=== PATIENT | female | born 1940 | race Caucasian/White ===

== ENCOUNTER 2017-01-27 18:38 | Inpatient (IN) | payer MEDICARE, OTHER ==
[2017-01-27] MEDS ORDERED: ACETAMINOPHEN TAB 500 MG TAB PO STA (18:43)
[2017-01-27] MEDS ORDERED: IBUPROFEN 600 MG TAB PO STA (18:43)
--- NOTE | 2017-01-27 18:52 | ED ---
General Adult HPI - General Stated complaint: UTI Time Seen by Provider: 01/27/17 18:41 Source: patient, RN notes reviewed Mode of arrival: EMS Limitations: no limitations - History of Present Illness Initial comments: 76-year-old female presents to the emergency department with a chief complaint of fever and weakness concern for UTI. Patient states that her illness started last night around 6:00. Patient states that she feels as if she is progressively getting worse. Patient does admit to a history of UTIs due to her spina bifida. Patient denies any nausea vomiting with this. Patient denies any abdominal pain. Patient denies any cough cold like symptoms. Patient states she just feels increased weakness. Patient states he took aspirin at home for her fever reoccurred. Patient states she was concerned due to the continued fever and increasing weakness so she thought that she should be evaluated. Patient denies any recent shortness of breath, chest pain, back pain, abdominal pain, nausea vomiting, numbness or tingling, dysuria or hematuria, constipation or diarrhea, headaches or visual changes, or any other current symptoms. - Related Data Home Medications Medication Instructions Recorded Confirmed Calcium Carbonate [Calcium] 600 mg PO DAILY 01/27/17 01/27/17 Glimepiride [Amaryl] 2 mg PO BID 01/27/17 01/27/17 Levothyroxine Sodium [Synthroid] 75 mcg PO DAILY 01/27/17 01/27/17 Losartan Potassium 100 mg PO DAILY 01/27/17 01/27/17 Vit C/E/Zn/Coppr/Lutein/Zeaxan 1 cap PO DAILY 01/27/17 01/27/17 [Preservision Areds 2 Softgel] amLODIPine [Norvasc] 5 mg PO DAILY 01/27/17 01/27/17 Allergies Allergy/AdvReac Type Severity Reaction Status Date / Time No Known Allergies Allergy Verified 01/27/17 18:40 Review of Systems ROS Statement: Those systems with pertinent positive or pertinent negative responses have been documented in the HPI. ROS Other: All systems not noted in ROS Statement are negative. 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 Past Psychological History: No Psychological Hx Reported Smoking Status: Never smoker Past Alcohol Use History: None Reported Past Drug Use History: None Reported General Exam - General Exam Comments Initial Comments: General: The patient is awake and alert, in no distress, and does appear ill. Eye: Pupils are equal, round and reactive to light. Ears, nose, mouth and throat: There are moist mucous membranes. Neck: The neck is supple, there is no tenderness. Cardiovascular: There is a regular rate and rhythm. No murmur, rub or gallop is appreciated. Respiratory: Lungs are clear to auscultation, respirations are non-labored, breath sounds are equal. No wheezes, stridor, rales, or rhonchi. Gastrointestinal: Soft, non-distended, non-tender abdomen without masses or organomegaly noted. There is no rebound or guarding present. No CVA tenderness. Bowel sounds are unremarkable. Skin: Skin is warm and dry and no rashes or lesions are noted. Psychiatric: Cooperative, appropriate mood & affect, normal judgment. Limitations: no limitations Course Vital Signs 01/27/17 18:42 Temperature 101.0 F H Pulse Rate 122 H Respiratory 18 Rate Blood Pressure 159/83 O2 Sat by Pulse 95 Oximetry - Reevaluation(s) Reevaluation #1: 01/27/17 19:33 At this time patient meets septic criteria. We are still pending a lactic acid to see if she requires in the appropriate fluid bolus. Medical Decision Making - Medical Decision Making 76 yo female Presents emergency Department chief complaint of fever and weakness. At this time patient does appear to be septic. Rocephin was started for the patient's UTI. This time we will admit the patient. This is discussed with patient as well as on-call provider Dr. Rivera who does agree with the plan. - Lab Data Result diagrams: 01/27/17 19:20 Lab Results 01/27/17 01/27/17 Range/Units 18:58 19:20 WBC 14.2 H (3.8-10.6) k/uL RBC 4.94 (3.80-5.40) m/uL Hgb 14.3 (11.4-16.0) gm/dL Hct 42.4 (34.0-46.0) % MCV 85.9 (80.0-100.0) fL MCH 28.9 (25.0-35.0) pg MCHC 33.7 (31.0-37.0) g/dL RDW 12.7 (11.5-15.5) % Plt Count 227 (150-450) k/uL Neutrophils % 85 % Lymphocytes % 5 % Monocytes % 8 % Eosinophils % 1 % Basophils % 0 % Neutrophils # 12.1 H (1.3-7.7) k/uL Lymphocytes # 0.7 L (1.0-4.8) k/uL Monocytes # 1.1 H (0-1.0) k/uL Eosinophils # 0.1 (0-0.7) k/uL Basophils # 0.1 (0-0.2) k/uL Urine Color Yellow Urine Appearance Turbid H (Clear) Urine pH 6.0 (5.0-8.0) Ur Specific [place] 1.013 (1.001-1.035) Urine Protein 2+ H (Negative) Urine Glucose (UA) Negative (Negative) Urine Ketones 1+ H (Negative) Urine Blood Moderate H (Negative) Urine Nitrite Negative (Negative) Urine Bilirubin Negative (Negative) Urine Urobilinogen <2.0 (<2.0) mg/dL Ur Leukocyte Esterase Large H (Negative) Urine RBC 47 H (0-5) /hpf Urine WBC >182 H (0-5) /hpf Urine WBC Clumps Many H (None) /hpf Urine Bacteria Rare H (None) /hpf - EKG Data -: EKG Interpreted by Me 01/27/17 19:14 Sinus tachycardia 113 bpm, normal axis, no atopy, no S-T depressions or elevations, - Radiology Data Radiology results: image reviewed Interpreted by me: Chest x-ray: 2 view: Poor imaging however there is little suspicion for an acute infiltrate. Pending radiology interpretation. Disposition Clinical Impression: Sepsis, UTI (urinary tract infection) Disposition: ADMITTED IP TO THIS [facility] Condition: Stable Referrals: Dennis Dawson MD [Primary Care Provider] - 1-2 days Time of Disposition: 19:42 Decision Date: 01/27/17 Decision Time: 19:42
[2017-01-27 19:30] LABS: Appearance,Urine Turbid (Clear); Bacteria,Urine Rare /hpf; Bilirubin,Urine Negative (Negative); Glucose,Urine (UA) Negative (Negative); Ketones,Urine 1+ (Negative); Leukocyte Esterase,Urine Large (Negative); Nitrite,Urine Negative (Negative); Particle Count 30089; Protein,Urine 2+ (Negative); RBC,Urine 47 /hpf (0-5); Specific Gravity,Urine 1.013 (1.001-1.035); UA Billing (MACRO vs. MICRO) MICRO; Urobilinogen,Urine <2.0 mg/dL (<2.0); WBC,Urine >182 /hpf (0-5)
[2017-01-27 19:36] LABS: Basophils # (A) 0.1 k/uL (0-0.2); Basophils % (A) 0 %; CH 29.2; CHCM 34.1; Eosinophils # (A) 0.1 k/uL (0-0.7); Eosinophils % (A) 1 %; HCT 42.4 % (34.0-46.0); HDW 2.52; HGB 14.3 gm/dL (11.4-16.0); Luc # (Auto) 0.18; Luc % (Auto) 1; Lymphocytes # (A) 0.7 k/uL (1.0-4.8); Lymphocytes % (A) 5 %; MCH 28.9 pg (25.0-35.0); MCHC 33.7 g/dL (31.0-37.0); MCV 85.9 fL (80.0-100.0); Mean Platelet Volume 6.8; Monocytes # (A) 1.1 k/uL (0-1.0); Monocytes % (A) 8 %; Neutrophils # (A) 12.1 k/uL (1.3-7.7); Neutrophils % (A) 85 %; RBC 4.94 m/uL (3.80-5.40); RDW 12.7 % (11.5-15.5); WBC 14.2 k/uL (3.8-10.6); WBC (Perox) 13.91
[2017-01-27] MEDS: SODIUM CHLORIDE 0.9% 500 ML IV SCH ×4 (19:39→22:55)
[2017-01-27 19:43] LABS: ALT 30 U/L (9-52); AST 19 U/L (14-36); Alkaline Phosphatase 109 U/L (38-126); Anion Gap 11 mmol/L; Blood Urea Nitrogen 25 mg/dL (7-17); Calcium 8.9 mg/dL (8.4-10.2); Carbon Dioxide 25 mmol/L (22-30); Chloride 97 mmol/L (98-107); Glucose 285 mg/dL (74-99); Non-African American GFR(MDRD) >60 (>60 ml/min/1.73 sqM); Potassium 4.2 mmol/L (3.5-5.1); Sodium 133 mmol/L (137-145)
--- NOTE | 2017-01-27 19:56 | XR ---
EXAMINATION TYPE: XR chest 2V DATE OF EXAM: 01/27/2017 7:39 PM COMPARISON: 06/17/2010 HISTORY: Fever and weakness TECHNIQUE: Frontal and lateral views of the chest are obtained. FINDINGS: There is no heart failure nor confluent pneumonic infiltrate. Exam is limited by the patie nt's size. I see no pleural effusion. IMPRESSION: No active cardiopulmonary disease. No change.
[2017-01-27 20:09] LABS: INR 1.1 (<1.1); Partial Thromboplastin Time 23.9 sec (22.0-30.0); Prothrombin Time 11.4 sec (9.0-12.0)
[2017-01-27 22:21] VITALS: BMI 45.8
[2017-01-27] MEDS: GLIMEPIRIDE 2 MG TAB PO SCH (22:51)
[2017-01-27] MEDS: SODIUM CHLORIDE 0.45% 1,000 ML IV SCH (22:52)
[2017-01-28 03:34] LABS: Glucose,Whole Blood 245 mg/dL (75-99)
[2017-01-28 04:00] LABS: Basophils % (A) 0 %; CH 28.9; Eosinophils # (A) 0.1 k/uL (0-0.7); Eosinophils % (A) 1 %; HCT 46.6 % (34.0-46.0); HDW 2.58; HGB 15.3 gm/dL (11.4-16.0); Luc # (Auto) 0.08; Luc % (Auto) 1; Lymphocytes # (A) 0.9 k/uL (1.0-4.8); Lymphocytes % (A) 9 %; MCHC 32.9 g/dL (31.0-37.0); MCV 88.1 fL (80.0-100.0); Mean Platelet Volume 6.8; Monocytes # (A) 0.3 k/uL (0-1.0); Monocytes % (A) 3 %; Neutrophils # (A) 8.3 k/uL (1.3-7.7); Neutrophils % (A) 86 %; RBC 5.28 m/uL (3.80-5.40); RDW 12.6 % (11.5-15.5); WBC 9.7 k/uL (3.8-10.6); WBC (Perox) 9.83
[2017-01-28] MEDS ORDERED: amLODIPine 5 MG TAB PO ONE (04:04)
[2017-01-28] MEDS ORDERED: LOSARTAN 50 MG TAB PO STA (04:06)
[2017-01-28] MEDS ORDERED: ONDANSETRON 4 MG/2 ML VIAL IVP PRN (04:07)
[2017-01-28] MEDS ORDERED: HYDROcodone/APAP 10-325MG 1 EACH TAB PO PRN (04:07)
[2017-01-28 04:09] LABS: ALT 32 U/L (9-52); AST 30 U/L (14-36); Alkaline Phosphatase 124 U/L (38-126); Anion Gap 13 mmol/L; Blood Urea Nitrogen 21 mg/dL (7-17); Calcium 8.5 mg/dL (8.4-10.2); Carbon Dioxide 24 mmol/L (22-30); Chloride 103 mmol/L (98-107); Glucose 266 mg/dL (74-99); Non-African American GFR(MDRD) >60 (>60 ml/min/1.73 sqM); Potassium 3.8 mmol/L (3.5-5.1); Sodium 140 mmol/L (137-145); Total Bilirubin 0.7 mg/dL (0.2-1.3); Total Protein 7.4 g/dL (6.3-8.2)
[2017-01-28] MEDS ORDERED: SODIUM CHLORIDE 0.9% 500 ML IV ONE (04:16)
[2017-01-28] MEDS: SODIUM CHLORIDE 0.45% 1,000 ML IV SCH ×2 (06:46→11:06)
[2017-01-28] MEDS: GLIMEPIRIDE 2 MG TAB PO SCH ×2 (08:26→20:41)
[2017-01-28] MEDS: CALCIUM CARBONATE 500 MG CHEWABLE PO SCH (08:26)
[2017-01-28] MEDS: LEVOTHYROXINE 75 MCG TAB PO SCH (08:26)
[2017-01-28] MEDS: VIT A,C & E-LUTEIN-MINERALS 1 EACH TAB PO SCH (08:27)
[2017-01-28] MEDS ORDERED: amLODIPine 5 MG TAB PO SCH (09:00)
[2017-01-28] MEDS ORDERED: cefTRIAXone 1,000 MG VIAL (IM USE) IM SCH (09:00)
[2017-01-28] MEDS ORDERED: LOSARTAN 50 MG TAB PO SCH (09:00)
[2017-01-28] MEDS: IBUPROFEN 600 MG TAB PO PRN ×2 (11:31→20:07)
[2017-01-28] MEDS: SODIUM CHLORIDE 0.9% 1,000 ML IV SCH ×2 (11:58→20:45)
--- NOTE | 2017-01-28 14:32 | HP ---
DATE OF ADMISSION: Patient is a 76-year-old female who came in with complaints of fever and generalized weakness and found to have a high-grade fevers and patient has history of spina bifida because of which patient has a urinary retention leading to multiple UTIs in the past, although previous urine cultures are unavailable. Patient was also having nausea, vomiting and patient denied any dysuria. Patient had a high-grade fever starting day before and weakness started day before. Patient denied any lightheadedness. Patient denied any diarrhea at this point of time. Patient was evaluated by Urology in the past for urinary retention and incomplete emptying of the bladder which is making her to have at these multiple UTIs and patient is admitted for sepsis with highly elevated lactic acid and leukocytosis. Lactic acid which improved with IV fluid resuscitation. Patient is on Rocephin with significantly improved symptoms. Patient is feeling much better today. REVIEW OF SYSTEMS: GENERAL: As describe in HPI. HEENT: No recent visual problems or hearing problems. Denied any sore throat. CARDIOVASCULAR: No chest pain, orthopnea, PND, no palpitations, no syncope. PULMONARY: No shortness of breath, no cough, no hemoptysis. GASTROINTESTINAL: No diarrhea, no nausea, no vomiting, no abdominal pain. Normoactive bowel sounds. NEUROLOGICAL: No headaches, no weakness, no numbness. HEMATOLOGICAL: Denies any bleeding or petechiae. GENITOURINARY: Denies any burning micturition, frequency, or urgency. MUSCULOSKELETAL/RHEUMATOLOGICAL: Denies any joint pain, swelling, or any muscle pain. ENDOCRINE: Denies any polyuria or polydipsia. The rest of the 14 point review of systems is negative. Home medications include: 1. Calcium carbonate. 2. Glimepiride. 3. Levothyroxine. 4. Losartan. 5. Multivitamin. 6. Amlodipine. ALLERGIES: No known drug allergies. PAST MEDICAL HISTORY: Hypertension, spina bifida, hysterectomy, orthopedic surgery in the past and incomplete bladder emptying or urinary retention, hyperlipidemia. SOCIAL HISTORY: Denied any smoking, alcohol abuse or any drug abuse. FAMILY HISTORY: Significant for diabetes mellitus in multiple family members. PHYSICAL EXAMINATION: Temperature 98.6, pulse of 101 and respiratory rate of 16, blood pressure is 112/59, saturating at 94% on room air. GENERAL: The patient is alert and oriented x3, not in any acute distress. Well developed, well nourished. HEENT: Pupils are round and equally reacting to light. EOMI. No scleral icterus. No conjunctival pallor. Normocephalic, atraumatic. No pharyngeal erythema. No thyromegaly. CARDIOVASCULAR: S1 and S2 present. No murmurs, rubs, or gallops. PULMONARY: Chest is clear to auscultation, no wheezing or crackles. ABDOMEN: Soft, nontender, nondistended, normoactive bowel sounds. No palpable organomegaly. EXTREMITIES: No cyanosis, clubbing, or pedal edema. NEUROLOGICAL: Gross neurological examination did not reveal any focal deficits. SKIN: No rashes. MUSCULOSKELETAL: Patient does have deformities in the back consistent with spina bifida and may be kyphosis as well. LABORATORY DATA: CBC, CMP abnormal for elevated WBC count, which improved at this point of time, elevated lactic acid which also improved. Urine is positive turbid appearance, 2+ protein, 1+ ketone, moderate blood, large leukocyte esterase and 47 RBC, 182 WBC with WBC clumps and bacteria rare. Urinary nitrate is negative. ASSESSMENT AND PLAN: 1. Severe sepsis secondary to urinary tract infection. Urine cultures and blood cultures were obtained and patient will be continued on antibiotics in the form of Rocephin, IV fluids will be changed to normal saline. Patient was hyponatremic yesterday, possibly hypovolemic, hyponatremia. 2. 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 3. Hypertension. 4. Hyperlipidemia. 5. Hypothyroidism. For above-mentioned chronic medical problems, I will go ahead and continue her home medications except for cutting down on losartan because of sepsis and low-normal blood pressures. Patient is on Norvasc, which will be held as well because of her low blood pressures and sepsis.
[2017-01-28 19:56] LABS: Hemoglobin A1C 8.6 % (4.2-6.1)
[2017-01-28 20:09] LABS: Glucose,Whole Blood 221 mg/dL (75-99)
[2017-01-28] MEDS: INSULIN LISPRO (humaLOG) 300 UNIT/3 ML VIAL SQ SCH (20:41)
[2017-01-28 22:46] VITALS: RESP 18
[2017-01-29] MEDS: IBUPROFEN 600 MG TAB PO PRN ×2 (03:01→12:34)
[2017-01-29 07:28] LABS: CH 28.8; CHCM 33.2; HDW 2.73; HGB 12.6 gm/dL (11.4-16.0); MCH 28.9 pg (25.0-35.0); MCHC 33.1 g/dL (31.0-37.0); MCV 87.2 fL (80.0-100.0); Mean Platelet Volume 6.8; RBC 4.36 m/uL (3.80-5.40); RDW 12.8 % (11.5-15.5)
[2017-01-29] MEDS: INSULIN LISPRO (humaLOG) 300 UNIT/3 ML VIAL SQ SCH ×2 (07:29→12:20)
[2017-01-29 07:33] LABS: Glucose,Whole Blood 93 mg/dL (75-99)
[2017-01-29 07:49] LABS: Anion Gap 10 mmol/L; Blood Urea Nitrogen 13 mg/dL (7-17); Carbon Dioxide 23 mmol/L (22-30); Chloride 109 mmol/L (98-107); Glucose 91 mg/dL (74-99); Non-African American GFR(MDRD) >60 (>60 ml/min/1.73 sqM); Potassium 3.5 mmol/L (3.5-5.1); Sodium 142 mmol/L (137-145)
[2017-01-29] MEDS: SODIUM CHLORIDE 0.9% 1,000 ML IV SCH (07:55)
[2017-01-29] MEDS: CALCIUM CARBONATE 500 MG CHEWABLE PO SCH (07:58)
[2017-01-29] MEDS: GLIMEPIRIDE 2 MG TAB PO SCH (07:59)
[2017-01-29] MEDS: LEVOTHYROXINE 75 MCG TAB PO SCH (07:59)
[2017-01-29] MEDS: VIT A,C & E-LUTEIN-MINERALS 1 EACH TAB PO SCH (07:59)
[2017-01-29] MEDS ORDERED: LOSARTAN 50 MG TAB PO SCH (09:00)
[2017-01-29 12:23] LABS: Glucose,Whole Blood 227 mg/dL (75-99)
[2017-01-29] MEDS ORDERED: NYSTATIN 100,000 UNIT/ML SUSP 500,000 UNIT/5 ML CUP PO SCH (13:00)
--- NOTE | 2017-01-29 14:10 | PN ---
Patient is admitted secondary to severe sepsis secondary to UTI. Patient has significant clinical improvement. Her urine cultures are positive for gram-negative bacilli, finalization of the cultures are pending. Patient probably will be discharged tomorrow depending on the urine cultures and studies and oral antibiotics. Patient is still feeling weak she says. REVIEW OF SYSTEMS: GENERAL: As described in HPI. CARDIOVASCULAR: No chest pain, no orthopnea, no PND, no palpitations. PULMONARY: Denied any shortness of breath. No cough or hemoptysis. GASTROINTESTINAL: No diarrhea, nausea or vomiting. No abdominal pain. Normoactive bowel sounds. NEUROLOGIC: No headaches, no weakness, no numbness. Medications are reviewed. PHYSICAL EXAMINATION: VITAL SIGNS: Temperature 97.2, pulse of 82, respiratory rate of 18, blood pressure 129/68, saturating at 97% on room air. GENERAL: The patient is alert and oriented x3, not in any acute distress. Well developed, well nourished. HEENT: Pupils are round and equally reacting to light. EOMI. No scleral icterus. No conjunctival pallor. Normocephalic, atraumatic. No pharyngeal erythema. No thyromegaly. CARDIOVASCULAR: S1 and S2 present. No murmurs, rubs, or gallops. PULMONARY: Chest is clear to auscultation, no wheezing or crackles. ABDOMEN: Soft, nontender, nondistended, normoactive bowel sounds. No palpable organomegaly. EXTREMITIES: No cyanosis, clubbing, or pedal edema. NEUROLOGICAL: Gross neurological examination did not reveal any focal deficits. SKIN: No rashes. MUSCULOSKELETAL: No change compared to yesterday. LABORATORY DATA: CBC, CMP: No significant abnormality was appreciated. ASSESSMENT AND PLAN: 1. Severe sepsis secondary to urinary tract infection, pending cultures. 2. 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 3. Hypertension. 4. Hyperlipidemia. 5. Hypothyroidism. Plan as mentioned above. Patient most probably will be discharged tomorrow.
[2017-01-29 15:34] VITALS: BP 121/56; PULSE 94; TEMP 98.3
--- NOTE | 2017-01-29 22:59 | DS ---
DATE OF ADMISSION: 01/27/2017 DATE OF DISCHARGE: 01/29/2017 The patient is admitted secondary to sepsis from urinary tract infection. Patient is feeling much better today. Patient was on Rocephin. Patient wanted to be discharged. I do not have the finalization of the cultures. I will follow the cultures tomorrow. Patient will be discharged today as per her request and patient's blood pressure remained on the low-normal side in spite of completely discontinuing amlodipine and cutting down losartan. So amlodipine will be discontinued, we will cut down dose of losartan. Patient will be discharged on 7 days of Ceftin. Follow the urine cultures tomorrow. If patient gram negative bacilli is not sensitive to Ceftin, I will call the patient tomorrow and we will change her medication accordingly. Patient will follow with Dr. Dawson in 3 to 7 days. Activity as tolerated. DISCHARGE DIET: Cardiac and ADA 1800 calorie diet. Spent greater than 35 minutes in total discharge process. For further details of hospitalization course, please refer to my dictation of progress note from today.
[2017-01-30] MEDS ORDERED: LEVOTHYROXINE 75 MCG TAB PO SCH (09:00)
== END 2017-01-29 17:10 | disposition home or self-care (01) | DRG 872 ==
LOC: EC 18:38 → 5MS5E 19:45
PROVIDERS: ADMIT Internal Medicine; ATTEND Internal Medicine
DX: A41.9 Sepsis, unspecified organism (principal); N39.0 Urinary tract infection, site not specified; E87.1 Hypo-osmolality and hyponatremia; Q05.9 Spina bifida, unspecified; I10 Essential (primary) hypertension; E78.5 Hyperlipidemia, unspecified; E03.9 Hypothyroidism, unspecified; R65.20 Severe sepsis without septic shock; R33.8 Other retention of urine; Z90.710 Acquired absence of both cervix and uterus; Z87.440 Personal history of urinary (tract) infections; Z79.84 Long term (current) use of oral hypoglycemic drugs; Z79.899 Other long term (current) drug therapy
CPT/HCPCS: 36415; 71020; 80048; 80053; 81001; 83036; 83605; 85025; 85027; 85610; 85730; 87040; 87077; 87086; 87186; 93005; 96360; 99285

== ENCOUNTER → 2017-02-02 | Outpatient (CLI) | payer MEDICARE, OTHER ==
--- NOTE | 2017-02-02 14:34 | BD ---
EXAMINATION TYPE: MG DEXA axial skeleton. DATE OF EXAM: 02/02/2017 CLINICAL HISTORY: Height: 52 inches Weight: 169 pounds FRAX RISK QUESTIONS: Alcohol (3 or more units per day): no Family History (Parent hip fracture): no Glucocorticoids (More than 3mos): inhaler very rarely, nasal spray for allergies-Flonase more freque ntly (Ex: prednisone, prednisolone, methylprednisolone, dexamethasone, and hydrocortisone). History of Fracture in Adulthood: yes, fingers Secondary Osteoporosis: 1. Type 1 Diabetic-no 2. Hyperthyroidism: no 3. Menopause before 45: hysterectomy age 30, menopause age 55 4. Malnutrition: no 5. Chronic liver disease: no Rheumatoid Arthritis: no Current Tobacco Use: no RISK FACTORS HISTORY OF: Family History of Osteoporosis: no Drink Alcohol: no Active: not very,uses "Amigo" Diet low in dairy products/other sources of calcium: no Postmenopausal woman: yes Take estrogen and/or progesterone medications: not now How long: about 12 years Lost more than 2 inches in height since high school: yes Frequent falls: no Poor Health: somewhat Hyperparathyroidism: no Adrenal Insufficiency: no MEDICATIONS: Prednisone or other steroids: inhaler How Long: on & off for several years...rarely uses inhaler; however does use Flonase with more regula rity Thyroid Medications: yes Which medication: Synthroid How Long: at least since 2013 Osteoporosis Medications: no Additional Medications: calcium, diabetes meds (Amaryl) Additional History: spina bifada as child EXAM MEASUREMENTS: Bone mineral densitometry was performed using the [employer] System. Bone mineral density NOT measured about the Lumbar spine because of history of Spina Bifada Bone mineral density about the R hip (g/cm2): 1.122 Bone mineral density about the L hip (g/cm2): 0.814 T Score values are as follows: -----R Neck: 0.6 -----L Neck: -1.6 -----R Total: -1.9 -----L Total: -1.5 Bone mineral density has: Decreased -5.6% since study of: 09/03/2014 Impressions: Osteopenia (T Score between -2.5 and -1 as noted by T score values There is slightly increased risk of fracture and the patient may be considered for treatment. Re-Screen 2-5 years NOTE: T-SCORE=SD OF THE YOUNG ADULT MEAN.
--- NOTE | 2017-02-03 10:53 | MM ---
Reason for exam: screening (asymptomatic). Last mammogram was performed 2 years and 5 months ago. History: Patient is postmenopausal and is nulliparous. Family history of breast cancer in aunt. Benign stereotactic core biopsy of the left breast, 1999. Took estrogen for 12 years. Took progesterone for 12 years. Physical Findings: A clinical breast exam by your physician is recommended on an annual basis and results should be correlated with mammographic findings. MG 3D Screening Mammo W/Cad Bilateral CC and MLO view(s) were taken. Prior study comparison: September 03, 2014, bilateral MG screening mammo w CAD. December 15, 2011, bilateral digital screening mammo w/CAD. There are scattered fibroglandular densities. Finding: There are typically benign round, diffused and grouped calcifications in both breasts. There are excisional clips in the lower inner anterior position of the left breast. There is a chronic nodularity in the left breast. There is no discrete abnormality. ASSESSMENT: Benign, BI-RAD 2 RECOMMENDATION: Routine screening mammogram of both breasts in 1 year.
== END | disposition home or self-care (01) ==
LOC: RADMAMWWP 11:42
PROVIDERS: ATTEND Family Medicine
DX: Z12.31 Encounter for screening mammogram for malignant neoplasm of breast (principal); M85.80 Other specified disorders of bone density and structure, unspecified site; Z78.0 Asymptomatic menopausal state
CPT/HCPCS: 77080; 77063; G0202

== ENCOUNTER → 2019-03-06 | Outpatient (CLI) | payer MEDICARE, OTHER ==
--- NOTE | 2019-03-07 09:15 | MM ---
Reason for exam: screening (asymptomatic). Last mammogram was performed 2 years and 1 month ago. History: Patient is postmenopausal and is nulliparous. Family history of breast cancer in aunt. Benign stereotactic core biopsy of the left breast, 1999. Benign excisional biopsy, 1979. Took estrogen for 12 years. Took progesterone for 12 years. Physical Findings: A clinical breast exam by your physician is recommended on an annual basis and results should be correlated with mammographic findings. MG 3D Screening Mammo W/Cad Bilateral CC and MLO view(s) were taken. Prior study comparison: February 02, 2017, bilateral MG 3d screening mammo w/cad. September 03, 2014, bilateral MG screening mammo w CAD. There are scattered fibroglandular densities. Benign appearing bilateral calcifications. Post surgical change left breast. ASSESSMENT: Benign, BI-RAD 2 RECOMMENDATION: Routine screening mammogram of both breasts in 1 year.
== END | disposition home or self-care (01) ==
LOC: RADMAMWWP 10:53
PROVIDERS: ATTEND Family Medicine
DX: Z12.31 Encounter for screening mammogram for malignant neoplasm of breast (principal)
CPT/HCPCS: 77063; 77067

== ENCOUNTER → 2019-08-21 | Outpatient (CLI) | payer MEDICARE ==
--- NOTE | 2019-08-21 11:59 | XR ---
EXAMINATION TYPE: XR shoulder complete BILAT DATE OF EXAM: 08/21/2019 CLINICAL HISTORY: Bilateral shoulder pain with known osteoarthritis. TECHNIQUE: Three views of the bilateral shoulders were obtained. COMPARISON: None. FINDINGS: There is no acute fracture/dislocation evident either shoulder. There is severe joint spac e narrowing of the left glenohumeral joint with protuberant osteophytes. There is opposing surface sc lerosis of the glenohumeral joint and subchondral cystic change. Mild acromioclavicular arthropathy i s seen with small marginal osteophytes. There is diffuse osseous demineralization. On the right there is mild joint space narrowing of the acromioclavicular and glenohumeral joints with small marginal o steophytes. No suspicious osseous lesion of either shoulder. IMPRESSION: 1. Advanced arthropathy of the left shoulder with [id number] articulation of the glenohumeral joint . 2. Mild right glenohumeral arthropathy. 3. Mild bilateral acromioclavicular arthropathy.
== END | disposition home or self-care (01) ==
LOC: RADXRMAIN 11:26
PROVIDERS: ATTEND Family Medicine
DX: M12.812 Other specific arthropathies, not elsewhere classified, left shoulder (principal); M12.811 Other specific arthropathies, not elsewhere classified, right shoulder

== ENCOUNTER 2022-08-29 16:11 | Inpatient (IN) | payer MEDICARE ==
--- NOTE | 2022-08-29 16:23 | ED ---
General Adult HPI - General Stated complaint: Weakness Time Seen by Provider: 08/29/22 16:18 - History of Present Illness Initial comments: This is an 82-year-old female with a past medical history including hypertension, hypothyroidism and diabetes presents emergency department via EMS for feeling weak. The patient stated that she thinks that she has been feeling weak over the last 3 days and stated that she felt that it was worse today. The patient reportedly had a an elevated blood sugar but she thought the blood sugar was actually low so she continued to eat more sugar at home. The blood glucose was reportedly 414 per EMS. The patient stated that she was planning to be moved to an assisted living facility on Wednesday but stated that her weakness she wanted to be evaluated today to make sure breathing WAS okay. The patient denied any trauma denied any falls. The patient denied any acute pain on my evaluation was resting in bed comfortably. The patient denied any fevers, chills, nausea and vomiting. - Related Data Home Medications Medication Instructions Recorded Confirmed Calcium Carbonate [Calcium] 600 mg PO DAILY 01/27/17 01/27/17 Glimepiride [Amaryl] 2 mg PO BID 01/27/17 01/27/17 Levothyroxine Sodium [Synthroid] 75 mcg PO DAILY 01/27/17 01/27/17 Vit C/E/Zn/Coppr/Lutein/Zeaxan 1 cap PO DAILY 01/27/17 01/27/17 [Preservision Areds 2 Softgel] Previous Rx's Medication Instructions Recorded Losartan Potassium 50 mg PO DAILY #0 01/29/17 Nystatin 100,000 Unit/ml Susp 500,000 unit PO QID #30 dose 01/29/17 [Mycostatin Oral Susp] cefUROXime axetiL [Ceftin] 500 mg PO BID #14 tab 01/29/17 Allergies Allergy/AdvReac Type Severity Reaction Status Date / Time erythromycin base AdvReac Intermediate Vomiting Verified 01/27/17 19:46 Review of Systems ROS Statement: Those systems with pertinent positive or pertinent negative responses have been documented in the HPI. ROS Other: All systems not noted in ROS Statement are negative. 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 Past Anesthesia/Blood Transfusion Reactions: No Reported Reaction Past Psychological History: No Psychological Hx Reported Past Alcohol Use History: None Reported Past Drug Use History: None Reported - Past Family History Father Family Medical History: Diabetes Mellitus General Exam Limitations: no limitations General appearance: alert, in no apparent distress, obese Head exam: Present: atraumatic, normocephalic Eye exam: Present: normal appearance, PERRL Pupils: Present: normal accommodation ENT exam: Present: normal exam, normal oropharynx, mucous membranes moist Neck exam: Present: normal inspection, full ROM Respiratory exam: Present: normal lung sounds bilaterally Cardiovascular Exam: Present: regular rate, normal rhythm, normal heart sounds GI/Abdominal exam: Present: soft, normal bowel sounds Extremities exam: Present: normal inspection, full ROM, normal capillary refill Back exam: Present: normal inspection, full ROM Neurological exam: Present: alert, oriented X3, CN II-XII intact Psychiatric exam: Present: normal affect, normal mood Skin exam: Present: warm, dry Course Vital Signs 08/29/22 08/29/22 08/29/22 16:12 16:39 19:45 Temperature 98.2 F 98.2 F Pulse Rate 89 88 Pulse Rate [ 76 Medical Assistant Ob Gyn ] Respiratory 18 15 Rate Blood Pressure 121/67 101/62 O2 Sat by Pulse 99 100 Oximetry 08/29/22 20:00 Temperature Pulse Rate 90 Pulse Rate [ Medical Assistant Ob Gyn ] Respiratory 15 Rate Blood Pressure 94/49 O2 Sat by Pulse 100 Oximetry EKG Findings - EKG Comments: EKG Findings:: In EKG was obtained and was interpreted by myself. EKG showed a rate of 100, CA interval 174, QRS duration of 88 and QTC of 4:15. This EKG showed a sinus tachycardia with PVCs. There was no ST segment elevation or depression noted. Medical Decision Making - Medical Decision Making Was pt. sent in by a medical professional or institution? @ -No Did you speak to anyone other than the patient for history? @ -EMS Did you review nursing and triage notes? @ -Nursing and triage notes were obtained and reviewed Were old charts reviewed? @ -No Differential Diagnosis? @ -Altered mental status, UTI, anemia, diabetic ketoacidosis, HHS EKG interpreted by me (3pts min.)? @ -As above X-rays interpreted by me (1pt min.)? @ -Chest x-ray was obtained and was interpreted by myself. X-ray showed mild atelectasis or scarring at the right middle lobe similar to the old exam. CT interpreted by me (1pt min.)? @ -[none] U/S interpreted by me (1pt. min.)? @ -[none] What testing was considered but not performed? (CT, X-rays, U/S, labs)? Why? @Computed tomography scan was considered however the patient denied of any acute abdominal pain and chest x-ray was negative. What meds were considered but not given? Why? @ -[none] Did you discuss the management of the patient with other professionals? @ -Yes, admitting physician, Dr. Garcia Did you reconcile home meds? @ -[none] Was smoking cessation discussed for >3mins.? @ -[none] Was critical care preformed (if so, how long)? @ -[none] Were there social determinants of health that impacted care today? How? (Homelessness, low income, unemployed, alcoholism, drug addiction, transportation, low edu. Level, literacy, decrease access to med. care, custodial, rehab)? @ -None Was there de-escalation of care discussed even if they declined? (Discuss DNR or withdrawal of care, Hospice)? @ -No What co-morbidities impacted this encounter? (DM, HTN, Smoking, COPD, CAD, Cancer, CVA, Hep., AIDS, mental health diagnosis, sleep apnea, morbid obesity)? @ -Hypertension, diabetes Was patient admitted / discharged? @ -The patient was seen and evaluated in the emergency department. Physical exam, the patient was resting in bed without any acute distress. Vital signs admission were stable and within normal limits. Due to the nature the patient's complaints, laboratory workup was obtained. Hemoglobin was 6.5 and the patient did receive 2 units of packed red blood cells. Due to the patient's continued weakness at home the patient was likely having symptoms of any anemia and when I went to reevaluate the patient, the patient did state that she felt unsafe to go home with as she was living by herself. Due to the patient symptomatically anemia however the patient will be admitted and the patient's primary care physician was being covered by Dr. Garcia. He did accept the patient for admission at [facility]. The patient was told of this plan and was agreeable. The patient was admitted in stable condition. Undiagnosed new problem with uncertain prognosis? @ -[none] Drug Therapy requiring intensive monitoring for toxicity (Heparin, Nitro, Insulin, Cardizem)? @ -[none] Were any procedures done? @ -[none] Diagnosis/symptom? @ -Symptomatic anemia with hemoglobin of 6.5 Acute, or Chronic, or Acute on Chronic? @ -Acute Uncomplicated (without systemic symptoms) or Complicated (systemic symptoms)? @ -Uncomplicated Side effects of treatment? @ -[none] Exacerbation, Progression, or Severe Exacerbation] @ -[no] Poses a threat to life or bodily function? @ -[no] - Lab Data Result diagrams: 08/29/22 16:39 08/29/22 16:39 Lab Results 08/29/22 08/29/22 08/29/22 Range/Units 16:39 16:39 16:39 WBC 7.0 (3.8-10.6) k/uL RBC 2.58 L (3.80-5.40) m/uL Hgb 6.5 L* (11.4-16.0) gm/dL Hct 21.0 L (34.0-46.0) % MCV 81.5 (80.0-100.0) fL MCH 25.1 (25.0-35.0) pg MCHC 30.8 L (31.0-37.0) g/dL RDW 15.8 H (11.5-15.5) % Plt Count 287 (150-450) k/uL MPV 7.7 Neutrophils % 68 % Lymphocytes % 22 % Monocytes % 6 % Eosinophils % 1 % Basophils % 1 % Neutrophils # 4.8 (1.3-7.7) k/uL Lymphocytes # 1.6 (1.0-4.8) k/uL Monocytes # 0.4 (0-1.0) k/uL Eosinophils # 0.1 (0-0.7) k/uL Basophils # 0.0 (0-0.2) k/uL Hypochromasia Marked VBG pH (7.31-7.41) VBG pCO2 (37-51) mmHg VBG HCO3 (24-28) mmol/L Sodium 135 L (137-145) mmol/L Potassium 3.6 (3.5-5.1) mmol/L Chloride 106 (98-107) mmol/L Carbon Dioxide 22 (22-30) mmol/L Anion Gap 7 mmol/L BUN 40 H (7-17) mg/dL Creatinine 0.77 (0.52-1.04) mg/dL Est GFR (CKD-EPI)AfAm 83 (>60 ml/min/1.73 sqM) Est GFR (CKD-EPI)NonAf 72 (>60 ml/min/1.73 sqM) Glucose 255 H (74-99) mg/dL Calcium 8.1 L (8.4-10.2) mg/dL Magnesium 2.2 (1.6-2.3) mg/dL Total Bilirubin <0.1 L (0.2-1.3) mg/dL AST 19 (14-36) U/L ALT 19 (4-34) U/L Alkaline Phosphatase 77 (38-126) U/L Troponin I <0.012 (0.000-0.034) ng/mL NT-Pro-B Natriuret Pep pg/mL Total Protein 5.6 L (6.3-8.2) g/dL Albumin 3.3 L (3.5-5.0) g/dL Lipase 285 (23-300) U/L Urine Color Urine Appearance (Clear) Urine pH (5.0-8.0) Ur Specific [place] (1.001-1.035) Urine Protein (Negative) Urine Glucose (UA) (Negative) Urine Ketones (Negative) Urine Blood (Negative) Urine Nitrite (Negative) Urine Bilirubin (Negative) Urine Urobilinogen (<2.0) mg/dL Ur Leukocyte Esterase (Negative) Blood Type Blood Type Confirm Blood Type Recheck Bld Type Recheck Status Antibody Screen Crossmatch Spec Expiration Date 08/29/22 08/29/22 08/29/22 Range/Units 16:39 16:39 17:30 WBC (3.8-10.6) k/uL RBC (3.80-5.40) m/uL Hgb (11.4-16.0) gm/dL Hct (34.0-46.0) % MCV (80.0-100.0) fL MCH (25.0-35.0) pg MCHC (31.0-37.0) g/dL RDW (11.5-15.5) % Plt Count (150-450) k/uL MPV Neutrophils % % Lymphocytes % % Monocytes % % Eosinophils % % Basophils % % Neutrophils # (1.3-7.7) k/uL Lymphocytes # (1.0-4.8) k/uL Monocytes # (0-1.0) k/uL Eosinophils # (0-0.7) k/uL Basophils # (0-0.2) k/uL Hypochromasia VBG pH 7.36 (7.31-7.41) VBG pCO2 37 (37-51) mmHg VBG HCO3 20 L (24-28) mmol/L Sodium (137-145) mmol/L Potassium (3.5-5.1) mmol/L Chloride (98-107) mmol/L Carbon Dioxide (22-30) mmol/L Anion Gap mmol/L BUN (7-17) mg/dL Creatinine (0.52-1.04) mg/dL Est GFR (CKD-EPI)AfAm (>60 ml/min/1.73 sqM) Est GFR (CKD-EPI)NonAf (>60 ml/min/1.73 sqM) Glucose (74-99) mg/dL Calcium (8.4-10.2) mg/dL Magnesium (1.6-2.3) mg/dL Total Bilirubin (0.2-1.3) mg/dL AST (14-36) U/L ALT (4-34) U/L Alkaline Phosphatase (38-126) U/L Troponin I (0.000-0.034) ng/mL NT-Pro-B Natriuret Pep 175 pg/mL Total Protein (6.3-8.2) g/dL Albumin (3.5-5.0) g/dL Lipase (23-300) U/L Urine Color Urine Appearance (Clear) Urine pH (5.0-8.0) Ur Specific [place] (1.001-1.035) Urine Protein (Negative) Urine Glucose (UA) (Negative) Urine Ketones (Negative) Urine Blood (Negative) Urine Nitrite (Negative) Urine Bilirubin (Negative) Urine Urobilinogen (<2.0) mg/dL Ur Leukocyte Esterase (Negative) Blood Type O Positive Blood Type Confirm Blood Type Recheck No Previous Record Bld Type Recheck Status CABO Indicated Antibody Screen NEGATIVE Crossmatch See Detail Spec Expiration Date 09/01/2022 - 232908/29/22 08/29/22 Range/Units 17:35 19:04 WBC (3.8-10.6) k/uL RBC (3.80-5.40) m/uL Hgb (11.4-16.0) gm/dL Hct (34.0-46.0) % MCV (80.0-100.0) fL MCH (25.0-35.0) pg MCHC (31.0-37.0) g/dL RDW (11.5-15.5) % Plt Count (150-450) k/uL MPV Neutrophils % % Lymphocytes % % Monocytes % % Eosinophils % % Basophils % % Neutrophils # (1.3-7.7) k/uL Lymphocytes # (1.0-4.8) k/uL Monocytes # (0-1.0) k/uL Eosinophils # (0-0.7) k/uL Basophils # (0-0.2) k/uL Hypochromasia VBG pH (7.31-7.41) VBG pCO2 (37-51) mmHg VBG HCO3 (24-28) mmol/L Sodium (137-145) mmol/L Potassium (3.5-5.1) mmol/L Chloride (98-107) mmol/L Carbon Dioxide (22-30) mmol/L Anion Gap mmol/L BUN (7-17) mg/dL Creatinine (0.52-1.04) mg/dL Est GFR (CKD-EPI)AfAm (>60 ml/min/1.73 sqM) Est GFR (CKD-EPI)NonAf (>60 ml/min/1.73 sqM) Glucose (74-99) mg/dL Calcium (8.4-10.2) mg/dL Magnesium (1.6-2.3) mg/dL Total Bilirubin (0.2-1.3) mg/dL AST (14-36) U/L ALT (4-34) U/L Alkaline Phosphatase (38-126) U/L Troponin I (0.000-0.034) ng/mL NT-Pro-B Natriuret Pep pg/mL Total Protein (6.3-8.2) g/dL Albumin (3.5-5.0) g/dL Lipase (23-300) U/L Urine Color Light Yellow Urine Appearance Clear (Clear) Urine pH 5.0 (5.0-8.0) Ur Specific [place] 1.009 (1.001-1.035) Urine Protein Negative (Negative) Urine Glucose (UA) Negative (Negative) Urine Ketones Negative (Negative) Urine Blood Negative (Negative) Urine Nitrite Negative (Negative) Urine Bilirubin Negative (Negative) Urine Urobilinogen <2.0 (<2.0) mg/dL Ur Leukocyte Esterase Negative (Negative) Blood Type Blood Type Confirm O Positive Blood Type Recheck Bld Type Recheck Status Antibody Screen Crossmatch Spec Expiration Date Disposition Clinical Impression: Symptomatic anemia Disposition: ADMITTED IP TO THIS [facility] Condition: Stable Is patient prescribed a controlled substance at d/c from ED?: No Time of Disposition: 19:50 Decision to Admit Reason: Admit from EC Decision Date: 08/29/22 Decision Time: 19:50
[2022-08-29 16:49] LABS: Basophils % (A) 1 %; Eosinophils # (A) 0.1 k/uL (0-0.7); Eosinophils % (A) 1 %; Hypochromasia Marked; Lymphocytes # (A) 1.6 k/uL (1.0-4.8); Lymphocytes % (A) 22 %; MCH 25.1 pg (25.0-35.0); MCHC 30.8 g/dL (31.0-37.0); MCV 81.5 fL (80.0-100.0); Mean Platelet Volume 7.7; Monocytes # (A) 0.4 k/uL (0-1.0); Monocytes % (A) 6 %; Neutrophils # (A) 4.8 k/uL (1.3-7.7); Neutrophils % (A) 68 %; Platelet Count 287 k/uL (150-450); RBC 2.58 m/uL (3.80-5.40); RDW 15.8 % (11.5-15.5)
[2022-08-29 17:06] LABS: ALT 19 U/L (4-34); AST 19 U/L (14-36); African American GFR (CKD) 83 (>60 ml/min/1.73 sqM); Albumin 3.3 g/dL (3.5-5.0); Alkaline Phosphatase 77 U/L (38-126); Anion Gap 7 mmol/L; Blood Urea Nitrogen 40 mg/dL (7-17); Calcium 8.1 mg/dL (8.4-10.2); Carbon Dioxide 22 mmol/L (22-30); Chloride 106 mmol/L (98-107); Glucose 255 mg/dL (74-99); Lipase 285 U/L (23-300); Magnesium 2.2 mg/dL (1.6-2.3); Non-African American GFR(CKD) 72 (>60 ml/min/1.73 sqM); Potassium 3.6 mmol/L (3.5-5.1); Sodium 135 mmol/L (137-145); Total Bilirubin <0.1 mg/dL (0.2-1.3); Total Protein 5.6 g/dL (6.3-8.2)
--- NOTE | 2022-08-29 17:09 | XR ---
EXAMINATION TYPE: XR chest 2V DATE OF EXAM: 08/29/2022 COMPARISON: 01/27/2017 HISTORY: Weakness TECHNIQUE: 2 views FINDINGS: There is some linear density over the heart on the lateral view consistent with some atelec tasis in the right middle lobe. There is poor inspiration. There are chest leads. No heart failure. N o pleural effusion. Bony thorax is intact there is a thoracic dextroscoliosis. There is moderate oste oarthritis left shoulder joint. IMPRESSION: There is some mild atelectasis or scarring right middle lobe similar to old exam. No hear t failure seen.
[2022-08-29 17:16] LABS: VBG PH 7.36 (7.31-7.41)
[2022-08-29 17:19] LABS: HGB 6.5 gm/dL (11.4-16.0)
[2022-08-29 19:14] LABS: Appearance,Urine Clear (Clear); Bilirubin,Urine Negative (Negative); Blood,Urine Negative (Negative); Color,Urine Light Yellow; Glucose,Urine (UA) Negative (Negative); Ketones,Urine Negative (Negative); Leukocyte Esterase,Urine Negative (Negative); Nitrite,Urine Negative (Negative); Protein,Urine Negative (Negative); Specific Gravity,Urine 1.009 (1.001-1.035); Urobilinogen,Urine <2.0 mg/dL (<2.0)
[2022-08-29] MEDS ORDERED: NALOXONE 0.4 MG/ML 1 ML VIAL IV PRN (19:56)
[2022-08-29] MEDS: SODIUM CHLORIDE 0.9% 1,000 ML IV SCH (21:02)
[2022-08-30 10:53] LABS: HCT 23.9 % (34.0-46.0); HGB 7.7 gm/dL (11.4-16.0); Hypochromasia Marked; MCH 27.3 pg (25.0-35.0); MCHC 32.2 g/dL (31.0-37.0); MCV 84.7 fL (80.0-100.0); Mean Platelet Volume 8.5; Platelet Count 238 k/uL (150-450); Poikilocytosis Slight; RBC 2.82 m/uL (3.80-5.40); RDW 15.7 % (11.5-15.5)
[2022-08-30] MEDS ORDERED: DEXTROSE 50% SYRINGE 50 ML IVP PRN ×2 (10:55)
[2022-08-30 11:06] LABS: African American GFR (CKD) 86 (>60 ml/min/1.73 sqM); Anion Gap 6 mmol/L; Blood Urea Nitrogen 25 mg/dL (7-17); Carbon Dioxide 25 mmol/L (22-30); Chloride 106 mmol/L (98-107); Glucose 311 mg/dL (74-99); Non-African American GFR(CKD) 75 (>60 ml/min/1.73 sqM); Potassium 3.8 mmol/L (3.5-5.1); Sodium 137 mmol/L (137-145)
[2022-08-30] MEDS: LEVOTHYROXINE 75 MCG TAB PO SCH (11:39)
[2022-08-30] MEDS: PANTOPRAZOLE 40 MG TABLET PO SCH ×2 (11:39→18:34)
[2022-08-30] MEDS: INSULIN ASPART (NovoLOG) 100 UNIT/ML VIAL SQ SCH ×3 (11:40→21:10)
[2022-08-30] MEDS: SODIUM CHLORIDE 0.9% 1,000 ML IV SCH (11:40)
[2022-08-30 18:03] LABS: Glucose,Whole Blood 262 mg/dL (70-110)
--- NOTE | 2022-08-30 20:02 | P.HPIM ---
History of Present Illness H&P Date: 08/30/22 Chief Complaint: Generalized weakness Ms. Syed is an 82-year-old female with a past medical history of hypertension, hypothyroidism, spina bifid coming in with a chief complaint of generalized weakness. Patient states that she has been feeling weak for the past 2 to 3 weeks. She mentions that she was seen by her primary care physician couple of weeks back wh ere they did blood work. She mentions that she was called on Wednesday and told that her blood count was low and advised her to go to the emergency. Patient started to feel more weakness that is generalized in nature she discussed this with her niece who is a nurse. Her niece advised her to go to the emergency and so she came in for further evaluation. Patient denied bleeding per rectum or dark-colored stool. She denies having any abdominal pain nausea vomiting or diarrhea. As the patient has history of spina bifid, she did not get a colonoscopy as the procedure would be difficult so she had a Cologuard done. She is not sure when she had her last Cologuard. Patient denied having any chest pain or palpitations. No cough or difficulty breathing. No fever chills or rigors. She denied having any problems with peeing or pooping. Patient has history of spina bifida, so she uses a Rollator walker. Patient denies using any NSAIDs but she states that she takes aspirin 325 mg on a regular basis for her pain. She mentions about taking aspirin for more than 10 years for her pain. She mentions about taking 3 to 4 pills a day on few occasions. Her last aspirin intake was yesterday morning. At the time of admission in the ER patient's hemoglobin was 6.5. She was given a unit of b lood. On reviewing the other labs white count of 7, platelets 287. Sodium 135 potassium 3.6 chloride 106 bicarb 22 BUN 40 creatinine 0.77. Urine analysis was negative. Albumin of 3.3 blood sugar ranging from 200-300. Review of Systems REVIEW OF SYSTEMS: PSYCH: No anxiety or depression NEURO:No c/o weakness of the extremities or speech abnormalities. HEMATOLOGIC: No history of easy bleeding and bruising . No recent infections . RESPIRATORY: No cough, No SOB, No chest discomfort. INTEGUMENT: no rashes OPHTHALMOLOGIC: No blurry vision and no eye discharge : No dysuria or hematuria TERMINAL WORKER: No bleeding PV CARDIAC: No chest pain , shortness of breath , paroxysmal nocturnal dyspnea MUSCULOSKELETAL : No Aches or pains in the joints or muscles. GI: No abdominal pain, Nausea or vomiting. No constipation or diarrhea. 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 Past Anesthesia/Blood Transfusion Reactions: No Reported Reaction Past Psychological History: No Psychological Hx Reported Past Alcohol Use History: None Reported Past Drug Use History: None Reported - Past Family History Father Family Medical History: Diabetes Mellitus Medications and Allergies Home Medications Medication Instructions Recorded Confirmed Type Calcium Carbonate [Calcium] 600 mg PO DAILY 01/27/17 08/29/22 History Glimepiride [Amaryl] 2 mg PO DAILY 01/27/17 08/29/22 History Levothyroxine Sodium [Synthroid] 75 mcg PO DAILY 01/27/17 08/29/22 History Vit C/E/Zn/Coppr/Lutein/Zeaxan 1 cap PO BID 01/27/17 08/29/22 History [Preservision Areds 2 Softgel] Dorzolamide-Timol 2.23%/0.68% 1 drop BOTH EYES BID 08/29/22 08/29/22 History [Cosopt] Dulaglutide [Trulicity] 1.5 mg SQ TU 08/29/22 08/29/22 History Latanoprost [Latanoprost 0.005%] 1 drop BOTH EYES HS 08/29/22 08/29/22 History Losartan Potassium 100 mg PO DAILY 08/29/22 08/29/22 History Montelukast [Singulair] 10 mg PO HS PRN 08/29/22 08/29/22 History Nystatin [Nystop] 1 applic TOPICAL DAILY PRN 08/29/22 08/29/22 History Triamterene-Hctz 37.5-25Mg 1 tab PO DAILY PRN 08/29/22 08/29/22 History [Maxzide 37.5-25] Vitamin B Complex 1 cap PO DAILY 08/29/22 08/29/22 History amLODIPine [Norvasc] 2.5 mg PO DAILY 08/29/22 08/29/22 History Allergies Allergy/AdvReac Type Severity Reaction Status Date / Time erythromycin base AdvReac Intermediate Vomiting Verified 01/27/17 19:46 Physical Exam Vitals: Vital Signs Temp Pulse Pulse Pulse Resp BP BP 08/30/22 08:40 98.6 F 88 17 119/71 08/30/22 06:52 80 12 134/71 08/30/22 03:41 80 14 99/52 08/29/22 23:22 93 15 86/62 08/29/22 21:45 90 15 102/67 08/29/22 20:30 84 15 102/64 08/29/22 20:15 84 15 109/56 08/29/22 20:00 90 15 94/49 08/29/22 19:45 98.2 F 88 15 101/62 08/29/22 16:39 76 08/29/22 16:12 98.2 F 89 18 121/67 Pulse Ox 08/30/22 08:40 97 08/30/22 06:52 97 08/30/22 03:41 98 08/29/22 23:22 100 08/29/22 21:45 100 08/29/22 20:30 100 08/29/22 20:15 100 08/29/22 20:00 100 08/29/22 19:45 100 08/29/22 16:39 08/29/22 16:12 99 Intake and Output 08/29/22 08/30/22 08/30/22 22:59 06:59 14:59 Other: # Voids 1 Weight 83.915 kg PHYSICAL EXAM GEN. APPEARANCE: alert, in no apparent distress HEAD EXAM: atraumatic, normocephalic, normal inspection EYE EXAM: normal appearance, PERRL, EOMI. Mild pallor ENT EXAM: normal exam, mucous membranes moist RESPIRATORY EXAM: normal lung sounds bilaterally. No wheezing or crackles CARDIOVASCULAR EXAM: regular rate, normal rhythm, normal heart sounds. GI/ABDOMINAL EXAM: soft, normal bowel sounds. Non distended, No tenderness, guarding or rigidity EXTREMITIES EXAM: mild LE edema NEUROLOGICAL EXAM: alert, oriented X3 PSYCHIATRIC EXAM: normal affect, normal mood Results CBC & Chem 7: 08/30/22 10:33 08/30/22 10:33 Labs: Abnormal Lab Results - Last 24 Hours (Table) 08/29/22 08/29/2208/29/22 Range/Units 16:39 16:39 16:39 RBC 2.58 L (3.80-5.40) m/uL Hgb 6.5 L* (11.4-16.0) gm/dL Hct 21.0 L (34.0-46.0) % MCHC 30.8 L (31.0-37.0) g/dL RDW 15.8 H (11.5-15.5) % VBG HCO3 20 L (24-28) mmol/L Sodium 135 L (137-145) mmol/L BUN 40 H (7-17) mg/dL Glucose 255 H (74-99) mg/dL Calcium 8.1 L (8.4-10.2) mg/dL Total Bilirubin <0.1 L (0.2-1.3) mg/dL Total Protein 5.6 L (6.3-8.2) g/dL Albumin 3.3 L (3.5-5.0) g/dL Crossmatch 08/29/22 08/30/22 08/30/22 Range/Units 17:30 10:33 10:33 RBC 2.82 L (3.80-5.40) m/uL Hgb 7.7 L (11.4-16.0) gm/dL Hct 23.9 L (34.0-46.0) % MCHC (31.0-37.0) g/dL RDW 15.7 H (11.5-15.5) % VBG HCO3 (24-28) mmol/L Sodium (137-145) mmol/L BUN 25 H (7-17) mg/dL Glucose 311 H (74-99) mg/dL Calcium 8.0 L (8.4-10.2) mg/dL Total Bilirubin (0.2-1.3) mg/dL Total Protein (6.3-8.2) g/dL Albumin (3.5-5.0) g/dL Crossmatch See Detail Assessment and Plan Assessment: ASSESSMENT Generalized weakness secondary to anemia Anemia -unclear if acute or chronic Hyperglycemia Hyponatremia could be pseudohyponatremia secondary to hyperglycemia Hypertension Mild protein calorie malnutrition Plan: Patient anemia with a hemoglobin of 6.5 at the time of admission. Unclear if it is acute or chronic in nature as her previous hemoglobin from 2017 has been normal. Patient denied having any symptoms of acute bleeding. Will check FOBT for occult bleeding. She has been transfused with 1 unit of PRBCs and repeat hemoglobin is 7.7. Patient has been started on insulin for hyperglycemia. HbA1c came back at 6.9. Protonix has been started. We will repeat electrolytes and CBC for tomorrow morning. SCDs for DVT prophylaxis. Patient has been educated extensively not to take aspirin for pain anymore. Further recommendations to follow depending on the progress of the patient.
[2022-08-30 21:04] LABS: Glucose,Whole Blood 222 mg/dL (70-110)
[2022-08-30] MEDS: LATANOPROST 0.005% OPHTH DROPS 2.5 ML BTL BOTH EYES SCH (21:10)
[2022-08-30] MEDS: INSULIN DETEMIR (LEVEMIR) 100 UNIT/ML SYR SQ SCH (21:10)
[2022-08-30] MEDS: DORZOLAMIDE-TIMOLOL 2.23%/0.68 10ML BTL BOTH EYES SCH (21:10)
[2022-08-31] MEDS: SODIUM CHLORIDE 0.9% 1,000 ML IV SCH ×2 (00:35→12:14)
[2022-08-31] MEDS: LEVOTHYROXINE 75 MCG TAB PO SCH (05:43)
[2022-08-31 07:37] LABS: Glucose,Whole Blood 154 mg/dL (70-110)
[2022-08-31] MEDS: DORZOLAMIDE-TIMOLOL 2.23%/0.68 10ML BTL BOTH EYES SCH ×2 (08:46→21:02)
[2022-08-31] MEDS: INSULIN ASPART (NovoLOG) 100 UNIT/ML VIAL SQ SCH ×4 (08:47→21:01)
[2022-08-31] MEDS: PANTOPRAZOLE 40 MG TABLET PO SCH ×2 (08:47→17:32)
[2022-08-31 09:26] LABS: African American GFR (CKD) 98.4 (60.0-200.0); Anion Gap 8.1 mmol/L (10.00-18.00); BUN/Creat Ratio 32.83 Ratio (12.00-20.00); Blood Urea Nitrogen 19.7 mg/dL (9.0-27.0); Calcium 8.5 mg/dL (8.7-10.3); Carbon Dioxide 26.9 mmol/L (20.0-27.5); Non-African American GFR(CKD) 84.9 (60.0-200.0); Potassium 3.9 mmol/L (3.5-5.5)
[2022-08-31 10:31] LABS: Basophils # (A) 0.05 X 10*3/uL (0.00-0.10); Basophils % (A) 0.6 %; Eosinophils # (A) 0.23 X 10*3/uL (0.04-0.35); Eosinophils % (A) 2.9 %; HCT 23.2 % (37.2-46.3); Immature Grans, Automated 0.4 %; Lymphocytes # (A) 2.31 X 10*3/uL (0.90-5.00); Lymphocytes % (A) 28.9 %; MCH 25.2 pg (27.0-32.0); MCHC 29.3 g/dL (32.0-37.0); MCV 85.9 fL (80.0-97.0); Mean Platelet Volume 9.8 fL (9.5-12.2); Monocytes % (A) 11.3 %; NRBC Per 100 WBC 0 /100 WBCS (0.0-0.0); Neutrophils # (A) 4.47 X 10*3/uL (1.80-7.70); Neutrophils % (A) 55.9 %; Platelet Count 260 X 10*3/uL (140-440); RDW 16.1 % (11.5-14.5); WBC 7.99 X 10*3/uL (4.50-10.00)
[2022-08-31 11:20] LABS: Glucose,Whole Blood 266 mg/dL (70-110)
[2022-08-31 11:56] LABS: HGB 6.8 g/dL (12.0-15.0)
[2022-08-31] MEDS: LIDOCAINE 5% PATCH TOPICAL SCH (12:12)
--- NOTE | 2022-08-31 12:42 | P.GSCN ---
History of Present Illness Consult date: 08/31/22 Reason for Consult: Anemia History of present illness: Is a 82-year-old female with multiple medical problems. Patient was admitted hospital with complaints of anemia. Her hemoglobin of 6.5. Patient denies any evidence of GI bleed. 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 Past Anesthesia/Blood Transfusion Reactions: No Reported Reaction Past Psychological History: No Psychological Hx Reported Past Alcohol Use History: None Reported Past Drug Use History: None Reported - Past Family History Father Family Medical History: Diabetes Mellitus Medications and Allergies Home Medications Medication Instructions Recorded Confirmed Type Calcium Carbonate [Calcium] 600 mg PO DAILY 01/27/17 08/29/22 History Glimepiride [Amaryl] 2 mg PO DAILY 01/27/17 08/29/22 History Levothyroxine Sodium [Synthroid] 75 mcg PO DAILY 01/27/17 08/29/22 History Vit C/E/Zn/Coppr/Lutein/Zeaxan 1 cap PO BID 01/27/17 08/29/22 History [Preservision Areds 2 Softgel] Dorzolamide-Timol 2.23%/0.68% 1 drop BOTH EYES BID 08/29/22 08/29/22 History [Cosopt] Dulaglutide [Trulicity] 1.5 mg SQ TU 08/29/22 08/29/22 History Latanoprost [Latanoprost 0.005%] 1 drop BOTH EYES HS 08/29/22 08/29/22 History Losartan Potassium 100 mg PO DAILY 08/29/22 08/29/22 History Montelukast [Singulair] 10 mg PO HS PRN 08/29/22 08/29/22 History Nystatin [Nystop] 1 applic TOPICAL DAILY PRN 08/29/22 08/29/22 History Triamterene-Hctz 37.5-25Mg 1 tab PO DAILY PRN 08/29/22 08/29/22 History [Maxzide 37.5-25] Vitamin B Complex 1 cap PO DAILY 08/29/22 08/29/22 History amLODIPine [Norvasc] 2.5 mg PO DAILY 08/29/22 08/29/22 History Allergies Allergy/AdvReac Type Severity Reaction Status Date / Time erythromycin base AdvReac Intermediate Vomiting Verified 01/27/17 19:46 Surgical - Exam Vital Signs Temp Pulse Resp BP Pulse Ox 98.2 F 89 18 121/67 99 08/29/22 16:12 08/29/22 16:12 08/29/22 16:12 08/29/22 16:12 08/29/22 16:12 - General well developed, well nourished, no distress - Eyes PERRL - ENT normal pinna - Neck no masses - Respiratory normal expansion - Cardiovascular Rhythm: regular - Abdomen Abdomen: soft, non tender Results - Labs 08/31/22 05:34 08/31/22 05:34 Abnormal Lab Results - Last 24 Hours (Table) 08/29/22 08/30/22 08/30/22 Range/Units 17:30 10:33 17:57 RBC (4.10-5.20) X 10*6/uL Hgb (12.0-15.0) g/dL Hct (37.2-46.3) % MCH (27.0-32.0) pg MCHC (32.0-37.0) g/dL RDW (11.5-14.5) % Anion Gap (10.00-18.00) mmol/L BUN/Creatinine Ratio (12.00-20.00) Ratio Glucose (70-110) mg/dL POC Glucose (mg/dL) 262 H (70-110) mg/dL Hemoglobin A1c 6.9 H (0.0-6.0) % Calcium (8.7-10.3) mg/dL Crossmatch See Detail 08/30/22 08/31/22 08/31/22 Range/Units 21:04 05:34 05:34 RBC 2.70 L (4.10-5.20) X 10*6/uL Hgb 6.8 L* (12.0-15.0) g/dL Hct 23.2 L (37.2-46.3) % MCH 25.2 L (27.0-32.0) pg MCHC 29.3 L (32.0-37.0) g/dL RDW 16.1 H (11.5-14.5) % Anion Gap 8.10 L (10.00-18.00) mmol/L BUN/Creatinine Ratio 32.83 H (12.00-20.00) Ratio Glucose 128 H (70-110) mg/dL POC Glucose (mg/dL) 222 H (70-110) mg/dL Hemoglobin A1c (0.0-6.0) % Calcium 8.5 L (8.7-10.3) mg/dL Crossmatch 08/31/22 08/31/22 Range/Units 07:35 11:19 RBC (4.10-5.20) X 10*6/uL Hgb (12.0-15.0) g/dL Hct (37.2-46.3) % MCH (27.0-32.0) pg MCHC (32.0-37.0) g/dL RDW (11.5-14.5) % Anion Gap (10.00-18.00) mmol/L BUN/Creatinine Ratio (12.00-20.00) Ratio Glucose (70-110) mg/dL POC Glucose (mg/dL) 154 H 266 H (70-110) mg/dL Hemoglobin A1c (0.0-6.0) % Calcium (8.7-10.3) mg/dL Crossmatch Diabetes panel 08/30/22 08/31/22 Range/Units 10:33 05:34 Sodium 142 (135-145) mmol/L Potassium 3.9 (3.5-5.5) mmol/L Chloride 107 (96-109) mmol/L Carbon Dioxide 26.9 (20.0-27.5) mmol/L BUN 19.7 (9.0-27.0) mg/dL Creatinine 0.6 (0.6-1.5) mg/dL Glucose 128 H (70-110) mg/dL Hemoglobin A1c 6.9 H (0.0-6.0) % Calcium 8.5 L (8.7-10.3) mg/dL Calcium panel 08/31/22 Range/Units 05:34 Calcium 8.5 L (8.7-10.3) mg/dL Pituitary panel 08/31/22 Range/Units 05:34 Sodium 142 (135-145) mmol/L Potassium 3.9 (3.5-5.5) mmol/L Chloride 107 (96-109) mmol/L Carbon Dioxide 26.9 (20.0-27.5) mmol/L BUN 19.7 (9.0-27.0) mg/dL Creatinine 0.6 (0.6-1.5) mg/dL Glucose 128 H (70-110) mg/dL Calcium 8.5 L (8.7-10.3) mg/dL Adrenal panel 08/31/22 Range/Units 05:34 Sodium 142 (135-145) mmol/L Potassium 3.9 (3.5-5.5) mmol/L Chloride 107 (96-109) mmol/L Carbon Dioxide 26.9 (20.0-27.5) mmol/L BUN 19.7 (9.0-27.0) mg/dL Creatinine 0.6 (0.6-1.5) mg/dL Glucose 128 H (70-110) mg/dL Calcium 8.5 L (8.7-10.3) mg/dL Assessment and Plan Assessment: Anemia. [facility]
[2022-08-31 17:08] LABS: Glucose,Whole Blood 285 mg/dL (70-110)
[2022-08-31 20:53] LABS: Glucose,Whole Blood 294 mg/dL (70-110)
[2022-08-31] MEDS: LATANOPROST 0.005% OPHTH DROPS 2.5 ML BTL BOTH EYES SCH (21:02)
[2022-08-31] MEDS: INSULIN DETEMIR (LEVEMIR) 100 UNIT/ML SYR SQ SCH (21:02)
[2022-08-31] MEDS: MONTELUKAST 10 MG TAB PO PRN (21:28)
--- NOTE | 2022-09-01 00:28 | P.PN ---
Subjective Progress Note Date: 08/31/22 Principal diagnosis: Anemia Ms. Syed is an 82-year-old female with a past medical history of hypertension, hypothyroidism, spina bifid coming in with a chief complaint of generalized weakness. She was found to have significant anemia with hemoglobin of 6.5 at the time of admission. Today the patient is comfortably lying in bed appears to be no acute distress. She states that her generalized weakness improved to some extent. Patient denies having any chest pain or palpitations. She denies having any abdominal pain nausea vomiting or diarrhea. She did not have a bowel movement since admission. So FOBT could not be done. Patient denies having any burning sensation or pain. She denies having any fevers chills or rigors. On reviewing the patient's vitals temperature of 98.1 heart rate 92 respiratory rate 20 blood pressure 133/78 saturating 98% on room air. Patient's labs from this morning showed hemoglobin of 6.8. Blood sugars running between 200-300. Objective - Vital Signs Vital signs: Vital Signs Temp 98.3 F 08/31/22 20:00 Pulse 101 H 08/31/22 20:00 Resp 16 08/31/22 20:00 BP 150/67 08/31/22 20:00 Pulse Ox 97 08/31/22 20:00 FiO2 Intake & Output 08/31/22 08/31/22 09/01/22 06:59 18:59 06:59 Intake Total 590 280 Output Total 1000 1700 Balance -410 -1420 Intake: Oral 590 Blood Product 280 Rc Pheresis 2 As3 Unit 280 [id number] Output: Urine 1000 1700 Other: Voiding Method External Catheter External Catheter - Exam PHYSICAL EXAM GEN. APPEARANCE: alert, in no apparent distress EYE EXAM: normal appearance, PERRL, EOMI. Mild pallor RESPIRATORY EXAM: normal lung sounds bilaterally. No wheezing or crackles CARDIOVASCULAR EXAM: regular rate, normal rhythm, normal heart sounds. GI/ABDOMINAL EXAM: soft, normal bowel sounds. Non distended, No tenderness, guarding or rigidity EXTREMITIES EXAM: mild LE edema NEUROLOGICAL EXAM: alert, oriented X3 PSYCHIATRIC EXAM: normal affect, normal mood - Labs CBC & Chem 7: 08/31/22 05:34 08/31/22 05:34 Labs: Abnormal Lab Results - Last 24 Hours (Table) 08/29/22 08/31/22 08/31/22 Range/Units 17:30 05:34 05:34 RBC 2.70 L (4.10-5.20) X 10*6/uL Hgb 6.8 L* (12.0-15.0) g/dL Hct 23.2 L (37.2-46.3) % MCH 25.2 L (27.0-32.0) pg MCHC 29.3 L (32.0-37.0) g/dL RDW 16.1 H (11.5-14.5) % Anion Gap 8.10 L (10.00-18.00) mmol/L BUN/Creatinine Ratio 32.83 H (12.00-20.00) Ratio Glucose 128 H (70-110) mg/dL POC Glucose (mg/dL) (70-110) mg/dL Calcium 8.5 L (8.7-10.3) mg/dL Crossmatch See Detail 08/31/22 08/31/22 08/31/22 Range/Units 07:35 11:19 17:06 RBC (4.10-5.20) X 10*6/uL Hgb (12.0-15.0) g/dL Hct (37.2-46.3) % MCH (27.0-32.0) pg MCHC (32.0-37.0) g/dL RDW (11.5-14.5) % Anion Gap (10.00-18.00) mmol/L BUN/Creatinine Ratio (12.00-20.00) Ratio Glucose (70-110) mg/dL POC Glucose (mg/dL) 154 H 266 H 285 H (70-110) mg/dL Calcium (8.7-10.3) mg/dL Crossmatch 08/31/22 Range/Units 20:52 RBC (4.10-5.20) X 10*6/uL Hgb (12.0-15.0) g/dL Hct (37.2-46.3) % MCH (27.0-32.0) pg MCHC (32.0-37.0) g/dL RDW (11.5-14.5) % Anion Gap (10.00-18.00) mmol/L BUN/Creatinine Ratio (12.00-20.00) Ratio Glucose (70-110) mg/dL POC Glucose (mg/dL) 294 H (70-110) mg/dL Calcium (8.7-10.3) mg/dL Crossmatch Assessment and Plan Assessment: ASSESSMENT Generalized weakness secondary to anemia Anemia -unclear if acute or chronic Hyperglycemia Hyponatremia could be pseudohyponatremia secondary to hyperglycemia Hypertension Mild protein calorie malnutrition Plan: Patient was transfused with 1 unit of PRBC so yesterday, repeat hemoglobin for this morning is at 6.8 -we will transfuse her with 1 unit of PRBC and consult surgery for endoscopy FOBT still pending as the patient did not have a bowel movement since admission Will adjust the dose of insulin for hyperglycemia Continue with Protonix We will repeat CBC for tomorrow morning and transfuse if hemoglobin less than 7 SCDs for DVT prophylaxis Further recommendations depending on the progress of the patient
[2022-09-01] MEDS: SODIUM CHLORIDE 0.9% 1,000 ML IV SCH ×2 (04:18→18:01)
[2022-09-01] MEDS: LEVOTHYROXINE 75 MCG TAB PO SCH (05:31)
[2022-09-01 07:20] LABS: Glucose,Whole Blood 200 mg/dL (70-110)
[2022-09-01] MEDS: INSULIN ASPART (NovoLOG) 100 UNIT/ML VIAL SQ SCH ×4 (08:23→21:10)
[2022-09-01] MEDS: PANTOPRAZOLE 40 MG TABLET PO SCH ×2 (08:24→17:57)
[2022-09-01] MEDS: LIDOCAINE 5% PATCH TOPICAL SCH (08:27)
[2022-09-01] MEDS: DORZOLAMIDE-TIMOLOL 2.23%/0.68 10ML BTL BOTH EYES SCH ×2 (08:28→21:11)
[2022-09-01 08:52] LABS: Basophils # (A) 0.06 X 10*3/uL (0.00-0.10); Basophils % (A) 0.6 %; Eosinophils # (A) 0.25 X 10*3/uL (0.04-0.35); Eosinophils % (A) 2.6 %; HCT 26.2 % (37.2-46.3); Lymphocytes # (A) 1.79 X 10*3/uL (0.90-5.00); Lymphocytes % (A) 18.4 %; MCH 26.1 pg (27.0-32.0); MCHC 30.5 g/dL (32.0-37.0); MCV 85.6 fL (80.0-97.0); Mean Platelet Volume 9.6 fL (9.5-12.2); Monocytes # (A) 1.18 X 10*3/uL (0.20-1.00); Monocytes % (A) 12.1 %; NRBC Per 100 WBC 0 /100 WBCS (0.0-0.0); Neutrophils # (A) 6.36 X 10*3/uL (1.80-7.70); Neutrophils % (A) 65.3 %; Platelet Count 258 X 10*3/uL (140-440); RBC 3.06 X 10*6/uL (4.10-5.20); RDW 15.9 % (11.5-14.5); WBC 9.74 X 10*3/uL (4.50-10.00)
[2022-09-01 11:29] LABS: Glucose,Whole Blood 198 mg/dL (70-110)
[2022-09-01] MEDS ORDERED: LIDOCAINE 2% INJ 20 MG/ML (2 ML VIAL) ONE (14:08)
[2022-09-01] MEDS ORDERED: PROPOFOL 10 MG/ML 20 ML VIAL IV ONE (14:08)
[2022-09-01] MEDS ORDERED: IV FLUID CONTINUATION 100 ML IV ONE (14:10)
[2022-09-01] MEDS ORDERED: LACTATED RINGERS 1,000 ML IV ONE (14:16)
--- NOTE | 2022-09-01 14:23 | P.OP ---
Date of Procedure: 09/01/22 Preoperative Diagnosis: Anemia Postoperative Diagnosis: Mild antral gastritis Procedure(s) Performed: EGD Anesthesia: MAC Surgeon: Albin Ziegler Pathology: other (Antrum) Condition: stable Disposition: PACU Description of Procedure: The patient's placed on the endoscopy table in the lateral position. She received IV sedation. The gastroscope placed oropharynx passed in the esophagus into the stomach. Scope was then placed through the pylorus. The first and second portion of the duodenum appeared normal. Scope was then brought back the antrum this appeared mildly inflamed. A biopsies performed. Scope was then retroflexed and the remainder the stomach appeared normal. The GE junction was at 40 cm. The distal esophagus appeared normal the proximal esophagus normal. Scope withdrawn for patient. There was no evidence of any upper GI bleed. The patient should have a colonoscopy performed.
[2022-09-01 17:08] LABS: Glucose,Whole Blood 233 mg/dL (70-110)
[2022-09-01 20:55] LABS: Glucose,Whole Blood 144 mg/dL (70-110)
[2022-09-01] MEDS: INSULIN DETEMIR (LEVEMIR) 100 UNIT/ML SYR SQ SCH (21:10)
[2022-09-01] MEDS: LATANOPROST 0.005% OPHTH DROPS 2.5 ML BTL BOTH EYES SCH (21:11)
[2022-09-01] MEDS: MONTELUKAST 10 MG TAB PO PRN (21:14)
--- NOTE | 2022-09-02 03:14 | P.PN ---
Subjective Progress Note Date: 09/01/22 Anemia Ms. Syed is an 82-year-old female with a past medical history of hypertension, hypothyroidism, spina bifid coming in with a chief complaint of generalized weakness. She was found to have significant anemia with hemoglobin of 6.5 at the time of admission. Today the patient is comfortably lying in bed appears to be no acute distress. She states that her generalized weakness improved to some extent. Patient denies having any chest pain or palpitations. She denies having any abdominal pain nausea vomiting or diarrhea. She did not have a bowel movement since admission. So FOBT could not be done. Patient denies having any burning sensation or pain. She denies having any fevers chills or rigors. On reviewing the patient's vitals temperature of 98.1 heart rate 92 respiratory rate 20 blood pressure 133/78 saturating 98% on room air. Patient's labs from this morning showed hemoglobin of 6.8. Blood sugars running between 200-300. 09/01/2022 Patient is seen and evaluated follow-up this morning with general surgery service is following and plans for upper endoscopy today. Patient is currently nothing by mouth and extremely anxious about her overall procedure and treatment plan moving forward. Patient's hemoglobin is stable with no active bleeding noted. Patient reports patient was having bowel movements and told there was blood noted in the stool. Patient denies any nausea or vomiting and reports to feeling mouth dryness and hunger. Patient is currently afebrile and hemoglobin is stable at 0 today. Patient denies excessive NSAID use although reports she takes 325 aspirin as needed and has been taking it multiple times daily. Review of systems: Constitutional: No reports of fatigue, fever, or chills Cardiovascular: No reports of chest pain or palpitations Respiratory: No reports of shortness of breath or cough GI: No reports of nausea, vomiting, or diarrhea : No reports of dysuria or retention Neurovascular: No reports of weakness or numbness All medications have been reviewed Physical exam: GEN. APPEARANCE: alert, in no apparent distress , pale EYE EXAM: normal appearance, PERRL, EOMI. Mild pallor RESPIRATORY EXAM: normal lung sounds bilaterally. No wheezing or crackles CARDIOVASCULAR EXAM: regular rate, normal rhythm, normal heart sounds. GI/ABDOMINAL EXAM: soft, normal bowel sounds. Non distended, No tenderness, guarding or rigidity EXTREMITIES EXAM: mild LE edema NEUROLOGICAL EXAM: alert, oriented X3 PSYCHIATRIC EXAM: normal affect, normal mood Assessment: Generalized weakness secondary to anemia Anemia -unclear if acute or chronic Diabetes mellitus, uncontrolled with Hyperglycemia Hyponatremia could be pseudohyponatremia secondary to hyperglycemia Hypertension Mild protein calorie malnutrition Morbid obesity with a BMI of 46.3 GI prophylaxis DVT prophylaxis, SCDs No code Plan: Recommend to monitor hemoglobin closely and currently stable at 8.0 today. Patient is status post 1 unit of PRBC General surgery following with plans for endoscopy today, EGD Patient is nothing by mouth and will resume diet once cleared by surgery Recommend continue Protonix Recommend follow-up labs in the a.m. and transfuse if less than 7 Patient reports her family is currently moving all of her belongings to [facility] as she will be going there to live once stabilized and discharged To discuss with surgery about possible colonoscopy Further recommendations to follow based on the clinical course the patient Due to multiple complex medical issues, prognosis is guarded The impression and plan of care has been dictated by Zenobia Rush, Nurse Practitioner as directed. MD Maryana I have performed a history and examination and MDM of this patient, discussed the same with the dictator, and agree with the dictator's assessment and plan as written ,documented as a scribe. Based on total visit time, I have performed more than 50% of the visit. Objective - Vital Signs Vital signs: Vital Signs Temp 98.2 F 09/01/22 14:35 Pulse 95 09/01/22 14:35 Resp 18 09/01/22 14:35 BP 123/69 09/01/22 14:35 Pulse Ox 96 09/01/22 14:35 FiO2 Intake & Output 08/31/22 09/01/22 09/01/22 18:59 06:59 18:59 Intake Total 280 900 100 Output Total 9168 850 5177 Balance -1420 0 -900 Intake: IV 100 Intake, IV Titration 900 Amount Sodium Chloride 0.9% 1, 900 000 ml @ 75 mls/hr IV . [id number] [facility] Rx#:[id number] Blood Product 280 Rc Pheresis 2 As3 Unit 280 [id number] Output: Urine 1513 041 2805 Other: Voiding Method External Catheter External Catheter External Catheter # Voids 1 - Labs CBC & Chem 7: 09/01/22 06:11 08/31/22 05:34 Labs: Abnormal Lab Results - Last 24 Hours (Table) 08/29/22 08/29/22 08/31/22 Range/Units 00:50 17:30 17:06 RBC (4.10-5.20) X 10*6/uL Hgb (12.0-15.0) g/dL Hct (37.2-46.3) % MCH (27.0-32.0) pg MCHC (32.0-37.0) g/dL RDW (11.5-14.5) % Immature Gran # (0.00-0.04) X 10*3/uL Monocytes # (0.20-1.00) X 10*3/uL POC Glucose (mg/dL) 285 H (70-110) mg/dL Stool Occult Blood Positive H (Negative) Crossmatch See Detail 08/31/22 09/01/22 09/01/22 Range/Units 20:52 06:11 07:19 RBC 3.06 L (4.10-5.20) X 10*6/uL Hgb 8.0 L (12.0-15.0) g/dL Hct 26.2 L (37.2-46.3) % MCH 26.1 L (27.0-32.0) pg MCHC 30.5 L (32.0-37.0) g/dL RDW 15.9 H (11.5-14.5) % Immature Gran # 0.10 H (0.00-0.04) X 10*3/uL Monocytes # 1.18 H (0.20-1.00) X 10*3/uL POC Glucose (mg/dL) 294 H 200 H (70-110) mg/dL Stool Occult Blood (Negative) Crossmatch 09/01/22 Range/Units 11:28 RBC (4.10-5.20) X 10*6/uL Hgb (12.0-15.0) g/dL Hct (37.2-46.3) % MCH (27.0-32.0) pg MCHC (32.0-37.0) g/dL RDW (11.5-14.5) % Immature Gran # (0.00-0.04) X 10*3/uL Monocytes # (0.20-1.00) X 10*3/uL POC Glucose (mg/dL) 198 H (70-110) mg/dL Stool Occult Blood (Negative) Crossmatch
[2022-09-02] MEDS: LEVOTHYROXINE 75 MCG TAB PO SCH (05:50)
[2022-09-02 07:12] LABS: Glucose,Whole Blood 106 mg/dL (70-110)
[2022-09-02] MEDS: INSULIN ASPART (NovoLOG) 100 UNIT/ML VIAL SQ SCH ×4 (07:21→20:44)
[2022-09-02] MEDS: DORZOLAMIDE-TIMOLOL 2.23%/0.68 10ML BTL BOTH EYES SCH ×2 (08:00→20:24)
[2022-09-02] MEDS: PANTOPRAZOLE 40 MG TABLET PO SCH ×2 (08:00→17:38)
[2022-09-02] MEDS: LIDOCAINE 5% PATCH TOPICAL SCH (08:00)
[2022-09-02 10:16] LABS: Basophils # (A) 0.08 X 10*3/uL (0.00-0.10); Basophils % (A) 0.9 %; Eosinophils # (A) 0.29 X 10*3/uL (0.04-0.35); Eosinophils % (A) 3.1 %; HCT 27.5 % (37.2-46.3); HGB 8.3 g/dL (12.0-15.0); Immature Grans, Automated 0.2 %; Lymphocytes # (A) 1.51 X 10*3/uL (0.90-5.00); Lymphocytes % (A) 16.1 %; MCH 25.8 pg (27.0-32.0); MCHC 30.2 g/dL (32.0-37.0); MCV 85.4 fL (80.0-97.0); Mean Platelet Volume 9.6 fL (9.5-12.2); Monocytes # (A) 1.04 X 10*3/uL (0.20-1.00); Monocytes % (A) 11.1 %; NRBC Per 100 WBC 0 /100 WBCS (0.0-0.0); Neutrophils # (A) 6.41 X 10*3/uL (1.80-7.70); Neutrophils % (A) 68.6 %; Platelet Count 271 X 10*3/uL (140-440); RBC 3.22 X 10*6/uL (4.10-5.20); RDW 16.5 % (11.5-14.5); WBC 9.35 X 10*3/uL (4.50-10.00)
[2022-09-02 10:23] LABS: African American GFR (CKD) 104.5 (60.0-200.0); Anion Gap 9.9 mmol/L (10.00-18.00); BUN/Creat Ratio 15.8 Ratio (12.00-20.00); Blood Urea Nitrogen 7.9 mg/dL (9.0-27.0); Calcium 8.4 mg/dL (8.7-10.3); Carbon Dioxide 25.1 mmol/L (20.0-27.5); Non-African American GFR(CKD) 90.1 (60.0-200.0); Potassium 3.8 mmol/L (3.5-5.5)
[2022-09-02] MEDS ORDERED: PEG 3350 (236 GM/BTL) + LYTES 4,000 ML BOTTLE PO ONE (11:00)
[2022-09-02 11:19] LABS: Glucose,Whole Blood 103 mg/dL (70-110)
[2022-09-02] MEDS: SODIUM CHLORIDE 0.9% 1,000 ML IV SCH ×2 (12:31→20:25)
[2022-09-02] MEDS ORDERED: FLUTICASONE 50MCG/SPRAY NASAL 16GM EA NOSTRIL PRN (13:36)
--- NOTE | 2022-09-02 13:53 | P.PN ---
Subjective Progress Note Date: 09/02/22 CHIEF COMPLAINT: Anemia HISTORY OF PRESENT ILLNESS: Patient status post EGD revealing mild antral gastritis. There is no evidence of any upper GI bleed. Colonoscopy was recommended. Patient is agreeable to proceed with colonoscopy. Patient stool for occult blood was positive. She reports no blood in the stools. Hemoglobin has gone up from 8-8.3. currently on liquid diet. Denies any abdominal pain. PHYSICAL EXAM: VITAL SIGNS: Reviewed. GENERAL: Well-developed in no acute distress. HEENT: No sclera icterus. Extraocular movements grossly intact. Moist buccal mucosa. Head is atraumatic, normocephalic. ABDOMEN: Soft. Nondistended. Nontender. NEUROLOGIC: Alert and oriented. Cranial nerves II through XII grossly intact. ASSESSMENT: 1. Anemia with fecal occult blood positive PLAN: -Patient scheduled for colonoscopy tomorrow with Dr. Bragg -Start Sarina prep today -Continue clear liquid diet -Nothing by mouth after midnight -Continue to monitor hemoglobin Physician Coordinator Of Genetic Services note has been reviewed by physician. Signing provider agrees with the documented findings, assessment, and plan of care. Objective - Vital Signs Vital signs: Vital Signs Temp 98.9 F 09/02/22 12:17 Pulse 89 09/02/22 12:17 Resp 17 09/02/22 12:17 BP 171/92 09/02/22 12:17 Pulse Ox 94 L 09/02/22 12:17 FiO2 Intake & Output 09/01/22 09/02/22 09/02/22 18:59 06:59 18:59 Intake Total 100 1380 Output Total 1601 1600 1000 Balance -1501 -220 -1000 Intake: IV 100 Intake, IV Titration 900 Amount Sodium Chloride 0.9% 1, 900 000 ml @ 75 mls/hr IV . [id number] [facility] Rx#:[id number] Oral 480 Output: Urine 1600 1600 1000 Stool 1 Other: Voiding Method External Catheter External Catheter External Catheter # Voids 1 - Labs CBC & Chem 7: 09/02/22 07:32 09/02/22 07:32 Labs: Abnormal Lab Results - Last 24 Hours (Table) 09/01/22 09/01/22 09/02/22 Range/Units 17:07 20:54 07:32 RBC 3.22 L (4.10-5.20) X 10*6/uL Hgb 8.3 L (12.0-15.0) g/dL Hct 27.5 L (37.2-46.3) % MCH 25.8 L (27.0-32.0) pg MCHC 30.2 L (32.0-37.0) g/dL RDW 16.5 H (11.5-14.5) % Monocytes # 1.04 H (0.20-1.00) X 10*3/uL Anion Gap (10.00-18.00) mmol/L BUN (9.0-27.0) mg/dL Creatinine (0.6-1.5) mg/dL POC Glucose (mg/dL) 233 H 144 H (70-110) mg/dL Calcium (8.7-10.3) mg/dL 09/02/22 Range/Units 07:32 RBC (4.10-5.20) X 10*6/uL Hgb (12.0-15.0) g/dL Hct (37.2-46.3) % MCH (27.0-32.0) pg MCHC (32.0-37.0) g/dL RDW (11.5-14.5) % Monocytes # (0.20-1.00) X 10*3/uL Anion Gap 9.90 L (10.00-18.00) mmol/L BUN 7.9 L (9.0-27.0) mg/dL Creatinine 0.5 L (0.6-1.5) mg/dL POC Glucose (mg/dL) (70-110) mg/dL Calcium 8.4 L (8.7-10.3) mg/dL
--- NOTE | 2022-09-02 14:30 | XR ---
EXAMINATION TYPE: XR chest 1V portable DATE OF EXAM: 09/02/2022 2:25 PM COMPARISON: Chest radiographs from 08/29/2022 TECHNIQUE: XR chest 1V portable Portable AP radiograph of the chest. CLINICAL INDICATION:Female, 82 years old with history of short of breath; FINDINGS: Lungs/Pleura: Bibasilar atelectasis with low lung lines. There is no evidence of pleural effusion, or pneumothorax. Pulmonary vascularity: Unremarkable. Heart/mediastinum: Cardiomediastinal silhouette is enlarged and stable. Musculoskeletal: Degenerative changes of the shoulder joints. IMPRESSION: 1. Persistent right basilar atelectasis with low lung volumes, No acute cardiopulmonary disease/proc ess. 2. Cardiomegaly.
[2022-09-02] MEDS: amLODIPine 2.5 MG TAB PO SCH (15:01)
[2022-09-02] MEDS: LOSARTAN 50 MG TAB PO SCH (15:02)
[2022-09-02 17:13] LABS: Glucose,Whole Blood 170 mg/dL (70-110)
[2022-09-02 20:18] LABS: Glucose,Whole Blood 154 mg/dL (70-110)
[2022-09-02] MEDS: LATANOPROST 0.005% OPHTH DROPS 2.5 ML BTL BOTH EYES SCH (20:24)
[2022-09-02] MEDS: ALPRAZolam 0.25 MG TAB PO SCH (20:24)
[2022-09-02] MEDS: INSULIN DETEMIR (LEVEMIR) 100 UNIT/ML SYR SQ SCH (20:53)
[2022-09-02] MEDS: MONTELUKAST 10 MG TAB PO PRN (20:53)
[2022-09-03] MEDS: SODIUM CHLORIDE 0.9% 1,000 ML IV SCH (05:51)
[2022-09-03] MEDS: LEVOTHYROXINE 75 MCG TAB PO SCH (05:51)
[2022-09-03 06:28] LABS: Hypochromasia Marked; MCH 27.1 pg (25.0-35.0); MCHC 32.1 g/dL (31.0-37.0); MCV 84.5 fL (80.0-100.0); Mean Platelet Volume 7.7; Platelet Count 288 k/uL (150-450); Poikilocytosis Slight; RBC 3.32 m/uL (3.80-5.40); RDW 15.6 % (11.5-15.5); WBC 8.4 k/uL (3.8-10.6)
--- NOTE | 2022-09-03 06:41 | P.PN ---
Subjective Progress Note Date: 09/02/22 Anemia Ms. Syed is an 82-year-old female with a past medical history of hypertension, hypothyroidism, spina bifid coming in with a chief complaint of generalized weakness. She was found to have significant anemia with hemoglobin of 6.5 at the time of admission. Today the patient is comfortably lying in bed appears to be no acute distress. She states that her generalized weakness improved to some extent. Patient denies having any chest pain or palpitations. She denies having any abdominal pain nausea vomiting or diarrhea. She did not have a bowel movement since admission. So FOBT could not be done. Patient denies having any burning sensation or pain. She denies having any fevers chills or rigors. On reviewing the patient's vitals temperature of 98.1 heart rate 92 respiratory rate 20 blood pressure 133/78 saturating 98% on room air. Patient's labs from this morning showed hemoglobin of 6.8. Blood sugars running between 200-300. 09/01/2022 Patient is seen and evaluated follow-up this morning with general surgery service is following and plans for upper endoscopy today. Patient is currently nothing by mouth and extremely anxious about her overall procedure and treatment plan moving forward. Patient's hemoglobin is stable with no active bleeding noted. Patient reports patient was having bowel movements and told there was blood noted in the stool. Patient denies any nausea or vomiting and reports to feeling mouth dryness and hunger. Patient is currently afebrile and hemoglobin is stable at 0 today. Patient denies excessive NSAID use although reports she takes 325 aspirin as needed and has been taking it multiple times daily. 09/02/2022 Patient is seen in follow-up this morning currently tolerating clear liquid diet status post EGD yesterday with biopsies. Some inflammation noted with no active bleeding noted. Hemoglobin is stable and plans are for considering a colonoscopy while inpatient to rule out any bleeding as patient has difficulty outpatient due to her spina bifida. Plan is to initiate GoLYTELY bowel prep with possible colonoscopy in 24 hours. Patient is afebrile denies chest pain or shortness of breath denies any nausea or vomiting. Review of systems: Constitutional: No reports of fatigue, fever, or chills Cardiovascular: No reports of chest pain or palpitations Respiratory: No reports of shortness of breath or cough GI: No reports of nausea, vomiting, or diarrhea : No reports of dysuria or retention Neurovascular: No reports of weakness or numbness All medications have been reviewed Physical exam: GEN. APPEARANCE: alert, in no apparent distress , pale EYE EXAM: normal appearance, PERRL, EOMI. Mild pallor RESPIRATORY EXAM: normal lung sounds bilaterally. No wheezing or crackles CARDIOVASCULAR EXAM: regular rate, normal rhythm, normal heart sounds. GI/ABDOMINAL EXAM: soft, normal bowel sounds. Non distended, No tenderness, guarding or rigidity EXTREMITIES EXAM: mild LE edema NEUROLOGICAL EXAM: alert, oriented X3 PSYCHIATRIC EXAM: normal affect, normal mood Assessment: Generalized weakness secondary to anemia Anemia -unclear if acute or chronic Mild gastral antritis, on EGD with biopsies obtained Diabetes mellitus, uncontrolled with Hyperglycemia Hyponatremia could be pseudohyponatremia secondary to hyperglycemia Hypertension Mild protein calorie malnutrition Morbid obesity with a BMI of 46.3 GI prophylaxis DVT prophylaxis, SCDs No code Plan: Recommend to monitor hemoglobin closely and currently stable today. Patient is status post 1 unit of PRBC this admission General surgery following with status post EGD showing a mild gastroenteritis Patient is continued on clear liquids and initiating GoLYTELY bowel prep today for colonoscopy plans tomorrow Recommend continue Protonix Patient having a brief period of hypertension along with shortness of breath and some anxiety will obtain a chest x-ray that was showing atelectasis with no acute cardiopulmonary process and will resume blood pressure medications and they have been on hold due to being nothing by mouth for recent EGD. Recommend follow-up labs in the a.m. and transfuse if less than 7 Patient reports her family is currently moving all of her belongings to [facility] as she will be going there to live once stabilized and discharged Await colonoscopy report and discuss with surgery about discharge planning Further recommendations to follow based on the clinical course the patient Due to multiple complex medical issues, prognosis is guarded The impression and plan of care has been dictated by Zenobia Rush Nurse Practitioner as directed. MD Maryana I have performed a history and examination and MDM of this patient, discussed the same with the dictator, and agree with the dictator's assessment and plan as written ,documented as a scribe. Based on total visit time, I have performed more than 50% of the visit. Objective - Vital Signs Vital signs: Vital Signs Temp 98.1 F 09/03/22 01:22 Pulse 95 09/03/22 01:22 Resp 15 09/03/22 01:22 BP 152/82 09/03/22 01:22 Pulse Ox 92 L 09/03/22 01:22 FiO2 Intake & Output 09/02/22 09/02/22 09/03/22 06:59 18:59 06:59 Intake Total 1380 Output Total 1600 2600 301 Balance -220 -2600 -301 Intake: Intake, IV Titration 900 Amount Sodium Chloride 0.9% 1, 900 000 ml @ 75 mls/hr IV . [id number] [facility] Rx#:[id number] Oral 480 Output: Urine 1600 2600 300 Stool 1 Other: Voiding Method External Catheter External Catheter External Catheter # Voids 1 # Bowel Movements 1 - Labs CBC & Chem 7: 09/03/22 06:03 09/02/22 07:32 Labs: Abnormal Lab Results - Last 24 Hours (Table) 09/02/22 09/02/22 09/02/22 Range/Units 07:32 07:32 17:12 RBC 3.22 L (4.10-5.20) X 10*6/uL Hgb 8.3 L (12.0-15.0) g/dL Hct 27.5 L (37.2-46.3) % MCH 25.8 L (27.0-32.0) pg MCHC 30.2 L (32.0-37.0) g/dL RDW 16.5 H (11.5-14.5) % Monocytes # 1.04 H (0.20-1.00) X 10*3/uL Anion Gap 9.90 L (10.00-18.00) mmol/L BUN 7.9 L (9.0-27.0) mg/dL Creatinine 0.5 L (0.6-1.5) mg/dL POC Glucose (mg/dL) 170 H (70-110) mg/dL Calcium 8.4 L (8.7-10.3) mg/dL 09/02/22 09/03/22 Range/Units 20:12 06:03 RBC 3.32 L (4.10-5.20) X 10*6/uL Hgb 9.0 L (12.0-15.0) g/dL Hct 28.0 L (37.2-46.3) % MCH (27.0-32.0) pg MCHC (32.0-37.0) g/dL RDW 15.6 H (11.5-14.5) % Monocytes # (0.20-1.00) X 10*3/uL Anion Gap (10.00-18.00) mmol/L BUN (9.0-27.0) mg/dL Creatinine (0.6-1.5) mg/dL POC Glucose (mg/dL) 154 H (70-110) mg/dL Calcium (8.7-10.3) mg/dL
[2022-09-03 06:44] LABS: African American GFR (CKD) >90 (>60 ml/min/1.73 sqM); Anion Gap 3 mmol/L; Blood Urea Nitrogen 4 mg/dL (7-17); Calcium 7.8 mg/dL (8.4-10.2); Carbon Dioxide 35 mmol/L (22-30); Chloride 103 mmol/L (98-107); Glucose 76 mg/dL (74-99); Non-African American GFR(CKD) >90 (>60 ml/min/1.73 sqM); Potassium 3.2 mmol/L (3.5-5.1); Sodium 141 mmol/L (137-145)
[2022-09-03 07:17] LABS: Glucose,Whole Blood 78 mg/dL (70-110)
[2022-09-03] MEDS ORDERED: Potassium Replacement Protocol 1 EACH MISC MISCELLANE PRN (07:36)
[2022-09-03] MEDS: INSULIN ASPART (NovoLOG) 100 UNIT/ML VIAL SQ SCH ×4 (07:39→21:46)
[2022-09-03] MEDS: LIDOCAINE 5% PATCH TOPICAL SCH (08:13)
[2022-09-03] MEDS: ALPRAZolam 0.25 MG TAB PO SCH ×2 (08:13→21:45)
[2022-09-03] MEDS: PANTOPRAZOLE 40 MG TABLET PO SCH ×2 (08:13→18:43)
[2022-09-03] MEDS: LOSARTAN 50 MG TAB PO SCH (08:13)
[2022-09-03] MEDS: POTASSIUM CHLORIDE ER 20 MEQ TAB.ER PO SCH (08:13)
[2022-09-03] MEDS: amLODIPine 2.5 MG TAB PO SCH (08:14)
[2022-09-03] MEDS: DORZOLAMIDE-TIMOLOL 2.23%/0.68 10ML BTL BOTH EYES SCH ×2 (08:14→21:46)
[2022-09-03 12:36] LABS: Glucose,Whole Blood 100 mg/dL (70-110)
[2022-09-03] MEDS ORDERED: IV FLUID CONTINUATION 900 ML IV ONE (15:16)
[2022-09-03] MEDS ORDERED: PROPOFOL 10 MG/ML 20 ML VIAL IV ONE (15:16)
--- NOTE | 2022-09-03 15:54 | P.PCN ---
Date of Procedure: 09/03/22 Procedure(s) Performed: PREOPERATIVE DIAGNOSIS: Anemia POSTOPERATIVE DIAGNOSIS: Tortuous colon PROCEDURE: Colonoscopy ANESTHESIA: MAC SURGEON: Kendall Bragg M.D. SPECIMENS: None ENDOSCOPIC PROCEDURE: The patient was placed on the endoscopy table in the left decubitus position. The Olympus colonoscope was inserted into the anus and passed under direct visualization to the suspected region of the proximal ascending colon. I could not visualize the base of the cecum with certainty. We could not advance more proximal because of significant colonic tortuosity. The scope was withdrawn. There were no visual abnormalities seen throughout the cecum, ascending, transverse, descending, sigmoid and rectum. There was no visible diverticulosis noted. Digital rectal examination was normal. The patient was taken to the recovery room in stable condition per anesthesia guidelines. RECOMMENDATIONS: Given the patient's anemia and the fact that we were unable to fully visualize the cecum I will order a barium enema for tomorrow. May resume clear liquids today. Nothing by mouth after midnight.
[2022-09-03 16:54] LABS: Glucose,Whole Blood 90 mg/dL (70-110)
[2022-09-03] MEDS ORDERED: POTASSIUM CHLORIDE ER 20 MEQ TAB.ER PO SCH (18:00)
[2022-09-03] MEDS: ACETAMINOPHEN TAB 325 MG TAB PO PRN (18:43)
[2022-09-03 20:08] LABS: Glucose,Whole Blood 209 mg/dL (70-110)
[2022-09-03] MEDS: LATANOPROST 0.005% OPHTH DROPS 2.5 ML BTL BOTH EYES SCH (21:45)
[2022-09-03] MEDS: INSULIN DETEMIR (LEVEMIR) 100 UNIT/ML SYR SQ SCH (21:47)
[2022-09-04 02:18] VITALS: RESP 16
[2022-09-04] MEDS: SODIUM CHLORIDE 0.9% 1,000 ML IV SCH ×2 (03:54→11:26)
[2022-09-04] MEDS: LEVOTHYROXINE 75 MCG TAB PO SCH (06:00)
[2022-09-04 07:09] LABS: Glucose,Whole Blood 82 mg/dL (70-110)
--- NOTE | 2022-09-04 07:15 | P.PN ---
Subjective Progress Note Date: 09/03/22 Anemia Ms. Syed is an 82-year-old female with a past medical history of hypertension, hypothyroidism, spina bifid coming in with a chief complaint of generalized weakness. She was found to have significant anemia with hemoglobin of 6.5 at the time of admission. Today the patient is comfortably lying in bed appears to be no acute distress. She states that her generalized weakness improved to some extent. Patient denies having any chest pain or palpitations. She denies having any abdominal pain nausea vomiting or diarrhea. She did not have a bowel movement since admission. So FOBT could not be done. Patient denies having any burning sensation or pain. She denies having any fevers chills or rigors. On reviewing the patient's vitals temperature of 98.1 heart rate 92 respiratory rate 20 blood pressure 133/78 saturating 98% on room air. Patient's labs from this morning showed hemoglobin of 6.8. Blood sugars running between 200-300. 09/01/2022 Patient is seen and evaluated follow-up this morning with general surgery service is following and plans for upper endoscopy today. Patient is currently nothing by mouth and extremely anxious about her overall procedure and treatment plan moving forward. Patient's hemoglobin is stable with no active bleeding noted. Patient reports patient was having bowel movements and told there was blood noted in the stool. Patient denies any nausea or vomiting and reports to feeling mouth dryness and hunger. Patient is currently afebrile and hemoglobin is stable at 0 today. Patient denies excessive NSAID use although reports she takes 325 aspirin as needed and has been taking it multiple times daily. 09/02/2022 Patient is seen in follow-up this morning currently tolerating clear liquid diet status post EGD yesterday with biopsies. Some inflammation noted with no active bleeding noted. Hemoglobin is stable and plans are for considering a colonoscopy while inpatient to rule out any bleeding as patient has difficulty outpatient due to her spina bifida. Plan is to initiate GoLYTELY bowel prep with possible colonoscopy in 24 hours. Patient is afebrile denies chest pain or shortness of breath denies any nausea or vomiting. 09/03/2022 Patient is seen this morning currently sitting up in the chair reporting she's not feeling well. Patient did complete the GoLYTELY bowel prep and is scheduled for colonoscopy sometime today. Patient is currently nothing by mouth and reports to dry mouth and generalized fatigue and weakness. Electrolytes monitored and replaced per protocol and potassium is improved. Hemoglobin is 9 today with no active bleeding noted. Patient is quite anxious about the colonoscopy and will follow-up with general surgery following endoscopic procedure. Recommend follow-up labs in the a.m. and will continue to monitor closely. Encouraged increase activity as tolerated and okay to resume diet once cleared by general surgery. Recommend monitoring Accu-Cheks before meals and at bedtime. Review of systems: Constitutional: No reports of fatigue, fever, or chills Cardiovascular: No reports of chest pain or palpitations Respiratory: No reports of shortness of breath or cough GI: No reports of nausea, vomiting, or diarrhea : No reports of dysuria or retention Neurovascular: reports of generalized weakness All medications have been reviewed Physical exam: GEN. APPEARANCE: alert, in no apparent distress , pale EYE EXAM: normal appearance, PERRL, EOMI. Mild pallor RESPIRATORY EXAM: normal lung sounds bilaterally. No wheezing or crackles CARDIOVASCULAR EXAM: regular rate, normal rhythm, normal heart sounds. GI/ABDOMINAL EXAM: soft, normal bowel sounds. Non distended, No tenderness, guarding or rigidity EXTREMITIES EXAM: mild LE edema NEUROLOGICAL EXAM: alert, oriented X3 PSYCHIATRIC EXAM: normal affect, normal mood Assessment: Generalized weakness secondary to anemia Anemia -unclear if acute or chronic Mild gastral antritis, on EGD with biopsies obtained Diabetes mellitus, uncontrolled with Hyperglycemia Hyponatremia could be pseudohyponatremia secondary to hyperglycemia Hypertension Mild protein calorie malnutrition Morbid obesity with a BMI of 46.3 GI prophylaxis DVT prophylaxis, SCDs No code Plan: Recommend to monitor hemoglobin closely and currently stable today above 9. Patient is status post 1 unit of PRBC this admission General surgery following with status post EGD showing a mild gastroenteritis Patient is currently nothing by mouth patient has completed GoLYTELY bowel prep for colonoscopy shoulder general surgery sometime today Recommend continue Protonix Recommend follow-up labs in the a.m. and transfuse if less than 7 Patient reports her family is currently moving all of her belongings to [facility] as she will be going there to live once stabilized and discharged Await colonoscopy report and discuss with surgery about discharge planning Recommend to monitor electrolytes and hemoglobin and will follow-up with a.m. labs Further recommendations to follow based on the clinical course the patient Due to multiple complex medical issues, prognosis is guarded The impression and plan of care has been dictated by Zenobia Rush, Nurse Practitioner as directed. MD Maryana I have performed a history and examination and MDM of this patient, discussed the same with the dictator, and agree with the dictator's assessment and plan as written ,documented as a scribe. Based on total visit time, I have performed more than 50% of the visit. Objective - Vital Signs Vital signs: Vital Signs Temp 100.4 F H 09/03/22 14:00 Pulse 107 H 09/03/22 14:00 Resp 18 09/03/22 14:00 BP 171/91 09/03/22 14:00 Pulse Ox 90 L 09/03/22 14:00 FiO2 Intake & Output 09/02/22 09/03/22 09/03/22 18:59 06:59 18:59 Output Total 2600 301 1 Balance -2600 -301 -1 Output: Urine 2600 300 Stool 1 1 Other: Voiding Method External Catheter External Catheter External Catheter # Voids 1 # Bowel Movements 1 - Labs CBC & Chem 7: 09/03/22 06:03 09/03/22 16:28 Labs: Abnormal Lab Results - Last 24 Hours (Table) 09/02/22 09/02/22 09/03/22 Range/Units 17:12 20:12 06:03 RBC 3.32 L (3.80-5.40) m/uL Hgb 9.0 L (11.4-16.0) gm/dL Hct 28.0 L (34.0-46.0) % RDW 15.6 H (11.5-15.5) % Potassium (3.5-5.1) mmol/L Carbon Dioxide (22-30) mmol/L BUN (7-17) mg/dL Creatinine (0.52-1.04) mg/dL POC Glucose (mg/dL) 170 H 154 H (70-110) mg/dL Calcium (8.4-10.2) mg/dL 09/03/22 Range/Units 06:03 RBC (3.80-5.40) m/uL Hgb (11.4-16.0) gm/dL Hct (34.0-46.0) % RDW (11.5-15.5) % Potassium 3.2 L (3.5-5.1) mmol/L Carbon Dioxide 35 H (22-30) mmol/L BUN 4 L (7-17) mg/dL Creatinine 0.50 L (0.52-1.04) mg/dL POC Glucose (mg/dL) (70-110) mg/dL Calcium 7.8 L (8.4-10.2) mg/dL
[2022-09-04] MEDS: ACETAMINOPHEN TAB 325 MG TAB PO PRN (08:03)
[2022-09-04] MEDS: LIDOCAINE 5% PATCH TOPICAL SCH (08:04)
[2022-09-04] MEDS: PANTOPRAZOLE 40 MG TABLET PO SCH (08:04)
[2022-09-04] MEDS: ALPRAZolam 0.25 MG TAB PO SCH (08:04)
[2022-09-04] MEDS: amLODIPine 2.5 MG TAB PO SCH (08:04)
[2022-09-04] MEDS: INSULIN ASPART (NovoLOG) 100 UNIT/ML VIAL SQ SCH ×2 (08:11→12:31)
[2022-09-04] MEDS: DORZOLAMIDE-TIMOLOL 2.23%/0.68 10ML BTL BOTH EYES SCH (08:11)
[2022-09-04] MEDS: LOSARTAN 50 MG TAB PO SCH (08:12)
[2022-09-04 08:35] LABS: Basophils # (A) 0.05 X 10*3/uL (0.00-0.10); Basophils % (A) 0.6 %; Eosinophils # (A) 0.04 X 10*3/uL (0.04-0.35); Eosinophils % (A) 0.5 %; HCT 28.4 % (37.2-46.3); HGB 8.5 g/dL (12.0-15.0); Immature Grans, Automated 0.4 %; Lymphocytes # (A) 0.51 X 10*3/uL (0.90-5.00); Lymphocytes % (A) 6.5 %; MCH 25.5 pg (27.0-32.0); MCHC 29.9 g/dL (32.0-37.0); MCV 85.3 fL (80.0-97.0); Mean Platelet Volume 9.8 fL (9.5-12.2); Monocytes # (A) 1.03 X 10*3/uL (0.20-1.00); Monocytes % (A) 13.2 %; NRBC Per 100 WBC 0 /100 WBCS (0.0-0.0); Neutrophils # (A) 6.17 X 10*3/uL (1.80-7.70); Neutrophils % (A) 78.8 %; Platelet Count 288 X 10*3/uL (140-440); RBC 3.33 X 10*6/uL (4.10-5.20); RDW 16.1 % (11.5-14.5); WBC 7.83 X 10*3/uL (4.50-10.00)
[2022-09-04 08:52] LABS: Magnesium 1.8 mg/dL (1.5-2.4); Potassium 4.1 mmol/L (3.5-5.5)
--- NOTE | 2022-09-04 10:15 | P.PN ---
Subjective Progress Note Date: 09/04/22 Principal diagnosis: Anemia Patient did well yesterday after the colonoscopy on a clear liquid diet. She is scheduled for barium enema this morning in fact they're picking her up very soon. No abdominal pain. Objective - Vital Signs Vital signs: Vital Signs Temp 101.4 F H 09/04/22 09:15 Pulse 114 H 09/04/22 07:06 Resp 16 09/04/22 07:06 BP 143/68 09/04/22 07:06 Pulse Ox 96 09/04/22 07:06 FiO2 Intake & Output 09/03/22 09/04/22 09/04/22 18:59 06:59 18:59 Intake Total 200 Output Total 1201 650 Balance -1001 -650 Intake: IV 200 Output: Urine 1200 650 Stool 1 Other: Voiding Method External Catheter External Catheter - Exam Abdomen: Soft, nontender, nondistended - Labs CBC & Chem 7: 09/04/22 06:13 09/04/22 06:09 Labs: Abnormal Lab Results - Last 24 Hours (Table) 09/03/22 09/04/22 Range/Units 20:05 06:13 RBC 3.33 L (4.10-5.20) X 10*6/uL Hgb 8.5 L (12.0-15.0) g/dL Hct 28.4 L (37.2-46.3) % MCH 25.5 L (27.0-32.0) pg MCHC 29.9 L (32.0-37.0) g/dL RDW 16.1 H (11.5-14.5) % Lymphocytes # 0.51 L (0.90-5.00) X 10*3/uL Monocytes # 1.03 H (0.20-1.00) X 10*3/uL POC Glucose (mg/dL) 209 H (70-110) mg/dL Assessment and Plan (1) GI bleed Narrative/Plan: 82-year-old female with anemia and heme positive stools. Await barium enema today to evaluate the proximal colon. May resume diet and plan for discharge after that study is complete. Current Visit: Yes Status: Acute Code(s): K92.2 - GASTROINTESTINAL HEMORRHAGE, UNSPECIFIED SNOMED Code(s): 92689736
[2022-09-04 12:19] LABS: Glucose,Whole Blood 70 mg/dL (70-110)
--- NOTE | 2022-09-04 12:52 | FL ---
EXAMINATION TYPE: FL barium enema, single contrast DATE OF EXAM: 09/04/2022 COMPARISON: NONE HISTORY: 82-year-old female anemia, tortuous colon. Incomplete colonoscopy. TECHNIQUE: A single contrast barium enema study is performed. A total of 2 L dilute barium was util ized. A total of 1 minute 44 seconds of fluoroscopic time was utilized during procedure and 42 images obtained. FINDINGS: Flight Mechanic view of the abdomen shows pronounced retained air throughout the colon. Decision is made to pro ceed with a single contrast study The colon was promptly filled to the cecum. Eventual reflux into the distal ileum and appendix. The c ecum is high riding and shows persistent notching along the right lateral margin, likely focal tortuo sity that results in overlap as well. No convincing apple-core/annular constricting lesion at this le pk. The remainder of the colon also shows no suspicious upper correlation or significant diverticular artur nge minimal diverticular change along the hepatic flexure of the colon. IMPRESSION: High riding cecum with tortuosity and overlap limiting assessment. Focal notching along the right lat eral margin suspected to relate to this tortuosity and probably the ileocecal valve. No convincing ap ple core lesion. As a precautionary measure, consider a 3-6 month follow-up contrast enhanced CT.
[2022-09-04 12:55] VITALS: BP 145/76; PULSE 94; TEMP 98.5
[2022-09-04 14:39] VITALS: BMI 46.3
--- NOTE | 2022-09-07 19:52 | P.DS ---
Providers Date of admission: 08/29/22 19:57 Expected date of discharge: 09/04/22 Attending physician: Maddi Garcia Consults: 08/31/22 10:55 Consult Physician Urgent Consulting Provider: Albin Ziegler Consult Reason/Comments: GI bleed? drop in hgb, needs scope Do you want consulting provider notified?: Yes Primary care physician: Dennis Dawson Hospital Course: Final diagnosis Generalized weakness secondary to anemia Anemia -unclear if acute or chronic Mild gastral antritis, on EGD with biopsies obtained Diabetes mellitus, uncontrolled with Hyperglycemia Hyponatremia could be pseudohyponatremia secondary to hyperglycemia Hypertension Mild protein calorie malnutrition Morbid obesity with a BMI of 46.3 GI prophylaxis DVT prophylaxis, SCDs No code Discharge disposition Patient is being discharged in a stable condition with guarded prognosis to home and is moving into [facility]. Patient will follow-up with Dr. Dawson in the outpatient setting upon discharge. Patient is to follow-up with general surgery as scheduled for biopsy results. Total time taken is greater than 35 minutes. Hospital course This is a 82-year-old female who was recently admitted significant weakness found to be anemic requiring blood transfusions. Patient was seen and evaluated by general surgery and underwent EGD with mild antral gastritis and also prepped and underwent colonoscopy with no active bleeding noted. Hemoglobin is stable above 9 and tolerating diet and has been cleared by general surgery for outpatient follow-up. Biopsies were obtained during EGD and recommend outpatient follow-up with surgery. Patient reports to feeling well and would like to go home. Please refer to surgery consultation notes for further HPI. Currently no reports of chest pain, shortness of breath, or palpitations. Patient is afebrile. No reports of nausea or vomiting and patient is tolerating diet. Patient will be going to [facility] today. Physical exam: Gen: This is a 82-year-old female who is awake, alert and oriented 3, well- developed, well-nourished HEENT: Head is atraumatic, normocephalic. Pupils equal, round. Sclerae is anicteric. NECK: Supple. No JVD. No lymphadenopathy. No thyromegaly. LUNGS: Clear to auscultation. No wheezes or rhonchi. No intercostal retractions. HEART: Regular rate and rhythm. No murmur. ABDOMEN: Soft. Bowel sounds are present. No masses. No tenderness. EXTREMITIES: No pedal edema. No calf tenderness. NEUROLOGICAL: Patient is awake, alert and oriented x3. Cranial nerves 2 through 12 are grossly intact. Please refer to medication reconciliation sheet for a list of medications. The impression and plan of care has been dictated by Zenobia Rush, Nurse Practitioner as directed. Dr. Radha MD I have performed a history and examination and MDM of this patient, discussed the same with the dictator, and agree with the dictator's assessment and plan as written ,documented as a scribe. Based on total visit time, I have performed more than 50% of the visit. Patient Condition at Discharge: Stable Plan - Discharge Summary New Discharge Prescriptions: New Fluticasone Nasal [place] [Flonase Nasal [place]] 2 spray EA NOSTRIL DAILY PRN ml PRN Reason: Allergy Symptoms Lidocaine 5% Patch [Lidoderm 5% Patch] 1 patch TOPICAL DAILY #30 patch Pantoprazole [Protonix] 40 mg PO AC-BID 15 Days #30 tab Acetaminophen Tab [Tylenol] 650 mg PO Q6HR PRN tab PRN Reason: Fever And/ Or Pain Continue Levothyroxine Sodium [Synthroid] 75 mcg PO DAILY Glimepiride [Amaryl] 2 mg PO DAILY Vit C/E/Zn/Coppr/Lutein/Zeaxan [Preservision Areds 2 Softgel] 1 cap PO BID Calcium Carbonate [Calcium] 600 mg PO DAILY Triamterene-Hctz 37.5-25Mg [Maxzide 37.5-25] 1 tab PO DAILY PRN PRN Reason: Edema Dulaglutide [Trulicity] 1.5 mg SQ TU Losartan Potassium 100 mg PO DAILY Vitamin B Complex 1 cap PO DAILY Dorzolamide-Timol 2.23%/0.68% [Cosopt] 1 drop BOTH EYES BID amLODIPine [Norvasc] 2.5 mg PO DAILY Nystatin [Nystop] 1 applic TOPICAL DAILY PRN PRN Reason: Skin Irritation Montelukast [Singulair] 10 mg PO HS PRN PRN Reason: Allergy Symptoms Latanoprost [Latanoprost 0.005%] 1 drop BOTH EYES HS Discharge Medication List Calcium Carbonate [Calcium] 600 mg PO DAILY 01/27/17 [History] Glimepiride [Amaryl] 2 mg PO DAILY 01/27/17 [History] Levothyroxine Sodium [Synthroid] 75 mcg PO DAILY 01/27/17 [History] Vit C/E/Zn/Coppr/Lutein/Zeaxan [Preservision Areds 2 Softgel] 1 cap PO BID 01/27/17 [History] Dorzolamide-Timol 2.23%/0.68% [Cosopt] 1 drop BOTH EYES BID 08/29/22 [History] Dulaglutide [Trulicity] 1.5 mg SQ TU 08/29/22 [History] Latanoprost [Latanoprost 0.005%] 1 drop BOTH EYES HS 08/29/22 [History] Losartan Potassium 100 mg PO DAILY 08/29/22 [History] Montelukast [Singulair] 10 mg PO HS PRN 08/29/22 [History] Nystatin [Nystop] 1 applic TOPICAL DAILY PRN 08/29/22 [History] Triamterene-Hctz 37.5-25Mg [Maxzide 37.5-25] 1 tab PO DAILY PRN 08/29/22 [History] Vitamin B Complex 1 cap PO DAILY 08/29/22 [History] amLODIPine [Norvasc] 2.5 mg PO DAILY 08/29/22 [History] Acetaminophen Tab [Tylenol] 650 mg PO Q6HR PRN tab 09/04/22 [Rx] Fluticasone Nasal [place] [Flonase Nasal [place]] 2 spray EA NOSTRIL DAILY PRN ml 09/04/22 [Rx] Lidocaine 5% Patch [Lidoderm 5% Patch] 1 patch TOPICAL DAILY #30 patch 09/04/22 [Rx] Pantoprazole [Protonix] 40 mg PO AC-BID 15 Days #30 tab 09/04/22 [Rx] Follow up Appointment(s)/Referral(s): Kendall Bragg MD [Medical Doctor] - 1 Week Dennis Dawson MD [Primary Care Provider] - 1-2 days Ambulatory/Diagnostic Orders: Complete Blood Count w/diff [LAB.AMB] Time Frame: 3 Days, Location: None Selected Activity/Diet/Wound Care/Special Instructions: Activity Limited until follow-up Follow-up with primary care provider on discharge Follow-up with surgery Dr. Bragg outpatient Continue taking medications as prescribed Continue current diet Monitor blood sugars closely and keep a diary for primary care follow-up Repeat labs in 2-3 days Discharge Disposition: HOME SELF-CARE
== END 2022-09-04 17:10 | disposition home or self-care (01) | DRG 811 ==
LOC: EC 16:11 → 5NMEDONC 19:57
PROVIDERS: ADMIT Internal Medicine; ATTEND Internal Medicine
PROC: 30233N1 Transfusion of Nonautologous Red Blood Cells into Peripheral Vein, Percutaneous Approach (ICD-10-PCS; principal; 2022-08-29)
PROC: 0DB78ZX Excision of Stomach, Pylorus, Via Natural or Artificial Opening Endoscopic, Diagnostic (ICD-10-PCS; 2022-09-01)
PROC: 0DJD8ZZ Inspection of Lower Intestinal Tract, Via Natural or Artificial Opening Endoscopic (ICD-10-PCS; 2022-09-03)
DX: D64.9 Anemia, unspecified (principal); K29.51 Unspecified chronic gastritis with bleeding; E44.1 Mild protein-calorie malnutrition; Z68.42 Body mass index [BMI] 45.0-49.9, adult; E03.9 Hypothyroidism, unspecified; I10 Essential (primary) hypertension; E11.65 Type 2 diabetes mellitus with hyperglycemia; E66.01 Morbid (severe) obesity due to excess calories; I49.3 Ventricular premature depolarization; K63.89 Other specified diseases of intestine; Q05.9 Spina bifida, unspecified; F41.9 Anxiety disorder, unspecified; R00.0 Tachycardia, unspecified; R68.2 Dry mouth, unspecified; Z79.899 Other long term (current) drug therapy; Z79.890 Hormone replacement therapy; Z79.84 Long term (current) use of oral hypoglycemic drugs; Z88.1 Allergy status to other antibiotic agents; Z79.82 Long term (current) use of aspirin
CPT/HCPCS: 36415; 36430; 43239; 45378; 71045; 71046; 74280; 80048; 80053; 81003; 82272; 82803; 83036; 83690; 83735; 83880; 84132; 84484; 85025; 85027; 86850; 86900; 86901; 86920; 88305; 88342; 93005; 96360; 96361; 99285

== ENCOUNTER → 2022-12-08 | Outpatient (CLI) | payer MEDICARE ==
[2022-12-08 19:44] LABS: Basophils # (A) 0.07 X 10*3/uL (0.00-0.10); Eosinophils # (A) 0.26 X 10*3/uL (0.04-0.35); Eosinophils % (A) 3.8 %; HCT 33.1 % (37.2-46.3); HGB 9.6 g/dL (12.0-15.0); Immature Grans, Automated 0.3 %; MCH 22.5 pg (27.0-32.0); MCV 77.7 fL (80.0-97.0); Mean Platelet Volume 10.1 fL (9.5-12.2); Monocytes # (A) 0.55 X 10*3/uL (0.20-1.00); Monocytes % (A) 8.1 %; NRBC Per 100 WBC 0 /100 WBCS (0.0-0.0); Neutrophils # (A) 4.41 X 10*3/uL (1.80-7.70); Neutrophils % (A) 64.8 %; Platelet Count 348 X 10*3/uL (140-440); RBC 4.26 X 10*6/uL (4.10-5.20); WBC 6.81 X 10*3/uL (4.50-10.00)
[2022-12-09 01:29] LABS: ALT 20 U/L (8-44); AST 17 U/L (13-35); Albumin/Globulin Ratio 1.54 (1.60-3.17); Alkaline Phosphatase 117 U/L (41-126); BUN/Creat Ratio 34.33 Ratio (12.00-20.00); Blood Urea Nitrogen 30.9 mg/dL (9.0-27.0); Calcium 9.2 mg/dL (8.7-10.3); Carbon Dioxide 28.2 mmol/L (20.0-27.5); Chloride 101 mmol/L (96-109); Globulin 2.6 g/dL (1.6-3.3); Glucose 278 mg/dL (70-110); Non-African American GFR(CKD) 59.5 (60.0-200.0); Potassium 4.5 mmol/L (3.5-5.5); Sodium 139 mmol/L (135-145); Total Bilirubin <0.15 mg/dL (0.30-1.20); Total Protein 6.6 g/dL (6.2-8.2)
== END | disposition home or self-care (01) ==
LOC: LABWHC1 15:53
PROVIDERS: ATTEND Family Medicine
DX: E11.42 Type 2 diabetes mellitus with diabetic polyneuropathy (principal)
CPT/HCPCS: 36415; 80053; 83036; 85025

== ENCOUNTER → 2022-12-08 | Outpatient (CLI) | payer MEDICARE ==
--- NOTE | 2022-12-08 16:07 | US ---
EXAMINATION TYPE: US venous doppler duplex LE BI DATE OF EXAM: 12/08/2022 3:01 PM COMPARISON: NONE CLINICAL HISTORY: R60.0 EDEMA. SIDE PERFORMED: Bilateral TECHNIQUE: The lower extremity deep venous system is examined utilizing real time linear array sonog paulette with graded compression, doppler sonography and color-flow sonography. VESSELS IMAGED: Common Femoral Vein Deep Femoral Vein Greater Saphenous Vein * Femoral Vein Popliteal Vein Small Saphenous Vein * Proximal Calf Veins (* superficial vessels) Limited exam due to patient having spina bifida. Nonvisualization of pop vessels. Vessels are very sm all and difficult to visualize. Grayscale, color doppler, spectral doppler imaging performed of the deep veins of the lower extremiti es. There is normal flow, compressibility, vascular waveforms. Right Leg: Negative for DVT as visualized. Left Leg: Negative for DVT as visualized. Diffuse subcutaneous edema. IMPRESSION: No ultrasound evidence for deep venous thrombosis within the visualized portions of the bilateral low er extremities. Nonvisualization of the distal popliteal veins and proximal calf veins bilaterally.
== END | disposition home or self-care (01) ==
LOC: RADUSWWP 14:58
PROVIDERS: ATTEND Family Medicine
DX: R60.0 Localized edema (principal)
CPT/HCPCS: 93970

== ENCOUNTER 2023-04-16 14:43 | Emergency (ER) | payer MEDICARE ==
[2023-04-16] MEDS ORDERED: SODIUM CHLORIDE 0.9% 500 ML 500 ML IV STA (15:03)
[2023-04-16 15:24] LABS: Basophils # (A) 0.1 k/uL (0-0.2); Basophils % (A) 1 %; Eosinophils # (A) 0.3 k/uL (0-0.7); Eosinophils % (A) 4 %; HCT 27.7 % (34.0-46.0); HGB 8.8 gm/dL (11.4-16.0); Hypochromasia Marked; Lymphocytes # (A) 1.4 k/uL (1.0-4.8); Lymphocytes % (A) 20 %; MCH 22.5 pg (25.0-35.0); MCHC 31.6 g/dL (31.0-37.0); MCV 71.2 fL (80.0-100.0); Mean Platelet Volume 7.5; Microcytosis Moderate; Monocytes # (A) 0.4 k/uL (0-1.0); Monocytes % (A) 6 %; Neutrophils # (A) 4.3 k/uL (1.3-7.7); Neutrophils % (A) 64 %; Platelet Count 290 k/uL (150-450); RBC 3.89 m/uL (3.80-5.40); RDW 14.5 % (11.5-15.5); WBC 6.8 k/uL (3.8-10.6)
[2023-04-16 15:38] LABS: ALT 18 U/L (4-34); AST 34 U/L (14-36); African American GFR (CKD) 68 (>60 ml/min/1.73 sqM); Albumin 3.6 g/dL (3.5-5.0); Alkaline Phosphatase 94 U/L (38-126); Anion Gap 10 mmol/L; Blood Urea Nitrogen 27 mg/dL (7-17); Calcium 8.6 mg/dL (8.4-10.2); Carbon Dioxide 23 mmol/L (22-30); Chloride 100 mmol/L (98-107); Glucose 272 mg/dL (74-99); Magnesium 2.2 mg/dL (1.6-2.3); Non-African American GFR(CKD) 59 (>60 ml/min/1.73 sqM); Phosphorus 3.7 mg/dL (2.5-4.5); Sodium 133 mmol/L (137-145); Total Bilirubin 0.5 mg/dL (0.2-1.3); Total Protein 6.9 g/dL (6.3-8.2)
[2023-04-16 15:41] LABS: INR 0.9 (<1.2); Partial Thromboplastin Time 23.1 sec (22.0-30.0); Prothrombin Time 9.8 sec (9.0-12.0)
[2023-04-16 15:46] LABS: Potassium 5.2 mmol/L (3.5-5.1)
--- NOTE | 2023-04-16 16:05 | ED ---
Recheck HPI - General Chief Complaint: Recheck/Abnormal Lab/Rx Stated Complaint: abn labs,sent by PCP Time Seen by Provider: 04/16/23 15:03 Source: patient, RN notes reviewed, old records reviewed Mode of arrival: ambulatory Limitations: physical limitation - History of Present Illness Initial Comments: This is a 82-year-old female to the ER for evaluation. Patient presents today for evaluation regards toconcern for low hemoglobin. Patient outpatient lab testing showing anemia 7.9 hemoglobin. Patient states she continues to feel weak lightheaded and dizzy denies blood in her stool. Denies dark tarry stools denies red stool. Not on blood thinners. Patient states she still feeling weak and has no real improvement in symptoms opposed to seeing her primary care earlier this week MD Complaint: abnormal lab (low hemoglobin) -: unknown Associated Symptoms: none Treatments Prior to Arrival: other (0) - Related Data Home Medications Medication Instructions Recorded Confirmed Calcium Carbonate [Calcium] 600 mg PO DAILY 01/27/17 08/29/22 Glimepiride [Amaryl] 2 mg PO DAILY 01/27/17 08/29/22 Levothyroxine Sodium [Synthroid] 75 mcg PO DAILY 01/27/17 08/29/22 Vit C/E/Zn/Coppr/Lutein/Zeaxan 1 cap PO BID 01/27/17 08/29/22 [Preservision Areds 2 Softgel] Dorzolamide-Timol 2.23%/0.68% 1 drop BOTH EYES BID 08/29/22 08/29/22 [Cosopt] Dulaglutide [Trulicity] 1.5 mg SQ TU 08/29/22 08/29/22 Latanoprost [Latanoprost 0.005%] 1 drop BOTH EYES HS 08/29/22 08/29/22 Losartan Potassium 100 mg PO DAILY 08/29/22 08/29/22 Montelukast [Singulair] 10 mg PO HS PRN 08/29/22 08/29/22 Nystatin [Nystop] 1 applic TOPICAL DAILY PRN 08/29/22 08/29/22 Triamterene-Hctz 37.5-25Mg 1 tab PO DAILY PRN 08/29/22 08/29/22 [Maxzide 37.5-25] Vitamin B Complex 1 cap PO DAILY 08/29/22 08/29/22 amLODIPine [Norvasc] 2.5 mg PO DAILY 08/29/22 08/29/22 Previous Rx's Medication Instructions Recorded Acetaminophen Tab [Tylenol] 650 mg PO Q6HR PRN tab 09/04/22 Fluticasone Nasal [place] [Flonase 2 spray EA NOSTRIL DAILY PRN ml 09/04/22 Nasal [place]] Lidocaine 5% Patch [Lidoderm 5% 1 patch TOPICAL DAILY #30 patch 09/04/22 Patch] Pantoprazole [Protonix] 40 mg PO AC-BID 15 Days #30 tab 09/04/22 Allergies Allergy/AdvReac Type Severity Reaction Status Date / Time sulfamethoxazole Allergy Anaphylaxis Verified 04/16/23 14:48 [From Bactrim] trimethoprim [From Bactrim] Allergy Anaphylaxis Verified 04/16/23 14:48 erythromycin base AdvReac Intermediate Vomiting Verified 01/27/17 19:46 Review of Systems ROS Statement: Those systems with pertinent positive or pertinent negative responses have been documented in the HPI. ROS Other: All systems not noted in ROS Statement are negative. 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 Absent: scleral icterus, conjunctival injection, periorbital swelling ENT exam: Present: normal exam, mucous membranes moist Neck exam: Present: normal inspection. Absent: tenderness, meningismus, lymphadenopathy Respiratory exam: Present: normal lung sounds bilaterally. Absent: respiratory distress, wheezes, rales, rhonchi, stridor Cardiovascular Exam: Present: regular rate, normal rhythm, normal heart sounds. Absent: systolic murmur, diastolic murmur, rubs, gallop, clicks GI/Abdominal exam: Present: soft, normal bowel sounds. Absent: distended, tenderness, guarding, rebound, rigid Extremities exam: Present: normal inspection, full ROM, normal capillary refill. Absent: tenderness, pedal edema, joint swelling, calf tenderness Back exam: Present: normal inspection Neurological exam: Present: alert, oriented X3, CN II-XII intact Psychiatric exam: Present: normal affect, normal mood Skin exam: Present: warm, dry, intact, normal color. Absent: rash Course Vital Signs 04/16/23 04/16/23 14:46 17:30 Temperature 98 F 98.1 F Pulse Rate 107 H 99 Respiratory 20 18 Rate Blood Pressure 123/74 123/87 O2 Sat by Pulse 97 98 Oximetry - Reevaluation(s) Reevaluation #1: 04/16/23 17:05 medical record is reviewed Reevaluation #2: 04/16/23 17:06 patient still feeling weak and short of breath Reevaluation #3: 04/16/23 17:06 patientpatient informed results questions answered feels good for discharge Reevaluation #4: 04/16/23 16:16 Was pt. sent in by a medical professional or institution (, PA, AURICULAR THERAPIST, urgent care, hospital, or skilled nursing...) When possible be specific @ -no Did you speak to anyone other than the patient for history (EMS, parent, family, police, friend...)? What history was obtained from this source @ -no Did you review nursing and triage notes (agree or disagree)? Why? @ -agree Are old charts reviewed (outside hosp., previous admission, EMS record, old EKG, old radiological studies, urgent care reports/EKG's, skilled nursing records)? Report findings @ -yes Differential Diagnosis (chest pain, altered mental status, abdominal pain women, abdominal pain men, vaginal bleeding, weakness, fever, dyspnea, syncope, headache, dizziness, GI bleed, back pain, seizure, CVA, palpatations, mental health, musculoskeletal)? @ -prior EKG interpreted by me (3pts min.). @ -yes X-rays interpreted by me (1pt min.). @ -no CT interpreted by me (1pt min.). @ -no U/S interpreted by me (1pt. min.). @ -no What testing was considered but not performed or refused? (CT, X-rays, U/S, labs)? Why? @ -none What meds were considered but not given or refused? Why? @ -none Did you discuss the management of the patient with other professionals (professionals i.e. , PA, AURICULAR THERAPIST, lab, RT, psych nurse, social work nurse, converting operator, teacher, first officer and flight instructor, social work case manager)? Give summary @ -no Was smoking cessation discussed for >3mins.? @ -no Was critical care preformed (if so, how long)? @ -no Were there social determinants of health that impacted care today? How? ( Homelessness, low income, unemployed, alcoholism, drug addiction, transportation, low edu. Level, literacy, decrease access to med. care, halfway, rehab)? @ -none Was there de-escalation of care discussed even if they declined (Discuss DNR or withdrawal of care, Hospice)? DNR status @ -no What co-morbidities impacted this encounter? (DM, HTN, Smoking, COPD, CAD, Cancer, CVA, ARF, Chemo, Hep., AIDS, mental health diagnosis, sleep apnea, morbid obesity)? @ -none Was patient admitted / discharged? Hospital course, mention meds given and route, prescriptions, significant lab abnormalities, going to OR and other pertinent info. @ - 82 female to the ER for evaluation of low hemoglobin. Patient has low hemoglobin here in the ER but improved from outpatient testing. No active bleeding no significant distress and patient can be discharged home Discharge Undiagnosed new problem with uncertain prognosis? @ -no Drug Therapy requiring intensive monitoring for toxicity (Heparin, Nitro, Insulin, Cardizem)? @ -no Were any procedures done? @ -no Diagnosis/symptom? @ -Anemia Acute, or Chronic, or Acute on Chronic? @ -Acute Uncomplicated (without systemic symptoms) or Complicated (systemic symptoms)? @ -Complicated Side effects of treatment? @ -no Exacerbation, Progression, or Severe Exacerbation? @ -exacerbation Poses a threat to life or bodily function? How? (Chest pain, USA, MS, pneumonia, PE, COPD, DKA, ARF, appy, cholecystitis, CVA, Diverticulitis, Homicidal, Suicidal, threat to staff... and all critical care pts) @ -yes severe anemia secondary to blood loss Reevaluation #5: 04/16/23 17:06 Differential Weakness: Hypoglycemia, shock, sepsis, hyponatremia, anemia, infection, MS, ETOH, adverse medicine reaction, overdose, stroke, this is not meant to be an all-inclusive list. Medical Decision Making - Medical Decision Making 82 female to the ER for evaluation of low hemoglobin. Patient has low hemoglobin here in the ER but improved from outpatient testing. No active bleeding no significant distress and patient can be discharged home - Lab Data Result diagrams: 04/16/23 15:16 04/16/23 15:16 Lab Results 04/16/23 04/16/23 04/16/23 Range/Units 15:16 15:16 15:16 WBC 6.8 (3.8-10.6) k/uL RBC 3.89 (3.80-5.40) m/uL Hgb 8.8 L (11.4-16.0) gm/dL Hct 27.7 L (34.0-46.0) % MCV 71.2 L (80.0-100.0) fL MCH 22.5 L (25.0-35.0) pg MCHC 31.6 (31.0-37.0) g/dL RDW 14.5 (11.5-15.5) % Plt Count 290 (150-450) k/uL MPV 7.5 Neutrophils % 64 % Lymphocytes % 20 % Monocytes % 6 % Eosinophils % 4 % Basophils % 1 % Neutrophils # 4.3 (1.3-7.7) k/uL Lymphocytes # 1.4 (1.0-4.8) k/uL Monocytes # 0.4 (0-1.0) k/uL Eosinophils # 0.3 (0-0.7) k/uL Basophils # 0.1 (0-0.2) k/uL Hypochromasia Marked Microcytosis Moderate PT 9.8 (9.0-12.0) sec INR 0.9 (<1.2) APTT 23.1 (22.0-30.0) sec Sodium 133 L (137-145) mmol/L Potassium 5.2 H (3.5-5.1) mmol/L Chloride 100 (98-107) mmol/L Carbon Dioxide 23 (22-30) mmol/L Anion Gap 10 mmol/L BUN 27 H (7-17) mg/dL Creatinine 0.91 (0.52-1.04) mg/dL Est GFR (CKD-EPI)AfAm 68 (>60 ml/min/1.73 sqM) Est GFR (CKD-EPI)NonAf 59 (>60 ml/min/1.73 sqM) Glucose 272 H (74-99) mg/dL Calcium 8.6 (8.4-10.2) mg/dL Phosphorus 3.7 (2.5-4.5) mg/dL Magnesium 2.2 (1.6-2.3) mg/dL Total Bilirubin 0.5 (0.2-1.3) mg/dL AST 34 (14-36) U/L ALT 18 (4-34) U/L Alkaline Phosphatase 94 (38-126) U/L Troponin I (0.000-0.034) ng/mL Total Protein 6.9 (6.3-8.2) g/dL Albumin 3.6 (3.5-5.0) g/dL Blood Type Blood Type Recheck Bld Type Recheck Status Antibody Screen Spec Expiration Date 04/16/23 04/16/23 Range/Units 15:16 15:47 WBC (3.8-10.6) k/uL RBC (3.80-5.40) m/uL Hgb (11.4-16.0) gm/dL Hct (34.0-46.0) % MCV (80.0-100.0) fL MCH (25.0-35.0) pg MCHC (31.0-37.0) g/dL RDW (11.5-15.5) % Plt Count (150-450) k/uL MPV Neutrophils % % Lymphocytes % % Monocytes % % Eosinophils % % Basophils % % Neutrophils # (1.3-7.7) k/uL Lymphocytes # (1.0-4.8) k/uL Monocytes # (0-1.0) k/uL Eosinophils # (0-0.7) k/uL Basophils # (0-0.2) k/uL Hypochromasia Microcytosis PT (9.0-12.0) sec INR (<1.2) APTT (22.0-30.0) sec Sodium (137-145) mmol/L Potassium (3.5-5.1) mmol/L Chloride (98-107) mmol/L Carbon Dioxide (22-30) mmol/L Anion Gap mmol/L BUN (7-17) mg/dL Creatinine (0.52-1.04) mg/dL Est GFR (CKD-EPI)AfAm (>60 ml/min/1.73 sqM) Est GFR (CKD-EPI)NonAf (>60 ml/min/1.73 sqM) Glucose (74-99) mg/dL Calcium (8.4-10.2) mg/dL Phosphorus (2.5-4.5) mg/dL Magnesium (1.6-2.3) mg/dL Total Bilirubin (0.2-1.3) mg/dL AST (14-36) U/L ALT (4-34) U/L Alkaline Phosphatase (38-126) U/L Troponin I <0.012 (0.000-0.034) ng/mL Total Protein (6.3-8.2) g/dL Albumin (3.5-5.0) g/dL Blood Type O Positive Blood Type Recheck O Pos Bld Type Recheck Status No Antibody Screen NEGATIVE Spec Expiration Date 04/19/20232346 - EKG Data -: EKG Interpreted by Me (EKG is sinus rhythm 90 03/06/1973 QRS 80 QTC 381) Disposition Clinical Impression: Anemia, Weakness, GI bleed, Symptomatic anemia Disposition: HOME SELF-CARE Condition: Good Instructions (If sedation given, give patient instructions): Anemia (ED) Is patient prescribed a controlled substance at d/c from ED?: No Referrals: Dennis Dawson MD [Primary Care Provider] - 1-2 days Time of Disposition: 17:00
[2023-04-16 17:40] VITALS: BP 123/87; PULSE 99; RESP 18; TEMP 98.1
== END 2023-04-16 17:38 | disposition home or self-care (01) ==
LOC: EC 14:43
DX: K92.2 Gastrointestinal hemorrhage, unspecified (principal); D64.9 Anemia, unspecified; I10 Essential (primary) hypertension; Z79.899 Other long term (current) drug therapy; Z79.84 Long term (current) use of oral hypoglycemic drugs; Z88.2 Allergy status to sulfonamides; Z88.8 Allergy status to other drugs, medicaments and biological substances
CPT/HCPCS: 36415; 80053; 83735; 84100; 84484; 85025; 85610; 85730; 86850; 86900; 86901; 93005; 99284

== ENCOUNTER 2023-09-15 12:02 | Inpatient (IN) | payer MEDICARE ==
--- NOTE | 2023-09-15 12:29 | ED ---
Weakness HPI - General Chief complaint: Weakness Stated complaint: Nausea, vomiting Time Seen by Provider: 09/15/23 12:24 Source: patient, RN notes reviewed, old records reviewed Mode of arrival: EMS Limitations: no limitations - History of Present Illness Initial comments: This is a 83-year-old female the emergency department for evaluation of severe w eakness elevated heart rate not feeling herself and altered mental for the family, family is at bedside is patient's is increasingly weak not participating in activities of daily living and increasingly acting altered she states she feels warm and chills Complaint: generalized weakness, lack of energy, difficulty walking -: days(s) Location: generalized Severity: severe Severity scale (1-10): 8 Consistency: constant Improves with: none Worsens with: none Context: recent illness, history of similar Associated Symptoms: confusion, loss of appetite, nausea/vomiting - Related Data Home Medications Medication Instructions Recorded Confirmed Glimepiride [Amaryl] 2 mg PO BID 01/27/17 09/15/23 Levothyroxine Sodium [Synthroid] 75 mcg PO DAILY 01/27/17 09/15/23 Dorzolamide-Timol 2.23%/0.68% 1 drop BOTH EYES BID 08/29/22 09/15/23 [Cosopt] Latanoprost [Latanoprost 0.005%] 1 drop BOTH EYES HS 08/29/22 09/15/23 Losartan Potassium 100 mg PO DAILY 08/29/22 09/15/23 Montelukast [Singulair] 10 mg PO HS 08/29/22 09/15/23 Nystatin [Nystop] 1 applic TOPICAL DAILY PRN 08/29/22 09/15/23 Triamterene-Hctz 37.5-25Mg 1 tab PO DAILY 08/29/22 09/15/23 [Maxzide 37.5-25] amLODIPine [Norvasc] 2.5 mg PO DAILY 08/29/22 09/15/23 Albuterol Inhaler [Ventolin Hfa 2 puff INHALATION RT-QID PRN 09/15/23 09/15/23 Inhaler] Dulaglutide [Trulicity] 4.5 mg SQ Q7D 09/15/23 09/15/23 Ferrous Sulfate [Iron (65 MG 325 mg PO DAILY 09/15/23 09/15/23 Elemental)] Pantoprazole [Protonix] 40 mg PO DAILY 09/15/23 09/15/23 Previous Rx's Medication Instructions Recorded Cephalexin [Keflex] 500 mg PO Q8HR 7 Days #21 cap 09/19/23 Metoprolol Tartrate [Lopressor] 25 mg PO BID #60 tab 09/19/23 Pantoprazole [Protonix] 40 mg PO BID #60 tab 09/19/23 Allergies Allergy/AdvReac Type Severity Reaction Status Date / Time sulfamethoxazole Allergy Anaphylaxis Verified 04/16/23 14:48 [From Bactrim] trimethoprim [From Bactrim] Allergy Anaphylaxis Verified 04/16/23 14:48 erythromycin base AdvReac Intermediate Vomiting Verified 01/27/17 19:46 Review of Systems ROS Statement: Those systems with pertinent positive or pertinent negative responses have been documented in the HPI. ROS Other: All systems not noted in ROS Statement are negative. 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 Absent: scleral icterus, conjunctival injection, periorbital swelling ENT exam: Present: normal exam, mucous membranes dry Neck exam: Present: normal inspection. Absent: tenderness, meningismus, lymphadenopathy Respiratory exam: Present: normal lung sounds bilaterally. Absent: respiratory distress, wheezes, rales, rhonchi, stridor Cardiovascular Exam: Present: normal rhythm, tachycardia, normal heart sounds. Absent: systolic murmur, diastolic murmur, rubs, gallop, clicks GI/Abdominal exam: Present: soft, normal bowel sounds. Absent: distended, tend erness, guarding, rebound, rigid Extremities exam: Present: normal inspection, full ROM, normal capillary refill. Absent: tenderness, pedal edema, joint swelling, calf tenderness Back exam: Present: normal inspection Neurological exam: Present: alert, oriented X3, CN II-XII intact Psychiatric exam: Present: normal affect, normal mood Skin exam: Present: warm, dry, intact, normal color. Absent: rash Course Vital Signs 09/15/23 09/15/23 09/15/23 12:09 12:13 12:57 Temperature 99.1 F Pulse Rate 109 H 110 H Pulse Rate [ [employer] Worker ] Respiratory 20 20 20 Rate Blood Pressure 126/62 126/62 Blood Pressure [Supine] O2 Sat by Pulse 99 98 Oximetry 09/15/23 09/15/23 09/15/23 14:06 15:00 17:23 Temperature Pulse Rate 110 H 110 H 98 Pulse Rate [ [employer] Worker ] Respiratory 20 20 18 Rate Blood Pressure 120/62 129/79 129/79 Blood Pressure [Supine] O2 Sat by Pulse 95 98 95 Oximetry 09/15/23 09/15/23 09/16/23 19:00 21:00 00:00 Temperature 98.9 F Pulse Rate 103 H 104 H Pulse Rate [ 107 H [employer] Specialty Worker ] Respiratory 20 22 19 Rate Blood Pressure 121/83 116/71 Blood Pressure 114/65 [Supine] O2 Sat by Pulse 96 94 L 96 Oximetry 09/16/23 09/16/23 09/16/23 04:00 08:00 08:10 Temperature 99.2 F 99.6 F Pulse Rate Pulse Rate [ 107 H 115 H 115 H [employer] Specialty Worker ] Respiratory 19 18 18 Rate Blood Pressure Blood Pressure 128/67 130/69 [Supine] O2 Sat by Pulse 98 95 Oximetry 09/16/23 09/16/23 09/16/23 12:03 12:55 13:05 Temperature 98.9 F 98.6 F Pulse Rate 90 92 Pulse Rate [ 92 [employer] Specialty Worker ] Respiratory 18 16 16 Rate Blood Pressure 110/64 108/62 Blood Pressure 112/63 [Supine] O2 Sat by Pulse 96 Oximetry 09/16/23 09/16/23 09/16/23 13:25 14:00 15:28 Temperature 98.1 F 98.6 F Pulse Rate 93 95 Pulse Rate [ 92 [employer] Specialty Worker ] Respiratory 16 16 16 Rate Blood Pressure 108/62 139/73 Blood Pressure [Supine] O2 Sat by Pulse 98 99 Oximetry 09/16/23 09/17/23 09/17/23 20:00 00:00 03:50 Temperature 98.7 F 98.9 F 98.4 F Pulse Rate Pulse Rate [ 100 85 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 ] Respiratory 16 18 16 Rate Blood Pressure Blood Pressure 148/81 124/60 122/79 [Supine] O2 Sat by Pulse 94 L 96 97 Oximetry 09/17/23 09/17/23 09/17/23 07:43 07:57 13:48 Temperature 98.1 F 98.1 F Pulse Rate Pulse Rate [ 96 100 94 [employer] Specialty Worker ] Respiratory 16 18 18 Rate Blood Pressure Blood Pressure 142/88 141/83 [Supine] O2 Sat by Pulse 96 96 Oximetry - Reevaluation(s) Reevaluation #1: 09/15/23 20:30 medical record is reviewed Reevaluation #2: 09/15/23 20:30 Patient has no real change in symptoms here in the ER Reevaluation #3: 09/15/23 20:30 Patient informed results and questions answered Reevaluation #4: 09/15/23 20:03 Was pt. sent in by a medical professional or institution (Dr. PA, [employer], urgent care, hospital, or penitentiary...) When possible be specific @ -no Did you speak to anyone other than the patient for history (EMS, parent, family, police, friend...)? What history was obtained from this source @ -no Did you review nursing and triage notes (agree or disagree)? Why? @ -agree Are old charts reviewed (outside hosp., previous admission, EMS record, old EKG, old radiological studies, urgent care reports/EKG's, penitentiary records)? Report findings @ -yes Differential Diagnosis (chest pain, altered mental status, abdominal pain women, abdominal pain men, vaginal bleeding, weakness, fever, dyspnea, syncope, headache, dizziness, GI bleed, back pain, seizure, CVA, palpatations, mental health, musculoskeletal)? @ -prior EKG interpreted by me (3pts min.). @ -yes X-rays interpreted by me (1pt min.). @ -yes positive for pneumonia CT interpreted by me (1pt min.). @ -no U/S interpreted by me (1pt. min.). @ -no What testing was considered but not performed or refused? (CT, X-rays, U/S, labs)? Why? @ -none What meds were considered but not given or refused? Why? @ -none Did you discuss the management of the patient with other professionals (professionals i.e. , PA, [employer], lab, RT, psych nurse, social service assistant, automobile damage field appraiser, teacher, commercial loan collection officer, caseworker intake)? Give summary @ -no Was smoking cessation discussed for >3mins.? @ -no Was critical care preformed (if so, how long)? @ -yes31 Were there social determinants of health that impacted care today? How? (Homelessness, low income, unemployed, alcoholism, drug addiction, transportation, low edu. Level, literacy, decrease access to med. care, alf, rehab)? @ -none Was there de-escalation of care discussed even if they declined (Discuss DNR or withdrawal of care, Hospice)? DNR status @ -no What co-morbidities impacted this encounter? (DM, HTN, Smoking, COPD, CAD, Cancer, CVA, ARF, Chemo, Hep., AIDS, mental health diagnosis, sleep apnea, morbid obesity)? @ -none Was patient admitted / discharged? Hospital course, mention meds given and route, prescriptions, significant lab abnormalities, going to OR and other pertinent info. @ - 83 female will be admitted for treatment of multiple infections pneumonia and cellulitis, as well as NSTEMI Admitted significantly infections pneumonia cellulitis and non-ST elevated VT Undiagnosed new problem with uncertain prognosis? @ -no Drug Therapy requiring intensive monitoring for toxicity (Heparin, Nitro, Insulin, Cardizem)? @ -no Were any procedures done? @ -no Diagnosis/symptom? @ - Acute, or Chronic, or Acute on Chronic? @ -Acute Uncomplicated (without systemic symptoms) or Complicated (systemic symptoms)? @ -Complicated Side effects of treatment? @ -no Exacerbation, Progression, or Severe Exacerbation? @ -exacerbation Poses a threat to life or bodily function? How? (Chest pain, USA, VT, pneumonia, PE, COPD, DKA, ARF, appy, cholecystitis, CVA, Diverticulitis, Homicidal, Suicidal, threat to staff... and all critical care pts) @ -yes exchange evaluation of significant findings in the emergency departmen Reevaluation #5: 09/15/23 20:04 Differential Altered Mental Status: Hypoglycemia, DKA, hypercapnia, ETOH, overdose, CO poisoning, trauma, myxedema coma, HTN encephalopathy, infection, encephalitis, psychosis, intercranial hemorrhage, hepatic encephalopathy, meningitis, CVA, this is not meant to be an all-inclusive list - Consultations Consultation #1: Spoke with [facility] were agrees to admit this patient EKG Findings - EKG Comments: EKG Findings:: EKG sinus 107 MS 120 QRS 78 QTc 387 - EKG Results: EKG: interpreted by ERMD Procedures - Sepsis Sepsis Focused Exam #1 Time Sepsis Criteria Met: 14:00 Sepsis Focused Exam Date: 09/15/23 Sepsis Focused Exam Time: 19:00 Sepsis Focused Exam Complete: Yes Vital Signs & RN Notes Reviewed: Yes Capillary Refill: < 2 Seconds: Fingers, Toes Peripheral Pulses: Normal: Radial (R), Radial (L), Posterior Tibialis (R), Posterior Tibialis (L), Dorsalis Pedis (R), Dorsalis Pedis (L) Skin Color: Normal for Patient Respiratory Exam: normal lung sounds Cardiovascular Exam: tachycardia Medical Decision Making - Medical Decision Making 83 female will be admitted for treatment of multiple infections pneumonia and cellulitis, as well as NSTEMI - Lab Data Result diagrams: 09/19/23 13:36 09/18/23 06:22 Lab Results 09/15/23 09/15/23 09/15/23 Range/Units 12:57 12:57 12:57 WBC 17.4 H (3.8-10.6) k/uL RBC 3.58 L (3.80-5.40) m/uL Hgb 7.5 L (11.4-16.0) gm/dL Hct 24.8 L (34.0-46.0) % MCV 69.1 L (80.0-100.0) fL MCH 21.0 L (25.0-35.0) pg MCHC 30.4 L (31.0-37.0) g/dL RDW 16.3 H (11.5-15.5) % Plt Count 313 (150-450) k/uL MPV 6.6 Neutrophils % 89 % Lymphocytes % 4 % Monocytes % 5 % Eosinophils % 1 % Basophils % 0 % Neutrophils # 15.4 H (1.3-7.7) k/uL Lymphocytes # 0.7 L (1.0-4.8) k/uL Monocytes # 0.8 (0-1.0) k/uL Eosinophils # 0.1 (0-0.7) k/uL Basophils # 0.1 (0-0.2) k/uL Hypochromasia Marked Anisocytosis Slight Microcytosis Marked PT 11.4 (10.0-12.5) sec INR 1.1 (<1.2) APTT 26.8 (22.0-30.0) sec Sodium 132 L (137-145) mmol/L Potassium 4.6 (3.5-5.1) mmol/L Chloride 97 L (98-107) mmol/L Carbon Dioxide 22 (22-30) mmol/L Anion Gap 13 mmol/L BUN 25 H (7-17) mg/dL Creatinine 0.83 (0.52-1.04) mg/dL Est GFR (CKD-EPI)AfAm 76 (>60 ml/min/1.73 sqM) Est GFR (CKD-EPI)NonAf 66 (>60 ml/min/1.73 sqM) Glucose 161 H (74-99) mg/dL Plasma Lactic Acid Shahid (0.7-2.0) mmol/L Calcium 8.1 L (8.4-10.2) mg/dL Phosphorus 3.4 (2.5-4.5) mg/dL Magnesium 1.9 (1.6-2.3) mg/dL Total Bilirubin 0.6 (0.2-1.3) mg/dL AST 50 H (14-36) U/L ALT 26 (4-34) U/L Alkaline Phosphatase 101 (38-126) U/L Troponin I (0.000-0.034) ng/mL NT-Pro-B Natriuret Pep 3910 pg/mL Total Protein 6.7 (6.3-8.2) g/dL Albumin 3.5 (3.5-5.0) g/dL Urine Color Urine Appearance (Clear) Urine pH (5.0-8.0) Ur Specific Bronson (1.001-1.035) Urine Protein (Negative) Urine Glucose (UA) (Negative) Urine Ketones (Negative) Urine Blood (Negative) Urine Nitrite (Negative) Urine Bilirubin (Negative) Urine Urobilinogen (<2.0) mg/dL Ur Leukocyte Esterase (Negative) Urine RBC (0-5) /hpf Urine WBC (0-5) /hpf Urine WBC Clumps (None) /hpf Ur Squamous Epith Cells (0-4) /hpf Urine Bacteria (None) /hpf Urine Legionella Ag (Negative) 09/15/23 09/15/23 09/15/23 Range/Units 12:57 12:57 13:25 WBC (3.8-10.6) k/uL RBC (3.80-5.40) m/uL Hgb (11.4-16.0) gm/dL Hct (34.0-46.0) % MCV (80.0-100.0) fL MCH (25.0-35.0) pg MCHC (31.0-37.0) g/dL RDW (11.5-15.5) % Plt Count (150-450) k/uL MPV Neutrophils % % Lymphocytes % % Monocytes % % Eosinophils % % Basophils % % Neutrophils # (1.3-7.7) k/uL Lymphocytes # (1.0-4.8) k/uL Monocytes # (0-1.0) k/uL Eosinophils # (0-0.7) k/uL Basophils # (0-0.2) k/uL Hypochromasia Anisocytosis Microcytosis PT (10.0-12.5) sec INR (<1.2) APTT (22.0-30.0) sec Sodium (137-145) mmol/L Potassium (3.5-5.1) mmol/L Chloride (98-107) mmol/L Carbon Dioxide (22-30) mmol/L Anion Gap mmol/L BUN (7-17) mg/dL Creatinine (0.52-1.04) mg/dL Est GFR (CKD-EPI)AfAm (>60 ml/min/1.73 sqM) Est GFR (CKD-EPI)NonAf (>60 ml/min/1.73 sqM) Glucose (74-99) mg/dL Plasma Lactic Acid Shahid 1.2 (0.7-2.0) mmol/L Calcium (8.4-10.2) mg/dL Phosphorus (2.5-4.5) mg/dL Magnesium (1.6-2.3) mg/dL Total Bilirubin (0.2-1.3) mg/dL AST (14-36) U/L ALT (4-34) U/L Alkaline Phosphatase (38-126) U/L Troponin I 0.273 H* (0.000-0.034) ng/mL NT-Pro-B Natriuret Pep pg/mL Total Protein (6.3-8.2) g/dL Albumin (3.5-5.0) g/dL Urine Color Yellow Urine Appearance Cloudy H (Clear) Urine pH 6.0 (5.0-8.0) Ur Specific Bronson 1.018 (1.001-1.035) Urine Protein 2+ H (Negative) Urine Glucose (UA) Negative (Negative) Urine Ketones 1+ H (Negative) Urine Blood Small H (Negative) Urine Nitrite Positive H (Negative) Urine Bilirubin Negative (Negative) Urine Urobilinogen <2.0 (<2.0) mg/dL Ur Leukocyte Esterase Large H (Negative) Urine RBC 17 H (0-5) /hpf Urine WBC >182 H (0-5) /hpf Urine WBC Clumps Few H (None) /hpf Ur Squamous Epith Cells 1 (0-4) /hpf Urine Bacteria Occasional H (None) /hpf Urine Legionella Ag (Negative) 09/15/23 Range/Units 13:25 WBC (3.8-10.6) k/uL RBC (3.80-5.40) m/uL Hgb (11.4-16.0) gm/dL Hct (34.0-46.0) % MCV (80.0-100.0) fL MCH (25.0-35.0) pg MCHC (31.0-37.0) g/dL RDW (11.5-15.5) % Plt Count (150-450) k/uL MPV Neutrophils % % Lymphocytes % % Monocytes % % Eosinophils % % Basophils % % Neutrophils # (1.3-7.7) k/uL Lymphocytes # (1.0-4.8) k/uL Monocytes # (0-1.0) k/uL Eosinophils # (0-0.7) k/uL Basophils # (0-0.2) k/uL Hypochromasia Anisocytosis Microcytosis PT (10.0-12.5) sec INR (<1.2) APTT (22.0-30.0) sec Sodium (137-145) mmol/L Potassium (3.5-5.1) mmol/L Chloride (98-107) mmol/L Carbon Dioxide (22-30) mmol/L Anion Gap mmol/L BUN (7-17) mg/dL Creatinine (0.52-1.04) mg/dL Est GFR (CKD-EPI)AfAm (>60 ml/min/1.73 sqM) Est GFR (CKD-EPI)NonAf (>60 ml/min/1.73 sqM) Glucose (74-99) mg/dL Plasma Lactic Acid Shahid (0.7-2.0) mmol/L Calcium (8.4-10.2) mg/dL Phosphorus (2.5-4.5) mg/dL Magnesium (1.6-2.3) mg/dL Total Bilirubin (0.2-1.3) mg/dL AST (14-36) U/L ALT (4-34) U/L Alkaline Phosphatase (38-126) U/L Troponin I (0.000-0.034) ng/mL NT-Pro-B Natriuret Pep pg/mL Total Protein (6.3-8.2) g/dL Albumin (3.5-5.0) g/dL Urine Color Urine Appearance (Clear) Urine pH (5.0-8.0) Ur Specific Bronson (1.001-1.035) Urine Protein (Negative) Urine Glucose (UA) (Negative) Urine Ketones (Negative) Urine Blood (Negative) Urine Nitrite (Negative) Urine Bilirubin (Negative) Urine Urobilinogen (<2.0) mg/dL Ur Leukocyte Esterase (Negative) Urine RBC (0-5) /hpf Urine WBC (0-5) /hpf Urine WBC Clumps (None) /hpf Ur Squamous Epith Cells (0-4) /hpf Urine Bacteria (None) /hpf Urine Legionella Ag Negative (Negative) - EKG Data -: EKG Interpreted by [facility] - Radiology Data Radiology results: report reviewed (CXR is positive for pneumonia), image reviewed Critical Care Time Critical Care Time: Yes Total Critical Care Time: 31 Disposition Clinical Impression: UTI (urinary tract infection), Dehydration, AMS (altered mental status), Pneumonia, Cellulitis of right leg Disposition: ADMITTED IP TO THIS HOSP Condition: Fair Is patient prescribed a controlled substance at d/c from ED?: No Time of Disposition: 16:00
[2023-09-15] MEDS ORDERED: ACETAMINOPHEN TAB 500 MG TAB PO STA (12:57)
[2023-09-15] MEDS ORDERED: SODIUM CHLORIDE 0.9% 1,000 ML IV STA (12:57)
[2023-09-15] MEDS ORDERED: IBUPROFEN 600 MG TAB PO STA (12:57)
[2023-09-15] MEDS ORDERED: MORPHINE SULFATE 2 MG/ML SYRINGE IVP STA (12:57)
[2023-09-15 13:38] LABS: Anisocytosis Slight; Basophils # (A) 0.1 k/uL (0-0.2); Basophils % (A) 0 %; Eosinophils # (A) 0.1 k/uL (0-0.7); Eosinophils % (A) 1 %; HCT 24.8 % (34.0-46.0); HGB 7.5 gm/dL (11.4-16.0); Hypochromasia Marked; Lymphocytes # (A) 0.7 k/uL (1.0-4.8); Lymphocytes % (A) 4 %; MCHC 30.4 g/dL (31.0-37.0); MCV 69.1 fL (80.0-100.0); Mean Platelet Volume 6.6; Microcytosis Marked; Monocytes # (A) 0.8 k/uL (0-1.0); Monocytes % (A) 5 %; Neutrophils # (A) 15.4 k/uL (1.3-7.7); Neutrophils % (A) 89 %; Platelet Count 313 k/uL (150-450); RBC 3.58 m/uL (3.80-5.40); RDW 16.3 % (11.5-15.5); WBC 17.4 k/uL (3.8-10.6)
[2023-09-15 13:48] LABS: INR 1.1 (<1.2); Partial Thromboplastin Time 26.8 sec (22.0-30.0); Prothrombin Time 11.4 sec (10.0-12.5)
[2023-09-15 13:58] LABS: ALT 26 U/L (4-34); AST 50 U/L (14-36); African American GFR (CKD) 76 (>60 ml/min/1.73 sqM); Albumin 3.5 g/dL (3.5-5.0); Alkaline Phosphatase 101 U/L (38-126); Anion Gap 13 mmol/L; Blood Urea Nitrogen 25 mg/dL (7-17); Calcium 8.1 mg/dL (8.4-10.2); Carbon Dioxide 22 mmol/L (22-30); Chloride 97 mmol/L (98-107); Glucose 161 mg/dL (74-99); Magnesium 1.9 mg/dL (1.6-2.3); Non-African American GFR(CKD) 66 (>60 ml/min/1.73 sqM); Phosphorus 3.4 mg/dL (2.5-4.5); Sodium 132 mmol/L (137-145); Total Bilirubin 0.6 mg/dL (0.2-1.3); Total Protein 6.7 g/dL (6.3-8.2)
[2023-09-15 14:05] LABS: NT-Pro-B-Type Natriuretic Pept 3910 pg/mL
[2023-09-15 14:06] LABS: Potassium 4.6 mmol/L (3.5-5.1)
--- NOTE | 2023-09-15 14:44 | XR ---
EXAMINATION TYPE: XR chest 1V portable DATE OF EXAM: 09/15/2023 COMPARISON: 08/25/2022 INDICATION: Weakness TECHNIQUE: Single frontal view of the chest is obtained. FINDINGS: The heart size is somewhat prominent. The pulmonary vasculature is normal. Mild right lower lobe infiltrate is present. Correlate for pneumonia. IMPRESSION: 1. Right lower lobe infiltrate. Correlate for pneumonia. Follow-up however is recommended. Some of th is may be chronic increased lung markings.
[2023-09-15] MEDS ORDERED: AZITHROMYCIN 500 MG in SODIUM CHLORIDE 0.9% 250 ML IVPB STA (16:05)
[2023-09-15] MEDS ORDERED: LEVOFLOXACIN 750MG-D5W PMX 750 MG in DEXTROSE/WATER 1 150ML.BAG IVPB STA (16:05)
[2023-09-15] MEDS ORDERED: IPRATROPIUM-ALBUTEROL 3 ML NEB INHALATION PRN (16:28)
[2023-09-15] MEDS ORDERED: NALOXONE 0.4 MG/ML 1 ML VIAL IV PRN ×2 (16:28→17:24)
[2023-09-15] MEDS ORDERED: ONDANSETRON 4 MG/2 ML VIAL IVP PRN (16:28)
[2023-09-15] MEDS ORDERED: MORPHINE SULFATE 4 MG/ML SYRINGE IV PRN (16:28)
[2023-09-15] MEDS ORDERED: PNEUMONIA PROTOCOL UTILIZED 1 EACH MISC PO PRN (16:28)
[2023-09-15] MEDS: SODIUM CHLORIDE 0.9% 1,000 ML IV SCH (18:23)
[2023-09-15 19:05] LABS: Appearance,Urine Cloudy (Clear); Bacteria,Urine Occasional /hpf; Bilirubin,Urine Negative (Negative); Blood,Urine Small (Negative); Color,Urine Yellow; Glucose,Urine (UA) Negative (Negative); Ketones,Urine 1+ (Negative); Leukocyte Esterase,Urine Large (Negative); Nitrite,Urine Positive (Negative); Protein,Urine 2+ (Negative); RBC,Urine 17 /hpf (0-5); Specific Gravity,Urine 1.018 (1.001-1.035); Squamous Epithelial Cell,Urine 1 /hpf (0-4); Urobilinogen,Urine <2.0 mg/dL (<2.0); WBC,Urine >182 /hpf (0-5)
[2023-09-15] MEDS: MORPHINE SULFATE 4 MG/ML SYRINGE IV PRN (22:23)
[2023-09-16] MEDS: SODIUM CHLORIDE 0.9% 1,000 ML IV SCH ×2 (06:14→22:24)
--- NOTE | 2023-09-16 07:20 | XR ---
EXAMINATION TYPE: XR chest 1V portable DATE OF EXAM: 09/16/2023 COMPARISON: 09/15/2023 INDICATION: Pneumonia TECHNIQUE: Single frontal view of the chest is obtained. FINDINGS: The heart size is normal. The pulmonary vasculature is normal. Mild right lower lobe infiltrate is present likely on the basis of atelectasis. Some mild atelectatic changes may be left costophrenic angle. IMPRESSION: 1. Bibasilar atelectasis.
[2023-09-16 07:49] LABS: ALT 24 U/L (4-34); AST 26 U/L (14-36); African American GFR (CKD) 63 (>60 ml/min/1.73 sqM); Albumin 2.9 g/dL (3.5-5.0); Alkaline Phosphatase 99 U/L (38-126); Anion Gap 11 mmol/L; Blood Urea Nitrogen 23 mg/dL (7-17); Calcium 7.7 mg/dL (8.4-10.2); Carbon Dioxide 20 mmol/L (22-30); Chloride 99 mmol/L (98-107); Glucose 77 mg/dL (74-99); Magnesium 1.8 mg/dL (1.6-2.3); Non-African American GFR(CKD) 54 (>60 ml/min/1.73 sqM); Potassium 4.1 mmol/L (3.5-5.1); Sodium 130 mmol/L (137-145); Total Bilirubin 0.3 mg/dL (0.2-1.3); Total Protein 5.7 g/dL (6.3-8.2)
[2023-09-16 07:52] LABS: Anisocytosis Slight; Basophils % (A) 0 %; Eosinophils % (A) 0 %; HCT 22.8 % (34.0-46.0); Hypochromasia Marked; Lymphocytes # (A) 0.5 k/uL (1.0-4.8); Lymphocytes % (A) 4 %; MCH 20.9 pg (25.0-35.0); MCHC 29.7 g/dL (31.0-37.0); MCV 70.3 fL (80.0-100.0); Mean Platelet Volume 6.9; Microcytosis Marked; Monocytes # (A) 0.8 k/uL (0-1.0); Monocytes % (A) 7 %; Neutrophils # (A) 10.5 k/uL (1.3-7.7); Neutrophils % (A) 87 %; Platelet Count 279 k/uL (150-450); RBC 3.24 m/uL (3.80-5.40); RDW 16.3 % (11.5-15.5); WBC 12.1 k/uL (3.8-10.6)
[2023-09-16 08:03] LABS: HGB 6.8 gm/dL (11.4-16.0)
[2023-09-16] MEDS ORDERED: LEVOFLOXACIN 750MG-D5W PMX 750 MG in DEXTROSE/WATER 1 150ML.BAG IVPB SCH (09:00)
[2023-09-16] MEDS: METOPROLOL TARTRATE 25 MG TAB PO SCH ×2 (09:17→22:24)
[2023-09-16] MEDS: MORPHINE SULFATE 4 MG/ML SYRINGE IV PRN (09:17)
[2023-09-16] MEDS ORDERED: NON FORMULARY DRUG (Albuterol Inhaler 90 MCG Puff) INHALATION PRN (11:23)
--- NOTE | 2023-09-16 11:41 | P.HPIM ---
History of Present Illness 83-year-old the female came in with compensative generalized weakness failure found to be hyponatremic. Patient does have some chronic weakness and bilateral lower these along with the muscle atrophy. Patient was admitted with anti biotics and possibility of pneumonia although chest x-ray did not show significant infiltrate I'll obtain a pro-level patient was given multiple antibiotics including Rocephin and azithromycin and was switched to oral levofloxacin. All of which will be discontinued at this time. Patient does have skin breakdown and a stage II ulcer on the right anterior marquez area with some surrounding redness unsure whether patient has cellulitis. Patient does have leukocytosis elevated white count of 17,000 which is coming down to 14,000 at this time urine is significantly abnormal with the patient doesn't have any symptoms of UTI patient denied any fever. Patient is hyponatremic and is on diuretics for blood pressure. Patient does have sinus tachycardia receiving IV fluids at this time which will be continued. Patient is also complaining of abdominal discomfort which she believes is secondary to Trulicity, is also found to have low hemoglobin of 6.8 patient does have chronic and deficiency anemia denied any dark stools or blood in the stools patient denied any vaginal bleeding. Patient has mildly elevated troponins of 0.148 because of which etiology evaluated the patient doesn't appear to be noncardiac source that is a possible for elevated troponin. Patient was supposed to take Iron pills which she stopped taking because of abdominal discomfort. REVIEW OF SYSTEMS: CONSTITUTIONAL: No fever, generalized weakness HEENT: No recent visual problems or hearing problems. Denied any sore throat. CARDIOVASCULAR: No chest pain, orthopnea, PND, no palpitations, no syncope. PULMONARY: No shortness of breath, no cough, no hemoptysis. GASTROINTESTINAL: No diarrhea, no nausea, no vomiting, no abdominal pain. NEUROLOGICAL: No headaches, no weakness, no numbness. HEMATOLOGICAL: Denies any bleeding or petechiae. GENITOURINARY: Denies any burning micturition, frequency, or urgency. MUSCULOSKELETAL/RHEUMATOLOGICAL: Denies any joint pain, swelling, or any muscle pain. ENDOCRINE: Denies any polyuria or polydipsia. The rest of the 14-point review of systems is negative. PHYSICAL EXAMINATION: GENERAL: The patient is alert and oriented x3, not in any acute distress. Well d eveloped, well nourished. HEENT: Pupils are round and equally reacting to light. EOMI. No scleral icterus. No conjunctival pallor. Normocephalic, atraumatic. No pharyngeal erythema. No thyromegaly. CARDIOVASCULAR: S1 and S2 present. No murmurs, rubs, or gallops. Grade 4/6 systolic murmur and diuretic area PULMONARY: Chest is clear to auscultation, no wheezing or crackles. ABDOMEN: Soft, nontender, nondistended, normoactive bowel sounds. No palpable organomegaly. MUSCULOSKELETAL: No joint swelling or deformity. EXTREMITIES: No cyanosis, clubbing, or pedal edema. 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 SKIN: Patient has a stage II anterior marquez ulcer base of which is bloody but appears to be clean with some surrounding redness Assessment and plan -Generalized weakness probably secondary to dehydration there is no clear evidence of sepsis but there may be cellulitis of the right lower extremity and is may be contributing to her generalized weakness as well. Patient lives at [facility], physical and occupational therapy was consulted -Abdominal discomfort can be peptic ulcer disease as patient is insisting on getting more weak will resume opiate only on as-needed basis along with Protonix IV -Leukocytosis reactive in nature mostly although I cannot completely rule out infection including cellulitis low possibility of UTI as she patient doesn't have any symptoms, no evidence of pneumonia at this time 1 hyponatremia secondary to diuretics which will be held patient will be con tinued on IV fluids -Right anterior marquez ulcer will need wound care infectious disease will be consu lted unsure whether patient has cellulitis will obtain a pro-calcitonin level -Severe iron deficiency anemia anemia is chronic medical illnesses is an 6.8 we'll transfuse 1 unit of PRBC there may be a small bleeding peptic ulcer, Protonix was started will obtain ferritin level, may need IV and transfusion -Mild elevation of troponin, no evidence of acute microinfarction [place]- tachycardia secondary to intravascular depletion can he is IV fluids -Type 2 diabetes mellitus -Hypertension resumed on amlodipine holding of diuretics DVT prophylaxis: Subcutaneous heparin Past Medical History Past Medical History: Diabetes Mellitus, Hypertension Additional Past Medical History / Comment(s): spina bifada History of Any Multi-Drug Resistant Organisms: None Reported Past Surgical History: Hysterectomy, Orthopedic Surgery Additional Past Surgical History / Comment(s): BL feet Past Anesthesia/Blood Transfusion Reactions: No Reported Reaction Past Psychological History: No Psychological Hx Reported Smoking Status: Never smoker Past Alcohol Use History: None Reported Past Drug Use History: None Reported - Past Family History Father Family Medical History: Diabetes Mellitus Medications and Allergies Home Medications Medication Instructions Recorded Confirmed Type Glimepiride [Amaryl] 2 mg PO BID 01/27/17 09/15/23 History Levothyroxine Sodium [Synthroid] 75 mcg PO DAILY 01/27/17 09/15/23 History Dorzolamide-Timol 2.23%/0.68% 1 drop BOTH EYES BID 08/29/22 09/15/23 History [Cosopt] Latanoprost [Latanoprost 0.005%] 1 drop BOTH EYES HS 08/29/22 09/15/23 History Losartan Potassium 100 mg PO DAILY 08/29/22 09/15/23 History Montelukast [Singulair] 10 mg PO HS 08/29/22 09/15/23 History Nystatin [Nystop] 1 applic TOPICAL DAILY PRN 08/29/22 09/15/23 History Triamterene-Hctz 37.5-25Mg 1 tab PO DAILY 08/29/22 09/15/23 History [Maxzide 37.5-25] amLODIPine [Norvasc] 2.5 mg PO DAILY 08/29/22 09/15/23 History Albuterol Inhaler [Ventolin Hfa 2 puff INHALATION RT-QID PRN 09/15/23 09/15/23 History Inhaler] Dulaglutide [Trulicity] 4.5 mg SQ Q7D 09/15/23 09/15/23 History Ferrous Sulfate [Feosol] 325 mg PO DAILY 09/15/23 09/15/23 History Meloxicam [Mobic] 7.5 mg PO BID 09/15/23 09/15/23 History Pantoprazole [Protonix] 40 mg PO DAILY 09/15/23 09/15/23 History Allergies Allergy/AdvReac Type Severity Reaction Status Date / Time sulfamethoxazole Allergy Anaphylaxis Verified 04/16/23 14:48 [From Bactrim] trimethoprim [From Bactrim] Allergy Anaphylaxis Verified 04/16/23 14:48 erythromycin base AdvReac Intermediate Vomiting Verified 05/24/17 19:46 Physical Exam Vitals: Vital Signs Temp Pulse Pulse Resp BP BP Pulse Ox 09/16/23 08:10 115 H 18 09/16/23 08:00 99.6 F 115 H 18 130/69 95 09/16/23 04:00 99.2 F 107 H 19 128/67 98 09/16/23 00:00 98.9 F 107 H 19 114/65 96 09/15/23 21:00 104 H 22 116/71 94 L 09/15/23 19:00 103 H 20 121/83 96 09/15/23 17:23 98 18 129/79 95 09/15/23 15:00 110 H 20 129/79 98 09/15/23 14:06 110 H 20 120/62 95 09/15/23 12:57 20 09/15/23 12:13 110 H 20 126/62 98 09/15/23 12:09 99.1 F 109 H 20 126/62 99 Intake and Output 09/15/23 09/16/23 09/16/23 22:59 06:59 14:59 Output Total 400 Balance -400 Output: Urine 400 Other: Voiding Method External Catheter External Catheter Weight 61.235 kg Results CBC & Chem 7: 09/16/23 07:10 09/16/23 07:10 Labs: Abnormal Lab Results - Last 24 Hours (Table) 09/15/23 09/15/23 09/15/23 Range/Units 12:57 12:57 12:57 WBC 17.4 H (3.8-10.6) k/uL RBC 3.58 L (3.80-5.40) m/uL Hgb 7.5 L (11.4-16.0) gm/dL Hct 24.8 L (34.0-46.0) % MCV 69.1 L (80.0-100.0) fL MCH 21.0 L (25.0-35.0) pg MCHC 30.4 L (31.0-37.0) g/dL RDW 16.3 H (11.5-15.5) % Neutrophils # 15.4 H (1.3-7.7) k/uL Lymphocytes # 0.7 L (1.0-4.8) k/uL Sodium 132 L (137-145) mmol/L Chloride 97 L (98-107) mmol/L Carbon Dioxide (22-30) mmol/L BUN 25 H (7-17) mg/dL Glucose 161 H (74-99) mg/dL Calcium 8.1 L (8.4-10.2) mg/dL AST 50 H (14-36) U/L Troponin I 0.273 H* (0.000-0.034) ng/mL Total Protein (6.3-8.2) g/dL Albumin (3.5-5.0) g/dL Urine Appearance (Clear) Urine Protein (Negative) Urine Ketones (Negative) Urine Blood (Negative) Urine Nitrite (Negative) Ur Leukocyte Esterase (Negative) Urine RBC (0-5) /hpf Urine WBC (0-5) /hpf Urine WBC Clumps (None) /hpf Urine Bacteria (None) /hpf Crossmatch 09/15/23 09/15/23 09/15/23 Range/Units 13:25 17:42 21:10 WBC (3.8-10.6) k/uL RBC (3.80-5.40) m/uL Hgb (11.4-16.0) gm/dL Hct (34.0-46.0) % MCV (80.0-100.0) fL MCH (25.0-35.0) pg MCHC (31.0-37.0) g/dL RDW (11.5-15.5) % Neutrophils # (1.3-7.7) k/uL Lymphocytes # (1.0-4.8) k/uL Sodium (137-145) mmol/L Chloride (98-107) mmol/L Carbon Dioxide (22-30) mmol/L BUN (7-17) mg/dL Glucose (74-99) mg/dL Calcium (8.4-10.2) mg/dL AST (14-36) U/L Troponin I 0.234 H* 0.148 H* (0.000-0.034) ng/mL Total Protein (6.3-8.2) g/dL Albumin (3.5-5.0) g/dL Urine Appearance Cloudy H (Clear) Urine Protein 2+ H (Negative) Urine Ketones 1+ H (Negative) Urine Blood Small H (Negative) Urine Nitrite Positive H (Negative) Ur Leukocyte Esterase Large H (Negative) Urine RBC 17 H (0-5) /hpf Urine WBC >182 H (0-5) /hpf Urine WBC Clumps Few H (None) /hpf Urine Bacteria Occasional H (None) /hpf Crossmatch 09/16/23 09/16/23 09/16/23 Range/Units 07:10 07:10 09:12 WBC 12.1 H (3.8-10.6) k/uL RBC 3.24 L (3.80-5.40) m/uL Hgb 6.8 L* (11.4-16.0) gm/dL Hct 22.8 L (34.0-46.0) % MCV 70.3 L (80.0-100.0) fL MCH 20.9 L (25.0-35.0) pg MCHC 29.7 L (31.0-37.0) g/dL RDW 16.3 H (11.5-15.5) % Neutrophils # 10.5 H (1.3-7.7) k/uL Lymphocytes # 0.5 L (1.0-4.8) k/uL Sodium 130 L (137-145) mmol/L Chloride (98-107) mmol/L Carbon Dioxide 20 L (22-30) mmol/L BUN 23 H (7-17) mg/dL Glucose (74-99) mg/dL Calcium 7.7 L (8.4-10.2) mg/dL AST (14-36) U/L Troponin I (0.000-0.034) ng/mL Total Protein 5.7 L (6.3-8.2) g/dL Albumin 2.9 L (3.5-5.0) g/dL Urine Appearance (Clear) Urine Protein (Negative) Urine Ketones (Negative) Urine Blood (Negative) Urine Nitrite (Negative) Ur Leukocyte Esterase (Negative) Urine RBC (0-5) /hpf Urine WBC (0-5) /hpf Urine WBC Clumps (None) /hpf Urine Bacteria (None) /hpf Crossmatch See Detail Thrombosis Risk Factor Assmnt - Choose All That Apply Any of the Below Risk Factors Present?: Yes Each Risk Factor Represents 3 Points: Age 75 years or older Thrombosis Risk Factor Assessment Total Risk Factor Score: 3 Thrombosis Risk Factor Assessment Level: Moderate Risk
--- NOTE | 2023-09-16 12:05 | P.CRDCN ---
History of Present Illness History of present illness: HISTORY OF PRESENT ILLNESS: This is a 83-year-old female with a past medical history significant for hypertension, hyperlipidemia, and hypothyroidism. 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 We have been asked to see the patient in consultation for abnormal troponins. Patient examined at the bedside in the emergency room. Patient states she presented to the hospital secondary to generalized weakness. The patient currently denies having any chest pain or pressure. She denies any shortness of breath. Denies any nausea or vomiting. Bedside telemetry reveals sinus tachycardia. Hemoglobin this morning is 6.8. * EKG reveals sinus tachycardia with no signs of acute ischemia * Chest xray right lower lobe infiltrate. Correlate for pneumonia. * Laboratory data: Hemoglobin 6.8. WBC 12.1. Troponin 0.273. 0.234. 0.148. * Most recent echocardiogram obtained in January 2018 revealing ejection fraction 55%, mild MR and mild TR * Cardiac catheterization history: denies REVIEW OF SYSTEMS: At the time of my exam: CONSTITUTIONAL: Denies fever or chills. HEENT: Denies blurred vision, vision changes, or eye pain. Denies hemoptysis CARDIOVASCULAR: Denies chest pain. Denies orthopnea. Denies PND. Denies palpitations RESPIRATORY: Denies shortness of breath. GASTROINTESTINAL: Denies abdominal pain. Denies nausea or vomiting. HEMATOLOGIC: Denies bleeding disorders. GENITOURINARY: Denies any blood in urine. SKIN: Denies pruitis. Denies rash. PHYSICAL EXAM: VITAL SIGNS: Reviewed. GENERAL: Well-developed in no acute distress. HEENT: Head is normocephalic. Pupils are equal, round. Sclerae anicteric. Mucous membranes of the mouth are moist. Neck supple. No JVD or thyromegaly LUNGS: Respirations even and unlabored. Lungs essentially clear to auscultation bilaterally. HEART: Regular rate and rhythm. S1 and S2 heard. Systolic murmur ABDOMEN: Soft. Nondistended. Nontender. EXTREMITIES: Normal range of motion. No clubbing or cyanosis. Peripheral pulses intact. No lower extremity edema NEUROLOGIC: Awake and alert. Oriented x 3. ASSESSMENT: Generalized weakness Leukocytosis Acute on chronic anemia, hemoglobin 6.8 Abnormal troponins, no evidence of acute coronary syndrome, likely secondary to type II DC Sinus tachycardia Systolic murmur, suspected aortic stenosis Hyponatremia Hypertension Hyperlipidemia Hypothyroidism Diabetes PLAN: An acute coronary event has been ruled out Obtain 2-D echo to assess cardiac structure and function Resume home cardiac medications Add metoprolol 25 mg twice a day Continue telemetry monitoring Management of anemia per primary medicine Further recommendations pending patient's course Nurse practitioner note has been reviewed by physician. Signing provider agrees with the documented findings, assessment, and plan of care. Past Medical History Past Medical History: Diabetes Mellitus, Hypertension Additional Past Medical History / Comment(s): spina bifada History of Any Multi-Drug Resistant Organisms: None Reported Past Surgical History: Hysterectomy, Orthopedic Surgery Additional Past Surgical History / Comment(s): BL feet Past Anesthesia/Blood Transfusion Reactions: No Reported Reaction Past Psychological History: No Psychological Hx Reported Smoking Status: Never smoker Past Alcohol Use History: None Reported Past Drug Use History: None Reported - Past Family History Father Family Medical History: Diabetes Mellitus Medications and Allergies Home Medications Medication Instructions Recorded Confirmed Type Glimepiride [Amaryl] 2 mg PO BID 01/27/17 09/15/23 History Levothyroxine Sodium [Synthroid] 75 mcg PO DAILY 01/27/17 09/15/23 History Dorzolamide-Timol 2.23%/0.68% 1 drop BOTH EYES BID 08/29/22 09/15/23 History [Cosopt] Latanoprost [Latanoprost 0.005%] 1 drop BOTH EYES HS 08/29/22 09/15/23 History Losartan Potassium 100 mg PO DAILY 08/29/22 09/15/23 History Montelukast [Singulair] 10 mg PO HS 08/29/22 09/15/23 History Nystatin [Nystop] 1 applic TOPICAL DAILY PRN 08/29/22 09/15/23 History Triamterene-Hctz 37.5-25Mg 1 tab PO DAILY 08/29/22 09/15/23 History [Maxzide 37.5-25] amLODIPine [Norvasc] 2.5 mg PO DAILY 08/29/22 09/15/23 History Albuterol Inhaler [Ventolin Hfa 2 puff INHALATION RT-QID PRN 09/15/23 09/15/23 History Inhaler] Dulaglutide [Trulicity] 4.5 mg SQ Q7D 09/15/23 09/15/23 History Ferrous Sulfate [Feosol] 325 mg PO DAILY 09/15/23 09/15/23 History Meloxicam [Mobic] 7.5 mg PO BID 09/15/23 09/15/23 History Pantoprazole [Protonix] 40 mg PO DAILY 09/15/23 09/15/23 History Allergies Allergy/AdvReac Type Severity Reaction Status Date / Time sulfamethoxazole Allergy Anaphylaxis Verified 04/16/23 14:48 [From Bactrim] trimethoprim [From Bactrim] Allergy Anaphylaxis Verified 04/16/23 14:48 erythromycin base AdvReac Intermediate Vomiting Verified 01/27/17 19:46 Physical Exam Vitals: Vital Signs Temp Pulse Pulse Resp BP BP Pulse Ox 09/16/23 08:10 115 H 18 09/16/23 08:00 99.6 F 115 H 18 130/69 95 09/16/23 04:00 99.2 F 107 H 19 128/67 98 09/16/23 00:00 98.9 F 107 H 19 114/65 96 09/15/23 21:00 104 H 22 116/71 94 L 09/15/23 19:00 103 H 20 121/83 96 09/15/23 17:23 98 18 129/79 95 09/15/23 15:00 110 H 20 129/79 98 09/15/23 14:06 110 H 20 120/62 95 09/15/23 12:57 20 09/15/23 12:13 110 H 20 126/62 98 09/15/23 12:09 99.1 F 109 H 20 126/62 99 Intake and Output 09/15/23 09/16/23 09/16/23 22:59 06:59 14:59 Output Total 400 Balance -400 Output: Urine 400 Other: Voiding Method External Catheter External Catheter Weight 61.235 kg Results 09/16/23 07:10 09/16/23 07:10 Cardiac Enzymes 09/15/23 09/15/23 09/15/23 Range/Units 12:57 12:57 17:42 AST 50 H (14-36) U/L Troponin I 0.273 H* 0.234 H* (0.000-0.034) ng/mL 09/15/23 09/16/23 Range/Units 21:10 07:10 AST 26 (14-36) U/L Troponin I 0.148 H* (0.000-0.034) ng/mL Coagulation 09/15/23 Range/Units 12:57 PT 11.4 (10.0-12.5) sec APTT 26.8 (22.0-30.0) sec CBC 09/15/23 09/16/23 Range/Units 12:57 07:10 WBC 17.4 H 12.1 H (3.8-10.6) k/uL RBC 3.58 L 3.24 L (3.80-5.40) m/uL Hgb 7.5 L 6.8 L* (11.4-16.0) gm/dL Hct 24.8 L 22.8 L (34.0-46.0) % Plt Count 313 279 (150-450) k/uL Comprehensive Metabolic Panel 09/15/23 09/16/23 Range/Units 12:57 07:10 Sodium 132 L 130 L (137-145) mmol/L Potassium 4.6 4.1 (3.5-5.1) mmol/L Chloride 97 L 99 (98-107) mmol/L Carbon Dioxide 22 20 L (22-30) mmol/L BUN 25 H 23 H (7-17) mg/dL Creatinine 0.83 0.97 (0.52-1.04) mg/dL Glucose 161 H 77 (74-99) mg/dL Calcium 8.1 L 7.7 L (8.4-10.2) mg/dL AST 50 H 26 (14-36) U/L ALT 26 24 (4-34) U/L Alkaline Phosphatase 101 99 (38-126) U/L Total Protein 6.7 5.7 L (6.3-8.2) g/dL Albumin 3.5 2.9 L (3.5-5.0) g/dL Current Medications Generic Name Dose Route Start Last Admin Trade Name Freq PRN Reason Stop Dose Admin Albuterol/Ipratropium 3 ml 09/15/23 16:28 Ipratropium-Albuterol 3 Ml Neb INHALATION RT-Q4H PRN shortness of breath Amlodipine Besylate 2.5 mg 09/17/23 09:00 Amlodipine 2.5 Mg Tab PO DAILY RACHEL Dorzolamide/Timolol 1 drops 09/16/23 21:00 Dorzolamide-Timolol 2.23%/0.68 10ml Btl BOTH EYES BID [facility] Glimepiride 2 mg 09/16/23 21:00 Glimepiride 2 Mg Tab PO BID [facility] Heparin Sodium (Porcine) 5,000 unit 09/16/23 21:00 Heparin Sodium,Porcine 5,000 Unit/Ml 1 Ml Vial SQ Q12HR [facility] Sodium Chloride 1,000 mls @ 75 mls/hr 09/15/23 16:30 09/16/23 06:14 Saline 0.9% IV Not Given .[id number] [facility] Ceftriaxone Sodium 2 gm/ 50 mls @ 100 mls/hr 09/16/23 09:00 09/16/23 09:18 Sodium Chloride IVPB 09/19/23 09:29 100 mls/hr Q24HR [facility] Administration Protocol Levofloxacin 750 mg 09/18/23 09:00 Levofloxacin 750 Mg Tab PO Q48H [facility] Levothyroxine Sodium 75 mcg 09/17/23 06:30 Levothyroxine 75 Mcg Tab PO DAILY@0630 [facility] Meloxicam 7.5 mg 09/16/23 11:33 Meloxicam 7.5 Mg Tab PO BID PRN Pain Metoprolol Tartrate 25 mg 09/16/23 09:00 09/16/23 09:17 Metoprolol Tartrate 25 Mg Tab PO 25 mg BID [facility] Administration Miscellaneous Information 1 each 09/15/23 16:28 Pneumonia Protocol Utilized 1 Each Misc PO ONCE PRN Per Protocol Naloxone HCl 0.2 mg 09/15/23 17:24 Naloxone 0.4 Mg/Ml 1 Ml Vial IV Q2M PRN Opioid Reversal Non-Formulary Medication 4.5 mg 09/20/23 09:00 Dulaglutide [Trulicity] SQ Q7D [facility] Ondansetron HCl 4 mg 09/15/23 16:28 Ondansetron 4 Mg/2 Ml Vial IVP Q8HR PRN Nausea And Vomiting Pantoprazole Sodium 40 mg 09/16/23 11:30 Pantoprazole 40 Mg/10 Ml Vial IVP DAILY [facility] Intake and Output 09/15/23 09/16/23 09/16/23 22:59 06:59 14:59 Output Total 400 Balance -400 Output: Urine 400 Other: Voiding Method External Catheter External Catheter Weight 61.235 kg 09/16/23 07:10 09/16/23 07:10
[2023-09-16 12:08] LABS: Glucose,Whole Blood 130 mg/dL (70-110)
[2023-09-16] MEDS: PANTOPRAZOLE 40 MG/10 ML VIAL IVP SCH (12:47)
[2023-09-16] MEDS: MELOXICAM 7.5 MG TAB PO PRN (15:54)
--- NOTE | 2023-09-16 17:00 | CA ---
Transthoracic Echo Report Name: Yessenia Syed Age: 83 Gender: F : 1940 Exam Date: 09/16/2023 16:20 Exam Location: [place] [facility] Ht (in): 54 Wt (lb): 135 Ordering Physician: Beth Roper Attending/Referring Phys: [id number], Judson Coil Cleaner Elliott Loera Procedure CPT: Indications: LV function Cardiac Hx: Technical Quality: Technically difficult study Contrast 1: Total Dose (mL): Contrast 2: Total Dose (mL): MEASUREMENTS (Male / Female) Normal Values 2D ECHO LV Diastolic Diameter PLAX 3.7 cm 4.2 - 5.9 / 3.9 - 5.3 cm LV Systolic Diameter PLAX 2.1 cm IVS Diastolic Thickness 1.1 cm 0.6 - 1.0 / 0.6 - 0.9 cm LVPW Diastolic Thickness 1.2 cm 0.6 - 1.0 / 0.6 - 0.9 cm LV Relative Wall Thickness 0.6 RV Internal Dim ED PLAX 3.3 cm LVOT Diameter 2.0 cm Aortic Root Diameter 2.9 cm LA Systolic Diameter LX 2.4 cm 3.0 - 4.0 / 2.7 - 3.8 cm LV Diastolic Volume MOD BP 30.8 cm??? 67 - 155 / 56 - 104 cm??? LV Systolic Volume MOD BP 10.8 cm??? 22 - 58 / 19 - 49 cm??? LV Ejection Fraction MOD BP 64.9 % >= 55 % LV Cardiac Index MOD BP 1152.1 cm???/min???m??? LV Diastolic Volume MOD 4C 33.8 cm??? LV Systolic Volume MOD 4C 10.9 cm??? LV Ejection Fraction MOD 4C 67.9 % LV Cardiac Index MOD 4C 1323.6 cm???/min???m??? LV Diastolic Length 4C 6.6 cm LV Systolic Length 4C 5.0 cm LV Diastolic Volume MOD 2C 28.0 cm??? LV Systolic Volume MOD 2C 9.0 cm??? LV Ejection Fraction MOD 2C 67.9 % LV Cardiac Index MOD 2C 1096.9 cm???/min???m??? LV Diastolic Length 2C 6.5 cm LV Systolic Length 2C 6.1 cm DOPPLER AV Peak Velocity 352.4 cm/s AV Peak Gradient 49.7 mmHg AV Mean Velocity 288.3 cm/s AV Mean Gradient 36.4 mmHg AV Velocity Time Integral 74.5 cm LVOT Peak Velocity 86.1 cm/s LVOT Peak Gradient 3.0 mmHg LVOT Velocity Time Integral 18.8 cm LVOT Stroke Volume 57.7 cm??? LVOT Stroke Volume Index 39.5 ml/m??? LVOT Cardiac Index 3329.8 cm???/min???m??? AV Area Cont Eq vti 0.8 cm??? AV Area Cont Eq pk 0.8 cm??? MV Peak Velocity 169.3 cm/s MV Peak Gradient 11.5 mmHg MV Mean Velocity 98.7 cm/s MV Mean Gradient 4.6 mmHg MV Velocity Time Integral 36.9 cm MR Peak Velocity 463.6 cm/s MR Peak Gradient 86.0 mmHg Mitral E Point Velocity 110.8 cm/s Mitral A Point Velocity 155.2 cm/s Mitral E to A Ratio 0.7 MV Deceleration Time 334.8 ms MV E' Velocity 4.9 cm/s Mitral E to MV E' Ratio 22.5 TR Peak Velocity 251.4 cm/s TR Peak Gradient 25.3 mmHg Right Ventricular Systolic Press 30.3 mmHg PV Peak Velocity 183.5 cm/s PV Peak Gradient 13.5 mmHg FINDINGS Left Ventricle Normal LV size. Mild concentric LVH. Left ventricular ejection fraction is estimated at 50-55 %. Right Ventricle Mild right ventricular dilatation. RVSP= 30mmHg. Right Atrium Normal right atrial size. Left Atrium Moderate left atrial dilatation. Mitral Valve Moderate to severe posterior mitral annular calcification. MV area by VTI= 1.6cm2 Aortic Valve Trileaflet aortic valve. Moderate to severe AV calcification. AV peak gradient= 50mmHg. Mean gradient= 36.4mmHg. Estimated AV area = 0.8cm2 Tricuspid Valve Structurally normal tricuspid valve. Mild to moderate TR. Pulmonic Valve Structurally normal pulmonic valve. Pericardium Not well visualized. Aorta Normal size aortic root. CONCLUSIONS Normal LV function Moderate to severe aortic stenosis Previewed by: Dr. Santiago Keita MD (Electronically Signed) Final Date: 16 September 2023 16:59
[2023-09-16 17:37] LABS: Glucose,Whole Blood 77 mg/dL (70-110)
[2023-09-16] MEDS ORDERED: MELOXICAM 7.5 MG TAB PO SCH (21:00)
--- NOTE | 2023-09-16 21:40 | P.CONS ---
History of Present Illness - Reason for Consult Consult date: 09/16/23 Wound right marquez Requesting physician: Kaila Sinha - Chief Complaint Weakness and elevated heart rate x few days - History of Present Illness Patient is a 83-year-old female with a past medical history significant for diabetes mellitus hypertension spina bifida patient presented to hospital with increased weakness and elevated heart rate and apparently the patient was noticed to have some mental status changes by the family that the patient was getting weaker and not participate in activities of daily living patient felt warm and did have some chills patient also have a wound to the right lower extremity which apparently has been there for a few weeks patient is very medically home and started pension started with a blister that has ruptured leading to this ulceration. Denies any history of any trauma patient be complaining of pain to the right leg to be throbbing moderate intensity without any radiation with associated swelling as well no foul-smelling drainage on presentation to the hospital patient did have low-grade fever of 99.1 F patient was not tachycardic hypotensive or hypoxic patient did have white count of 17.4 with a left shift creatinine was normal liver enzymes are normal troponins are elevated urine has been positive cultures are currently pending patient received a dose of Levaquin along with Rocephin infectious disease was consulted for further management of antibiotic therapy Review of Systems Positive point and negatives has been mentioned in the HPI, complete review of systems was performed and all other systems are negative Past Medical History Past Medical History: Diabetes Mellitus, Hypertension Additional Past Medical History / Comment(s): spina bifada History of Any Multi-Drug Resistant Organisms: None Reported Past Surgical History: Hysterectomy, Orthopedic Surgery Additional Past Surgical History / Comment(s): BL feet Past Anesthesia/Blood Transfusion Reactions: No Reported Reaction Past Psychological History: No Psychological Hx Reported Smoking Status: Never smoker Past Alcohol Use History: None Reported Past Drug Use History: None Reported - Past Family History Father Family Medical History: Diabetes Mellitus Medications and Allergies Home Medications Medication Instructions Recorded Confirmed Type Glimepiride [Amaryl] 2 mg PO BID 01/27/17 09/15/23 History Levothyroxine Sodium [Synthroid] 75 mcg PO DAILY 01/27/17 09/15/23 History Dorzolamide-Timol 2.23%/0.68% 1 drop BOTH EYES BID 08/29/22 09/15/23 History [Cosopt] Latanoprost [Latanoprost 0.005%] 1 drop BOTH EYES HS 08/29/22 09/15/23 History Losartan Potassium 100 mg PO DAILY 08/29/22 09/15/23 History Montelukast [Singulair] 10 mg PO HS 08/29/22 09/15/23 History Nystatin [Nystop] 1 applic TOPICAL DAILY PRN 08/29/22 09/15/23 History Triamterene-Hctz 37.5-25Mg 1 tab PO DAILY 08/29/22 09/15/23 History [Maxzide 37.5-25] amLODIPine [Norvasc] 2.5 mg PO DAILY 08/29/22 09/15/23 History Albuterol Inhaler [Ventolin Hfa 2 puff INHALATION RT-QID PRN 09/15/23 09/15/23 History Inhaler] Dulaglutide [Trulicity] 4.5 mg SQ Q7D 09/15/23 09/15/23 History Ferrous Sulfate [Iron (65 MG 325 mg PO DAILY 09/15/23 09/15/23 History Elemental)] Pantoprazole [Protonix] 40 mg PO DAILY 09/15/23 09/15/23 History Cephalexin [Keflex] 500 mg PO Q8HR 7 Days #21 cap 09/19/23 Rx Metoprolol Tartrate [Lopressor] 25 mg PO BID #60 tab 09/19/23 Rx Pantoprazole [Protonix] 40 mg PO BID #60 tab 09/19/23 Rx Allergies Allergy/AdvReac Type Severity Reaction Status Date / Time sulfamethoxazole Allergy Anaphylaxis Verified 04/16/23 14:48 [From Bactrim] trimethoprim [From Bactrim] Allergy Anaphylaxis Verified 04/16/23 14:48 erythromycin base AdvReac Intermediate Vomiting Verified 01/27/17 19:46 Physical Exam Vitals: Vital Signs Temp Pulse Pulse Resp BP BP Pulse Ox 09/16/23 13:25 98.1 F 93 16 108/62 98 09/16/23 13:05 92 16 108/62 09/16/23 12:55 98.6 F 90 16 110/64 09/16/23 12:03 98.9 F 92 18 112/63 96 09/16/23 08:10 115 H 18 09/16/23 08:00 99.6 F 115 H 18 130/69 95 09/16/23 04:00 99.2 F 107 H 19 128/67 98 09/16/23 00:00 98.9 F 107 H 19 114/65 96 09/15/23 21:00 104 H 22 116/71 94 L 09/15/23 19:00 103 H 20 121/83 96 09/15/23 17:23 98 18 129/79 95 09/15/23 15:00 110 H 20 129/79 98 Intake and Output 09/15/23 09/16/23 09/16/23 22:59 06:59 14:59 Intake Total 0 Output Total 400 Balance -400 0 Intake: Blood Product 0 Unit 0 Output: Urine 400 Other: Voiding Method External Catheter External Catheter Weight 61.235 kg GENERAL DESCRIPTION: Elderly female lying in bed, no distress. No tachypnea or accessory muscle of respiration use. HEENT: Shows Pallor , no scleral icterus. Oral mucous membrane is dry. No pharyngeal erythema or thrush NECK: Trachea central, no thyromegaly. LUNGS: Unlabored breathing. Clear to auscultation anteriorly. No wheeze or crackle. HEART: S1, S2, regular rate and rhythm. No loud murmur ABDOMEN: Soft, no tenderness , guarding or rigidity, no organomegaly EXTREMITIES: Right lower extremity with superficial ulceration surrounding swelling redness no purulent drainage SKIN: No rash, no masses palpable. NEUROLOGICAL: The patient is awake, alert, oriented x3, mood and affect normal. Results CBC & Chem 7: 09/19/23 13:36 09/18/23 06:22 Labs: Abnormal Lab Results - Last 24 Hours (Table) 09/15/23 09/15/23 09/15/23 Range/Units 12:57 13:25 17:42 WBC (3.8-10.6) k/uL RBC (3.80-5.40) m/uL Hgb (11.4-16.0) gm/dL Hct (34.0-46.0) % MCV (80.0-100.0) fL MCH (25.0-35.0) pg MCHC (31.0-37.0) g/dL RDW (11.5-15.5) % Neutrophils # (1.3-7.7) k/uL Lymphocytes # (1.0-4.8) k/uL Sodium (137-145) mmol/L Carbon Dioxide (22-30) mmol/L BUN (7-17) mg/dL POC Glucose (mg/dL) (70-110) mg/dL Calcium (8.4-10.2) mg/dL Troponin I 0.273 H* 0.234 H* (0.000-0.034) ng/mL Total Protein (6.3-8.2) g/dL Albumin (3.5-5.0) g/dL Urine Appearance Cloudy H (Clear) Urine Protein 2+ H (Negative) Urine Ketones 1+ H (Negative) Urine Blood Small H (Negative) Urine Nitrite Positive H (Negative) Ur Leukocyte Esterase Large H (Negative) Urine RBC 17 H (0-5) /hpf Urine WBC >182 H (0-5) /hpf Urine WBC Clumps Few H (None) /hpf Urine Bacteria Occasional H (None) /hpf Crossmatch 09/15/23 09/16/23 09/16/23 Range/Units 21:10 07:10 07:10 WBC 12.1 H (3.8-10.6) k/uL RBC 3.24 L (3.80-5.40) m/uL Hgb 6.8 L* (11.4-16.0) gm/dL Hct 22.8 L (34.0-46.0) % MCV 70.3 L (80.0-100.0) fL MCH 20.9 L (25.0-35.0) pg MCHC 29.7 L (31.0-37.0) g/dL RDW 16.3 H (11.5-15.5) % Neutrophils # 10.5 H (1.3-7.7) k/uL Lymphocytes # 0.5 L (1.0-4.8) k/uL Sodium 130 L (137-145) mmol/L Carbon Dioxide 20 L (22-30) mmol/L BUN 23 H (7-17) mg/dL POC Glucose (mg/dL) (70-110) mg/dL Calcium 7.7 L (8.4-10.2) mg/dL Troponin I 0.148 H* (0.000-0.034) ng/mL Total Protein 5.7 L (6.3-8.2) g/dL Albumin 2.9 L (3.5-5.0) g/dL Urine Appearance (Clear) Urine Protein (Negative) Urine Ketones (Negative) Urine Blood (Negative) Urine Nitrite (Negative) Ur Leukocyte Esterase (Negative) Urine RBC (0-5) /hpf Urine WBC (0-5) /hpf Urine WBC Clumps (None) /hpf Urine Bacteria (None) /hpf Crossmatch 09/16/23 09/16/23 Range/Units 09:12 12:07 WBC (3.8-10.6) k/uL RBC (3.80-5.40) m/uL Hgb (11.4-16.0) gm/dL Hct (34.0-46.0) % MCV (80.0-100.0) fL MCH (25.0-35.0) pg MCHC (31.0-37.0) g/dL RDW (11.5-15.5) % Neutrophils # (1.3-7.7) k/uL Lymphocytes # (1.0-4.8) k/uL Sodium (137-145) mmol/L Carbon Dioxide (22-30) mmol/L BUN (7-17) mg/dL POC Glucose (mg/dL) 130 H (70-110) mg/dL Calcium (8.4-10.2) mg/dL Troponin I (0.000-0.034) ng/mL Total Protein (6.3-8.2) g/dL Albumin (3.5-5.0) g/dL Urine Appearance (Clear) Urine Protein (Negative) Urine Ketones (Negative) Urine Blood (Negative) Urine Nitrite (Negative) Ur Leukocyte Esterase (Negative) Urine RBC (0-5) /hpf Urine WBC (0-5) /hpf Urine WBC Clumps (None) /hpf Urine Bacteria (None) /hpf Crossmatch See Detail Assessment and Plan (1) Cellulitis of right leg Status: Acute Code(s): L03.115 - CELLULITIS OF RIGHT LOWER LIMB SNOMED Code(s): 60364287293089655 (2) Leukocytosis Status: Acute Code(s): D72.829 - ELEVATED WHITE BLOOD CELL COUNT, UNSPECIFIED SNOMED Code(s): 481778767 Plan: 1patient presented hospital with increasing weakness1-in this patient also have some mental status changes source likely multifactorial patient did have a positive UA concerning for UTI and also have a nonhealing wound to the right lower extremity and concern for secondary cellulitis. 2local wound care with dry Aquacel silver dressing followed by Luis wrap for compression. 3patient to continue with Rocephin while waiting for the culture to finalize We will follow on clinical condition and cultures to further adjust medication if needed Thank you for this consultation we will follow the patient along with you Dictation was produced using [employer] dictation software. please excuse any gr ammatical, word or spelling errors. Time with Patient: Greater than 30
[2023-09-16] MEDS: DORZOLAMIDE-TIMOLOL 2.23%/0.68 10ML BTL BOTH EYES SCH (22:24)
[2023-09-16] MEDS: GLIMEPIRIDE 2 MG TAB PO SCH (22:24)
[2023-09-16] MEDS: HEPARIN SODIUM,PORCINE 5,000 UNIT/ML 1 ML VIAL SQ SCH (22:24)
[2023-09-17] MEDS: MELOXICAM 7.5 MG TAB PO PRN ×2 (03:45→20:29)
[2023-09-17 06:10] LABS: Glucose,Whole Blood 56 mg/dL (70-110)
[2023-09-17 06:35] LABS: Glucose,Whole Blood 71 mg/dL (70-110)
[2023-09-17] MEDS ORDERED: PANTOPRAZOLE 40 MG TABLET PO SCH (07:30)
[2023-09-17] MEDS: SODIUM CHLORIDE 0.9% 1,000 ML IV SCH ×2 (07:33→20:27)
[2023-09-17 07:36] LABS: Anisocytosis Slight; HCT 28.1 % (34.0-46.0); HGB 8.2 gm/dL (11.4-16.0); Hypochromasia Marked; MCHC 29.4 g/dL (31.0-37.0); MCV 71.4 fL (80.0-100.0); Mean Platelet Volume 8.7; Microcytosis Moderate; Platelet Count 252 k/uL (150-450); Poikilocytosis Slight; RBC 3.93 m/uL (3.80-5.40); RDW 17.3 % (11.5-15.5); WBC 11.7 k/uL (3.8-10.6)
[2023-09-17] MEDS: METOPROLOL TARTRATE 25 MG TAB PO SCH ×2 (07:46→20:29)
[2023-09-17] MEDS: HEPARIN SODIUM,PORCINE 5,000 UNIT/ML 1 ML VIAL SQ SCH ×2 (07:46→20:29)
[2023-09-17] MEDS: GLIMEPIRIDE 2 MG TAB PO SCH ×2 (07:46→20:29)
[2023-09-17] MEDS: PANTOPRAZOLE 40 MG/10 ML VIAL IVP SCH (07:47)
[2023-09-17] MEDS: LEVOTHYROXINE 75 MCG TAB PO SCH (07:47)
[2023-09-17 07:56] LABS: African American GFR (CKD) 69 (>60 ml/min/1.73 sqM); Anion Gap 12 mmol/L; Blood Urea Nitrogen 19 mg/dL (7-17); Carbon Dioxide 20 mmol/L (22-30); Chloride 100 mmol/L (98-107); Glucose 153 mg/dL (74-99); Non-African American GFR(CKD) 60 (>60 ml/min/1.73 sqM); Sodium 132 mmol/L (137-145)
[2023-09-17] MEDS ORDERED: amLODIPine 2.5 MG TAB PO SCH (09:00)
[2023-09-17] MEDS: DORZOLAMIDE-TIMOLOL 2.23%/0.68 10ML BTL BOTH EYES SCH ×2 (09:34→20:37)
--- NOTE | 2023-09-17 12:00 | P.PN ---
Subjective Progress Note Date: 09/17/23 HISTORY OF PRESENT ILLNESS: This is a 83-year-old female with a past medical history significant for hypertension, hyperlipidemia, and hypothyroidism. Patient does not follow with a assistant quality manager. We have been asked to see the patient in consultation for abnormal troponins. Patient examined at the bedside in the emergency room. Patient states she presented to the hospital secondary to generalized weakness. The patient currently denies having any chest pain or pressure. She denies any shortness of breath. Denies any nausea or vomiting. Bedside telemetry reveals sinus tachycardia. Hemoglobin this morning is 6.8. * EKG reveals sinus tachycardia with no signs of acute ischemia * Chest xray right lower lobe infiltrate. Correlate for pneumonia. * Laboratory data: Hemoglobin 6.8. WBC 12.1. Troponin 0.273. 0.234. 0.148. * Most recent echocardiogram obtained in January 2018 revealing ejection fraction 55%, mild MR and mild TR * Cardiac catheterization history: denies 09/17 patient is seen today in follow-up. She remains in the emergency center waiting for a bed [facility] floor. Patient states she came in due to weakness and feeling cold but feeling much better now. Echocardiogram reveals normal LV function, moderate to severe aortic stenosis. Patient is aware that she has had a murmur but does not follow with a assistant quality manager.yesterday, she was started on metoprolol tartrate 25 mg twice daily.ID is following for possible UTI, nonhealing wound to the right lower extremity with cellulitis. Regarding anemia, patient is status post transfusion of 1 unit of packed RBCs. repeat hemoglobin is 8.2. PHYSICAL EXAM: VITAL SIGNS: Reviewed. GENERAL: Well-developed in no acute distress. HEENT: Head is normocephalic. Pupils are equal, round. Sclerae anicteric. Mucous membranes of the mouth are moist. Neck supple. No JVD or thyromegaly LUNGS: Respirations even and unlabored. Lungs essentially clear to auscultation bilaterally. HEART: Regular rate and rhythm. S1 and S2 heard. Systolic murmur ABDOMEN: Soft. Nondistended. Nontender. EXTREMITIES: Normal range of motion. No clubbing or cyanosis. Peripheral pulses intact. No lower extremity edema NEUROLOGIC: Awake and alert. Oriented x 3. ASSESSMENT: Generalized weakness and leukocytosis secondary to possible urinary tract infection and nonhealing wound Acute on chronic anemia, hemoglobin 6.8 s/p 1 unit PRBC Abnormal troponins, no evidence of acute coronary syndrome, likely secondary to type II UT Sinus tachycardia, improved Severe aortic stenosis Hyponatremia Hypertension Hyperlipidemia Hypothyroidism Diabetes PLAN: An acute coronary event has been ruled out Continue home cardiac medications Continue metoprolol 25 mg twice a day Management of anemia and infection per primary medicine and ID Patient will follow up with Dr. Rosales 2-3 weeks after discharge from the hospital. Nurse practitioner note has been reviewed by physician. Signing provider agrees with the documented findings, assessment, and plan of care. Objective - Vital Signs Vital signs: Vital Signs Temp 98.1 F 09/17/23 07:57 Pulse 100 09/17/23 07:57 Resp 18 09/17/23 07:57 BP 142/88 09/17/23 07:57 Pulse Ox 96 09/17/23 07:57 FiO2 Intake & Output 09/16/23 09/17/23 09/17/23 18:59 06:59 18:59 Intake Total 310 740 Output Total 600 650 Balance -290 90 Intake: Intake, IV Titration 200 Amount Sodium Chloride 0.9% 1, 200 000 ml @ 50 mls/hr IV . Q20H [facility] Rx#:[id number] Oral 540 Blood Product 310 Rc As-1 Unit 310 [id number] Output: Urine 600 650 Other: Voiding Method External Catheter External Catheter - Labs CBC & Chem 7: 09/17/23 07:28 09/17/23 07:28 Labs: Abnormal Lab Results - Last 24 Hours (Table) 09/16/23 09/16/23 09/17/23 Range/Units 09:12 12:07 06:04 WBC (3.8-10.6) k/uL Hgb (11.4-16.0) gm/dL Hct (34.0-46.0) % MCV (80.0-100.0) fL MCH (25.0-35.0) pg MCHC (31.0-37.0) g/dL RDW (11.5-15.5) % Sodium (137-145) mmol/L Carbon Dioxide (22-30) mmol/L BUN (7-17) mg/dL Glucose (74-99) mg/dL POC Glucose (mg/dL) 130 H 56 L (70-110) mg/dL Calcium (8.4-10.2) mg/dL Crossmatch See Detail 09/17/23 09/17/23 Range/Units 07:28 07:28 WBC 11.7 H (3.8-10.6) k/uL Hgb 8.2 L (11.4-16.0) gm/dL Hct 28.1 L (34.0-46.0) % MCV 71.4 L (80.0-100.0) fL MCH 21.0 L (25.0-35.0) pg MCHC 29.4 L (31.0-37.0) g/dL RDW 17.3 H (11.5-15.5) % Sodium 132 L (137-145) mmol/L Carbon Dioxide 20 L (22-30) mmol/L BUN 19 H (7-17) mg/dL Glucose 153 H (74-99) mg/dL POC Glucose (mg/dL) (70-110) mg/dL Calcium 8.0 L (8.4-10.2) mg/dL Crossmatch Microbiology - Last 24 Hours (Table) 09/15/23 13:48 Blood Culture - Preliminary Blood
--- NOTE | 2023-09-17 15:14 | P.PN ---
Subjective Progress Note Date: 09/17/23 Principal diagnosis: Reason for follow-up is leukocytosis and right leg cellulitis Patient is a 83-year-old female with a past medical history significant for diabetes mellitus hypertension spina bifida patient presented to hospital with increased weakness and elevated heart rate Along with mental status changes, patient noticed to have a wound to the right anterior leg did have a low-grade fever and elevated white count concerning for possible cellulitis. On today's evaluation that is 09/17/2023, the patient denies having any fever or any chills, the patient is breathing comfortably on room air no chest pain shortness of breath or cough no nausea vomiting abdominal pain diarrhea mention right lower extremity pain has decreased in intensity. Patient white count is down to 11.7, creatinine 0.90 cultures currently pending Objective - Vital Signs Vital signs: Vital Signs Temp 98.1 F 09/17/23 07:57 Pulse 100 09/17/23 07:57 Resp 18 09/17/23 07:57 BP 142/88 09/17/23 07:57 Pulse Ox 96 09/17/23 07:57 FiO2 Intake & Output 09/16/23 09/17/23 09/17/23 18:59 06:59 18:59 Intake Total 310 740 Output Total 600 650 Balance -290 90 Intake: Intake, IV Titration 200 Amount Sodium Chloride 0.9% 1, 200 000 ml @ 50 mls/hr IV . Q20H [facility] Rx#:[id number] Oral 540 Blood Product 310 Rc As-1 Unit 310 [id number] Output: Urine 600 650 Other: Voiding Method External Catheter External Catheter - Exam GENERAL DESCRIPTION: An elderly female lying in bed in no distress RESPIRATORY SYSTEM: Unlabored breathing , decreased breath sounds at bases HEART: S1 S2 regular rate and rhythm , ABDOMEN: Soft , no tenderness EXTREMITIES: Right lower extremity wound is currently dressed - Labs CBC & Chem 7: 09/17/23 07:28 09/17/23 07:28 Labs: Abnormal Lab Results - Last 24 Hours (Table) 09/16/23 09/16/23 09/17/23 Range/Units 09:12 12:07 06:04 WBC (3.8-10.6) k/uL Hgb (11.4-16.0) gm/dL Hct (34.0-46.0) % MCV (80.0-100.0) fL MCH (25.0-35.0) pg MCHC (31.0-37.0) g/dL RDW (11.5-15.5) % Sodium (137-145) mmol/L Carbon Dioxide (22-30) mmol/L BUN (7-17) mg/dL Glucose (74-99) mg/dL POC Glucose (mg/dL) 130 H 56 L (70-110) mg/dL Calcium (8.4-10.2) mg/dL Crossmatch See Detail 09/17/23 09/17/23 Range/Units 07:28 07:28 WBC 11.7 H (3.8-10.6) k/uL Hgb 8.2 L (11.4-16.0) gm/dL Hct 28.1 L (34.0-46.0) % MCV 71.4 L (80.0-100.0) fL MCH 21.0 L (25.0-35.0) pg MCHC 29.4 L (31.0-37.0) g/dL RDW 17.3 H (11.5-15.5) % Sodium 132 L (137-145) mmol/L Carbon Dioxide 20 L (22-30) mmol/L BUN 19 H (7-17) mg/dL Glucose 153 H (74-99) mg/dL POC Glucose (mg/dL) (70-110) mg/dL Calcium 8.0 L (8.4-10.2) mg/dL Crossmatch Microbiology - Last 24 Hours (Table) 09/15/23 13:48 Blood Culture - Preliminary Blood Assessment and Plan (1) Leukocytosis Current Visit: Yes Status: Acute Code(s): D72.829 - ELEVATED WHITE BLOOD CELL COUNT, UNSPECIFIED SNOMED Code(s): 001558643 (2) Cellulitis of right leg Current Visit: Yes Status: Acute Code(s): L03.115 - CELLULITIS OF RIGHT LOWER LIMB SNOMED Code(s): 26235119160874871 Plan: 1patient presented hospital with increasing weakness1-in this patient also have some mental status changes source likely multifactorial patient did have a posit patricia UA concerning for UTI and also have a nonhealing wound to the right lower extremity and concern for secondary cellulitis. 2local wound care with dry Aquacel silver dressing followed by Luis wrap for compression. 3patient to continue with Rocephin while waiting for the culture to finalize and monitor clinical course closely Dictation was produced using [employer] dictation software. please excuse any grammatical, word or spelling errors. Time with Patient: Less than 30
[2023-09-17 16:09] LABS: Glucose,Whole Blood 164 mg/dL (70-110)
[2023-09-17 20:26] LABS: Glucose,Whole Blood 275 mg/dL (70-110)
[2023-09-18] MEDS: LEVOTHYROXINE 75 MCG TAB PO SCH (05:00)
[2023-09-18 06:24] LABS: Glucose,Whole Blood 150 mg/dL (70-110)
--- NOTE | 2023-09-18 06:26 | P.PN ---
Subjective Progress Note Date: 09/17/23 History of Present Illness 83-year-old the female came in with compensative generalized weakness found to be hyponatremic. Patient does have some chronic weakness and bilateral lower extremities with the muscle atrophy. Patient was admitted with antibiotics and possibility of pneumonia although chest x-ray did not show significant infiltrate I'll obtain a pro-level patient was given multiple antibiotics including Rocephin and azithromycin and was switched to oral levofloxacin. All of which will be discontinued at this time. Patient does have skin breakdown and a stage II ulcer on the right anterior marquez area with some surrounding redness unsure whether patient has cellulitis. Patient does have leukocytosis elevated white count of 17,000 which is coming down to 14,000 at this time urine is significantly abnormal with the patient doesn't have any symptoms of UTI patient denied any fever. Patient is hyponatremic and is on diuretics for blood pressure. Patient does have sinus tachycardia receiving IV fluids at this time which will be continued. Patient is also complaining of abdominal discomfort which she believes is secondary to Trulicity, is also found to have low hemoglobin of 6.8 patient does have chronic and deficiency anemia denied any dark stools or blood in the stools patient denied any vaginal bleeding. Patient has mildly elevated troponins of 0.148 because of which cardiology evaluated the patient doesn't appear to be cardiac source that is a possible for elevated troponin. Patient was supposed to take Iron pills which she stopped taking because of abdominal discomfort. 09/17/2023 Patient is seen in follow-up today continues to be in the ER while awaiting a bed with cardiology and infectious disease following. Patient continued on IV antibiotics with concerns of lower extremity with cellulitis. Patient reports she has inflammation and swelling frequently of lower extremities has never been this severe. Patient continue with local wound care and antibiotics while awaiting cultures to finalized. Patient did have a mild elevation in troponin and cardiology in ECF as well. Patient did receive a unit of PRBCs and hemoglob in is stable with no ectopy. Patient is afebrile denies chest pain or shortness of breath. Patient reports feeling uncomfortable and back pain with history of spina bifida. Review of systems: Constitutional: No reports of fatigue, fever, or chills Cardiovascular: No reports of chest pain or palpitations Respiratory: No reports of shortness of breath or cough GI: No reports of nausea, vomiting, or diarrhea : No reports of dysuria or retention Neurovascular: reports of generalized weakness All medications have been reviewed PHYSICAL EXAMINATION: GENERAL: The patient is alert and oriented x3, not in any acute distress. Well developed, well nourished. Elderly appearing, obese HEENT: Pupils are round and equally reacting to light. EOMI. No scleral icterus. No conjunctival pallor. Normocephalic, atraumatic. No pharyngeal erythema. No thyromegaly. CARDIOVASCULAR: S1 and S2 present. No murmurs, rubs, or gallops. Grade 4/6 systolic murmur PULMONARY: Chest is clear to auscultation, no wheezing or crackles. ABDOMEN: Soft, nontender, nondistended, normoactive bowel sounds. No palpable organomegaly. MUSCULOSKELETAL: No joint swelling or deformity. EXTREMITIES: No cyanosis, clubbing, or pedal edema. 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 SKIN: Patient has a stage II anterior marquez ulcer base of which is bloody but appears to be clean with some surrounding redness Assessment and plan -Generalized weakness probably secondary to dehydration there is no clear evidence of sepsis but there may be cellulitis of the right lower extremity and is may be contributing to her generalized weakness as well. Patient lives at [facility], physical and occupational therapy was consulted -Abdominal discomfort, possibly peptic ulcer disease and we'll continue with Protonix IV -Leukocytosis , reactive in nature mostly although I cannot completely rule out infection including cellulitis low possibility of UTI as she patient doesn't have any symptoms, no evidence of pneumonia at this time -hyponatremia secondary to diuretics which will be held patient will be continued on IV fluids -Right anterior marquez ulcer with concerns of surrounding cellulitis, consult placed to wound care and infectious disease -Severe iron deficiency anemia, anemia is chronic. Hemoglobin was 6.8 , status post 1 unit of PRBC, a.m. labs pending -Mild elevation of troponin, no evidence of acute myocardial infarction, likely type II -tachycardia secondary to intravascular depletion, continue IV fluids -Type 2 diabetes mellitusl continue sliding scale and Accu-Cheks before meals and at bedtime -Hypertension resumed on amlodipine holding of diuretics -Obesity with a BMI of 32.5 -GI prophylaxis -DVT prophylaxis: Subcutaneous heparin -No code The impression and plan of care has been dictated by Zenobia Rush, Nurse Practitioner as directed. Dr. Bharath MD I have performed a history and examination and MDM of this patient, discussed the same with the dictator, and agree with the dictator's assessment and plan as written ,documented as a scribe. Based on total visit time, I have performed more than 50% of the visit. Objective - Vital Signs Vital signs: Vital Signs Temp 98.1 F 09/17/23 07:57 Pulse 100 09/17/23 07:57 Resp 18 09/17/23 07:57 BP 142/88 09/17/23 07:57 Pulse Ox 96 09/17/23 07:57 FiO2 Intake & Output 09/16/23 09/17/23 09/17/23 18:59 06:59 18:59 Intake Total 310 740 Output Total 600 650 Balance -290 90 Intake: Intake, IV Titration 200 Amount Sodium Chloride 0.9% 1, 200 000 ml @ 50 mls/hr IV . Q20H [facility] Rx#:[id number] Oral 540 Blood Product 310 Rc As-1 Unit 310 [id number] Output: Urine 600 650 Other: Voiding Method External Catheter External Catheter - Labs CBC & Chem 7: 09/17/23 07:28 09/17/23 07:28 Labs: Abnormal Lab Results - Last 24 Hours (Table) 09/16/23 09/16/23 09/17/23 Range/Units 09:12 12:07 06:04 WBC (3.8-10.6) k/uL Hgb (11.4-16.0) gm/dL Hct (34.0-46.0) % MCV (80.0-100.0) fL MCH (25.0-35.0) pg MCHC (31.0-37.0) g/dL RDW (11.5-15.5) % Sodium (137-145) mmol/L Carbon Dioxide (22-30) mmol/L BUN (7-17) mg/dL Glucose (74-99) mg/dL POC Glucose (mg/dL) 130 H 56 L (70-110) mg/dL Calcium (8.4-10.2) mg/dL Crossmatch See Detail 01/12/24 01/12/24 Range/Units 07:28 07:28 WBC 11.7 H (3.8-10.6) k/uL Hgb 8.2 L (11.4-16.0) gm/dL Hct 28.1 L (34.0-46.0) % MCV 71.4 L (80.0-100.0) fL MCH 21.0 L (25.0-35.0) pg MCHC 29.4 L (31.0-37.0) g/dL RDW 17.3 H (11.5-15.5) % Sodium 132 L (137-145) mmol/L Carbon Dioxide 20 L (22-30) mmol/L BUN 19 H (7-17) mg/dL Glucose 153 H (74-99) mg/dL POC Glucose (mg/dL) (70-110) mg/dL Calcium 8.0 L (8.4-10.2) mg/dL Crossmatch Microbiology - Last 24 Hours (Table) 09/15/23 13:48 Blood Culture - Preliminary Blood
[2023-09-18] MEDS ORDERED: DEXTROSE 50% SYRINGE 50 ML IVP PRN ×2 (06:27)
[2023-09-18] MEDS ORDERED: NYSTATIN 100,000 UNIT/GM POWD 15 GM TOPICAL PRN (06:28)
[2023-09-18] MEDS: INSULIN ASPART (NovoLOG) 100 UNIT/ML VIAL SQ SCH ×4 (06:36→21:31)
[2023-09-18] MEDS ORDERED: amLODIPine 5 MG TAB PO SCH (09:00)
[2023-09-18] MEDS ORDERED: LEVOFLOXACIN 750 MG TAB PO SCH (09:00)
[2023-09-18] MEDS: HEPARIN SODIUM,PORCINE 5,000 UNIT/ML 1 ML VIAL SQ SCH ×2 (10:06→21:32)
[2023-09-18] MEDS: DORZOLAMIDE-TIMOLOL 2.23%/0.68 10ML BTL BOTH EYES SCH ×2 (10:07→21:33)
[2023-09-18] MEDS: GLIMEPIRIDE 2 MG TAB PO SCH ×2 (10:07→21:32)
[2023-09-18] MEDS: METOPROLOL TARTRATE 25 MG TAB PO SCH ×2 (10:07→21:32)
[2023-09-18] MEDS: PANTOPRAZOLE 40 MG/10 ML VIAL IVP SCH (10:07)
[2023-09-18 10:13] LABS: HCT 27.3 % (37.2-46.3); HGB 7.8 g/dL (12.0-15.0); MCH 20.1 pg (27.0-32.0); MCHC 28.6 g/dL (32.0-37.0); MCV 70.2 FL (80.0-97.0); Mean Platelet Volume 9.4 FL (9.5-12.2); NRBC Per 100 WBC 0 X 10*3/uL (0.00-0.01); Platelet Count 270 X 10*3/uL (140-440); RBC 3.89 X 10*6/uL (4.10-5.20); RDW 17.9 % (11.5-14.5); WBC 9.37 X 10*3/uL (4.50-10.00)
[2023-09-18 10:19] LABS: BUN/Creat Ratio 20.86 Ratio (12.00-20.00); Blood Urea Nitrogen 14.6 mg/dL (9.0-27.0); Calcium 8.2 mg/dL (8.7-10.3); Carbon Dioxide 20.6 mmol/L (21.6-31.8); Chloride 105 mmol/L (96-109); Glucose 145 mg/dL (70-110); Magnesium 1.9 mg/dL (1.5-2.4); Sodium 136 mmol/L (135-145)
[2023-09-18 11:07] LABS: Basophils # (A) 0.06 X 10*3/uL (0.00-0.10); Basophils % (A) 0.6 %; Eosinophils % (A) 2.1 %; Lymphocytes # (A) 0.96 X 10*3/uL (0.90-5.00); Lymphocytes % (A) 10.2 %; Microcytosis (M) 2+; Monocytes # (A) 1.42 X 10*3/uL (0.20-1.00); Monocytes % (A) 15.2 %; Neutrophils # (A) 6.69 X 10*3/uL (1.80-7.70); Neutrophils % (A) 71.5 %; Schistocytes 1+
[2023-09-18 11:30] LABS: Glucose,Whole Blood 196 mg/dL (70-110)
--- NOTE | 2023-09-18 12:16 | P.PN ---
Subjective HISTORY OF PRESENT ILLNESS: This is a 83-year-old female with a past medical history significant for hypertension, hyperlipidemia, and hypothyroidism. Patient does not follow with a it project manager. We have been asked to see the patient in consultation for abnormal troponins. Patient examined at the bedside in the emergency room. Patient states she presented to the hospital secondary to generalized weakness. The patient currently denies having any chest pain or pressure. She denies any shortness of breath. Denies any nausea or vomiting. Bedside telemetry reveals sinus tachycardia. Hemoglobin this morning is 6.8. * EKG reveals sinus tachycardia with no signs of acute ischemia * Chest xray right lower lobe infiltrate. Correlate for pneumonia. * Laboratory data: Hemoglobin 6.8. WBC 12.1. Troponin 0.273. 0.234. 0.148. * Most recent echocardiogram obtained in January 2018 revealing ejection fraction 55%, mild MR and mild TR * Cardiac catheterization history: denies 09/17 patient is seen today in follow-up. She remains in the emergency center waiting for a bed on the [facility] floor. Patient states she came in due to weakness and feeling cold but feeling much better now. Echocardiogram reveals normal LV function, moderate to severe aortic stenosis. Patient is aware that she has had a murmur but does not follow with a it project manager.yesterday, she was started on metoprolol tartrate 25 mg twice daily.ID is following for possible UTI, nonhealing wound to the right lower extremity with cellulitis. Regarding anemia, patient is status post transfusion of 1 unit of packed RBCs. repeat hemoglobin is 8.2. 09/18/2023 Patient examined this morning. Patient is sitting up in the chair. Patient denies chest pain or pressure. She denies shortness of breath. Vital signs are stable. PHYSICAL EXAM: VITAL SIGNS: Reviewed. GENERAL: Well-developed in no acute distress. HEENT: Head is normocephalic. Pupils are equal, round. Sclerae anicteric. Mucous membranes of the mouth are moist. Neck supple. No JVD or thyromegaly LUNGS: Respirations even and unlabored. Lungs essentially clear to auscultation bilaterally. HEART: Regular rate and rhythm. S1 and S2 heard. Systolic murmur ABDOMEN: Soft. Nondistended. Nontender. EXTREMITIES: Normal range of motion. No clubbing or cyanosis. Peripheral pulses intact. No lower extremity edema NEUROLOGIC: Awake and alert. Oriented x 3. ASSESSMENT: Generalized weakness and leukocytosis secondary to possible urinary tract infection and nonhealing wound Acute on chronic anemia, hemoglobin 6.8 s/p 1 unit PRBC Abnormal troponins, no evidence of acute coronary syndrome, likely secondary to type II MA Sinus tachycardia, improved Severe aortic stenosis Hyponatremia Hypertension Hyperlipidemia Hypothyroidism Diabetes PLAN: Continue current cardiac medications Patient is currently stable from a cardiac perspective Patient will follow up with Dr. Rosales 2-3 weeks after discharge from the hospital We will sign off. Please reconsult if needed. Nurse practitioner note has been reviewed by physician. Signing provider agrees with the documented findings, assessment, and plan of care. Objective - Vital Signs Vital signs: Vital Signs Temp 97.9 F 09/18/23 07:18 Pulse 94 09/18/23 07:18 Resp 18 09/18/23 07:18 BP 165/81 09/18/23 07:18 Pulse Ox 96 09/18/23 07:18 FiO2 Intake & Output 09/17/23 09/18/23 09/18/23 18:59 06:59 18:59 Intake Total 720 Balance 720 Intake: Intake, IV Titration 600 Amount Sodium Chloride 0.9% 1, 600 000 ml @ 50 mls/hr IV . Q20H [facility] Rx#:[id number] Oral 120 Other: Voiding Method External Catheter External Catheter - Labs CBC & Chem 7: 09/18/23 06:22 09/18/23 06:22 Labs: Abnormal Lab Results - Last 24 Hours (Table) 09/17/23 09/17/23 09/18/23 Range/Units 16:07 20:25 06:22 RBC 3.89 L (4.10-5.20) X 10*6/uL Hgb 7.8 L (12.0-15.0) g/dL Hct 27.3 L (37.2-46.3) % MCV 70.2 L (80.0-97.0) FL MCH 20.1 L (27.0-32.0) pg MCHC 28.6 L (32.0-37.0) g/dL RDW 17.9 H (11.5-14.5) % MPV 9.4 L (9.5-12.2) FL Monocytes # 1.42 H (0.20-1.00) X 10*3/uL Microcytosis (manual) 2+ A Schistocytes 1+ A Carbon Dioxide (21.6-31.8) mmol/L BUN/Creatinine Ratio (12.00-20.00) Ratio Glucose (70-110) mg/dL POC Glucose (mg/dL) 164 H 275 H (70-110) mg/dL Calcium (8.7-10.3) mg/dL 09/18/23 09/18/23 09/18/23 Range/Units 06:22 06:22 11:29 RBC (4.10-5.20) X 10*6/uL Hgb (12.0-15.0) g/dL Hct (37.2-46.3) % MCV (80.0-97.0) FL MCH (27.0-32.0) pg MCHC (32.0-37.0) g/dL RDW (11.5-14.5) % MPV (9.5-12.2) FL Monocytes # (0.20-1.00) X 10*3/uL Microcytosis (manual) Schistocytes Carbon Dioxide 20.6 L (21.6-31.8) mmol/L BUN/Creatinine Ratio 20.86 H (12.00-20.00) Ratio Glucose 145 H (70-110) mg/dL POC Glucose (mg/dL) 150 H 196 H (70-110) mg/dL Calcium 8.2 L (8.7-10.3) mg/dL Microbiology - Last 24 Hours (Table) 09/15/23 13:48 Blood Culture - Preliminary Blood 09/16/23 08:51 Blood Culture - Preliminary Blood
--- NOTE | 2023-09-18 14:41 | P.PN ---
Subjective Progress Note Date: 09/18/23 Principal diagnosis: Reason for follow-up is leukocytosis and right leg cellulitis Patient is a 83-year-old female with a past medical history significant for diabetes mellitus hypertension spina bifida patient presented to hospital with increased weakness and elevated heart rate Along with mental status changes, patient noticed to have a wound to the right anterior leg did have a low-grade fever and elevated white count concerning for possible cellulitis. On today's evaluation that is 09/18/2023, the patient remains to be afebrile, the patient is breathing comfortably on room air, the patient denies chest pain shortness of breath or cough no nausea vomiting abdominal pain diarrhea mention right lower extremity pain has decreased in intensity. Patient white count is down to 9.37, creatinine 0.70 cultures currently pending Objective - Vital Signs Vital signs: Vital Signs Temp 97.9 F 09/18/23 07:18 Pulse 94 09/18/23 07:18 Resp 18 09/18/23 07:18 BP 165/81 09/18/23 07:18 Pulse Ox 96 09/18/23 07:18 FiO2 Intake & Output 09/17/23 09/18/23 09/18/23 18:59 06:59 18:59 Intake Total 720 Balance 720 Intake: Intake, IV Titration 600 Amount Sodium Chloride 0.9% 1, 600 000 ml @ 50 mls/hr IV . Q20H [facility] Rx#:[id number] Oral 120 Other: Voiding Method External Catheter External Catheter - Exam GENERAL DESCRIPTION: An elderly female lying in bed in no distress RESPIRATORY SYSTEM: Unlabored breathing , decreased breath sounds at bases HEART: S1 S2 regular rate and rhythm , ABDOMEN: Soft , no tenderness EXTREMITIES: Right lower extremity wound is currently dressed - Labs CBC & Chem 7: 09/18/23 06:22 09/18/23 06:22 Labs: Abnormal Lab Results - Last 24 Hours (Table) 09/17/23 09/17/23 09/18/23 Range/Units 16:07 20:25 06:22 RBC 3.89 L (4.10-5.20) X 10*6/uL Hgb 7.8 L (12.0-15.0) g/dL Hct 27.3 L (37.2-46.3) % MCV 70.2 L (80.0-97.0) FL MCH 20.1 L (27.0-32.0) pg MCHC 28.6 L (32.0-37.0) g/dL RDW 17.9 H (11.5-14.5) % MPV 9.4 L (9.5-12.2) FL Monocytes # 1.42 H (0.20-1.00) X 10*3/uL Microcytosis (manual) 2+ A Schistocytes 1+ A Carbon Dioxide (21.6-31.8) mmol/L BUN/Creatinine Ratio (12.00-20.00) Ratio Glucose (70-110) mg/dL POC Glucose (mg/dL) 164 H 275 H (70-110) mg/dL Hemoglobin A1c (<=6.0) % Calcium (8.7-10.3) mg/dL 09/18/23 09/18/23 09/18/23 Range/Units 06:22 06:22 06:22 RBC (4.10-5.20) X 10*6/uL Hgb (12.0-15.0) g/dL Hct (37.2-46.3) % MCV (80.0-97.0) FL MCH (27.0-32.0) pg MCHC (32.0-37.0) g/dL RDW (11.5-14.5) % MPV (9.5-12.2) FL Monocytes # (0.20-1.00) X 10*3/uL Microcytosis (manual) Schistocytes Carbon Dioxide 20.6 L (21.6-31.8) mmol/L BUN/Creatinine Ratio 20.86 H (12.00-20.00) Ratio Glucose 145 H (70-110) mg/dL POC Glucose (mg/dL) 150 H (70-110) mg/dL Hemoglobin A1c 7.5 H (<=6.0) % Calcium 8.2 L (8.7-10.3) mg/dL 09/18/23 Range/Units 11:29 RBC (4.10-5.20) X 10*6/uL Hgb (12.0-15.0) g/dL Hct (37.2-46.3) % MCV (80.0-97.0) FL MCH (27.0-32.0) pg MCHC (32.0-37.0) g/dL RDW (11.5-14.5) % MPV (9.5-12.2) FL Monocytes # (0.20-1.00) X 10*3/uL Microcytosis (manual) Schistocytes Carbon Dioxide (21.6-31.8) mmol/L BUN/Creatinine Ratio (12.00-20.00) Ratio Glucose (70-110) mg/dL POC Glucose (mg/dL) 196 H (70-110) mg/dL Hemoglobin A1c (<=6.0) % Calcium (8.7-10.3) mg/dL Microbiology - Last 24 Hours (Table) 09/15/23 13:48 Blood Culture - Preliminary Blood 09/16/23 08:51 Blood Culture - Preliminary Blood Assessment and Plan (1) Leukocytosis Current Visit: Yes Status: Acute Code(s): D72.829 - ELEVATED WHITE BLOOD CELL COUNT, UNSPECIFIED SNOMED Code(s): 335346479 (2) Cellulitis of right leg Current Visit: Yes Status: Acute Code(s): L03.115 - CELLULITIS OF RIGHT LOWER LIMB SNOMED Code(s): 55612534508358996 Plan: 1patient presented hospital with increasing weakness1-in this patient also have some mental status changes source likely multifactorial patient did have a positive UA concerning for UTI and also have a nonhealing wound to the right lower extremity and concern for secondary cellulitis. 2local wound care with dry Aquacel silver dressing followed by Luis wrap for compression. 3patient did have clinical improvement patient white count has normalized, patient to continue with Rocephin, finishing Therapy with oral antibiotics Dictation was produced using [employer] dictation software. please excuse any grammatical, word or spelling errors. Time with Patient: Less than 30
[2023-09-18 16:27] LABS: Glucose,Whole Blood 244 mg/dL (70-110)
[2023-09-18 20:58] LABS: Glucose,Whole Blood 189 mg/dL (70-110)
[2023-09-18] MEDS ORDERED: LATANOPROST 0.005% OPHTH DROPS 2.5 ML BTL BOTH EYES SCH (21:00)
[2023-09-18] MEDS ORDERED: MONTELUKAST 10 MG TAB PO SCH (21:00)
--- NOTE | 2023-09-19 00:17 | P.PN ---
Subjective 83-year-old the female came in with compensative generalized weakness found to be hyponatremic. Patient does have some chronic weakness and bilateral lower extremities with the muscle atrophy. Patient was admitted with antibiotics and possibility of pneumonia although chest x-ray did not show significant infiltrate I'll obtain a pro-level patient was given multiple antibiotics including Rocephin and azithromycin and was switched to oral levofloxacin. All of which will be discontinued at this time. Patient does have skin breakdown and a stage II ulcer on the right anterior marquez area with some surrounding redness unsure whether patient has cellulitis. Patient does have leukocytosis elevated white count of 17,000 which is coming down to 14,000 at this time urine is significantly abnormal with the patient doesn't have any symptoms of UTI patient denied any fever. Patient is hyponatremic and is on diuretics for blood pressure. Patient does have sinus tachycardia receiving IV fluids at this time which will be continued. Patient i s also complaining of abdominal discomfort which she believes is secondary to Trulicity, is also found to have low hemoglobin of 6.8 patient does have chronic and deficiency anemia denied any dark stools or blood in the stools patient denied any vaginal bleeding. Patient has mildly elevated troponins of 0.148 because of which cardiology evaluated the patient doesn't appear to be cardiac source that is a possible for elevated troponin. Patient was supposed to take Iron pills which she stopped taking because of abdominal discomfort. 09/17/2023 Patient is seen in follow-up today continues to be in the ER while awaiting a bed with cardiology and infectious disease following. Patient continued on IV antibiotics with concerns of lower extremity with cellulitis. Patient reports she has inflammation and swelling frequently of lower extremities has never been this severe. Patient continue with local wound care and antibiotics while awaiting cultures to finalized. Patient did have a mild elevation in troponin and cardiology in ECF as well. Patient did receive a unit of PRBCs and hemogl obin is stable with no ectopy. Patient is afebrile denies chest pain or shortness of breath. Patient reports feeling uncomfortable and back pain with history of spina bifida. 09/18/2023 This is a pleasant 83 years old female was admitted with a right leg cellulitis and UTI, patient improving slowly and gradually and currently kept on ceftriaxone Also patient he vomited by manufacturing project manager with preserved ejection fraction 50-55% but moderate to severe aortic stenosis, blood pressure is slightly elevated 170/85 and currently patient on Norvasc 5 mg increase to 10 mg and also metoprolol 25 mg twice a day by manufacturing project manager Cartilage team already sign of the case Today. Patient will report to finish therapy with oral antibiotics upon discharge Active Medications Generic Name Dose Route Start Last Admin Trade Name Freq PRN Reason Stop Dose Admin Albuterol/Ipratropium 3 ml 09/15/23 16:28 Ipratropium-Albuterol 3 Ml Neb INHALATION RT-Q4H PRN shortness of breath Amlodipine Besylate 10 mg 09/19/23 09:00 Amlodipine 10 Mg Tab PO DAILY RACHEL Dextrose/Water 25 ml 09/18/23 06:27 Dextrose 50% Syringe 50 Ml IVP PER PROTOCOL PRN Hypoglycemia Protocol Dextrose/Water 50 ml 09/18/23 06:27 Dextrose 50% Syringe 50 Ml IVP PER PROTOCOL PRN Hypoglycemia Protocol Dorzolamide/Timolol 1 drops 09/16/23 21:00 09/18/23 21:33 Dorzolamide-Timolol 2.23%/0.68 10ml Btl BOTH EYES 1 drops BID RACHEL Administration Glimepiride 2 mg 09/16/23 21:00 09/18/23 21:32 Glimepiride 2 Mg Tab PO 2 mg BID RACHEL Administration Heparin Sodium (Porcine) 5,000 unit 09/16/23 21:00 09/18/23 21:32 Heparin Sodium,Porcine 5,000 Unit/Ml 1 Ml Vial SQ 5,000 unit Q12HR RACHEL Administration Ceftriaxone Sodium 2 gm/ 50 mls @ 100 mls/hr 09/16/23 09:00 09/18/23 10:06 Sodium Chloride IVPB 09/19/23 09:29 100 mls/hr Q24HR RACHEL Administration Protocol Insulin Aspart 0 unit 09/18/23 07:30 09/18/23 21:31 Insulin Aspart (Novolog) 100 Unit/Ml Vial SQ 1 unit ACHS RACHEL Administration Protocol Latanoprost 1 drops 09/18/23 21:00 09/18/23 21:37 Latanoprost 0.005% Ophth Drops 2.5 Ml Btl BOTH EYES Not Given HS RACHEL Levothyroxine Sodium 75 mcg 09/17/23 06:30 09/18/23 05:00 Levothyroxine 75 Mcg Tab PO Not Given DAILY@0630 [facility] Meloxicam 7.5 mg 09/16/23 11:33 09/17/23 20:29 Meloxicam 7.5 Mg Tab PO 7.5 mg BID PRN Administration Pain Metoprolol Tartrate 25 mg 09/16/23 09:00 09/18/23 21:32 Metoprolol Tartrate 25 Mg Tab PO 25 mg BID RACHEL Administration Miscellaneous Information 1 each 09/15/23 16:28 Pneumonia Protocol Utilized 1 Each Misc PO ONCE PRN Per Protocol Montelukast Sodium 10 mg 09/18/23 21:00 09/18/23 21:32 Montelukast 10 Mg Tab PO 10 mg HS RACHEL Administration Naloxone HCl 0.2 mg 09/15/23 17:24 Naloxone 0.4 Mg/Ml 1 Ml Vial IV Q2M PRN Opioid Reversal Non-Formulary Medication 4.5 mg 09/20/23 09:00 Dulaglutide [Trulicity] SQ Q7D [facility] Nystatin 1 applic 09/18/23 06:28 Nystatin 100,000 Unit/Gm Powd 15 Gm TOPICAL DAILY PRN Skin Irritation Protocol Ondansetron HCl 4 mg 09/15/23 16:28 Ondansetron 4 Mg/2 Ml Vial IVP Q8HR PRN Nausea And Vomiting Pantoprazole Sodium 40 mg 09/16/23 11:30 09/18/23 10:07 Pantoprazole 40 Mg/10 Ml Vial IVP 40 mg DAILY RACHEL Administration Objective - Vital Signs Vital signs: Vital Signs Temp 97.9 F 09/18/23 07:18 Pulse 94 09/18/23 07:18 Resp 18 09/18/23 07:18 BP 165/81 09/18/23 07:18 Pulse Ox 96 09/18/23 07:18 FiO2 Intake & Output 09/17/23 09/18/23 09/18/23 18:59 06:59 18:59 Intake Total 720 Balance 720 Intake: Intake, IV Titration 600 Amount Sodium Chloride 0.9% 1, 600 000 ml @ 50 mls/hr IV . Q20H [facility] Rx#:[id number] Oral 120 Other: Voiding Method External Catheter External Catheter - Exam GENERAL: The patient is alert and oriented x3, not in any acute distress. Well developed, well nourished. HEENT: Pupils are round and equally reacting to light. EOMI. No scleral icterus. No conjunctival pallor. Normocephalic, atraumatic. No pharyngeal erythema. No thyromegaly. CARDIOVASCULAR: S1 and S2 present. No murmurs, rubs, or gallops. PULMONARY: Chest is clear to auscultation, no wheezing , no crackles. ABDOMEN: Soft, nontender, nondistended, normoactive bowel sounds. No palpable organomegaly. MUSCULOSKELETAL: No joint swelling or deformity. -EXTREMITIES: No cyanosis, clubbing, or pedal edema. Right leg cellulitis, improving with Woody in a Place NEUROLOGICAL: Gross neurological examination did not reveal any focal deficits. SKIN: No rashes. no petechiae. - Labs CBC & Chem 7: 09/18/23 06:22 09/18/23 06:22 Labs: Abnormal Lab Results - Last 24 Hours (Table) 09/17/23 09/17/23 09/18/23 Range/Units 16:07 20:25 06:22 RBC 3.89 L (4.10-5.20) X 10*6/uL Hgb 7.8 L (12.0-15.0) g/dL Hct 27.3 L (37.2-46.3) % MCV 70.2 L (80.0-97.0) FL MCH 20.1 L (27.0-32.0) pg MCHC 28.6 L (32.0-37.0) g/dL RDW 17.9 H (11.5-14.5) % MPV 9.4 L (9.5-12.2) FL Monocytes # 1.42 H (0.20-1.00) X 10*3/uL Microcytosis (manual) 2+ A Schistocytes 1+ A Carbon Dioxide (21.6-31.8) mmol/L BUN/Creatinine Ratio (12.00-20.00) Ratio Glucose (70-110) mg/dL POC Glucose (mg/dL) 164 H 275 H (70-110) mg/dL Hemoglobin A1c (<=6.0) % Calcium (8.7-10.3) mg/dL 09/18/23 09/18/23 09/18/23 Range/Units 06:22 06:22 06:22 RBC (4.10-5.20) X 10*6/uL Hgb (12.0-15.0) g/dL Hct (37.2-46.3) % MCV (80.0-97.0) FL MCH (27.0-32.0) pg MCHC (32.0-37.0) g/dL RDW (11.5-14.5) % MPV (9.5-12.2) FL Monocytes # (0.20-1.00) X 10*3/uL Microcytosis (manual) Schistocytes Carbon Dioxide 20.6 L (21.6-31.8) mmol/L BUN/Creatinine Ratio 20.86 H (12.00-20.00) Ratio Glucose 145 H (70-110) mg/dL POC Glucose (mg/dL) 150 H (70-110) mg/dL Hemoglobin A1c 7.5 H (<=6.0) % Calcium 8.2 L (8.7-10.3) mg/dL 09/18/23 Range/Units 11:29 RBC (4.10-5.20) X 10*6/uL Hgb (12.0-15.0) g/dL Hct (37.2-46.3) % MCV (80.0-97.0) FL MCH (27.0-32.0) pg MCHC (32.0-37.0) g/dL RDW (11.5-14.5) % MPV (9.5-12.2) FL Monocytes # (0.20-1.00) X 10*3/uL Microcytosis (manual) Schistocytes Carbon Dioxide (21.6-31.8) mmol/L BUN/Creatinine Ratio (12.00-20.00) Ratio Glucose (70-110) mg/dL POC Glucose (mg/dL) 196 H (70-110) mg/dL Hemoglobin A1c (<=6.0) % Calcium (8.7-10.3) mg/dL Microbiology - Last 24 Hours (Table) 09/15/23 13:48 Blood Culture - Preliminary Blood 09/16/23 08:51 Blood Culture - Preliminary Blood Assessment and Plan Assessment: -Generalized weakness probably secondary to dehydration there is no clear evidence of sepsis but there may be cellulitis of the right lower extremity and is may be contributing to her generalized weakness as well. Patient lives at [facility], physical and occupational therapy was consulted -Abdominal discomfort, possibly peptic ulcer disease and we'll continue with Protonix IV -Leukocytosis , reactive in nature mostly although I cannot completely rule out infection including cellulitis low possibility of UTI as she patient doesn't have any symptoms, no evidence of pneumonia at this time -hyponatremia secondary to diuretics which will be held patient will be continued on IV fluids -Right anterior marquez ulcer with concerns of surrounding cellulitis, consult placed to wound care and infectious disease -Severe iron deficiency anemia, anemia is chronic. Hemoglobin was 6.8 , status post 1 unit of PRBC, a.m. labs pending -Mild elevation of troponin, no evidence of acute myocardial infarction, likely type II -tachycardia secondary to intravascular depletion, continue IV fluids -Type 2 diabetes mellitusl continue sliding scale and Accu-Cheks before meals and at bedtime -Hypertension resumed on amlodipine holding of diuretics -Obesity with a BMI of 32.5 -GI prophylaxis -DVT prophylaxis: Subcutaneous heparin -No code
[2023-09-19 04:04] VITALS: TEMP 98.3
[2023-09-19 05:54] LABS: Glucose,Whole Blood 169 mg/dL (70-110)
[2023-09-19] MEDS: LEVOTHYROXINE 75 MCG TAB PO SCH (06:45)
[2023-09-19] MEDS: INSULIN ASPART (NovoLOG) 100 UNIT/ML VIAL SQ SCH ×2 (07:26→12:14)
[2023-09-19] MEDS ORDERED: amLODIPine 10 MG TAB PO SCH (09:00)
[2023-09-19] MEDS: PANTOPRAZOLE 40 MG/10 ML VIAL IVP SCH (09:49)
[2023-09-19] MEDS: MELOXICAM 7.5 MG TAB PO PRN (09:49)
[2023-09-19] MEDS: HEPARIN SODIUM,PORCINE 5,000 UNIT/ML 1 ML VIAL SQ SCH (09:50)
[2023-09-19] MEDS: GLIMEPIRIDE 2 MG TAB PO SCH (09:50)
[2023-09-19] MEDS: METOPROLOL TARTRATE 25 MG TAB PO SCH (09:50)
[2023-09-19] MEDS: DORZOLAMIDE-TIMOLOL 2.23%/0.68 10ML BTL BOTH EYES SCH (09:51)
[2023-09-19 11:28] LABS: Glucose,Whole Blood 240 mg/dL (70-110)
[2023-09-19 13:50] LABS: Anisocytosis Slight; HCT 29.7 % (34.0-46.0); HGB 9.3 gm/dL (11.4-16.0); Hypochromasia Marked; MCH 21.6 pg (25.0-35.0); MCHC 31.4 g/dL (31.0-37.0); MCV 68.7 fL (80.0-100.0); Microcytosis Marked; Platelet Count 344 k/uL (150-450); Poikilocytosis Slight; RBC 4.33 m/uL (3.80-5.40); RDW 17.3 % (11.5-15.5)
[2023-09-19 13:51] VITALS: BP 145/84; PULSE 92; RESP 18
--- NOTE | 2023-09-19 16:53 | P.PN ---
Subjective Progress Note Date: 09/19/23 Principal diagnosis: Reason for follow-up is leukocytosis and right leg cellulitis Patient is a 83-year-old female with a past medical history significant for diabetes mellitus hypertension spina bifida patient presented to hospital with increased weakness and elevated heart rate Along with mental status changes, patient noticed to have a wound to the right anterior leg did have a low-grade fever and elevated white count concerning for possible cellulitis. On today's evaluation that is 09/19/2023, the patient remains to be afebrile, the patient is breathing comfortably on room air and the patient denies any shortness of breath, the patient denies chest pain or any cough , patient denies any nausea/vomiting abdominal pain or diarrhea, the patient right lower extremity pain has resolved there is no drainage patient is feeling better wants to go home Patient white count is 10.0, creatinine 0.70 , blood cultures so far negative Objective - Vital Signs Vital signs: Vital Signs Temp 98.3 F 09/19/23 07:58 Pulse 93 09/19/23 07:58 Resp 17 09/19/23 07:58 BP 163/89 09/19/23 07:58 Pulse Ox 96 09/19/23 07:58 FiO2 Intake & Output 09/18/23 09/19/23 09/19/23 18:59 06:59 18:59 Output Total 800 1800 Balance -800 -1800 Output: Urine 800 1800 Other: Voiding Method External Catheter External Catheter - Exam GENERAL DESCRIPTION: An elderly female lying in bed in no distress RESPIRATORY SYSTEM: Unlabored breathing , decreased breath sounds at bases HEART: S1 S2 regular rate and rhythm , ABDOMEN: Soft , no tenderness EXTREMITIES: Right lower extremity wound has dried out covered with a scab surrounding redness has improved no drainage - Labs CBC & Chem 7: 09/19/23 13:36 09/18/23 06:22 Labs: Abnormal Lab Results - Last 24 Hours (Table) 09/18/23 09/18/23 09/18/23 Range/Units 06:22 16:26 20:57 POC Glucose (mg/dL) 244 H 189 H (70-110) mg/dL Hemoglobin A1c 7.5 H (<=6.0) % 09/19/23 09/19/23 Range/Units 05:48 11:27 POC Glucose (mg/dL) 169 H 240 H (70-110) mg/dL Hemoglobin A1c (<=6.0) % Microbiology - Last 24 Hours (Table) 09/15/23 13:48 Blood Culture - Preliminary Blood 09/16/23 08:51 Blood Culture - Preliminary Blood Assessment and Plan (1) Leukocytosis Status: Acute Code(s): D72.829 - ELEVATED WHITE BLOOD CELL COUNT, UNSPECIFIED SNOMED Code(s): 221786395 (2) Cellulitis of right leg Status: Acute Code(s): L03.115 - CELLULITIS OF RIGHT LOWER LIMB SNOMED Code(s): 62583110934265894 Plan: 1patient presented hospital with increasing weakness1-in this patient also have some mental status changes source likely multifactorial patient did have a positive UA concerning for UTI and also have a nonhealing wound to the right lower extremity and concern for secondary cellulitis. 2local wound care with dry Aquacel silver dressing followed by Luis wrap for compression. 3patient did have clinical improvement and wants to go home he will finish therapy with oral Keflex x 7 days also advised Luis wrap to keep the swelling down and no need for a local cream or dressing Family at the bedside questions were answered Dictation was produced using [employer] dictation software. please excuse any gramma tical, word or spelling errors. Time with Patient: Less than 30
[2023-09-20] MEDS ORDERED: NON FORMULARY DRUG (Dulaglutide [Trulicity] 4.5 MG/0.5 ML Each) SQ SCH (09:00)
--- NOTE | 2023-09-23 06:42 | P.DS ---
Providers Date of admission: 09/15/23 16:29 Attending physician: Jay Sofia Consults: 09/16/23 12:22 Consult Physician Routine Consulting Provider: Wili Swartz Consult Reason/Comments: wound right marquez Do you want consulting provider notified?: Yes Primary care physician: Dennis Dawson Hospital Course: Diagnoses: Right leg cellulitis Leukocytosis secondary to above improved Chronic anemia status post 1 unit transfusion on admission. Chronic iron deficiency anemia status post EGD and colonoscopy with Dr. Bragg and Dr. Ziegler 1 year ago Elevated troponin, noncardiac. Found stable by cardiology team Moderate to severe aortic stenosis Generalized weakness, patient has help at home. -tachycardia secondary to intravascular depletion, Resolved -Type 2 diabetes mellitusl -Hypertension -Obesity with a BMI of 32.2 Hospital course: 83-year-old the female came in with compensative generalized weakness found to be hyponatremic. Patient does have some chronic weakness and bilateral lower e xtremities with the muscle atrophy. Patient was admitted with antibiotics and possibility of pneumonia although chest x-ray did not show significant infiltrate I'll obtain a pro-level patient was given multiple antibiotics including Rocephin and azithromycin and was switched to oral levofloxacin. All of which will be discontinued at this time. Patient does have skin breakdown and a stage II ulcer on the right anterior marquez area with some surrounding redness unsure whether patient has cellulitis. Patient does have leukocytosis elevated white count of 17,000 which is coming down to 14,000 at this time urine is significantly abnormal with the patient doesn't have any symptoms of UTI patient denied any fever. Patient is hyponatremic and is on diuretics for blood pressure. Patient does have sinus tachycardia receiving IV fluids at this time which will be continued. Patient is also complaining of abdominal discomfort which she believes is secondary to Trulicity, is also found to have low hemoglobin of 6.8 patient does have chronic and deficiency anemia denied any dark stools or blood in the stools patient denied any vaginal bleeding. Patient has mildly elevated troponins of 0.148 because of which cardiology evaluated the patient doesn't appear to be cardiac source that is a possible for elevated troponin. Patient was supposed to take Iron pills which she stopped taking because of abdominal discomfort. 09/17/2023 Patient is seen in follow-up today continues to be in the ER while awaiting a bed with cardiology and infectious disease following. Patient continued on IV antibiotics with concerns of lower extremity with cellulitis. Patient reports she has inflammation and swelling frequently of lower extremities has never been this severe. Patient continue with local wound care and antibiotics while awaiting cultures to finalized. Patient did have a mild elevation in troponin and cardiology in ECF as well. Patient did receive a unit of PRBCs and hemoglobin is stable with no ectopy. Patient is afebrile denies chest pain or shortness of breath. Patient reports feeling uncomfortable and back pain with history of spina bifida. This is a pleasant 83 years old female with multiple medical problems in history, was admitted with a right leg cellulitis and UTI, patient improved significantly but to close to baseline. Patient cellulitis improvement and pres ents in a Place. Patient has not UTI symptoms upon discharge. Patient mentation is appropriate at baseline. Patient states "I feel strong and healthy again" Patient is aware about her chronic anemia and tends to follow up outpatient. Patient wants her prescription sent to [facility] pharmacy. Patient denies any other new complaints and wants to go home. Patient states she has assistance at home. Patient was cleared for discharge by mixer operator raw salt and infectious disease team on Keflex 7 days. Problems and management plan were discussed with the patient and he verbalized understanding and acceptance Patient was found stable and can be discharged home in guarded prognosis however he needs follow-up as an outpatient. Patient was instructed to follow up with PCP Dr. Dawson within one week and patient agrees He was instructed to follow up with her mixer operator raw salt Dr. Cruz and she agrees Physical exam Gen: patient is a AAOx3, no distress CVS: S1-S2, RRR, no murmur Lungs: B/L CTA, no wheezing Abdomen: soft, no distention, no tenderness, positive bowel sounds -Extremity: no leg edema or induration. Right leg cellulitis redness with improvement Time spent more than 35 minutes Patient Condition at Discharge: Fair Plan - Discharge Summary Discharge Rx Participant: Yes New Discharge Prescriptions: New Pantoprazole [Protonix] 40 mg PO BID #60 tab Metoprolol Tartrate [Lopressor] 25 mg PO BID #60 tab Cephalexin [Keflex] 500 mg PO Q8HR 7 Days #21 cap Continue Levothyroxine Sodium [Synthroid] 75 mcg PO DAILY Glimepiride [Amaryl] 2 mg PO BID Triamterene-Hctz 37.5-25Mg [Maxzide 37.5-25] 1 tab PO DAILY Losartan Potassium 100 mg PO DAILY Dulaglutide [Trulicity] 4.5 mg SQ Q7D Albuterol Inhaler [Ventolin Hfa Inhaler] 2 puff INHALATION RT-QID PRN PRN Reason: Shortness Of Breath Dorzolamide-Timol 2.23%/0.68% [Cosopt] 1 drop BOTH EYES BID amLODIPine [Norvasc] 2.5 mg PO DAILY Nystatin [Nystop] 1 applic TOPICAL DAILY PRN PRN Reason: Skin Irritation Montelukast [Singulair] 10 mg PO HS Latanoprost [Latanoprost 0.005%] 1 drop BOTH EYES HS Pantoprazole [Protonix] 40 mg PO DAILY Ferrous Sulfate [Iron (65 MG Elemental)] 325 mg PO DAILY Discontinued Meloxicam [Mobic] 7.5 mg PO BID Discharge Medication List Glimepiride [Amaryl] 2 mg PO BID 01/27/17 [History] Levothyroxine Sodium [Synthroid] 75 mcg PO DAILY 01/27/17 [History] Dorzolamide-Timol 2.23%/0.68% [Cosopt] 1 drop BOTH EYES BID 08/29/22 [History] Latanoprost [Latanoprost 0.005%] 1 drop BOTH EYES HS 08/29/22 [History] Losartan Potassium 100 mg PO DAILY 08/29/22 [History] Montelukast [Singulair] 10 mg PO HS 08/29/22 [History] Nystatin [Nystop] 1 applic TOPICAL DAILY PRN 08/29/22 [History] Triamterene-Hctz 37.5-25Mg [Maxzide 37.5-25] 1 tab PO DAILY 08/29/22 [History] amLODIPine [Norvasc] 2.5 mg PO DAILY 08/29/22 [History] Albuterol Inhaler [Ventolin Hfa Inhaler] 2 puff INHALATION RT-QID PRN 09/15/23 [History] Dulaglutide [Trulicity] 4.5 mg SQ Q7D 09/15/23 [History] Ferrous Sulfate [Iron (65 MG Elemental)] 325 mg PO DAILY 09/15/23 [History] Pantoprazole [Protonix] 40 mg PO DAILY 09/15/23 [History] Cephalexin [Keflex] 500 mg PO Q8HR 7 Days #21 cap 09/19/23 [Rx] Metoprolol Tartrate [Lopressor] 25 mg PO BID #60 tab 09/19/23 [Rx] Pantoprazole [Protonix] 40 mg PO BID #60 tab 09/19/23 [Rx] Follow up Appointment(s)/Referral(s): Dennis Dawson MD [Primary Care Provider] - 1-2 days Quinn Rosales MD [STAFF PHYSICIAN] - 2 Weeks Activity/Diet/Wound Care/Special Instructions: heart healthy diet activity is restricted till you see your doctor Discharge Disposition: HOME WITH HOME HEALTH SERVICES
== END 2023-09-19 16:16 | disposition home health service (06) | DRG 602 ==
LOC: EC 12:02 → 3SCARD 16:29 → 4SSUR 09-16 22:25
PROVIDERS: ADMIT Hospitalist; ATTEND Hospitalist
PROC: 30233N1 Transfusion of Nonautologous Red Blood Cells into Peripheral Vein, Percutaneous Approach (ICD-10-PCS; principal; 2023-09-16)
DX: L03.115 Cellulitis of right lower limb (principal); I21.A1 Myocardial infarction type 2; N39.0 Urinary tract infection, site not specified; L97.819 Non-pressure chronic ulcer of other part of right lower leg with unspecified severity; E87.1 Hypo-osmolality and hyponatremia; E11.9 Type 2 diabetes mellitus without complications; Q05.9 Spina bifida, unspecified; L89.892 Pressure ulcer of other site, stage 2; T50.2X5A Adverse effect of carbonic-anhydrase inhibitors, benzothiadiazides and other diuretics, initial encounter; R00.0 Tachycardia, unspecified; M62.50 Muscle wasting and atrophy, not elsewhere classified, unspecified site; I10 Essential (primary) hypertension; Z68.32 Body mass index [BMI] 32.0-32.9, adult; E66.9 Obesity, unspecified; I08.3 Combined rheumatic disorders of mitral, aortic and tricuspid valves; D50.9 Iron deficiency anemia, unspecified; E03.9 Hypothyroidism, unspecified; E86.0 Dehydration; E78.5 Hyperlipidemia, unspecified; D72.829 Elevated white blood cell count, unspecified; Z79.1 Long term (current) use of non-steroidal anti-inflammatories (NSAID); Z79.4 Long term (current) use of insulin; Z79.84 Long term (current) use of oral hypoglycemic drugs; Z79.890 Hormone replacement therapy; Z79.899 Other long term (current) drug therapy; Z83.3 Family history of diabetes mellitus; Z28.311 Partially vaccinated for COVID-19; Z88.1 Allergy status to other antibiotic agents; Z88.2 Allergy status to sulfonamides
CPT/HCPCS: 36415; 36430; 71045; 80048; 80053; 81001; 82728; 83036; 83605; 83735; 83880; 84100; 84443; 84484; 85025; 85027; 85610; 85730; 86850; 86900; 86901; 86920; 87040; 87449; 93005; 93306; 96361; 96365; 96366; 96367; 96368; 96372; 96375; 96376; 99291

== ENCOUNTER 2023-12-20 14:05 | Inpatient (IN) | payer MEDICARE ==
[2023-12-20] MEDS: SODIUM CHLORIDE 0.9% 1,000 ML IV ONE (15:23)
[2023-12-20] MEDS: SODIUM CHLORIDE 0.9% 1,000 ML IV STA (15:24)
[2023-12-20] MEDS: ACETAMINOPHEN TAB 500 MG TAB PO STA (15:24)
--- NOTE | 2023-12-20 15:25 | ED ---
Fever HPI - General Chief Complaint: Fever Stated Complaint: Fever, weakness Time Seen by Provider: 12/20/23 14:20 Source: patient, EMS Mode of arrival: EMS Limitations: physical limitation - History of Present Illness Initial Comments: 83-year-old female with past medical history of spina bifida who presents the emergency department reporting weakness. Niece is at bedside and helps provide the history. She is her caregiver. States that today the patient was lethargic. Her urine has a strong odor. Very common for her to get a urinary tract infection. Patient arrives with a fever and rapid heart rate. She has not taken any Motrin or Tylenol today. She denies any pain. No abdominal pain. Denies cough or shortness of breath. No chest pain. No other alleviating, precipitating or modifying factors - Related Data Home Medications Medication Instructions Recorded Confirmed Glimepiride [Amaryl] 2 mg PO BID 01/27/17 12/20/23 Levothyroxine Sodium [Synthroid] 75 mcg PO DAILY 01/27/17 12/20/23 Dorzolamide-Timol 2.23%/0.68% 1 drop BOTH EYES BID 08/29/22 12/20/23 [Cosopt] Latanoprost [Latanoprost 0.005%] 1 drop BOTH EYES HS 08/29/22 12/20/23 Losartan Potassium 100 mg PO DAILY 08/29/22 12/20/23 Montelukast [Singulair] 10 mg PO HS 08/29/22 12/20/23 Triamterene-Hctz 37.5-25Mg 1 tab PO DAILY 08/29/22 12/20/23 [Maxzide 37.5-25] amLODIPine [Norvasc] 2.5 mg PO DAILY 08/29/22 12/20/23 Dulaglutide [Trulicity] 4.5 mg SQ MO 09/15/23 12/20/23 Meloxicam [Mobic] 7.5 mg PO BID 12/20/23 12/20/23 Pantoprazole [Protonix] 40 mg PO DAILY 12/20/23 12/20/23 traMADol HCL 50 mg PO BID PRN 12/20/23 12/20/23 Allergies Allergy/AdvReac Type Severity Reaction Status Date / Time sulfamethoxazole Allergy Anaphylaxis Verified 12/20/23 15:12 [From Bactrim] trimethoprim [From Bactrim] Allergy Anaphylaxis Verified 12/20/23 15:12 erythromycin base AdvReac Intermediate Vomiting Verified 12/20/23 15:12 Review of Systems ROS Statement: Those systems with pertinent positive or pertinent negative responses have been documented in the HPI. ROS Other: All systems not noted in ROS Statement are negative. Past Medical History Past Medical History: Hypertension Additional Past Medical History / Comment(s): spina bifada, UTI History of Any Multi-Drug Resistant Organisms: None Reported Past Surgical History: Hysterectomy, Orthopedic Surgery Additional Past Surgical History / Comment(s): BL feet Past Anesthesia/Blood Transfusion Reactions: No Reported Reaction Past Psychological History: No Psychological Hx Reported Smoking Status: Never smoker Past Alcohol Use History: None Reported Past Drug Use History: None Reported - Past Family History Father Family Medical History: Diabetes Mellitus General Exam Limitations: physical limitation General appearance: alert, lethargic Head exam: Present: atraumatic, normocephalic, normal inspection Eye exam: Present: normal appearance, PERRL, EOMI. Absent: scleral icterus, co njunctival injection, periorbital swelling ENT exam: Present: mucous membranes dry Neck exam: Present: normal inspection. Absent: tenderness, meningismus, lymphadenopathy Respiratory exam: Present: wheezes Cardiovascular Exam: Present: normal rhythm, tachycardia GI/Abdominal exam: Present: soft, normal bowel sounds. Absent: distended, tenderness, guarding, rebound, rigid Neurological exam: Present: alert Psychiatric exam: Present: flat affect Course Vital Signs 12/20/23 12/20/23 12/20/23 14:18 14:33 15:33 Temperature 101.2 F H Pulse Rate 118 H 120 H 110 H Respiratory 18 18 18 Rate Blood Pressure 126/99 O2 Sat by Pulse 98 97 94 L Oximetry 12/20/23 12/20/23 12/20/23 17:33 18:00 19:00 Temperature 99.0 F Pulse Rate 103 H 99 86 Respiratory 18 20 17 Rate Blood Pressure 124/59 154/79 122/59 O2 Sat by Pulse 96 98 96 Oximetry 12/20/23 12/20/23 12/20/23 22:00 23:21 23:59 Temperature 97.9 F 100.3 F H Pulse Rate 78 147 H Respiratory 17 20 Rate Blood Pressure 131/67 129/113 O2 Sat by Pulse 97 98 Oximetry 12/21/23 00:32 Temperature 104.8 F H Pulse Rate Respiratory Rate Blood Pressure O2 Sat by Pulse Oximetry Medical Decision Making - Medical Decision Making Was pt. sent in by a medical professional or institution (, [facility], ABNORMAL PSYCHOLOGY TEACHER, urgent care, hospital, or halfway...) When possible be specific @ -Patient was sent in from her ECF Did you speak to anyone other than the patient for history (EMS, parent, family, police, friend...)? What history was obtained from this source @ -Spoke with the patient's niece for history Did you review nursing and triage notes (agree or disagree)? Why? @ -I reviewed and agree with nursing and triage notes Were old charts reviewed (outside hosp., previous admission, EMS record, old EKG, old radiological studies, urgent care reports/EKG's, halfway records)? Report findings @ -I reviewed previous microbiology results or previous urine samples Differential Diagnosis (chest pain, altered mental status, abdominal pain women, abdominal pain men, vaginal bleeding, weakness, fever, dyspnea, syncope, headache, dizziness, GI bleed, back pain, seizure, CVA, palpatations, mental health, musculoskeletal)? @ -Differential Fever: Pneumonia, viral URI, endocarditis, myocarditis, pericarditis, otitis, sinusitis, peritonsillar Abscess, retropharyngeal Abscess, epiglottitis, peritonitis, appendicitis, Stephanie cystitis, diverticulitis, hepatitis, colitis, UTI, PID, TOA, pyelonephritis, prostatitis, epididymitis, meningitis, encephalitis, pulmonary embolism, CVA, thyroid storm, pancreatitis, adrenal crisis, cavernous sinus thrombosis, this is not meant to be an all-inclusive list. EKG interpreted by me (3pts min.). @ -Yes and demonstrates sinus tachycardia with a rate of 119. NM interval 168. QRS 88. QTc of 362. No acute ST segment elevations or depressions X-rays interpreted by me (1pt min.). @ -Yes and demonstrates some pleural effusions CT interpreted by me (1pt min.). @ -None done U/S interpreted by me (1pt. min.). @ -None done What testing was considered but not performed or refused? (CT, X-rays, U/S, labs)? Why? @ -None What meds were considered but not given or refused? Why? @ -None Did you discuss the management of the patient with other professionals (professionals i.e. , PA, ABNORMAL PSYCHOLOGY TEACHER, lab, RT, psych nurse, social media content specialist, space buyer, teacher, personnel training officer, outsole caser)? Give summary @ -Spoke with Dr. Bowers who will admit the patient Was smoking cessation discussed for >3mins.? @ -No Was critical care preformed (if so, how long)? @ -No Were there social determinants of health that impacted care today? How? (Homelessness, low income, unemployed, alcoholism, drug addiction, transportation, low edu. Level, literacy, decrease access to med. care, long term, rehab)? @ -No Was there de-escalation of care discussed even if they declined (Discuss DNR or withdrawal of care, Hospice)? DNR status @ -No What co-morbidities impacted this encounter? (DM, HTN, Smoking, COPD, CAD, Cancer, CVA, ARF, Chemo, Hep., AIDS, mental health diagnosis, sleep apnea, morbid obesity)? @ -Spina bifida, recurrent UTIs Was patient admitted / discharged? Hospital course, mention meds given and route, prescriptions, significant lab abnormalities, going to OR and other pertinent info. @ -Upon arrival patient was seen and evaluated in room 28. Thorough history and physical exam was performed. IV access was established. Patient was given a liter bolus of normal saline followed by 130 cc/h. She was given Tylenol for her fever. Laboratory studies are conducted. Patient has markedly elevated white blood cell count. She is straight cathed for a urine sample. Chest x-ray was performed. Patient was started on Rocephin. Recommended admission due to UTI with sepsis. Patient was agreeable to this plan and admitted to the floor with a guarded prognosis Undiagnosed new problem with uncertain prognosis? @ -No Drug Therapy requiring intensive monitoring for toxicity (Heparin, Nitro, Insulin, Cardizem)? @ -No Were any procedures done? @ -No Diagnosis/symptom? @ -Acute pyrexia, acute UTI, leukocytosis Acute, or Chronic, or Acute on Chronic? @ -Acute Uncomplicated (without systemic symptoms) or Complicated (systemic symptoms)? @ -Complicated Side effects of treatment? @ -No Exacerbation, Progression, or Severe Exacerbation? @ -No Poses a threat to life or bodily function? How? (Chest pain, USA, PR, pneumonia, PE, COPD, DKA, ARF, appy, cholecystitis, CVA, Diverticulitis, Homicidal, Suicidal, threat to staff... and all critical care pts) @ -Yes as patient has sepsis. Source of infection is identified at 1427 when patient's urinalysis returned - Lab Data Result diagrams: 12/20/23 15:05 12/20/23 15:05 Lab Results 12/20/23 12/20/23 12/20/23 Range/Units 15:05 15:05 15:05 WBC 24.4 H (3.8-10.6) k/uL RBC 4.24 (3.80-5.40) m/uL Hgb 9.0 L (11.4-16.0) gm/dL Hct 29.8 L (34.0-46.0) % MCV 70.2 L (80.0-100.0) fL MCH 21.3 L (25.0-35.0) pg MCHC 30.3 L (31.0-37.0) g/dL RDW 15.8 H (11.5-15.5) % Plt Count 482 H (150-450) k/uL MPV 6.8 Neutrophils % 88 % Lymphocytes % 2 % Monocytes % 9 % Eosinophils % 0 % Basophils % 0 % Neutrophils # 21.4 H (1.3-7.7) k/uL Lymphocytes # 0.6 L (1.0-4.8) k/uL Monocytes # 2.1 H (0-1.0) k/uL Eosinophils # 0.1 (0-0.7) k/uL Basophils # 0.1 (0-0.2) k/uL Hypochromasia Marked Microcytosis Moderate Sodium 127 L (137-145) mmol/L Potassium 5.2 H (3.5-5.1) mmol/L Chloride 95 L (98-107) mmol/L Carbon Dioxide 21 L (22-30) mmol/L Anion Gap 11 mmol/L BUN 26 H (7-17) mg/dL Creatinine 1.14 H (0.52-1.04) mg/dL Est GFR (CKD-EPI)AfAm 52 (>60 ml/min/1.73 sqM) Est GFR (CKD-EPI)NonAf 45 (>60 ml/min/1.73 sqM) Glucose 237 H (74-99) mg/dL Plasma Lactic Acid Shahid 1.3 (0.7-2.0) mmol/L Calcium 8.9 (8.4-10.2) mg/dL Total Bilirubin 0.5 (0.2-1.3) mg/dL AST 19 (14-36) U/L ALT 20 (4-34) U/L Alkaline Phosphatase 131 H (38-126) U/L Troponin I (0.000-0.034) ng/mL Total Protein 6.8 (6.3-8.2) g/dL Albumin 3.7 (3.5-5.0) g/dL Urine Color Urine Appearance (Clear) Urine pH (5.0-8.0) Ur Specific Loyal (1.001-1.035) Urine Protein (Negative) Urine Glucose (UA) (Negative) Urine Ketones (Negative) Urine Blood (Negative) Urine Nitrite (Negative) Urine Bilirubin (Negative) Urine Urobilinogen (<2.0) mg/dL Ur Leukocyte Esterase (Negative) Urine RBC (0-5) /hpf Urine WBC (0-5) /hpf Urine WBC Clumps (None) /hpf Urine Bacteria (None) /hpf Influenza Type A (PCR) (Not Detectd) Influenza Type B (PCR) (Not Detectd) RSV (PCR) (Not Detectd) SARS-CoV-2 (PCR) (Not Detectd) 12/20/23 12/20/23 12/20/23 Range/Units 15:05 15:16 16:27 WBC (3.8-10.6) k/uL RBC (3.80-5.40) m/uL Hgb (11.4-16.0) gm/dL Hct (34.0-46.0) % MCV (80.0-100.0) fL MCH (25.0-35.0) pg MCHC (31.0-37.0) g/dL RDW (11.5-15.5) % Plt Count (150-450) k/uL MPV Neutrophils % % Lymphocytes % % Monocytes % % Eosinophils % % Basophils % % Neutrophils # (1.3-7.7) k/uL Lymphocytes # (1.0-4.8) k/uL Monocytes # (0-1.0) k/uL Eosinophils # (0-0.7) k/uL Basophils # (0-0.2) k/uL Hypochromasia Microcytosis Sodium (137-145) mmol/L Potassium (3.5-5.1) mmol/L Chloride (98-107) mmol/L Carbon Dioxide (22-30) mmol/L Anion Gap mmol/L BUN (7-17) mg/dL Creatinine (0.52-1.04) mg/dL Est GFR (CKD-EPI)AfAm (>60 ml/min/1.73 sqM) Est GFR (CKD-EPI)NonAf (>60 ml/min/1.73 sqM) Glucose (74-99) mg/dL Plasma Lactic Acid Shahid (0.7-2.0) mmol/L Calcium (8.4-10.2) mg/dL Total Bilirubin (0.2-1.3) mg/dL AST (14-36) U/L ALT (4-34) U/L Alkaline Phosphatase (38-126) U/L Troponin I <0.012 (0.000-0.034) ng/mL Total Protein (6.3-8.2) g/dL Albumin (3.5-5.0) g/dL Urine Color Colorless Urine Appearance Cloudy H (Clear) Urine pH 6.0 (5.0-8.0) Ur Specific Loyal 1.012 (1.001-1.035) Urine Protein 1+ H (Negative) Urine Glucose (UA) Negative (Negative) Urine Ketones 1+ H (Negative) Urine Blood Small H (Negative) Urine Nitrite Negative (Negative) Urine Bilirubin Negative (Negative) Urine Urobilinogen <2.0 (<2.0) mg/dL Ur Leukocyte Esterase Large H (Negative) Urine RBC 7 H (0-5) /hpf Urine WBC >182 H (0-5) /hpf Urine WBC Clumps Many H (None) /hpf Urine Bacteria Moderate H (None) /hpf Influenza Type A (PCR) Not Detected (Not Detectd) Influenza Type B (PCR) Not Detected (Not Detectd) RSV (PCR) Not Detected (Not Detectd) SARS-CoV-2 (PCR) Not Detected (Not Detectd) Disposition Clinical Impression: Sepsis, Dehydration, UTI (urinary tract infection), AMS (altered mental status), Leukocytosis Disposition: ADMITTED IP TO THIS HOSP Condition: Serious Is patient prescribed a controlled substance at d/c from ED?: No Time of Disposition: 16:52 Decision to Admit Reason: Admit from EC Decision Date: 12/20/23 Decision Time: 16:52
[2023-12-20 15:38] LABS: Basophils # (A) 0.1 k/uL (0-0.2); Basophils % (A) 0 %; Eosinophils # (A) 0.1 k/uL (0-0.7); Eosinophils % (A) 0 %; HCT 29.8 % (34.0-46.0); Hypochromasia Marked; Lymphocytes # (A) 0.6 k/uL (1.0-4.8); Lymphocytes % (A) 2 %; MCH 21.3 pg (25.0-35.0); MCHC 30.3 g/dL (31.0-37.0); MCV 70.2 fL (80.0-100.0); Mean Platelet Volume 6.8; Microcytosis Moderate; Monocytes # (A) 2.1 k/uL (0-1.0); Monocytes % (A) 9 %; Neutrophils # (A) 21.4 k/uL (1.3-7.7); Neutrophils % (A) 88 %; Platelet Count 482 k/uL (150-450); RBC 4.24 m/uL (3.80-5.40); RDW 15.8 % (11.5-15.5); WBC 24.4 k/uL (3.8-10.6)
[2023-12-20 15:42] LABS: ALT 20 U/L (4-34); AST 19 U/L (14-36); African American GFR (CKD) 52 (>60 ml/min/1.73 sqM); Albumin 3.7 g/dL (3.5-5.0); Alkaline Phosphatase 131 U/L (38-126); Anion Gap 11 mmol/L; Blood Urea Nitrogen 26 mg/dL (7-17); Calcium 8.9 mg/dL (8.4-10.2); Carbon Dioxide 21 mmol/L (22-30); Chloride 95 mmol/L (98-107); Glucose 237 mg/dL (74-99); Non-African American GFR(CKD) 45 (>60 ml/min/1.73 sqM); Potassium 5.2 mmol/L (3.5-5.1); Sodium 127 mmol/L (137-145); Total Bilirubin 0.5 mg/dL (0.2-1.3); Total Protein 6.8 g/dL (6.3-8.2)
[2023-12-20] MEDS: cefTRIAXone IN SWFI 1,000 MG/10 ML SYRINGE IVP STA (16:07)
--- NOTE | 2023-12-20 16:24 | XR ---
EXAMINATION TYPE: XR chest 2V DATE OF EXAM: 12/20/2023 COMPARISON: 09/16/2023 HISTORY: 83-year-old female with fever and weakness TECHNIQUE: AP and lateral views FINDINGS: Dextro convex scoliosis. Lordotic positioning limits the evaluation. Possible trace effusions. Severe degenerative change left shoulder. Heart borderline in size. IMPRESSION: Trace pleural effusions with adjacent atelectasis and/or consolidation. Correlate for sequela of mild CHF versus underlying pneumonia.
[2023-12-20 16:36] LABS: Appearance,Urine Cloudy (Clear); Bacteria,Urine Moderate /hpf; Bilirubin,Urine Negative (Negative); Blood,Urine Small (Negative); Color,Urine Colorless; Glucose,Urine (UA) Negative (Negative); Ketones,Urine 1+ (Negative); Leukocyte Esterase,Urine Large (Negative); Nitrite,Urine Negative (Negative); Protein,Urine 1+ (Negative); RBC,Urine 7 /hpf (0-5); Specific Gravity,Urine 1.012 (1.001-1.035); Urobilinogen,Urine <2.0 mg/dL (<2.0); WBC,Urine >182 /hpf (0-5)
[2023-12-20] MEDS ORDERED: NALOXONE 0.4 MG/ML 1 ML VIAL IV PRN (16:53)
[2023-12-20] MEDS ORDERED: SODIUM CHLORIDE 0.9% 1,000 ML IV SCH (17:00)
[2023-12-20] MEDS: GLIMEPIRIDE 2 MG TAB PO SCH (23:55)
[2023-12-20] MEDS: ACETAMINOPHEN TAB 325 MG TAB PO PRN (23:55)
[2023-12-20] MEDS: MELOXICAM 7.5 MG TAB PO SCH (23:56)
[2023-12-20] MEDS: MONTELUKAST 10 MG TAB PO SCH (23:56)
[2023-12-21] MEDS: DORZOLAMIDE-TIMOLOL 2.23%/0.68 10ML BTL BOTH EYES SCH (00:46)
[2023-12-21] MEDS: LATANOPROST 0.005% OPHTH DROPS 2.5 ML BTL BOTH EYES SCH (00:47)
[2023-12-21] MEDS: SODIUM CHLORIDE 0.9% 1,000 ML IV ONE (01:28)
[2023-12-21] MEDS: ACETAMINOPHEN TAB 325 MG TAB PO STA (01:29)
[2023-12-21] MEDS: PIPERACILLIN-TAZOBACTAM 3.375 GM in SODIUM CHLORIDE 0.9% 100 ML IVPB STA (01:31)
[2023-12-21] MEDS: SODIUM CHLORIDE 0.9% 500 ML 500 ML IV ONE (06:04)
[2023-12-21] MEDS: SODIUM CHLORIDE 0.9% 1,000 ML IV SCH (06:04)
[2023-12-21] MEDS: LEVOTHYROXINE 75 MCG TAB PO SCH (06:10)
[2023-12-21] MEDS: amLODIPine 2.5 MG TAB PO SCH (08:18)
[2023-12-21] MEDS: TRIAMTERENE-HCTZ 75-50MG 1 EACH TAB PO SCH (08:18)
[2023-12-21] MEDS: LOSARTAN 50 MG TAB PO SCH (08:18)
[2023-12-21] MEDS: PANTOPRAZOLE 40 MG TABLET PO SCH (08:19)
[2023-12-21] MEDS ORDERED: DEXTROSE 50% SYRINGE 50 ML IVP PRN ×2 (10:02)
[2023-12-21 12:21] LABS: Glucose,Whole Blood 238 mg/dL (70-110)
--- NOTE | 2023-12-21 12:35 | P.HPIM ---
History of Present Illness H&P Date: 12/21/23 History of present illness; patient is a 83-year-old lady with past medical significant for hypothyroidism, hypertension, and spina bifida who presented to the ER for increased lethargy and weakness. Patient is accompanied by her niece who is the primary caregiver. She has been noticing that the patient was showing signs of increased lethargy and weakness. She also noticed the patient urine was very dark and had a strong odor to it. Patient was also having fevers at home. There was no complaint of nausea or vomiting. There was no chest pain or shortness of breath. There is no sick contacts in the family. Because of increased lethargy and weakness she was brought to the ER Initial lab work done in the ER showed WBC 24.4, hemoglobin 9, platelet count 42, sodium 127, potassium 5.2, BUN 26, creatinine 1.14, glucose 237 UA done showing large amount of leukocyte Estrace, urine WBC see greater than 182 Influenza A not detected Influenza B not detected RSV not detected COVID-19 not detected EKG done in the ER showed heart rate of 119, ND interval 168, QRS 88, no ST segment elevation or depression seen, no T-wave inversions seen. Chest x-ray done in the ER showed trace pleural effusion with adjacent atelectasis or consolidation Patient admitted to internal medicine service REVIEW OF SYSTEMS: CONSTITUTIONAL: As mentioned above HEENT: No recent visual problems or hearing problems. Denied any sore throat. CARDIOVASCULAR: No chest pain, orthopnea, PND, no palpitations, no syncope. PULMONARY: As mentioned above GASTROINTESTINAL: As mentioned above NEUROLOGICAL: No headaches, no weakness, no numbness. HEMATOLOGICAL: Denies any bleeding or petechiae. GENITOURINARY: Denies any burning micturition, frequency, or urgency. MUSCULOSKELETAL/RHEUMATOLOGICAL: Denies any joint pain, swelling, or any muscle pain. ENDOCRINE: Denies any polyuria or polydipsia. The rest of the 14-point review of systems is negative. PHYSICAL EXAMINATION: GENERAL: The patient is alert and oriented x3, not in any acute distress. Well developed, well nourished. HEENT: Pupils are round and equally reacting to light. EOMI. No scleral icterus. No conjunctival pallor. Normocephalic, atraumatic. No pharyngeal erythema. No thyromegaly. CARDIOVASCULAR: S1 and S2 present. No murmurs, rubs, or gallops. PULMONARY: Chest is clear to auscultation, no wheezing or crackles. ABDOMEN: Soft, nontender, nondistended, normoactive bowel sounds. No palpable organomegaly. MUSCULOSKELETAL: No joint swelling or deformity. EXTREMITIES: No cyanosis, clubbing, or pedal edema. NEUROLOGICAL: Gross neurological examination did not reveal any focal deficits. SKIN: No rashes. Assessment and plan Sepsis UTI Hyponatremia Hyperkalemia Acute kidney injury Hypertension Hypothyroidism History of spina bifida Monitor vital signs Monitor CBC Monitor CMP Continue telemetry monitoring Follow-up on blood cultures Follow-up on urine cultures Received a dose of Rocephin and Zosyn in the ER. Continue IV fluids Hold blood pressure medications for now Consult ID Consult nephrology Labs and medication were reviewed.. Continue same treatment. Continue with symptomatic treatment. Resume home medication. Monitor labs and vitals. DVT and GI prophylaxis. Further recommendations as per clinical course of the patient Dictation was produced using [employer] dictation software. please excuse any grammatical, word or spelling errors. Past Medical History Past Medical History: Hypertension Additional Past Medical History / Comment(s): spina bifada, UTI History of Any Multi-Drug Resistant Organisms: None Reported Past Surgical History: Hysterectomy, Orthopedic Surgery Additional Past Surgical History / Comment(s): BL feet Past Anesthesia/Blood Transfusion Reactions: No Reported Reaction Past Psychological History: No Psychological Hx Reported Smoking Status: Never smoker Past Alcohol Use History: None Reported Past Drug Use History: None Reported - Past Family History Father Family Medical History: Diabetes Mellitus Medications and Allergies Home Medications Medication Instructions Recorded Confirmed Type Glimepiride [Amaryl] 2 mg PO BID 01/27/17 12/20/23 History Levothyroxine Sodium [Synthroid] 75 mcg PO DAILY 01/27/17 12/20/23 History Dorzolamide-Timol 2.23%/0.68% 1 drop BOTH EYES BID 08/29/22 12/20/23 History [Cosopt] Latanoprost [Latanoprost 0.005%] 1 drop BOTH EYES HS 08/29/22 12/20/23 History Losartan Potassium 100 mg PO DAILY 08/29/22 12/20/23 History Montelukast [Singulair] 10 mg PO HS 08/29/22 12/20/23 History Triamterene-Hctz 37.5-25Mg 1 tab PO DAILY 08/29/22 12/20/23 History [Maxzide 37.5-25] amLODIPine [Norvasc] 2.5 mg PO DAILY 08/29/22 12/20/23 History Dulaglutide [Trulicity] 4.5 mg SQ MO 09/15/23 12/20/23 History Meloxicam [Mobic] 7.5 mg PO BID 12/20/23 12/20/23 History Pantoprazole [Protonix] 40 mg PO DAILY 12/20/23 12/20/23 History traMADol HCL 50 mg PO BID PRN 12/20/23 12/20/23 History Allergies Allergy/AdvReac Type Severity Reaction Status Date / Time sulfamethoxazole Allergy Anaphylaxis Verified 12/20/23 15:12 [From Bactrim] trimethoprim [From Bactrim] Allergy Anaphylaxis Verified 12/20/23 15:12 erythromycin base AdvReac Intermediate Vomiting Verified 12/20/23 15:12 Physical Exam Vitals: Vital Signs Temp Pulse Resp BP Pulse Ox 12/21/23 06:10 98.4 F 93 20 92/59 97 12/21/23 04:07 98.1 F 99 19 87/54 95 12/21/23 02:42 99.3 F 115 H 22 93/54 95 12/21/23 02:30 115 H 15 95/57 95 12/21/23 02:15 117 H 16 97/85 97 12/21/23 02:03 100.7 F H 125 H 20 97/85 98 12/21/23 01:34 101.7 F H 131 H 20 119/89 96 12/21/23 00:47 142 H 22 142/68 96 12/21/23 00:32 104.8 F H 12/20/23 23:59 100.3 F H 147 H 20 129/113 98 12/20/23 23:45 147 H 129/113 12/20/23 23:30 146 H 129/113 12/20/23 23:21 97.9 F 12/20/23 23:15 129/113 12/20/23 23:00 100 131/67 12/20/23 22:45 85 131/67 12/20/23 22:30 88 131/67 12/20/23 22:15 77 131/67 12/20/23 22:00 80 17 105/54 97 12/20/23 21:45 80 105/54 12/20/23 21:30 81 105/54 12/20/23 21:15 84 105/54 97 12/20/23 21:00 80 114/56 96 12/20/23 20:45 81 114/56 97 12/20/23 20:30 81 114/56 96 12/20/23 20:15 84 114/56 96 12/20/23 20:00 82 122/59 97 12/20/23 19:45 92 122/59 96 12/20/23 19:30 87 122/59 94 L 12/20/23 19:15 92 122/59 94 L 12/20/23 19:00 92 17 124/59 95 12/20/23 18:45 95 124/59 95 12/20/23 18:30 94 124/59 96 12/20/23 18:15 102 H 124/59 96 12/20/23 18:00 102 H 20 103/68 93 L 12/20/23 17:45 106 H 103/68 95 12/20/23 17:33 99.0 F 103 H 18 124/59 96 12/20/23 17:30 104 H 103/68 95 12/20/23 17:15 107 H 103/68 95 12/20/23 17:00 106 H 153/82 96 12/20/23 16:45 104 H 153/82 94 L 12/20/23 16:30 111 H 153/82 95 12/20/23 16:15 123 H 153/82 96 12/20/23 16:00 153/82 12/20/23 15:45 112 H 153/82 12/20/23 15:33 110 H 18 94 L 12/20/23 15:30 123 H 153/82 12/20/23 15:15 128 H 153/82 12/20/23 15:00 129 H 126/116 95 12/20/23 14:45 126/116 96 12/20/23 14:33 120 H 18 126/99 97 12/20/23 14:30 97 12/20/23 14:18 101.2 F H 118 H 18 98 Results CBC & Chem 7: 12/20/23 15:05 12/20/23 15:05 Labs: Abnormal Lab Results - Last 24 Hours (Table) 12/20/23 12/20/23 12/20/23 Range/Units 15: 15:05 16:27 WBC 24.4 H (3.8-10.6) k/uL Hgb 9.0 L (11.4-16.0) gm/dL Hct 29.8 L (34.0-46.0) % MCV 70.2 L (80.0-100.0) fL MCH 21.3 L (25.0-35.0) pg MCHC 30.3 L (31.0-37.0) g/dL RDW 15.8 H (11.5-15.5) % Plt Count 482 H (150-450) k/uL Neutrophils # 21.4 H (1.3-7.7) k/uL Lymphocytes # 0.6 L (1.0-4.8) k/uL Monocytes # 2.1 H (0-1.0) k/uL Sodium 127 L (137-145) mmol/L Potassium 5.2 H (3.5-5.1) mmol/L Chloride 95 L (98-107) mmol/L Carbon Dioxide 21 L (22-30) mmol/L BUN 26 H (7-17) mg/dL Creatinine 1.14 H (0.52-1.04) mg/dL Glucose 237 H (74-99) mg/dL Alkaline Phosphatase 131 H (38-126) U/L Urine Appearance Cloudy H (Clear) Urine Protein 1+ H (Negative) Urine Ketones 1+ H (Negative) Urine Blood Small H (Negative) Ur Leukocyte Esterase Large H (Negative) Urine RBC 7 H (0-5) /hpf Urine WBC >182 H (0-5) /hpf Urine WBC Clumps Many H (None) /hpf Urine Bacteria Moderate H (None) /hpf Microbiology - Last 24 Hours (Table) 12/20/23 15:10 Blood Culture Gram Stain - Preliminary Blood Blood Culture - Preliminary Molecular ID
[2023-12-21 12:38] LABS: Blood Urea Nitrogen 23.4 mg/dL (9.0-27.0); Calcium 7.8 mg/dL (8.7-10.3); Carbon Dioxide 17.2 mmol/L (21.6-31.8); Chloride 101 mmol/L (96-109); Glucose 261 mg/dL (70-110); Potassium 4.7 mmol/L (3.5-5.5); Sodium 131 mmol/L (135-145)
[2023-12-21] MEDS: INSULIN ASPART (NovoLOG) 100 UNIT/ML VIAL SQ SCH (12:43)
[2023-12-21 12:55] LABS: HCT 22.4 % (37.2-46.3); HGB 6.6 g/dL (12.0-15.0); MCH 21.2 pg (27.0-32.0); MCHC 29.5 g/dL (32.0-37.0); Mean Platelet Volume 8.8 FL (9.5-12.2); NRBC Per 100 WBC 0 X 10*3/uL (0.00-0.01); Platelet Count 408 X 10*3/uL (140-440); RBC 3.11 X 10*6/uL (4.10-5.20); RDW 17.1 % (11.5-14.5)
[2023-12-21 13:21] LABS: Basophils # (A) 0.07 X 10*3/uL (0.00-0.10); Basophils % (A) 0.3 %; Elliptocytes 2+; Eosinophils # (A) 0 X 10*3/uL (0.04-0.35); Eosinophils % (A) 0 %; Hypochromasia (M) 2+; Lymphocytes % (A) 3.3 %; Microcytosis (M) 2+; Monocytes # (A) 1.79 X 10*3/uL (0.20-1.00); Monocytes % (A) 7.5 %; Neutrophils # (A) 20.82 X 10*3/uL (1.80-7.70); Neutrophils % (A) 86.7 %
[2023-12-21 15:54] LABS: Anisocytosis Slight; Basophils # (A) 0.1 k/uL (0-0.2); Basophils % (A) 0 %; Eosinophils # (A) 0.1 k/uL (0-0.7); Eosinophils % (A) 1 %; HCT 25.4 % (34.0-46.0); Hypochromasia Marked; Lymphocytes # (A) 0.8 k/uL (1.0-4.8); Lymphocytes % (A) 4 %; MCHC 29.5 g/dL (31.0-37.0); MCV 74.6 fL (80.0-100.0); Mean Platelet Volume 7.1; Microcytosis Slight; Monocytes # (A) 1.1 k/uL (0-1.0); Monocytes % (A) 5 %; Neutrophils # (A) 17.8 k/uL (1.3-7.7); Neutrophils % (A) 89 %; Platelet Count 423 k/uL (150-450); RDW 16.3 % (11.5-15.5); WBC 20.1 k/uL (3.8-10.6)
[2023-12-21 15:58] LABS: HGB 7.5 gm/dL (11.4-16.0)
[2023-12-21 16:26] LABS: Glucose,Whole Blood 228 mg/dL (70-110)
[2023-12-21] MEDS: traMADol 50 MG TAB PO PRN (16:44)
[2023-12-21 21:05] LABS: Glucose,Whole Blood 170 mg/dL (70-110)
--- NOTE | 2023-12-21 22:59 | P.CONS ---
History of Present Illness - Reason for Consult Consult date: 12/21/23 Complicated UTI, ESBL in urine Requesting physician: Ant Blackmon - Chief Complaint Weakness and strong odor to the urine x 1 day - History of Present Illness Patient is a 83-year-old female with a past medical history significant for hypertension spina bifida history of UTIs patient has been brought into the hospital yesterday afternoon for evaluation of weakness apparently the patient was noticed to be more lethargic and urine has a strong odor which is very common for her UTI and the patient also noted to have a fever concerning for symptomatic UTI patient has been admitted to hospital infectious was consulted on arrival to the ER patient did have a temperature of 101.2 F and did have a fever after midnight today patient was mildly tachycardic but not hypotensive or hypoxic patient did have white debris 4000 with a left shift creatinine is 1.2 liver isms are normal chest x-ray reported trace effusion mild CHF blood cultures came back positive with gram-negative bacilli prompting this infectious disease consultation patient is currently complaining of generalized weakness no energy denies any headache or URI symptoms no chest pain shortness of breath or cough no nausea no vomiting no abdominal pain no diarrhea or urinary symptoms as mentioned above Review of Systems Positive point and negatives has been mentioned in the HPI, complete review of systems was performed and all other systems are negative Past Medical History Past Medical History: Hypertension Additional Past Medical History / Comment(s): spina bifada, UTI History of Any Multi-Drug Resistant Organisms: None Reported Past Surgical History: Hysterectomy, Orthopedic Surgery Additional Past Surgical History / Comment(s): BL feet Past Anesthesia/Blood Transfusion Reactions: No Reported Reaction Past Psychological History: No Psychological Hx Reported Smoking Status: Never smoker Past Alcohol Use History: None Reported Past Drug Use History: None Reported - Past Family History Father Family Medical History: Diabetes Mellitus Medications and Allergies Home Medications Medication Instructions Recorded Confirmed Type Glimepiride [Amaryl] 2 mg PO BID 01/27/17 12/20/23 History Levothyroxine Sodium [Synthroid] 75 mcg PO DAILY 01/27/17 12/20/23 History Dorzolamide-Timol 2.23%/0.68% 1 drop BOTH EYES BID 08/29/22 12/20/23 History [Cosopt] Latanoprost [Latanoprost 0.005%] 1 drop BOTH EYES HS 08/29/22 12/20/23 History Losartan Potassium 100 mg PO DAILY 08/29/22 12/20/23 History Montelukast [Singulair] 10 mg PO HS 08/29/22 12/20/23 History Triamterene-Hctz 37.5-25Mg 1 tab PO DAILY 08/29/22 12/20/23 History [Maxzide 37.5-25] amLODIPine [Norvasc] 2.5 mg PO DAILY 08/29/22 12/20/23 History Dulaglutide [Trulicity] 4.5 mg SQ MO 09/15/23 12/20/23 History Meloxicam [Mobic] 7.5 mg PO BID 12/20/23 12/20/23 History Pantoprazole [Protonix] 40 mg PO DAILY 12/20/23 12/20/23 History traMADol HCL 50 mg PO BID PRN 12/20/23 12/20/23 History Allergies Allergy/AdvReac Type Severity Reaction Status Date / Time sulfamethoxazole Allergy Anaphylaxis Verified 12/20/23 15:12 [From Bactrim] trimethoprim [From Bactrim] Allergy Anaphylaxis Verified 12/20/23 15:12 erythromycin base AdvReac Intermediate Vomiting Verified 12/20/23 15:12 Physical Exam Vitals: Vital Signs Temp Pulse Pulse Resp BP BP Pulse Ox 12/21/23 08:00 97.2 F L 92 18 122/75 100 12/21/23 06:10 98.4 F 93 20 92/59 97 12/21/23 04:07 98.1 F 99 19 87/54 95 12/21/23 02:42 99.3 F 115 H 22 93/54 95 12/21/23 02:30 115 H 15 95/57 95 12/21/23 02:15 117 H 16 97/85 97 12/21/23 02:03 100.7 F H 125 H 20 97/85 98 12/21/23 01:34 101.7 F H 131 H 20 119/89 96 12/21/23 00:47 142 H 22 142/68 96 12/21/23 00:32 104.8 F H 12/20/23 23:59 100.3 F H 147 H 20 129/113 98 12/20/23 23:45 147 H 129/113 12/20/23 23:30 146 H 129/113 12/20/23 23:21 97.9 F 12/20/23 23:15 129/113 12/20/23 23:00 100 131/67 12/20/23 22:45 85 131/67 12/20/23 22:30 88 131/67 12/20/23 22:15 77 131/67 12/20/23 22:00 80 17 105/54 97 12/20/23 21:45 80 105/54 12/20/23 21:30 81 105/54 12/20/23 21:15 84 105/54 97 12/20/23 21:00 80 114/56 96 12/20/23 20:45 81 114/56 97 12/20/23 20:30 81 114/56 96 12/20/23 20:15 84 114/56 96 12/20/23 20:00 82 122/59 97 12/20/23 19:45 92 122/59 96 12/20/23 19:30 87 122/59 94 L 12/20/23 19:15 92 122/59 94 L 12/20/23 19:00 92 17 124/59 95 12/20/23 18:45 95 124/59 95 12/20/23 18:30 94 124/59 96 12/20/23 18:15 102 H 124/59 96 12/20/23 18:00 102 H 20 103/68 93 L 12/20/23 17:45 106 H 103/68 95 12/20/23 17:33 99.0 F 103 H 18 124/59 96 12/20/23 17:30 104 H 103/68 95 12/20/23 17:15 107 H 103/68 95 12/20/23 17:00 106 H 153/82 96 12/20/23 16:45 104 H 153/82 94 L 12/20/23 16:30 111 H 153/82 95 12/20/23 16:15 123 H 153/82 96 12/20/23 16:00 153/82 12/20/23 15:45 112 H 153/82 12/20/23 15:33 110 H 18 94 L 12/20/23 15:30 123 H 153/82 12/20/23 15:15 128 H 153/82 12/20/23 15:00 129 H 126/116 95 12/20/23 14:45 126/116 96 12/20/23 14:33 120 H 18 126/99 97 12/20/23 14:30 97 12/20/23 14:18 101.2 F H 118 H 18 98 Intake and Output 12/20/23 12/21/23 12/21/23 22:59 06:59 14:59 Other: Voiding Method External Catheter GENERAL DESCRIPTION: Elderly female lying in bed, no distress. No tachypnea or accessory muscle of respiration use. HEENT: Shows Pallor , no scleral icterus. Oral mucous membrane is dry. NECK: Trachea central, no thyromegaly. LUNGS: Unlabored breathing. Clear to auscultation anteriorly. No wheeze or crackle. HEART: S1, S2, regular rate and rhythm. No loud murmur ABDOMEN: Soft, no tenderness EXTREMITIES: No edema of feet. SKIN: No rash, no masses palpable. NEUROLOGICAL: The patient is awake, mood and affect normal. Results CBC & Chem 7: 12/21/23 15:22 12/21/23 07:02 Labs: Abnormal Lab Results - Last 24 Hours (Table) 12/20/23 12/20/23 12/20/23 Range/Units 15:05 15:05 16:27 WBC 24.4 H (3.8-10.6) k/uL Hgb 9.0 L (11.4-16.0) gm/dL Hct 29.8 L (34.0-46.0) % MCV 70.2 L (80.0-100.0) fL MCH 21.3 L (25.0-35.0) pg MCHC 30.3 L (31.0-37.0) g/dL RDW 15.8 H (11.5-15.5) % Plt Count 482 H (150-450) k/uL Neutrophils # 21.4 H (1.3-7.7) k/uL Lymphocytes # 0.6 L (1.0-4.8) k/uL Monocytes # 2.1 H (0-1.0) k/uL Sodium 127 L (137-145) mmol/L Potassium 5.2 H (3.5-5.1) mmol/L Chloride 95 L (98-107) mmol/L Carbon Dioxide 21 L (22-30) mmol/L BUN 26 H (7-17) mg/dL Creatinine 1.14 H (0.52-1.04) mg/dL Glucose 237 H (74-99) mg/dL Alkaline Phosphatase 131 H (38-126) U/L Urine Appearance Cloudy H (Clear) Urine Protein 1+ H (Negative) Urine Ketones 1+ H (Negative) Urine Blood Small H (Negative) Ur Leukocyte Esterase Large H (Negative) Urine RBC 7 H (0-5) /hpf Urine WBC >182 H (0-5) /hpf Urine WBC Clumps Many H (None) /hpf Urine Bacteria Moderate H (None) /hpf Microbiology - Last 24 Hours (Table) 12/20/23 15:10 Blood Culture Gram Stain - Preliminary Blood Blood Culture - Preliminary Molecular ID Assessment and Plan (1) Allergy to multiple antibiotics Current Visit: Yes Status: Acute Code(s): Z88.1 - ALLERGY STATUS TO OTHER ANTIBIOTIC AGENTS SNOMED Code(s): 180136006 (2) Bacteremia Current Visit: Yes Status: Acute Code(s): R78.81 - BACTEREMIA SNOMED C ode(s): 5536738 (3) Sepsis Current Visit: Yes Status: Acute Code(s): A41.9 - SEPSIS, UNSPECIFIED ORGANISM SNOMED Code(s): 54258552 (4) UTI (urinary tract infection) Current Visit: Yes Status: Acute Code(s): N39.0 - URINARY TRACT INFECTION, SITE NOT SPECIFIED SNOMED Code(s): 35226642 Plan: 1patient presented to hospital with sepsis in this patient who did have a fever mild tachycardia elevated white count positive UA and urinary symptoms concerning for symptomatic urinary tract infection source of the sepsis [id number] bacteremia source likely urinary 3-patient with multiple antibiotic ALLERGIES that would limit the number of antibiotic safe to use 4-check ultrasound of the kidney bladder to make no evidence of any stones or abnormality 5-Rocephin 2 g daily while waiting for the culture to finalize We will follow on clinical condition and cultures to further adjust medication if needed Thank you for this consultation we will follow the patient along with you Dictation was produced using [employer] software. please excuse any grammatical, word or spelling errors.
[2023-12-22 06:17] LABS: Glucose,Whole Blood 71 mg/dL (70-110)
--- NOTE | 2023-12-22 10:46 | US ---
EXAMINATION TYPE: US kidneys/renal and bladder DATE OF EXAM: 12/22/2023 COMPARISON: NONE CLINICAL INDICATION: Female, 83 years old with history of uti and bacteremia; UTI, bacteremia EXAM MEASUREMENTS: Right Kidney: 8.8 x 5.6 x 4.7 cm Left Kidney: 8.5 x 4.8 x 4.1 cm technical limitations due to large amount of overlying bowel gas and patient's limited mobility, un able to rotate from supine position Right Kidney: dense echogenic focus = 0.4cm midpole right kidney Left Kidney: limited evaluation. possible stone = 1.0cm mid left kidney Bladder: not seen IMPRESSION: 1. Exam is very limited due to body habitus. 2. Suspected small nonobstructing renal stones present bilaterally
[2023-12-22 11:32] LABS: Anisocytosis Slight; Basophils % (A) 0 %; Eosinophils # (A) 0.1 k/uL (0-0.7); Eosinophils % (A) 1 %; HCT 24.5 % (34.0-46.0); Hypochromasia Marked; Lymphocytes # (A) 0.9 k/uL (1.0-4.8); Lymphocytes % (A) 6 %; MCH 20.9 pg (25.0-35.0); MCHC 28.6 g/dL (31.0-37.0); MCV 72.9 fL (80.0-100.0); Mean Platelet Volume 7.6; Microcytosis Moderate; Monocytes # (A) 1.2 k/uL (0-1.0); Monocytes % (A) 8 %; Neutrophils # (A) 13.5 k/uL (1.3-7.7); Neutrophils % (A) 84 %; Platelet Count 457 k/uL (150-450); RBC 3.36 m/uL (3.80-5.40); RDW 16.3 % (11.5-15.5); WBC 16.1 k/uL (3.8-10.6)
[2023-12-22 11:34] LABS: Glucose,Whole Blood 133 mg/dL (70-110)
--- NOTE | 2023-12-22 11:36 | P.NPCON ---
History of Present Illness - Reason for Consult acute renal failure - History of Present Illness patient is an 83-year-old female with history of hypertension, hypothyroidism and spina bifida who is admitted to the hospital with complaints of increased weakness and a strong odor to the urine. Patient was noted to be hypotensive with significant tachycardia and heart rate in the 140s. UA suggestive of UTI. blood cultures are growing gram-negative bacilli. currently maintained on IV fluids and IV antibiotics. patient has an external catheter. Meloxicam noted on home med list. serum creatinine 1.1 on admission and 1.2 yesterday.previous creatinine 0.7 on 09/18/2023. Past Medical History Past Medical History: Hypertension Additional Past Medical History / Comment(s): spina bifada, UTI History of Any Multi-Drug Resistant Organisms: None Reported Past Surgical History: Hysterectomy, Orthopedic Surgery Additional Past Surgical History / Comment(s): BL feet Past Anesthesia/Blood Transfusion Reactions: No Reported Reaction Past Psychological History: No Psychological Hx Reported Smoking Status: Never smoker Past Alcohol Use History: None Reported Past Drug Use History: None Reported - Past Family History Father Family Medical History: Diabetes Mellitus Medications and Allergies Home Medications Medication Instructions Recorded Confirmed Type Glimepiride [Amaryl] 2 mg PO BID 01/27/17 12/20/23 History Levothyroxine Sodium [Synthroid] 75 mcg PO DAILY 01/27/17 12/20/23 History Dorzolamide-Timol 2.23%/0.68% 1 drop BOTH EYES BID 08/29/22 12/20/23 History [Cosopt] Latanoprost [Latanoprost 0.005%] 1 drop BOTH EYES HS 08/29/22 12/20/23 History Losartan Potassium 100 mg PO DAILY 08/29/22 12/20/23 History Montelukast [Singulair] 10 mg PO HS 08/29/22 12/20/23 History Triamterene-Hctz 37.5-25Mg 1 tab PO DAILY 08/29/22 12/20/23 History [Maxzide 37.5-25] amLODIPine [Norvasc] 2.5 mg PO DAILY 08/29/22 12/20/23 History Dulaglutide [Trulicity] 4.5 mg SQ MO 09/15/23 12/20/23 History Meloxicam [Mobic] 7.5 mg PO BID 12/20/23 12/20/23 History Pantoprazole [Protonix] 40 mg PO DAILY 12/20/23 12/20/23 History traMADol HCL 50 mg PO BID PRN 12/20/23 12/20/23 History Allergies Allergy/AdvReac Type Severity Reaction Status Date / Time sulfamethoxazole Allergy Anaphylaxis Verified 12/20/23 15:12 [From Bactrim] trimethoprim [From Bactrim] Allergy Anaphylaxis Verified 12/20/23 15:12 erythromycin base AdvReac Intermediate Vomiting Verified 12/20/23 15:12 Physical Exam Vitals: Vital Signs Temp Pulse Pulse Resp BP BP Pulse Ox 12/22/23 09:06 98.8 F 107 H 18 107/67 96 12/22/23 08:50 107 H 18 12/22/23 04:00 98.6 F 102 H 18 135/75 96 12/22/23 00:00 98.7 F 98 18 131/73 97 12/21/23 20:03 108 H 18 122/75 98 12/21/23 20:00 98.8 F 92 18 141/76 98 12/21/23 16:51 99.2 F 12/21/23 14:00 98 F 93 18 107/68 Intake and Output 12/21/23 12/22/23 12/22/23 22:59 06:59 14:59 Intake Total 650 Output Total 700 800 600 Balance -50 -800 -600 Intake: Intake, IV Titration 650 Amount Sodium Chloride 0.9% 1, 600 000 ml @ 75 mls/hr IV . [id number] REPLACED BY [facility] Rx#:[id number] cefTRIAXone 2 gm In 50 Sodium Chloride 0.9% 50 ml @ 100 mls/hr IVPB Q24HR REPLACED BY [facility] Rx#:[id number] Output: Urine 700 800 600 Other: Voiding Method External Catheter External Catheter External Catheter # Voids 1 # Bowel Movements 1 Weight 63.503 kg patient is awake, comfortable, no acute distress Examination of the heart S1 and S2 Examination of the lungs bilateral breath sounds are heard Abdomen is soft nontender Examination of lower extremities shows no significant edema. Results - Lab Results Most recent lab results Calcium 7.8 mg/dL (8.7-10.3) L 12/21/23 07:02 12/21/23 15:22 12/21/23 07:02 Assessment and Plan Assessment: 1. Acute kidney injury secondary to hypotension and sepsis 2. UTI and sepsis 3. Gram-negative bacteremia from UTI 4. History of spina bifida 5. Mild hyperkalemia noted on initial admission currently improved Plan: continue with IV fluids Continue IV antibiotics Repeat labs in am Check ultrasound of the kidneys Avoid NSAIDs post discharge. Meloxicam noted on home med list. Thank you for the consultation. We will continue to follow the patient with you during her hospitalization.
[2023-12-22 11:55] LABS: African American GFR (CKD) 78 (>60 ml/min/1.73 sqM); Anion Gap 7 mmol/L; Blood Urea Nitrogen 16 mg/dL (7-17); Calcium 7.8 mg/dL (8.4-10.2); Carbon Dioxide 18 mmol/L (22-30); Chloride 102 mmol/L (98-107); Glucose 141 mg/dL (74-99); Non-African American GFR(CKD) 68 (>60 ml/min/1.73 sqM); Potassium 4.7 mmol/L (3.5-5.1); Sodium 127 mmol/L (137-145)
--- NOTE | 2023-12-22 12:23 | P.PN ---
Subjective Progress Note Date: 12/22/23 Principal diagnosis: patient is a 83-year-old lady with past medical significant for hypothyroidism, hypertension, and spina bifida who presented to the ER for increased lethargy an d weakness. Patient is accompanied by her niece who is the primary caregiver. She has been noticing that the patient was showing signs of increased lethargy and weakness. She also noticed the patient urine was very dark and had a strong odor to it. Patient was also having fevers at home. There was no complaint of nausea or vomiting. There was no chest pain or shortness of breath. There is n o sick contacts in the family. Because of increased lethargy and weakness she was brought to the ER Initial lab work done in the ER showed WBC 24.4, hemoglobin 9, platelet count 42, sodium 127, potassium 5.2, BUN 26, creatinine 1.14, glucose 237 UA done showing large amount of leukocyte Estrace, urine WBC see greater than 182 Influenza A not detected Influenza B not detected RSV not detected COVID-19 not detected EKG done in the ER showed heart rate of 119, SD interval 168, QRS 88, no ST segment elevation or depression seen, no T-wave inversions seen. Chest x-ray done in the ER showed trace pleural effusion with adjacent atelectasis or consolidation Patient admitted to internal medicine service 12/21. Patient seen and examined. Complaining of lethargy and weakness. REVIEW OF SYSTEMS: CONSTITUTIONAL: No fever, no malaise,. CARDIOVASCULAR: No chest pain, no palpitations, no syncope. PULMONARY: No shortness of breath, no cough, GASTROINTESTINAL: No diarrhea, no nausea, no vomiting, no abdominal pain. NEUROLOGICAL: No headaches, no weakness, PHYSICAL EXAMINATION: GENERAL: The patient is alert and oriented x3, not in any acute distress. Well developed, well nourished. HEENT: Pupils are round and equally reacting to light. EOMI. No scleral icterus. No conjunctival pallor. Normocephalic, atraumatic. No pharyngeal erythema. No thyromegaly. CARDIOVASCULAR: S1 and S2 present. No murmurs, rubs, or gallops. PULMONARY: Chest is clear to auscultation, no wheezing or crackles. ABDOMEN: Soft, nontender, nondistended, normoactive bowel sounds. No palpable organomegaly. MUSCULOSKELETAL: No joint swelling or deformity. EXTREMITIES: No cyanosis, clubbing, or pedal edema. NEUROLOGICAL: Gross neurological examination did not reveal any focal deficits. SKIN: No rashes. Assessment and plan Sepsis UTI Bacteremia Hyponatremia Hyperkalemia Acute kidney injury Hypertension Hypothyroidism History of spina bifida Monitor vital signs Monitor CBC Monitor CMP Continue telemetry monitoring Follow-up on blood cultures Follow-up on urine cultures Continue IV Rocephin Continue IV fluids Hold blood pressure medications for now ID following Nephrology following Labs and medication were reviewed.. Continue same treatment. Continue with symptomatic treatment. Resume home medication. Monitor labs and vitals. DVT and GI prophylaxis. Further recommendations as per clinical course of the patient Dictation was produced using [employer] dictation software. please excuse any grammatical, word or spelling errors. Objective - Vital Signs Vital signs: Vital Signs Temp 98.8 F 12/22/23 09:06 Pulse 107 H 12/22/23 09:06 Resp 18 12/22/23 09:06 BP 107/67 12/22/23 09:06 Pulse Ox 96 12/22/23 09:06 FiO2 Intake & Output 12/21/23 12/22/23 12/22/23 18:59 06:59 18:59 Intake Total 650 Output Total 700 800 Balance -50 -800 Weight 63.503 kg Intake: Intake, IV Titration 650 Amount Sodium Chloride 0.9% 1, 600 000 ml @ 75 mls/hr IV . [id number] [facility] Rx#:[id number] cefTRIAXone 2 gm In 50 Sodium Chloride 0.9% 50 ml @ 100 mls/hr IVPB Q24HR [facility] Rx#:[id number] Output: Urine 700 800 Other: Voiding Method External Catheter External Catheter - Labs CBC & Chem 7: 12/22/23 09:44 12/22/23 09:44 Labs: Abnormal Lab Results - Last 24 Hours (Table) 12/21/23 12/21/23 12/21/23 Range/Units 07:02 07:02 12:20 WBC 24.00 H (4.50-10.00) X 10*3/uL RBC 3.11 L (4.10-5.20) X 10*6/uL Hgb 6.6 A* (12.0-15.0) g/dL Hct 22.4 L (37.2-46.3) % MCV 72.0 L (80.0-97.0) FL MCH 21.2 L (27.0-32.0) pg MCHC 29.5 L (32.0-37.0) g/dL RDW 17.1 H (11.5-14.5) % MPV 8.8 L (9.5-12.2) FL Immature Gran # 0.52 H (0.00-0.04) X 10*3/uL Neutrophils # 20.82 H (1.80-7.70) X 10*3/uL Lymphocytes # 0.80 L (0.90-5.00) X 10*3/uL Monocytes # 1.79 H (0.20-1.00) X 10*3/uL Eosinophils # 0 L (0.04-0.35) X 10*3/uL Hypochromasia (manual) 2+ A Microcytosis (manual) 2+ A Elliptocytes 2+ A Sodium 131 L (135-145) mmol/L Carbon Dioxide 17.2 L (21.6-31.8) mmol/L Anion Gap 12.80 H (4.00-12.00) mmol/L Est GFR (CKD-EPI) 45 L (>=60) Glucose 261 H (70-110) mg/dL POC Glucose (mg/dL) 238 H (70-110) mg/dL Calcium 7.8 L (8.7-10.3) mg/dL 12/21/23 12/21/23 12/21/23 Range/Units 15:22 16:25 21:04 WBC 20.1 H (4.50-10.00) X 10*3/uL RBC 3.40 L (4.10-5.20) X 10*6/uL Hgb 7.5 L D (12.0-15.0) g/dL Hct 25.4 L (37.2-46.3) % MCV 74.6 L (80.0-97.0) FL MCH 22.0 L (27.0-32.0) pg MCHC 29.5 L (32.0-37.0) g/dL RDW 16.3 H (11.5-14.5) % MPV (9.5-12.2) FL Immature Gran # (0.00-0.04) X 10*3/uL Neutrophils # 17.8 H (1.80-7.70) X 10*3/uL Lymphocytes # 0.8 L (0.90-5.00) X 10*3/uL Monocytes # 1.1 H (0.20-1.00) X 10*3/uL Eosinophils # (0.04-0.35) X 10*3/uL Hypochromasia (manual) Microcytosis (manual) Elliptocytes Sodium (135-145) mmol/L Carbon Dioxide (21.6-31.8) mmol/L Anion Gap (4.00-12.00) mmol/L Est GFR (CKD-EPI) (>=60) Glucose (70-110) mg/dL POC Glucose (mg/dL) 228 H 170 H (70-110) mg/dL Calcium (8.7-10.3) mg/dL Microbiology - Last 24 Hours (Table) 12/20/23 15:10 Blood Culture Gram Stain - Preliminary Blood Blood Culture - Preliminary Gram Neg Bacilli Molecular ID 12/20/23 14:55 Blood Culture - Preliminary Blood
[2023-12-22 16:55] LABS: Glucose,Whole Blood 96 mg/dL (70-110)
[2023-12-22 20:08] LABS: Glucose,Whole Blood 145 mg/dL (70-110)
[2023-12-23 06:05] LABS: Glucose,Whole Blood 106 mg/dL (70-110)
--- NOTE | 2023-12-23 09:07 | P.PN ---
Subjective Progress Note Date: 12/22/23 Principal diagnosis: Reason for follow-up is UTI sepsis and bacteremia Patient is a 83-year-old female with a past medical history significant for hypertension spina bifida history of UTIs patient has been brought into the hospital for evaluation of weakness lethargy foul-smelling urine and the patient has been diagnosed with sepsis secondary to UTI and did have E. coli bacteremia. On today's evaluation that is 12/22/2023, Patient did have resolution of her fever and is afebrile today, patient is currently on room air and denies having any shortness of breath, the patient denies any chest pain or cough, the patient denies any nausea vomiting did not have any abdominal pain and no diarrhea. Patient white count is 16.1, creatinine 0.81 Objective - Vital Signs Vital signs: Vital Signs Temp 98.1 F 12/22/23 15:45 Pulse 86 12/22/23 15:45 Resp 18 12/22/23 15:45 BP 116/69 12/22/23 15:45 Pulse Ox 99 12/22/23 15:45 FiO2 Intake & Output 12/21/23 12/22/23 12/22/23 18:59 06:59 18:59 Intake Total 650 Output Total 926 923 8733 Balance -50 -800 -1550 Weight 63.503 kg Intake: Intake, IV Titration 650 Amount Sodium Chloride 0.9% 1, 600 000 ml @ 75 mls/hr IV . [id number] [facility] Rx#:[id number] cefTRIAXone 2 gm In 50 Sodium Chloride 0.9% 50 ml @ 100 mls/hr IVPB Q24HR [facility] Rx#:[id number] Output: Urine 151 141 4362 Other: Voiding Method External Catheter External Catheter External Catheter # Voids 1 # Bowel Movements 1 - Exam GENERAL DESCRIPTION: An elderly female lying in bed in no distress RESPIRATORY SYSTEM: Unlabored breathing , decreased breath sounds at bases HEART: S1 S2 regular rate and rhythm , ABDOMEN: Soft , no tenderness EXTREMITIES: No edema feet - Labs CBC & Chem 7: 12/22/23 09:44 12/22/23 09:44 Labs: Abnormal Lab Results - Last 24 Hours (Table) 12/21/23 12/22/23 12/22/23 Range/Units 21:04 09:44 09:44 WBC 16.1 H (3.8-10.6) k/uL RBC 3.36 L (3.80-5.40) m/uL Hgb 7.0 L (11.4-16.0) gm/dL Hct 24.5 L (34.0-46.0) % MCV 72.9 L (80.0-100.0) fL MCH 20.9 L (25.0-35.0) pg MCHC 28.6 L (31.0-37.0) g/dL RDW 16.3 H (11.5-15.5) % Plt Count 457 H (150-450) k/uL Neutrophils # 13.5 H (1.3-7.7) k/uL Lymphocytes # 0.9 L (1.0-4.8) k/uL Monocytes # 1.2 H (0-1.0) k/uL Sodium (137-145) mmol/L Carbon Dioxide (22-30) mmol/L Glucose (74-99) mg/dL POC Glucose (mg/dL) 170 H (70-110) mg/dL Hemoglobin A1c 8.1 H (<=6.0) % Calcium (8.4-10.2) mg/dL 12/22/23 12/22/23 Range/Units 09:44 11:29 WBC (3.8-10.6) k/uL RBC (3.80-5.40) m/uL Hgb (11.4-16.0) gm/dL Hct (34.0-46.0) % MCV (80.0-100.0) fL MCH (25.0-35.0) pg MCHC (31.0-37.0) g/dL RDW (11.5-15.5) % Plt Count (150-450) k/uL Neutrophils # (1.3-7.7) k/uL Lymphocytes # (1.0-4.8) k/uL Monocytes # (0-1.0) k/uL Sodium 127 L (137-145) mmol/L Carbon Dioxide 18 L (22-30) mmol/L Glucose 141 H (74-99) mg/dL POC Glucose (mg/dL) 133 H (70-110) mg/dL Hemoglobin A1c (<=6.0) % Calcium 7.8 L (8.4-10.2) mg/dL Microbiology - Last 24 Hours (Table) 12/20/23 15:10 Blood Culture Gram Stain - Preliminary Blood Blood Culture - Preliminary Gram Neg Bacilli Molecular ID 12/20/23 14:55 Blood Culture - Preliminary Blood Assessment and Plan (1) Allergy to multiple antibiotics Current Visit: Yes Status: Acute Code(s): Z88.1 - ALLERGY STATUS TO OTHER ANTIBIOTIC AGENTS SNOMED Code(s): 322912827 (2) Bacteremia Current Visit: Yes Status: Acute Code(s): R78.81 - BACTEREMIA SNOMED Code(s): 5028568 (3) Sepsis Current Visit: Yes Status: Acute Code(s): A41.9 - SEPSIS, UNSPECIFIED ORGANISM SNOMED Code(s): 74667530 (4) UTI (urinary tract infection) Current Visit: Yes Status: Acute Code(s): N39.0 - URINARY TRACT INFECTION, SITE NOT SPECIFIED SNOMED Code(s): 20139717 Plan: 1patient presented to hospital with sepsis in this patient who did have a fever mild tachycardia elevated white count positive UA and urinary symptoms concerning for symptomatic urinary tract infection source of the sepsis 2-E. coli bacteremia source likely urinary 3-patient with multiple antibiotic ALLERGIES that would limit the number of antibiotic safe to use 4- ultrasound of the kidney bladder Limited study however did shows nonobstructing stone 5-patient is currently being treated with Rocephin 2 g daily while waiting for sensitivities to finalize Dictation was produced using [employer] dictation software. please excuse any grammatical, word or spelling errors. Time with Patient: Less than 30
[2023-12-23 11:18] LABS: Anisocytosis Slight; Basophils # (A) 0.1 k/uL (0-0.2); Basophils % (A) 1 %; Eosinophils # (A) 0.2 k/uL (0-0.7); Eosinophils % (A) 2 %; HCT 26.3 % (34.0-46.0); HGB 7.5 gm/dL (11.4-16.0); Hypochromasia Marked; Lymphocytes # (A) 0.8 k/uL (1.0-4.8); Lymphocytes % (A) 9 %; MCH 21.2 pg (25.0-35.0); MCHC 28.4 g/dL (31.0-37.0); MCV 74.6 fL (80.0-100.0); Mean Platelet Volume 7.2; Microcytosis Slight; Monocytes # (A) 0.5 k/uL (0-1.0); Monocytes % (A) 6 %; Neutrophils # (A) 7.3 k/uL (1.3-7.7); Neutrophils % (A) 80 %; Platelet Count 468 k/uL (150-450); RBC 3.53 m/uL (3.80-5.40); RDW 16.3 % (11.5-15.5); WBC 9.1 k/uL (3.8-10.6)
[2023-12-23 11:36] LABS: Glucose,Whole Blood 170 mg/dL (70-110)
--- NOTE | 2023-12-23 11:40 | P.PN ---
Subjective patient is seen for follow-up for acute kidney injury. She is currently maintained on IV fluids and IV antibiotics for sepsis and UTI. Renal function has improved. Serum creatinine down to 0.8 mg/dL yesterday. labs are pending from today. Patient states she is feeling well and denies any significant complaints. Objective - Vital Signs Vital signs: Vital Signs Temp 98.3 F 12/23/23 07:40 Pulse 97 12/23/23 08:23 Resp 17 12/23/23 08:23 BP 138/79 12/23/23 07:40 Pulse Ox 98 12/23/23 00:00 FiO2 Intake & Output 12/22/23 12/23/23 12/23/23 18:59 06:59 18:59 Intake Total 118 118 Output Total 1550 1999 Balance -143 -1999 118 Intake: Oral 118 118 Output: Urine 1550 1999 Other: Voiding Method External Catheter External Catheter # Voids 1 # Bowel Movements 1 - Exam patient is awake, comfortable, no acute distress Examination of the heart S1 and S2 Examination of the lungs bilateral breath sounds are heard Abdomen is soft nontender Examination of lower extremities shows no significant edema. - Labs CBC & Chem 7: 12/23/23 10:53 12/22/23 09:44 Labs: Abnormal Lab Results - Last 24 Hours (Table) 12/22/23 12/22/23 12/22/23 Range/Units 09:44 09:44 20:05 RBC (3.80-5.40) m/uL Hgb (11.4-16.0) gm/dL Hct (34.0-46.0) % MCV (80.0-100.0) fL MCH (25.0-35.0) pg MCHC (31.0-37.0) g/dL RDW (11.5-15.5) % Plt Count (150-450) k/uL Lymphocytes # (1.0-4.8) k/uL Sodium 127 L (137-145) mmol/L Carbon Dioxide 18 L (22-30) mmol/L Glucose 141 H (74-99) mg/dL POC Glucose (mg/dL) 145 H (70-110) mg/dL Hemoglobin A1c 8.1 H (<=6.0) % Calcium 7.8 L (8.4-10.2) mg/dL 12/23/23 12/23/23 Range/Units 10:53 11:34 RBC 3.53 L (3.80-5.40) m/uL Hgb 7.5 L (11.4-16.0) gm/dL Hct 26.3 L (34.0-46.0) % MCV 74.6 L (80.0-100.0) fL MCH 21.2 L (25.0-35.0) pg MCHC 28.4 L (31.0-37.0) g/dL RDW 16.3 H (11.5-15.5) % Plt Count 468 H (150-450) k/uL Lymphocytes # 0.8 L (1.0-4.8) k/uL Sodium (137-145) mmol/L Carbon Dioxide (22-30) mmol/L Glucose (74-99) mg/dL POC Glucose (mg/dL) 170 H (70-110) mg/dL Hemoglobin A1c (<=6.0) % Calcium (8.4-10.2) mg/dL Microbiology - Last 24 Hours (Table) 12/20/23 15:10 Blood Culture Gram Stain - Final Blood Blood Culture - Final Escherichia coli Molecular ID 12/20/23 14:55 Blood Culture - Preliminary Blood Assessment and Plan Assessment: 1. Acute kidney injury secondary to hypotension and sepsis 2. UTI and sepsis 3. Gram-negative bacteremia from UTI. The blood culture is growing E. coli 4. History of spina bifida 5. Mild hyperkalemia noted on initial admission currently improved 6. Hyponatremia, most likely hypovolemic however patient has been maintained on normal saline. If serum sodium is further decreased today I will obtain urine osmolality and random urine sodium. Plan: continue with IV fluids Continue IV antibiotics Repeat labs today and in a.m. Upon serum sodium Avoid NSAIDs post discharge. Meloxicam noted on home med list.
[2023-12-23 12:12] LABS: ALT 18 U/L (4-34); AST 21 U/L (14-36); African American GFR (CKD) 88 (>60 ml/min/1.73 sqM); Albumin 2.5 g/dL (3.5-5.0); Alkaline Phosphatase 95 U/L (38-126); Anion Gap 8 mmol/L; Blood Urea Nitrogen 13 mg/dL (7-17); Calcium 7.9 mg/dL (8.4-10.2); Carbon Dioxide 18 mmol/L (22-30); Chloride 107 mmol/L (98-107); Glucose 164 mg/dL (74-99); Non-African American GFR(CKD) 77 (>60 ml/min/1.73 sqM); Potassium 4.5 mmol/L (3.5-5.1); Sodium 133 mmol/L (137-145); Total Bilirubin 0.2 mg/dL (0.2-1.3); Total Protein 5.2 g/dL (6.3-8.2)
--- NOTE | 2023-12-23 13:19 | P.PN ---
Subjective Progress Note Date: 12/23/23 Principal diagnosis: patient is a 83-year-old lady with past medical significant for hypothyroidism, hypertension, and spina bifida who presented to the ER for increased lethargy an d weakness. Patient is accompanied by her niece who is the primary caregiver. She has been noticing that the patient was showing signs of increased lethargy and weakness. She also noticed the patient urine was very dark and had a strong odor to it. Patient was also having fevers at home. There was no complaint of nausea or vomiting. There was no chest pain or shortness of breath. There is n o sick contacts in the family. Because of increased lethargy and weakness she was brought to the ER Initial lab work done in the ER showed WBC 24.4, hemoglobin 9, platelet count 42, sodium 127, potassium 5.2, BUN 26, creatinine 1.14, glucose 237 UA done showing large amount of leukocyte Estrace, urine WBC see greater than 182 Influenza A not detected Influenza B not detected RSV not detected COVID-19 not detected EKG done in the ER showed heart rate of 119, [place] interval 168, QRS 88, no ST segment elevation or depression seen, no T-wave inversions seen. Chest x-ray done in the ER showed trace pleural effusion with adjacent atelectasis or consolidation Patient admitted to internal medicine service 12/21. Patient seen and examined. Complaining of lethargy and weakness. 12/22. Patient seen and examined. Patient has been afebrile. Feeling better compared to yesterday. Denies any lightness or dizziness REVIEW OF SYSTEMS: CONSTITUTIONAL: No fever, no malaise,. CARDIOVASCULAR: No chest pain, no palpitations, no syncope. PULMONARY: No shortness of breath, no cough, GASTROINTESTINAL: No diarrhea, no nausea, no vomiting, no abdominal pain. NEUROLOGICAL: No headaches, no weakness, PHYSICAL EXAMINATION: GENERAL: The patient is alert and oriented x3, not in any acute distress. Well developed, well nourished. HEENT: Pupils are round and equally reacting to light. EOMI. No scleral icterus. No conjunctival pallor. Normocephalic, atraumatic. No pharyngeal erythema. No thyromegaly. CARDIOVASCULAR: S1 and S2 present. No murmurs, rubs, or gallops. PULMONARY: Chest is clear to auscultation, no wheezing or crackles. ABDOMEN: Soft, nontender, nondistended, normoactive bowel sounds. No palpable organomegaly. MUSCULOSKELETAL: No joint swelling or deformity. EXTREMITIES: No cyanosis, clubbing, or pedal edema. NEUROLOGICAL: Gross neurological examination did not reveal any focal deficits. SKIN: No rashes. Assessment and plan Sepsis UTI Bacteremia Hyponatremia Hyperkalemia Acute kidney injury Hypertension Hypothyroidism History of spina bifida Monitor vital signs Monitor CBC Monitor CMP Continue telemetry monitoring Follow-up on blood cultures Follow-up on urine cultures Continue IV Rocephin Continue IV fluids Hold blood pressure medications for now ID following Nephrology following Labs and medication were reviewed.. Continue same treatment. Continue with s ymptomatic treatment. Resume home medication. Monitor labs and vitals. DVT and GI prophylaxis. Further recommendations as per clinical course of the patient Dictation was produced using [employer] dictation software. please excuse any grammatical, word or spelling errors. Objective - Vital Signs Vital signs: Vital Signs Temp 97.6 F 12/23/23 12:00 Pulse 85 12/23/23 12:00 Resp 16 12/23/23 12:00 BP 113/78 12/23/23 12:00 Pulse Ox 100 12/23/23 12:00 FiO2 Intake & Output 12/22/23 12/23/23 12/23/23 18:59 06:59 18:59 Intake Total 118 358 Output Total 1550 2000 250 Balance -1432 -1999 108 Intake: Oral 118 358 Output: Urine 1550 2000 250 Other: Voiding Method External Catheter External Catheter # Voids 1 # Bowel Movements 1 - Labs CBC & Chem 7: 12/23/23 10:53 12/23/23 10:53 Labs: Abnormal Lab Results - Last 24 Hours (Table) 12/22/23 12/22/23 12/23/23 Range/Units 09:44 20:05 10:53 RBC 3.53 L (3.80-5.40) m/uL Hgb 7.5 L (11.4-16.0) gm/dL Hct 26.3 L (34.0-46.0) % MCV 74.6 L (80.0-100.0) fL MCH 21.2 L (25.0-35.0) pg MCHC 28.4 L (31.0-37.0) g/dL RDW 16.3 H (11.5-15.5) % Plt Count 468 H (150-450) k/uL Lymphocytes # 0.8 L (1.0-4.8) k/uL Sodium (137-145) mmol/L Carbon Dioxide (22-30) mmol/L Glucose (74-99) mg/dL POC Glucose (mg/dL) 145 H (70-110) mg/dL Hemoglobin A1c 8.1 H (<=6.0) % Calcium (8.4-10.2) mg/dL Total Protein (6.3-8.2) g/dL Albumin (3.5-5.0) g/dL 12/23/23 12/23/23 Range/Units 10:53 11:34 RBC (3.80-5.40) m/uL Hgb (11.4-16.0) gm/dL Hct (34.0-46.0) % MCV (80.0-100.0) fL MCH (25.0-35.0) pg MCHC (31.0-37.0) g/dL RDW (11.5-15.5) % Plt Count (150-450) k/uL Lymphocytes # (1.0-4.8) k/uL Sodium 133 L (137-145) mmol/L Carbon Dioxide 18 L (22-30) mmol/L Glucose 164 H (74-99) mg/dL POC Glucose (mg/dL) 170 H (70-110) mg/dL Hemoglobin A1c (<=6.0) % Calcium 7.9 L (8.4-10.2) mg/dL Total Protein 5.2 L (6.3-8.2) g/dL Albumin 2.5 L (3.5-5.0) g/dL Microbiology - Last 24 Hours (Table) 12/20/23 15:10 Blood Culture Gram Stain - Final Blood Blood Culture - Final Escherichia coli Molecular ID 12/20/23 14:55 Blood Culture - Preliminary Blood
--- NOTE | 2023-12-23 15:07 | P.PN ---
Subjective Progress Note Date: 12/23/23 Principal diagnosis: Reason for follow-up is UTI sepsis and bacteremia Patient is a 83-year-old female with a past medical history significant for hypertension spina bifida history of UTIs patient has been brought into the hospital for evaluation of weakness lethargy foul-smelling urine and the patient has been diagnosed with sepsis secondary to UTI and did have E. coli bacteremia. On today's evaluation that is 12/23/2023, patient has been afebrile, patient is breathing comfortably and is currently on room air, patient denies having any significant cough no chest pain shortness of breath, patient denies nausea vomiting or diarrhea and no abdominal pain, feeling better today. Patient white count is normalized to 9.1, creatinine 0.73 blood cultures with E. coli with some resistance pattern but sensitive to ceftriaxone Objective - Vital Signs Vital signs: Vital Signs Temp 97.6 F 12/23/23 12:00 Pulse 85 12/23/23 12:00 Resp 16 12/23/23 12:00 BP 113/78 12/23/23 12:00 Pulse Ox 100 12/23/23 12:00 FiO2 Intake & Output 12/22/23 12/23/23 12/23/23 18:59 06:59 18:59 Intake Total 118 358 Output Total 1550 1999 250 Balance -143 -1999 108 Intake: Oral 118 358 Output: Urine 1550 1999 250 Other: Voiding Method External Catheter External Catheter # Voids 1 # Bowel Movements 1 - Exam GENERAL DESCRIPTION: An elderly female lying in bed in no distress RESPIRATORY SYSTEM: Unlabored breathing , decreased breath sounds at bases HEART: S1 S2 regular rate and rhythm , ABDOMEN: Soft , no tenderness EXTREMITIES: No edema feet - Labs CBC & Chem 7: 12/23/23 10:53 12/23/23 10:53 Labs: Abnormal Lab Results - Last 24 Hours (Table) 12/22/23 12/22/23 12/23/23 Range/Units 09:44 20:05 10:53 RBC 3.53 L (3.80-5.40) m/uL Hgb 7.5 L (11.4-16.0) gm/dL Hct 26.3 L (34.0-46.0) % MCV 74.6 L (80.0-100.0) fL MCH 21.2 L (25.0-35.0) pg MCHC 28.4 L (31.0-37.0) g/dL RDW 16.3 H (11.5-15.5) % Plt Count 468 H (150-450) k/uL Lymphocytes # 0.8 L (1.0-4.8) k/uL Sodium (137-145) mmol/L Carbon Dioxide (22-30) mmol/L Glucose (74-99) mg/dL POC Glucose (mg/dL) 145 H (70-110) mg/dL Hemoglobin A1c 8.1 H (<=6.0) % Calcium (8.4-10.2) mg/dL Total Protein (6.3-8.2) g/dL Albumin (3.5-5.0) g/dL 12/23/23 12/23/23 Range/Units 10:53 11:34 RBC (3.80-5.40) m/uL Hgb (11.4-16.0) gm/dL Hct (34.0-46.0) % MCV (80.0-100.0) fL MCH (25.0-35.0) pg MCHC (31.0-37.0) g/dL RDW (11.5-15.5) % Plt Count (150-450) k/uL Lymphocytes # (1.0-4.8) k/uL Sodium 133 L (137-145) mmol/L Carbon Dioxide 18 L (22-30) mmol/L Glucose 164 H (74-99) mg/dL POC Glucose (mg/dL) 170 H (70-110) mg/dL Hemoglobin A1c (<=6.0) % Calcium 7.9 L (8.4-10.2) mg/dL Total Protein 5.2 L (6.3-8.2) g/dL Albumin 2.5 L (3.5-5.0) g/dL Microbiology - Last 24 Hours (Table) 12/20/23 15:10 Blood Culture Gram Stain - Final Blood Blood Culture - Final Escherichia coli Molecular ID 12/20/23 14:55 Blood Culture - Preliminary Blood Assessment and Plan (1) Allergy to multiple antibiotics Current Visit: Yes Status: Acute Code(s): Z88.1 - ALLERGY STATUS TO OTHER ANTIBIOTIC AGENTS SNOMED Code(s): 300481914 (2) Bacteremia Current Visit: Yes Status: Acute Code(s): R78.81 - BACTEREMIA SNOMED Code(s): 3202875 (3) Sepsis Current Visit: Yes Status: Acute Code(s): A41.9 - SEPSIS, UNSPECIFIED ORGANISM SNOMED Code(s): 02160416 (4) UTI (urinary tract infection) Current Visit: Yes Status: Acute Code(s): N39.0 - URINARY TRACT INFECTION, SITE NOT SPECIFIED SNOMED Code(s): 10902881 Plan: 1patient presented to hospital with sepsis in this patient who did have a fever mild tachycardia elevated white count positive UA and urinary symptoms concerning for symptomatic urinary tract infection source of the sepsis 2-E. coli bacteremia source likely urinary 3-patient with multiple antibiotic ALLERGIES that would limit the number of antibiotic safe to use 4- ultrasound of the kidney bladder Limited study however did shows nonobstructing stone 5-patient white count has normalized blood culture has been finalized with the patient on Rocephin for the 24-hour plan is to finish therapy with oral Ceftin Dictation was produced using [employer] dictation software. please excuse any grammatical, word or spelling errors. Time with Patient: Less than 30
[2023-12-23 16:34] LABS: Glucose,Whole Blood 252 mg/dL (70-110)
[2023-12-23 20:03] LABS: Glucose,Whole Blood 243 mg/dL (70-110)
[2023-12-23] MEDS: PHENAZOPYRIDINE 200 MG TAB PO PRN (22:17)
[2023-12-24 06:10] LABS: Glucose,Whole Blood 174 mg/dL (70-110)
[2023-12-24 08:28] VITALS: RESP 17; TEMP 97.5
--- NOTE | 2023-12-24 10:48 | P.PN ---
Subjective patient is seen for follow-up for acute kidney injury. She is currently maintained on IV fluids and IV antibiotics for sepsis and UTI. Renal function has improved. Serum creatinine down to 0.7 mg/dL yesterday. labs are pending from today. Patient states she is feeling well and denies any significant complaints. Objective - Vital Signs Vital signs: Vital Signs Temp 97.5 F L 12/24/23 07:51 Pulse 105 H 12/24/23 07:53 Resp 17 12/24/23 07:53 BP 135/85 12/24/23 07:51 Pulse Ox 99 12/24/23 07:51 FiO2 Intake & Output 12/23/23 12/24/23 12/24/23 18:59 06:59 18:59 Intake Total 478 123 Output Total 600 850 Balance -122 -850 123 Intake: IV 5 Invasive Line 1 5 Oral 478 118 Output: Urine 600 850 Other: Voiding Method External Catheter External Catheter Indwelling Catheter - Exam patient is awake, comfortable, no acute distress Examination of the heart S1 and S2 Examination of the lungs bilateral breath sounds are heard Abdomen is soft nontender Examination of lower extremities shows no significant edema. CAN MAKER exam grossly intact - Labs CBC & Chem 7: 12/23/23 10:53 12/23/23 10:53 Labs: Abnormal Lab Results - Last 24 Hours (Table) 12/23/23 12/23/23 12/23/23 Range/Units 10:53 10:53 11:34 RBC 3.53 L (3.80-5.40) m/uL Hgb 7.5 L (11.4-16.0) gm/dL Hct 26.3 L (34.0-46.0) % MCV 74.6 L (80.0-100.0) fL MCH 21.2 L (25.0-35.0) pg MCHC 28.4 L (31.0-37.0) g/dL RDW 16.3 H (11.5-15.5) % Plt Count 468 H (150-450) k/uL Lymphocytes # 0.8 L (1.0-4.8) k/uL Sodium 133 L (137-145) mmol/L Carbon Dioxide 18 L (22-30) mmol/L Glucose 164 H (74-99) mg/dL POC Glucose (mg/dL) 170 H (70-110) mg/dL Calcium 7.9 L (8.4-10.2) mg/dL Total Protein 5.2 L (6.3-8.2) g/dL Albumin 2.5 L (3.5-5.0) g/dL 12/23/23 12/23/23 12/24/23 Range/Units 16:32 20:01 06:09 RBC (3.80-5.40) m/uL Hgb (11.4-16.0) gm/dL Hct (34.0-46.0) % MCV (80.0-100.0) fL MCH (25.0-35.0) pg MCHC (31.0-37.0) g/dL RDW (11.5-15.5) % Plt Count (150-450) k/uL Lymphocytes # (1.0-4.8) k/uL Sodium (137-145) mmol/L Carbon Dioxide (22-30) mmol/L Glucose (74-99) mg/dL POC Glucose (mg/dL) 252 H 243 H 174 H (70-110) mg/dL Calcium (8.4-10.2) mg/dL Total Protein (6.3-8.2) g/dL Albumin (3.5-5.0) g/dL Microbiology - Last 24 Hours (Table) 12/20/23 14:55 Blood Culture - Preliminary Blood 12/20/23 15:10 Blood Culture Gram Stain - Final Blood Blood Culture - Final Escherichia coli Molecular ID Assessment and Plan Assessment: 1. Acute kidney injury secondary to hypotension and sepsis 2. UTI and sepsis 3. Gram-negative bacteremia from UTI. The blood culture is growing E. coli 4. History of spina bifida 5. Mild hyperkalemia noted on initial admission currently improved 6. Hyponatremia, hypovolemic, improved with normal saline Plan: continue with IV fluids Continue IV antibiotics Repeat labs today and in a.m. Upon serum sodium Avoid NSAIDs post discharge. Meloxicam noted on home med list.
[2023-12-24 11:44] LABS: Glucose,Whole Blood 194 mg/dL (70-110)
[2023-12-24 12:13] VITALS: BP 166/80; PULSE 97
--- NOTE | 2023-12-24 13:21 | P.DS ---
Providers Date of admission: 12/20/23 16:53 Expected date of discharge: 12/24/23 Attending physician: Porfirio Bowers MD Consults: 12/21/23 09:55 Consult Physician Routine Consulting Provider: Wili Swartz Consult Reason/Comments: Complicated UTI, ESBL in urine Do you want consulting provider notified?: Yes 12/21/23 09:57 Consult Physician Routine Consulting Provider: Erica Fofana Consult Reason/Comments: Hyperkalemia, KERRY Do you want consulting provider notified?: Yes Primary care physician: Dennis Dawson Hospital Course: Discharge diagnoses; Sepsis UTI Bacteremia Hyponatremia Hyperkalemia Acute kidney injury Hypertension Hypothyroidism History of spina bifida Hospital course; patient is a 83-year-old lady with past medical significant for hypothyroidism, hypertension, and spina bifida who presented to the ER for increased lethargy and weakness. Patient is accompanied by her niece who is the primary caregiver. She has been noticing that the patient was showing signs of increased lethargy and weakness. She also noticed the patient urine was very dark and had a strong odor to it. Patient was also having fevers at home. There was no complaint of nausea or vomiting. There was no chest pain or shortness of breath. There is no sick contacts in the family. Because of increased lethargy and weakness she was brought to the ER Initial lab work done in the ER showed WBC 24.4, hemoglobin 9, platelet count 42, sodium 127, potassium 5.2, BUN 26, creatinine 1.14, glucose 237 UA done showing large amount of leukocyte Estrace, urine WBC see greater than 182 Influenza A not detected Influenza B not detected RSV not detected COVID-19 not detected EKG done in the ER showed heart rate of 119, [place] interval 168, QRS 88, no ST segment elevation or depression seen, no T-wave inversions seen. Chest x-ray done in the ER showed trace pleural effusion with adjacent atelectasis or consolidation Patient admitted to internal medicine service 12/21. Patient seen and examined. Complaining of lethargy and weakness. 12/22. Patient seen and examined. Patient has been afebrile. Feeling better compared to yesterday. Denies any lightness or dizziness 12/23. Patient seen and examined. Being discharged on oral Ceftin for 10 more days to complete a 2-week course of antibiotics per ID recommendation PHYSICAL EXAMINATION: GENERAL: The patient is alert and oriented x3, not in any acute distress. Well developed, well nourished. HEENT: Pupils are round and equally reacting to light. EOMI. No scleral icterus. No conjunctival pallor. Normocephalic, atraumatic. No pharyngeal erythema. No thyromegaly. CARDIOVASCULAR: S1 and S2 present. No murmurs, rubs, or gallops. PULMONARY: Chest is clear to auscultation, no wheezing or crackles. ABDOMEN: Soft, nontender, nondistended, normoactive bowel sounds. No palpable organomegaly. MUSCULOSKELETAL: No joint swelling or deformity. EXTREMITIES: No cyanosis, clubbing, or pedal edema. NEUROLOGICAL: Gross neurological examination did not reveal any focal deficits. SKIN: No rashes. Dictation was produced using [employer] dictation software. please excuse any grammatical, word or spelling errors. Patient Condition at Discharge: Good Plan - Discharge Summary Discharge Rx Participant: Yes New Discharge Prescriptions: New cefUROXime axetiL [Ceftin] 500 mg PO BID 10 Days #20 tab Phenazopyridine [Pyridium] 200 mg PO TID PRN 7 Days #21 tab PRN Reason: Pain/Discomfort Continue Levothyroxine Sodium [Synthroid] 75 mcg PO DAILY Glimepiride [Amaryl] 2 mg PO BID Triamterene-Hctz 37.5-25Mg [Maxzide 37.5-25] 1 tab PO DAILY Losartan Potassium 100 mg PO DAILY Dulaglutide [Trulicity] 4.5 mg SQ MO Meloxicam [Mobic] 7.5 mg PO BID traMADol HCL 50 mg PO BID PRN PRN Reason: Pain Dorzolamide-Timol 2.23%/0.68% [Cosopt] 1 drop BOTH EYES BID amLODIPine [Norvasc] 2.5 mg PO DAILY Montelukast [Singulair] 10 mg PO HS Latanoprost [Latanoprost 0.005%] 1 drop BOTH EYES HS Pantoprazole [Protonix] 40 mg PO DAILY Discharge Medication List Glimepiride [Amaryl] 2 mg PO BID 01/27/17 [History] Levothyroxine Sodium [Synthroid] 75 mcg PO DAILY 01/27/17 [History] Dorzolamide-Timol 2.23%/0.68% [Cosopt] 1 drop BOTH EYES BID 08/29/22 [History] Latanoprost [Latanoprost 0.005%] 1 drop BOTH EYES HS 08/29/22 [History] Losartan Potassium 100 mg PO DAILY 08/29/22 [History] Montelukast [Singulair] 10 mg PO HS 08/29/22 [History] Triamterene-Hctz 37.5-25Mg [Maxzide 37.5-25] 1 tab PO DAILY 08/29/22 [History] amLODIPine [Norvasc] 2.5 mg PO DAILY 08/29/22 [History] Dulaglutide [Trulicity] 4.5 mg SQ MO 09/15/23 [History] Meloxicam [Mobic] 7.5 mg PO BID 12/20/23 [History] Pantoprazole [Protonix] 40 mg PO DAILY 12/20/23 [History] traMADol HCL 50 mg PO BID PRN 12/20/23 [History] Phenazopyridine [Pyridium] 200 mg PO TID PRN 7 Days #21 tab 12/24/23 [Rx] cefUROXime axetiL [Ceftin] 500 mg PO BID 10 Days #20 tab 12/24/23 [Rx] Follow up Appointment(s)/Referral(s): Dennis Dawson MD [Primary Care Provider] - 1-2 days Wili Swartz MD [STAFF PHYSICIAN] - 1 Week Discharge Disposition: HOME SELF-CARE
--- NOTE | 2023-12-24 16:39 | P.PN ---
Subjective Progress Note Date: 12/24/23 Principal diagnosis: Reason for follow-up is UTI sepsis and bacteremia Patient is a 83-year-old female with a past medical history significant for hypertension spina bifida history of UTIs patient has been brought into the hospital for evaluation of weakness lethargy foul-smelling urine and the patient has been diagnosed with sepsis secondary to UTI and did have E. coli bacteremia. On today's evaluation that is 12/24/2023,the patient denies any fever or any chills, patient is breathing comfortably on room air, the patient denies chest pain shortness of breath and no significant cough, patient denies abdominal pain, no nausea vomiting or diarrhea. Feeling better. No new labs has been obtained today blood culture with an E. coli that is a sensitive to Rocephin Objective - Vital Signs Vital signs: Vital Signs Temp 97.5 F L 12/24/23 07:51 Pulse 105 H 12/24/23 07:53 Resp 17 12/24/23 07:53 BP 135/85 12/24/23 07:51 Pulse Ox 99 12/24/23 07:51 FiO2 Intake & Output 12/23/23 12/24/23 12/24/23 18:59 06:59 18:59 Intake Total 478 Output Total 600 850 Balance -122 -850 Intake: Oral 478 Output: Urine 600 850 Other: Voiding Method External Catheter External Catheter Indwelling Catheter - Exam GENERAL DESCRIPTION: An elderly female lying in bed in no distress RESPIRATORY SYSTEM: Unlabored breathing , decreased breath sounds at bases HEART: S1 S2 regular rate and rhythm , ABDOMEN: Soft , no tenderness EXTREMITIES: No edema feet - Labs CBC & Chem 7: 12/23/23 10:53 12/23/23 10:53 Labs: Abnormal Lab Results - Last 24 Hours (Table) 12/23/23 12/23/23 12/23/23 Range/Units 10:53 10:53 11:34 RBC 3.53 L (3.80-5.40) m/uL Hgb 7.5 L (11.4-16.0) gm/dL Hct 26.3 L (34.0-46.0) % MCV 74.6 L (80.0-100.0) fL MCH 21.2 L (25.0-35.0) pg MCHC 28.4 L (31.0-37.0) g/dL RDW 16.3 H (11.5-15.5) % Plt Count 468 H (150-450) k/uL Lymphocytes # 0.8 L (1.0-4.8) k/uL Sodium 133 L (137-145) mmol/L Carbon Dioxide 18 L (22-30) mmol/L Glucose 164 H (74-99) mg/dL POC Glucose (mg/dL) 170 H (70-110) mg/dL Calcium 7.9 L (8.4-10.2) mg/dL Total Protein 5.2 L (6.3-8.2) g/dL Albumin 2.5 L (3.5-5.0) g/dL 12/23/23 12/23/23 12/24/23 Range/Units 16:32 20:01 06:09 RBC (3.80-5.40) m/uL Hgb (11.4-16.0) gm/dL Hct (34.0-46.0) % MCV (80.0-100.0) fL MCH (25.0-35.0) pg MCHC (31.0-37.0) g/dL RDW (11.5-15.5) % Plt Count (150-450) k/uL Lymphocytes # (1.0-4.8) k/uL Sodium (137-145) mmol/L Carbon Dioxide (22-30) mmol/L Glucose (74-99) mg/dL POC Glucose (mg/dL) 252 H 243 H 174 H (70-110) mg/dL Calcium (8.4-10.2) mg/dL Total Protein (6.3-8.2) g/dL Albumin (3.5-5.0) g/dL Microbiology - Last 24 Hours (Table) 12/20/23 14:55 Blood Culture - Preliminary Blood 12/20/23 15:10 Blood Culture Gram Stain - Final Blood Blood Culture - Final Escherichia coli Molecular ID Assessment and Plan (1) Allergy to multiple antibiotics Status: Acute Code(s): Z88.1 - ALLERGY STATUS TO OTHER ANTIBIOTIC AGENTS SNOMED Code(s): 288667788 (2) Bacteremia Status: Acute Code(s): R78.81 - BACTEREMIA SNOMED Code(s): 5335941 (3) Sepsis Status: Acute Code(s): A41.9 - SEPSIS, UNSPECIFIED ORGANISM SNOMED Code(s): 95321110 (4) UTI (urinary tract infection) Status: Acute Code(s): N39.0 - URINARY TRACT INFECTION, SITE NOT SPECIFIED SNOMED Code(s): 85551909 Plan: 1patient presented to hospital with sepsis in this patient who did have a fever mild tachycardia elevated white count positive UA and urinary symptoms concerning for symptomatic urinary tract infection source of the sepsis 2-E. coli bacteremia source likely urinary 3-patient with multiple antibiotic ALLERGIES that would limit the number of antibiotic safe to use 4- ultrasound of the kidney bladder Limited study however did shows nonobstructing stone 5-patient white count has normalized blood culture has been finalized with E. coli that is sensitive to Rocephin plan is to finish therapy with oral Ceftin x 11 days to finish 2-week course therapy discussed with the admitting physician working on discharge Dictation was produced using [employer] dictation software. please excuse any gram matical, word or spelling errors. Time with Patient: Less than 30
== END 2023-12-24 15:13 | disposition home or self-care (01) | DRG 872 ==
LOC: EC 14:05 → 5NMEDONC 16:53 → 3SCARD 12-21 05:54
PROVIDERS: ADMIT Internal Medicine; ATTEND Internal Medicine
DX: A41.51 Sepsis due to Escherichia coli [E. coli] (principal); N39.0 Urinary tract infection, site not specified; N17.9 Acute kidney failure, unspecified; E87.1 Hypo-osmolality and hyponatremia; J90 Pleural effusion, not elsewhere classified; R65.20 Severe sepsis without septic shock; E03.9 Hypothyroidism, unspecified; Q05.9 Spina bifida, unspecified; E86.0 Dehydration; E86.1 Hypovolemia; E87.5 Hyperkalemia; I10 Essential (primary) hypertension; I95.9 Hypotension, unspecified; Z11.52 Encounter for screening for COVID-19; Z79.890 Hormone replacement therapy; Z79.1 Long term (current) use of non-steroidal anti-inflammatories (NSAID); Z79.85 Long-term (current) use of injectable non-insulin antidiabetic drugs; Z79.84 Long term (current) use of oral hypoglycemic drugs; Z79.899 Other long term (current) drug therapy; Z87.440 Personal history of urinary (tract) infections; Z88.1 Allergy status to other antibiotic agents; Z88.2 Allergy status to sulfonamides
CPT/HCPCS: 36415; 71046; 76770; 80048; 80053; 81001; 83036; 83605; 84484; 85025; 87040; 87077; 87186; 87636; 93005; 96365; 96366; 96367; 96375; 99285

== ENCOUNTER 2024-11-10 07:34 | Observation (INO) | payer MEDICARE ==
--- NOTE | 2024-11-10 08:10 | ED ---
General Adult HPI - General Chief complaint: Weakness Stated complaint: weakness Time Seen by Provider: 11/10/24 07:41 Source: patient, RN notes reviewed, old records reviewed Mode of arrival: ambulatory Limitations: no limitations - History of Present Illness Initial comments: 84-year-old female presenting from [facility] with fever and chills and generalized weakness. Patient has history of hypertension, diabetes, spina bifida. She is wheelchair-bound. She denies cough or upper respiratory symptoms. Denies abdominal pain. She has a history of recurrent UTI. - Related Data Home Medications Medication Instructions Recorded Confirmed Glimepiride [Amaryl] 3 mg PO BID 01/27/17 11/10/24 Dorzolamide-Timol 2.23%/0.68% 1 drop BOTH EYES QID 08/29/22 11/10/24 [Cosopt] Latanoprost [Latanoprost 0.005%] 1 drop RIGHT EYE HS 08/29/22 11/10/24 Losartan Potassium 100 mg PO DAILY 08/29/22 11/10/24 Montelukast [Singulair] 10 mg PO HS 08/29/22 11/10/24 Triamterene-Hctz 37.5-25Mg 1 tab PO Q48H 08/29/22 11/10/24 [Maxzide 37.5-25] Pantoprazole [Protonix] 40 mg PO DAILY 12/20/23 11/10/24 traMADol HCL 100 mg PO TID 12/20/23 11/10/24 Cephalexin [Keflex] 250 mg PO DAILY 11/10/24 11/10/24 Allergies Allergy/AdvReac Type Severity Reaction Status Date / Time sulfamethoxazole Allergy Anaphylaxis Verified 11/10/24 09:51 [From Bactrim] trimethoprim [From Bactrim] Allergy Anaphylaxis Verified 11/10/24 09:51 erythromycin base AdvReac Intermediate Vomiting Verified 11/10/24 09:51 Review of Systems ROS Statement: Those systems with pertinent positive or pertinent negative responses have been documented in the HPI. ROS Other: All systems not noted in ROS Statement are negative. Past Medical History Past Medical History: Diabetes Mellitus, Hypertension Additional Past Medical History / Comment(s): spina bifada, UTI History of Any Multi-Drug Resistant Organisms: None Reported Past Surgical History: Hysterectomy, Orthopedic Surgery Additional Past Surgical History / Comment(s): BL feet Past Anesthesia/Blood Transfusion Reactions: No Reported Reaction Past Psychological History: No Psychological Hx Reported Smoking Status: Never smoker - Past Family History Father Family Medical History: Diabetes Mellitus General Exam Limitations: no limitations General appearance: alert, in no apparent distress Head exam: Present: atraumatic, normocephalic Eye exam: Present: normal appearance, PERRL ENT exam: Present: mucous membranes dry Neck exam: Present: normal inspection. Absent: tenderness, meningismus Respiratory exam: Present: normal lung sounds bilaterally. Absent: respiratory distress, wheezes Cardiovascular Exam: Present: normal rhythm, tachycardia GI/Abdominal exam: Present: soft. Absent: distended, tenderness Extremities exam: Present: other (Erythema to the right distal extremity above the ankle). Absent: pedal edema Neurological exam: Present: alert, oriented X3 Skin exam: Present: warm, dry Course Vital Signs 11/10/24 11/10/24 07:37 09:30 Temperature 99.8 F H 99.6 F Pulse Rate 115 H 106 H Respiratory 20 20 Rate Blood Pressure 139/92 106/65 O2 Sat by Pulse 95 97 Oximetry Medical Decision Making - Medical Decision Making Was pt. sent in by a medical professional or institution (, PA, SPANISH INTERPRETER, urgent care, hospital, or alf...) When possible be specific @ -No Did you speak to anyone other than the patient for history (EMS, parent, family, police, friend...)? What history was obtained from this source @ -No Did you review nursing and triage notes (agree or disagree)? Why? @ -I reviewed and agree with nursing and triage notes Were old charts reviewed (outside hosp., previous admission, EMS record, old EKG, old radiological studies, urgent care reports/EKG's, alf records)? Report findings @ -No old charts were reviewed Differential Weakness: Hypoglycemia, shock, sepsis, hyponatremia, anemia, infection, HI, ETOH, adverse medicine reaction, overdose, stroke, this is not meant to be an all-inclusive list. EKG interpreted by me (3pts min.). @Sinus tachycardia rate of [address] segment elevation MA interval 173, QRS duration 102, QTc 397 X-rays interpreted by me (1pt min.). @Chest x-ray negative for focal pneumonia CT interpreted by me (1pt min.). @ -None done U/S interpreted by me (1pt. min.). @ -None done What testing was considered but not performed or refused? (CT, X-rays, U/S, labs)? Why? @ -None What meds were considered but not given or refused? Why? @ -None Did you discuss the management of the patient with other professionals (professionals i.e. Dr., PA, SPANISH INTERPRETER, lab, RT, psych nurse, hospital social worker, special education para professional, teacher, parole hearing officer, correctional counselor/case manager)? Give summary @Case discussed with [facility], will admit Was smoking cessation discussed for >3mins.? @ -No Was critical care preformed (if so, how long)? @ yes 35 min Were there social determinants of health that impacted care today? How? (Homelessness, low income, unemployed, alcoholism, drug addiction, transportation, low edu. Level, literacy, decrease access to med. care, long term, rehab)? @ -No Was there de-escalation of care discussed even if they declined (Discuss DNR or withdrawal of care, Hospice)? DNR status @ -No What co-morbidities impacted this encounter? (DM, HTN, Smoking, COPD, CAD, Cancer, CVA, ARF, Chemo, Hep., AIDS, mental health diagnosis, sleep apnea, morbid obesity)? @ -[Recurrent UTI Was patient admitted / discharged? Hospital course, mention meds given and route, prescriptions, significant lab abnormalities, going to OR and other pertinent info. @84-year-old female with fever and chills history of UTI. Prior urine culture was susceptible to ceftriaxone multiple prior infections with E. coli. Urinalysis today is nitrate positive and suggestive of significant UTI. She has an elevated white blood cell count. She is febrile and tachycardic upon arrival. She is given fluid bolus and initiated on ceftriaxone in the emergency department. She will be admitted for IV fluids and IV antibiotics. Undiagnosed new problem with uncertain prognosis? @ -No Drug Therapy requiring intensive monitoring for toxicity (Heparin, Nitro, Insulin, Cardizem)? @ -No Were any procedures done? @ -No Diagnosis/symptom? @ -UTI with sepsis Acute, or Chronic, or Acute on Chronic? @ -Acute Uncomplicated (without systemic symptoms) or Complicated (systemic symptoms)? @ -[Complicated Side effects of treatment? @ -No Exacerbation, Progression, or Severe Exacerbation? @ -No Poses a threat to life or bodily function? How? (Chest pain, USA, HI, pneumonia, PE, COPD, DKA, ARF, appy, cholecystitis, CVA, Diverticulitis, Homicidal, Suicidal, threat to staff... and all critical care pts) @Yes, sepsis - Lab Data Result diagrams: 11/10/24 08:00 11/10/24 08:00 Lab Results 11/10/24 11/10/24 11/10/24 Range/Units 08:00 08:00 08:00 WBC 17.3 H (3.8-10.6) k/uL RBC 4.62 (3.80-5.40) m/uL Hgb 11.8 (11.4-16.0) gm/dL Hct 39.1 (34.0-46.0) % MCV 84.5 (80.0-100.0) fL MCH 25.6 (25.0-35.0) pg MCHC 30.3 L (31.0-37.0) g/dL RDW 13.0 (11.5-15.5) % Plt Count 432 (150-450) k/uL MPV 6.3 Neutrophils % 87 % Lymphocytes % 6 % Monocytes % 5 % Eosinophils % 1 % Basophils % 0 % Neutrophils # 15.1 H (1.3-7.7) k/uL Lymphocytes # 1.0 (1.0-4.8) k/uL Monocytes # 0.8 (0-1.0) k/uL Eosinophils # 0.1 (0-0.7) k/uL Basophils # 0.1 (0-0.2) k/uL PT 11.4 (10.0-12.5) sec INR 1.0 (<1.2) APTT 25.8 (22.0-30.0) sec Sodium 132 L (137-145) mmol/L Potassium 4.4 (3.5-5.1) mmol/L Chloride 96 L (98-107) mmol/L Carbon Dioxide 21 L (22-30) mmol/L Anion Gap 15 mmol/L BUN 22 H (7-17) mg/dL Creatinine 0.97 (0.52-1.04) mg/dL Est GFR (CKD-EPI)AfAm 62 (>60 ml/min/1.73 sqM) Est GFR (CKD-EPI)NonAf 54 (>60 ml/min/1.73 sqM) Glucose 182 H (74-99) mg/dL Plasma Lactic Acid Shahid (0.7-2.0) mmol/L Calcium 9.1 (8.4-10.2) mg/dL Magnesium 1.8 (1.6-2.3) mg/dL Total Bilirubin 0.6 (0.2-1.3) mg/dL AST 17 (14-36) U/L ALT 16 (4-34) U/L Alkaline Phosphatase 151 H (38-126) U/L Troponin I (0.000-0.034) ng/mL Total Protein 7.2 (6.3-8.2) g/dL Albumin 3.9 (3.5-5.0) g/dL Urine Color Urine Appearance (Clear) Urine pH (5.0-8.0) Ur Specific [place] (1.001-1.035) Urine Protein (Negative) Urine Glucose (UA) (Negative) Urine Ketones (Negative) Urine Blood (Negative) Urine Nitrite (Negative) Urine Bilirubin (Negative) Urine Urobilinogen (<2.0) mg/dL Ur Leukocyte Esterase (Negative) Urine RBC (0-5) /hpf Urine WBC (0-5) /hpf Urine WBC Clumps (None) /hpf Urine Bacteria (None) /hpf Influenza Type A (PCR) (Not Detectd) Influenza Type B (PCR) (Not Detectd) RSV (PCR) (Not Detectd) SARS-CoV-2 (PCR) (Not Detectd) 11/10/24 11/10/24 11/10/24 Range/Units 08:00 08:00 08:00 WBC (3.8-10.6) k/uL RBC (3.80-5.40) m/uL Hgb (11.4-16.0) gm/dL Hct (34.0-46.0) % MCV (80.0-100.0) fL MCH (25.0-35.0) pg MCHC (31.0-37.0) g/dL RDW (11.5-15.5) % Plt Count (150-450) k/uL MPV Neutrophils % % Lymphocytes % % Monocytes % % Eosinophils % % Basophils % % Neutrophils # (1.3-7.7) k/uL Lymphocytes # (1.0-4.8) k/uL Monocytes # (0-1.0) k/uL Eosinophils # (0-0.7) k/uL Basophils # (0-0.2) k/uL PT (10.0-12.5) sec INR (<1.2) APTT (22.0-30.0) sec Sodium (137-145) mmol/L Potassium (3.5-5.1) mmol/L Chloride (98-107) mmol/L Carbon Dioxide (22-30) mmol/L Anion Gap mmol/L BUN (7-17) mg/dL Creatinine (0.52-1.04) mg/dL Est GFR (CKD-EPI)AfAm (>60 ml/min/1.73 sqM) Est GFR (CKD-EPI)NonAf (>60 ml/min/1.73 sqM) Glucose (74-99) mg/dL Plasma Lactic Acid Shahid 1.1 (0.7-2.0) mmol/L Calcium (8.4-10.2) mg/dL Magnesium (1.6-2.3) mg/dL Total Bilirubin (0.2-1.3) mg/dL AST (14-36) U/L ALT (4-34) U/L Alkaline Phosphatase (38-126) U/L Troponin I 0.012 (0.000-0.034) ng/mL Total Protein (6.3-8.2) g/dL Albumin (3.5-5.0) g/dL Urine Color Urine Appearance (Clear) Urine pH (5.0-8.0) Ur Specific [place] (1.001-1.035) Urine Protein (Negative) Urine Glucose (UA) (Negative) Urine Ketones (Negative) Urine Blood (Negative) Urine Nitrite (Negative) Urine Bilirubin (Negative) Urine Urobilinogen (<2.0) mg/dL Ur Leukocyte Esterase (Negative) Urine RBC (0-5) /hpf Urine WBC (0-5) /hpf Urine WBC Clumps (None) /hpf Urine Bacteria (None) /hpf Influenza Type A (PCR) Not Detected (Not Detectd) Influenza Type B (PCR) Not Detected (Not Detectd) RSV (PCR) Not Detected (Not Detectd) SARS-CoV-2 (PCR) Not Detected (Not Detectd) 11/10/24 Range/Units 09:30 WBC (3.8-10.6) k/uL RBC (3.80-5.40) m/uL Hgb (11.4-16.0) gm/dL Hct (34.0-46.0) % MCV (80.0-100.0) fL MCH (25.0-35.0) pg MCHC (31.0-37.0) g/dL RDW (11.5-15.5) % Plt Count (150-450) k/uL MPV Neutrophils % % Lymphocytes % % Monocytes % % Eosinophils % % Basophils % % Neutrophils # (1.3-7.7) k/uL Lymphocytes # (1.0-4.8) k/uL Monocytes # (0-1.0) k/uL Eosinophils # (0-0.7) k/uL Basophils # (0-0.2) k/uL PT (10.0-12.5) sec INR (<1.2) APTT (22.0-30.0) sec Sodium (137-145) mmol/L Potassium (3.5-5.1) mmol/L Chloride (98-107) mmol/L Carbon Dioxide (22-30) mmol/L Anion Gap mmol/L BUN (7-17) mg/dL Creatinine (0.52-1.04) mg/dL Est GFR (CKD-EPI)AfAm (>60 ml/min/1.73 sqM) Est GFR (CKD-EPI)NonAf (>60 ml/min/1.73 sqM) Glucose (74-99) mg/dL Plasma Lactic Acid Shahid (0.7-2.0) mmol/L Calcium (8.4-10.2) mg/dL Magnesium (1.6-2.3) mg/dL Total Bilirubin (0.2-1.3) mg/dL AST (14-36) U/L ALT (4-34) U/L Alkaline Phosphatase (38-126) U/L Troponin I (0.000-0.034) ng/mL Total Protein (6.3-8.2) g/dL Albumin (3.5-5.0) g/dL Urine Color Colorless Urine Appearance Turbid H (Clear) Urine pH 5.5 (5.0-8.0) Ur Specific [place] 1.017 (1.001-1.035) Urine Protein 1+ H (Negative) Urine Glucose (UA) 3+ H (Negative) Urine Ketones Trace H (Negative) Urine Blood Moderate H (Negative) Urine Nitrite Positive H (Negative) Urine Bilirubin Negative (Negative) Urine Urobilinogen <2.0 (<2.0) mg/dL Ur Leukocyte Esterase Large H (Negative) Urine RBC 50 H (0-5) /hpf Urine WBC >182 H (0-5) /hpf Urine WBC Clumps Many H (None) /hpf Urine Bacteria Moderate H (None) /hpf Influenza Type A (PCR) (Not Detectd) Influenza Type B (PCR) (Not Detectd) RSV (PCR) (Not Detectd) SARS-CoV-2 (PCR) (Not Detectd) Critical Care Time Critical Care Time: Yes Total Critical Care Time: 35 Disposition Clinical Impression: Sepsis, UTI (urinary tract infection) Disposition: ADMITTED IP TO THIS [facility] Condition: Stable Is patient prescribed a controlled substance at d/c from ED?: No Referrals: Dennis Dawson MD [Primary Care Provider] - 1-2 days Time of Disposition: 10:56
[2024-11-10 08:19] LABS: Basophils # (A) 0.1 k/uL (0-0.2); Basophils % (A) 0 %; Eosinophils # (A) 0.1 k/uL (0-0.7); Eosinophils % (A) 1 %; HCT 39.1 % (34.0-46.0); HGB 11.8 gm/dL (11.4-16.0); Lymphocytes % (A) 6 %; MCH 25.6 pg (25.0-35.0); MCHC 30.3 g/dL (31.0-37.0); MCV 84.5 fL (80.0-100.0); Mean Platelet Volume 6.3; Monocytes # (A) 0.8 k/uL (0-1.0); Monocytes % (A) 5 %; Neutrophils # (A) 15.1 k/uL (1.3-7.7); Neutrophils % (A) 87 %; Platelet Count 432 k/uL (150-450); RBC 4.62 m/uL (3.80-5.40); WBC 17.3 k/uL (3.8-10.6)
[2024-11-10] MEDS: ACETAMINOPHEN TAB 325 MG TAB PO STA (08:26)
[2024-11-10 08:27] LABS: Partial Thromboplastin Time 25.8 sec (22.0-30.0); Prothrombin Time 11.4 sec (10.0-12.5)
[2024-11-10] MEDS: SODIUM CHLORIDE 0.9% 500 ML 500 ML IV ONE ×2 (08:28→10:02)
--- NOTE | 2024-11-10 08:47 | XR ---
EXAMINATION TYPE: XR chest 1V portable DATE OF EXAM: 11/10/2024 8:42 AM COMPARISON: Chest radiographs from 12/20/2023 TECHNIQUE: XR chest 1V portable Portable AP radiograph of the chest. CLINICAL INDICATION:Female, 84 years old with history of weakness; FINDINGS: Lungs/Pleura: Low lung volumes. No focal consolidation, pneumothorax, or pleural effusion. Pulmonary vascularity: Unremarkable. Heart/mediastinum: Cardiomediastinal silhouette is enlarged and stable. Musculoskeletal: No acute osseous pathology. Left shoulder arthropathy. IMPRESSION: Low lung volumes with cardiomegaly. No evidence for acute process. [facility], , 11/10/2024 8:44 AM
[2024-11-10 08:51] LABS: ALT 16 U/L (4-34); AST 17 U/L (14-36); African American GFR (CKD) 62 (>60 ml/min/1.73 sqM); Albumin 3.9 g/dL (3.5-5.0); Alkaline Phosphatase 151 U/L (38-126); Anion Gap 15 mmol/L; Blood Urea Nitrogen 22 mg/dL (7-17); Calcium 9.1 mg/dL (8.4-10.2); Carbon Dioxide 21 mmol/L (22-30); Chloride 96 mmol/L (98-107); Glucose 182 mg/dL (74-99); Magnesium 1.8 mg/dL (1.6-2.3); Non-African American GFR(CKD) 54 (>60 ml/min/1.73 sqM); Potassium 4.4 mmol/L (3.5-5.1); Sodium 132 mmol/L (137-145); Total Bilirubin 0.6 mg/dL (0.2-1.3); Total Protein 7.2 g/dL (6.3-8.2)
[2024-11-10 08:57] LABS: Influenza A Not Detected (Not Detectd); Influenza B Not Detected (Not Detectd); RSV Not Detected (Not Detectd)
[2024-11-10 10:03] LABS: Appearance,Urine Turbid (Clear); Bacteria,Urine Moderate /hpf; Bilirubin,Urine Negative (Negative); Blood,Urine Moderate (Negative); Color,Urine Colorless; Glucose,Urine (UA) 3+ (Negative); Ketones,Urine Trace (Negative); Leukocyte Esterase,Urine Large (Negative); Nitrite,Urine Positive (Negative); PH, Urine 5.5 (5.0-8.0); Protein,Urine 1+ (Negative); RBC,Urine 50 /hpf (0-5); Specific Gravity,Urine 1.017 (1.001-1.035); Urobilinogen,Urine <2.0 mg/dL (<2.0); WBC,Urine >182 /hpf (0-5)
[2024-11-10] MEDS: SODIUM CHLORIDE 0.9% 1,000 ML IV SCH (10:03)
[2024-11-10] MEDS ORDERED: NALOXONE 0.4 MG/ML 1 ML VIAL IV PRN (10:53)
[2024-11-10] MEDS ORDERED: DEXTROSE 50% SYRINGE 50 ML IVP PRN ×2 (15:03)
--- NOTE | 2024-11-10 15:04 | P.HPIM ---
History of Present Illness H&P Date: 11/10/24 History of present illness: 84-year-old female with past medical history significant for hypertension, hyperlipidemia, spina bifida, history of recurrent UTIs, who presented from [facility] [place] with generalized weakness, fever, chills and dysuria for 1 day. Patient is wheelchair-bound. Patient stated that she felt very weak yesterday, also reported some dysuria and chills. Patient denied any sore throat, productive cough, shortness breath, chest pain, palpitation, nausea vomiting diarrhea constipation abdominal pain weakness or numbness of extremities. In the ED patient had a temperature of 99.8, was tachycardic with heart rate 115, respiratory 20, blood pressure 139/92, saturating 95% on room air. WBC 17.3, hemoglobin 11.8, platelet 432, absolute neutrophils 15.1. Sodium 132 potassium 4.4 chloride 96 CO2 21 BUN 22 creatinine 0.97 lactic acid 1.1. Liver profile was unremarkable, mildly elevated alkaline phosphatase 151. Troponin negative. UA positive for nitrite, large leukocyte esterase, WBCs more than 192. Urine culture blood culture ordered in the ED. Chest x-ray negative for any acute process, showed low lung volumes with cardiomegaly. Assessment and plan: Sepsis: UTI: History of recurrent UTIs Presented with generalized weakness, dysuria, fever and chills. UA positive. Continue Rocephin Infectious disease consult Urine culture Blood culture Hypertension: Continue triamterene hydrochlorothiazide, losartan Diabetes mellitus: Continue Amaryl, Accu-Cheks, diabetic. Sliding-scale insulin DVT prophylaxis Subcutaneous Lovenox Monitor vital signs and labs Labs and medication were reviewed. Continue same treatment. Further recommendations as per clinical course of the patient PHYSICAL EXAMINATION: GENERAL: The patient is A&O x3, NAD HEENT: EOMI, Sclerae anicteric, Moist Mucous membranes Neck: Supple, Non tender, No JVD PULMONARY: Equal breath souds B/L, No wheezing, No crackles. CARDIOVASCULAR: S1, S2 present. No murmurs, rubs, or gallops. ABDOMEN: Soft, nontender, nondistended, normoactive bowel sounds. No guarding or rebound tenderness. MUSCULOSKELETAL: No edema, No cyanosis. No clubbing. Normal ROM. Intact peripheral pulses. NEUROLOGICAL: CN 2-12 grossly intact. No FND REVIEW OF SYSTEMS: CONSTITUTIONAL: Complains of chills, fatigue. HEENT: No recent visual problems or hearing problems. Denied any sore throat. CARDIOVASCULAR: No chest pain, orthopnea, PND, no palpitations, no syncope. PULMONARY: No shortness of breath, no cough, no hemoptysis. GASTROINTESTINAL: No diarrhea, no nausea, no vomiting, no abdominal pain. NEUROLOGICAL: No headaches, no weakness, no numbness. HEMATOLOGICAL: Denies any bleeding or petechiae. GENITOURINARY: Complained of dysuria. MUSCULOSKELETAL/RHEUMATOLOGICAL: Denies any joint pain, swelling, or any muscle pain. ENDOCRINE: Denies any polyuria or polydipsia. The rest of the 14-point review of systems is negative. Dictation was produced using [employer] software. please excuse any grammatical, word or spelling errors. Past Medical History Past Medical History: Diabetes Mellitus, Hypertension Additional Past Medical History / Comment(s): spina bifada, UTI History of Any Multi-Drug Resistant Organisms: None Reported Past Surgical History: Hysterectomy, Orthopedic Surgery Additional Past Surgical History / Comment(s): BL feet Past Anesthesia/Blood Transfusion Reactions: No Reported Reaction Past Psychological History: No Psychological Hx Reported Smoking Status: Never smoker - Past Family History Father Family Medical History: Diabetes Mellitus Medications and Allergies Home Medications Medication Instructions Recorded Confirmed Type Glimepiride [Amaryl] 3 mg PO BID 01/27/17 11/10/24 History Dorzolamide-Timol 2.23%/0.68% 1 drop BOTH EYES QID 08/29/22 11/10/24 History [Cosopt] Latanoprost [Latanoprost 0.005%] 1 drop RIGHT EYE HS 08/29/22 11/10/24 History Losartan Potassium 100 mg PO DAILY 08/29/22 11/10/24 History Montelukast [Singulair] 10 mg PO HS 08/29/22 11/10/24 History Triamterene-Hctz 37.5-25Mg 1 tab PO Q48H 08/29/22 11/10/24 History [Maxzide 37.5-25] Pantoprazole [Protonix] 40 mg PO DAILY 12/20/23 11/10/24 History traMADol HCL 100 mg PO TID 12/20/23 11/10/24 History Cephalexin [Keflex] 250 mg PO DAILY 11/10/24 11/10/24 History Allergies Allergy/AdvReac Type Severity Reaction Status Date / Time sulfamethoxazole Allergy Anaphylaxis Verified 11/10/24 09:51 [From Bactrim] trimethoprim [From Bactrim] Allergy Anaphylaxis Verified 11/10/24 09:51 erythromycin base AdvReac Intermediate Vomiting Verified 11/10/24 09:51 Physical Exam Vitals: Vital Signs Temp Pulse Resp BP Pulse Ox 11/10/24 14:26 99.0 F 93 20 151/75 98 11/10/24 09:30 99.6 F 106 H 20 106/65 97 11/10/24 07:37 99.8 F H 115 H 20 139/92 95 Intake and Output 11/09/24 11/10/24 11/10/24 22:59 06:59 14:59 Other: Weight 54.431 kg Results CBC & Chem 7: 11/10/24 08:00 11/10/24 08:00 Labs: Abnormal Lab Results - Last 24 Hours (Table) 11/10/24 11/10/24 11/10/24 Range/Units 08:00 08:00 09:30 WBC 17.3 H (3.8-10.6) k/uL MCHC 30.3 L (31.0-37.0) g/dL Neutrophils # 15.1 H (1.3-7.7) k/uL Sodium 132 L (137-145) mmol/L Chloride 96 L (98-107) mmol/L Carbon Dioxide 21 L (22-30) mmol/L BUN 22 H (7-17) mg/dL Glucose 182 H (74-99) mg/dL Alkaline Phosphatase 151 H (38-126) U/L Urine Appearance Turbid H (Clear) Urine Protein 1+ H (Negative) Urine Glucose (UA) 3+ H (Negative) Urine Ketones Trace H (Negative) Urine Blood Moderate H (Negative) Urine Nitrite Positive H (Negative) Ur Leukocyte Esterase Large H (Negative) Urine RBC 50 H (0-5) /hpf Urine WBC >182 H (0-5) /hpf Urine WBC Clumps Many H (None) /hpf Urine Bacteria Moderate H (None) /hpf
[2024-11-10] MEDS: traMADol 50 MG TAB PO SCH (16:25)
[2024-11-10 17:34] LABS: Glucose,Whole Blood 266 mg/dL (70-110)
[2024-11-10] MEDS: INSULIN LISPRO (HumaLOG) 100 UNIT/ML 10 mL VL SQ SCH (17:41)
[2024-11-10] MEDS: DORZOLAMIDE-TIMOLOL 2.23%/0.68 10ML BTL BOTH EYES SCH (19:56)
[2024-11-10 20:23] LABS: Glucose,Whole Blood 245 mg/dL (70-110)
[2024-11-10] MEDS: MONTELUKAST 10 MG TAB PO SCH (21:14)
[2024-11-10] MEDS: GLIMEPIRIDE 1 MG TAB PO SCH (21:14)
[2024-11-10] MEDS: LATANOPROST 0.005% OPHTH DROPS 2.5 ML BTL RIGHT EYE SCH (21:52)
--- NOTE | 2024-11-10 21:55 | P.CONS ---
History of Present Illness - Reason for Consult Consult date: 11/10/24 UTI Requesting physician: Inderjit Wright - Chief Complaint Weakness and chills x few days - History of Present Illness Patient is a 84-year-old female with a past medical history significant for diabetes mellitus hypertension spina bifida history of kidney stone recurrent UTI patient mention she has been on suppressive oral Keflex per her urologist to prevent recurrent UTIs now presenting to [facility] ER complaining of generalized weakness fever and chills symptom has been getting worse for the last few days patient did have some burning of urine but no suprapubic or flank pain some nausea but no vomiting on presentation to the hospital she did have a temperature of 99.8 degrees for night patient was tachycardic but not hypotensive or hypoxic no need for supplemental oxygen white count of 17.3 creatinine 0.97 liver enzymes are normal urine has been positive, influenza RSV COVID testing negative he received a dose of Rocephin in the ER did have a chest x-ray low lung volumes with cardiomegaly no evidence for acute process infectious disease was consulted for further management of antibiotic therapy Review of Systems Positive point and negatives has been mentioned in the HPI, complete review of systems was performed and all other systems are negative Past Medical History Past Medical History: Diabetes Mellitus, Hypertension Additional Past Medical History / Comment(s): spina bifada, UTI History of Any Multi-Drug Resistant Organisms: None Reported Past Surgical History: Hysterectomy, Orthopedic Surgery Additional Past Surgical History / Comment(s): BL feet Past Anesthesia/Blood Transfusion Reactions: No Reported Reaction Past Psychological History: No Psychological Hx Reported Smoking Status: Never smoker - Past Family History Father Family Medical History: Diabetes Mellitus Medications and Allergies Home Medications Medication Instructions Recorded Confirmed Type Glimepiride [Amaryl] 3 mg PO BID 01/27/17 11/10/24 History Dorzolamide-Timol 2.23%/0.68% 1 drop BOTH EYES QID 08/29/22 11/10/24 History [Cosopt] Latanoprost [Latanoprost 0.005%] 1 drop RIGHT EYE HS 08/29/22 11/10/24 History Losartan Potassium 100 mg PO DAILY 08/29/22 11/10/24 History Montelukast [Singulair] 10 mg PO HS 08/29/22 11/10/24 History Triamterene-Hctz 37.5-25Mg 1 tab PO Q48H 08/29/22 11/10/24 History [Maxzide 37.5-25] Pantoprazole [Protonix] 40 mg PO DAILY 12/20/23 11/10/24 History traMADol HCL 100 mg PO TID 12/20/23 11/10/24 History Cephalexin [Keflex] 250 mg PO DAILY 11/10/24 11/10/24 History Allergies Allergy/AdvReac Type Severity Reaction Status Date / Time sulfamethoxazole Allergy Anaphylaxis Verified 11/10/24 09:51 [From Bactrim] trimethoprim [From Bactrim] Allergy Anaphylaxis Verified 11/10/24 09:51 erythromycin base AdvReac Intermediate Vomiting Verified 11/10/24 09:51 Physical Exam Vitals: Vital Signs Temp Pulse Resp BP Pulse Ox 11/10/24 09:30 99.6 F 106 H 20 106/65 97 11/10/24 07:37 99.8 F H 115 H 20 139/92 95 Intake and Output 11/09/24 11/10/24 11/10/24 22:59 06:59 14:59 Other: Weight 54.431 kg GENERAL DESCRIPTION: Elderly female lying in bed, no distress. No tachypnea or accessory muscle of respiration use. HEENT: Shows Pallor , no scleral icterus. Oral mucous membrane is dry. No thrush NECK: Trachea central, no thyromegaly. LUNGS: Unlabored breathing. Clear to auscultation anteriorly. No wheeze or crackle. HEART: S1, S2, regular rate and rhythm. No loud murmur ABDOMEN: Soft, no tenderness , guarding or rigidity, no organomegaly EXTREMITIES: No edema of feet. SKIN: No rash, no masses palpable. NEUROLOGICAL: The patient is awake, alert, oriented x3, mood and affect normal. Results CBC & Chem 7: 11/10/24 08:00 11/10/24 08:00 Labs: Abnormal Lab Results - Last 24 Hours (Table) 11/10/24 11/10/24 11/10/24 Range/Units 08:00 08:00 09:30 WBC 17.3 H (3.8-10.6) k/uL MCHC 30.3 L (31.0-37.0) g/dL Neutrophils # 15.1 H (1.3-7.7) k/uL Sodium 132 L (137-145) mmol/L Chloride 96 L (98-107) mmol/L Carbon Dioxide 21 L (22-30) mmol/L BUN 22 H (7-17) mg/dL Glucose 182 H (74-99) mg/dL Alkaline Phosphatase 151 H (38-126) U/L Urine Appearance Turbid H (Clear) Urine Protein 1+ H (Negative) Urine Glucose (UA) 3+ H (Negative) Urine Ketones Trace H (Negative) Urine Blood Moderate H (Negative) Urine Nitrite Positive H (Negative) Ur Leukocyte Esterase Large H (Negative) Urine RBC 50 H (0-5) /hpf Urine WBC >182 H (0-5) /hpf Urine WBC Clumps Many H (None) /hpf Urine Bacteria Moderate H (None) /hpf Assessment and Plan (1) UTI (urinary tract infection) Current Visit: Yes Status: Acute Code(s): N39.0 - URINARY TRACT INFECTION, SITE NOT SPECIFIED SNOMED Code(s): 92158137 (2) Allergy to multiple antibiotics Current Visit: No Status: Acute Code(s): Z88.1 - ALLERGY STATUS TO OTHER ANTIBIOTIC AGENTS SNOMED Code(s): 112197970 Plan: 1patient presented to hospital with sepsis in this patient did have fever tachycardia elevated white count meeting criteria for SIRS source is UTI likely from enteric gram-negative pathogen in this patient noted to have a history of kidney stone could be the contributing factor for recurrent UTIs. 2we will start the patient on Rocephin 2 g daily while waiting for the culture to finalize 3-we will check ultrasound of the kidney and bladder area to make sure no evidence of any structural abnormality We will follow on clinical condition and cultures to further adjust medication if needed Thank you for this consultation we will follow the patient along with you Dictation was produced using [employer] dictation software. please excuse any grammatical, word or spelling errors. Time with Patient: Greater than 30
[2024-11-10] MEDS: ACETAMINOPHEN TAB 325 MG TAB PO PRN (23:41)
[2024-11-11 06:15] LABS: Glucose,Whole Blood 132 mg/dL (70-110)
[2024-11-11] MEDS: INSULIN LISPRO (HumaLOG) 100 UNIT/ML 10 mL VL SQ SCH (06:15)
--- NOTE | 2024-11-11 07:58 | US ---
EXAMINATION TYPE: US kidneys/renal and bladder DATE OF EXAM: 11/11/2024 COMPARISON: 12/22/23 CLINICAL INDICATION: Female, 84 years old with history of uti and bacteremia; UTI, bacteremia TECHNIQUE: Grayscale imaging of the bilateral kidneys and urinary bladder: FINDINGS: EXAM MEASUREMENTS: Right Kidney: 9.2x5.5x4.6 cm Left Kidney: not visualized Right Kidney: No hydronephrosis or masses seen Left Kidney: not visualized, indeterminate anechoic region measuring 8.6x5.8x5.7cm noted at the left flank Bladder: not visualize, patient on purewick exam again very limited by bowel gas, habitus, and limited patient mobility IMPRESSION: 1. Limited exam due to bowel gas and body habitus and limited patient mobility. 2. Unremarkable right kidney. 3. Nonvisualization of the left kidney. [facility], Workstation: LAURENT 11/11/2024 7:56 AM
[2024-11-11] MEDS: PANTOPRAZOLE 40 MG TABLET PO SCH (08:12)
[2024-11-11] MEDS: LOSARTAN 50 MG TAB PO SCH (08:12)
[2024-11-11] MEDS: MONTELUKAST 10 MG TAB PO SCH (08:12)
[2024-11-11] MEDS: GLIMEPIRIDE 1 MG TAB PO SCH (08:12)
[2024-11-11] MEDS: ENOXAPARIN 40 MG/0.4 ML SYRINGE SQ SCH (08:13)
[2024-11-11] MEDS: TRIAMTERENE-HCTZ 37.5-25MG 1 EACH CAP PO SCH (08:15)
[2024-11-11 09:51] LABS: Basophils # (A) 0.09 X 10*3/uL (0.00-0.10); Eosinophils # (A) 0.08 X 10*3/uL (0.04-0.35); Eosinophils % (A) 0.9 %; HCT 29.6 % (37.2-46.3); HGB 9.3 g/dL (12.0-15.0); Lymphocytes # (A) 1.46 X 10*3/uL (0.90-5.00); MCH 27.5 pg (27.0-32.0); MCHC 31.4 g/dL (32.0-37.0); MCV 87.6 FL (80.0-97.0); Mean Platelet Volume 9.1 FL (9.5-12.2); Monocytes # (A) 1.18 X 10*3/uL (0.20-1.00); Monocytes % (A) 13.8 %; NRBC Per 100 WBC 0 X 10*3/uL (0.00-0.01); Neutrophils # (A) 5.72 X 10*3/uL (1.80-7.70); Neutrophils % (A) 66.7 %; Platelet Count 330 X 10*3/uL (140-440); RBC 3.38 X 10*6/uL (4.10-5.20); RDW 12.9 % (11.5-14.5); WBC 8.58 X 10*3/uL (4.50-10.00)
[2024-11-11 11:15] LABS: BUN/Creat Ratio 16.11 Ratio (12.00-20.00); Blood Urea Nitrogen 14.5 mg/dL (9.0-27.0); Calcium 8.2 mg/dL (8.7-10.3); Carbon Dioxide 21.8 mmol/L (21.6-31.8); Chloride 107 mmol/L (96-109); Glucose 127 mg/dL (70-110); Potassium 4.2 mmol/L (3.5-5.5); Sodium 137 mmol/L (135-145)
[2024-11-11 11:44] LABS: Glucose,Whole Blood 194 mg/dL (70-110)
--- NOTE | 2024-11-11 14:17 | P.PN ---
Subjective Progress Note Date: 11/11/24 Principal diagnosis: Reason for follow-up is a UTI Patient is a 84-year-old female with a past medical history significant for diabetes mellitus hypertension spina bifida history of kidney stone recurrent UTI presented to hospital with generalized weakness fever chills urinary symptom concerning for symptomatic UTI. On today's evaluation that is 11/11/2024, patient did not have any fever and denies any chills, patient is breathing comfortably on room air, patient with no chest pain or cough patient did not have any abdominal pain nausea vomiting or any loose stools. Patient white count normalized to 8.58, creatinine 0.9 urine is growing gram- negative bacilli abdominal bladder ultrasound Limited exam mild resolution of the left kidney unremarkable right kidney Objective - Vital Signs Vital signs: Vital Signs Temp 98.2 F 11/11/24 13:25 Pulse 83 11/11/24 13:25 Resp 18 11/11/24 13:25 BP 126/77 11/11/24 13:25 Pulse Ox 98 11/11/24 13:25 FiO2 Intake & Output 11/10/24 11/11/24 11/11/24 18:59 06:59 18:59 Output Total 800 Balance -800 Weight 54.431 kg Output: Urine 800 Other: Voiding Method External Catheter - Exam GENERAL DESCRIPTION: An elderly female lying in bed in no distress RESPIRATORY SYSTEM: Unlabored breathing , decreased breath sounds at bases HEART: S1 S2 regular rate and rhythm , ABDOMEN: Soft , no tenderness EXTREMITIES: No edema feet - Labs CBC & Chem 7: 11/11/24 05:53 11/11/24 05:53 Labs: Abnormal Lab Results - Last 24 Hours (Table) 11/10/24 11/10/24 11/11/24 Range/Units 17:32 20:22 05:53 RBC (4.10-5.20) X 10*6/uL Hgb (12.0-15.0) g/dL Hct (37.2-46.3) % MCHC (32.0-37.0) g/dL MPV (9.5-12.2) FL Immature Gran # (0.00-0.04) X 10*3/uL Monocytes # (0.20-1.00) X 10*3/uL Glucose (70-110) mg/dL POC Glucose (mg/dL) 266 H 245 H (70-110) mg/dL Hemoglobin A1c 9.3 H (<=6.0) % Calcium (8.7-10.3) mg/dL 11/11/24 11/11/24 11/11/24 Range/Units 05:53 05:53 06:13 RBC 3.38 L (4.10-5.20) X 10*6/uL Hgb 9.3 L (12.0-15.0) g/dL Hct 29.6 L (37.2-46.3) % MCHC 31.4 L (32.0-37.0) g/dL MPV 9.1 L (9.5-12.2) FL Immature Gran # 0.05 H (0.00-0.04) X 10*3/uL Monocytes # 1.18 H (0.20-1.00) X 10*3/uL Glucose 127 H (70-110) mg/dL POC Glucose (mg/dL) 132 H (70-110) mg/dL Hemoglobin A1c (<=6.0) % Calcium 8.2 L (8.7-10.3) mg/dL 11/11/24 Range/Units 11:40 RBC (4.10-5.20) X 10*6/uL Hgb (12.0-15.0) g/dL Hct (37.2-46.3) % MCHC (32.0-37.0) g/dL MPV (9.5-12.2) FL Immature Gran # (0.00-0.04) X 10*3/uL Monocytes # (0.20-1.00) X 10*3/uL Glucose (70-110) mg/dL POC Glucose (mg/dL) 194 H (70-110) mg/dL Hemoglobin A1c (<=6.0) % Calcium (8.7-10.3) mg/dL Microbiology - Last 24 Hours (Table) 11/10/24 09:30 Urine Culture - Preliminary Urine,Voided Gram Neg Bacilli Assessment and Plan (1) UTI (urinary tract infection) Current Visit: Yes Status: Acute Code(s): N39.0 - URINARY TRACT INFECTION, SITE NOT SPECIFIED SNOMED Code(s): 08982230 (2) Allergy to multiple antibiotics Current Visit: No Status: Acute Code(s): Z88.1 - ALLERGY STATUS TO OTHER ANTIBIOTIC AGENTS SNOMED Code(s): 036554198 Plan: 1patient presented to hospital with sepsis in this patient did have fever tachycardia elevated white count meeting criteria for SIRS source is UTI likely from enteric gram-negative pathogen in this patient noted to have a history of kidney stone could be the contributing factor for recurrent UTIs. 2patient did have ultrasound of the kidney and bladder area to make sure no evidence of any structural abnormality of the right kidney nonvisualization of the left kidney 3urine is growing gram-negative we will continue Rocephin while waiting for the culture to finalize Dictation was produced using [employer] dictation software. please excuse any grammatical, word or spelling errors. Time with Patient: Less than 30
--- NOTE | 2024-11-11 14:34 | P.PN ---
Subjective Progress Note Date: 11/11/24 84-year-old female with past medical history significant for hypertension, hyperlipidemia, spina bifida, history of recurrent UTIs, who presented from [facility] with generalized weakness, fever, chills and dysuria for 1 day. Patient is wheelchair-bound. Patient stated that she felt very weak yesterday, also reported some dysuria and chills. Patient denied any sore throat, productive cough, shortness breath, chest pain, palpitation, nausea vomiting diarrhea constipation abdominal pain weakness or numbness of extremities. In the ED patient had a temperature of 99.8, was tachycardic with heart rate 115, respiratory 20, blood pressure 139/92, saturating 95% on room air. WBC 17.3, hemoglobin 11.8, platelet 432, absolute neutrophils 15.1. Sodium 132 potassium 4.4 chloride 96 CO2 21 BUN 22 creatinine 0.97 lactic acid 1.1. Liver profile was unremarkable, mildly elevated alkaline phosphatase 151. Troponin negative. UA positive for nitrite, large leukocyte esterase, WBCs more than 192. Urine culture blood culture ordered in the ED. Chest x-ray negative for any acute process, showed low lung volumes with cardiomegaly. 11/11. Patient seen and examined. Blood work this morning showed WBC 8.5, hemoglobin 9.3, platelet count 330, HbA1c 9.3. Complaining of increased frequency of urination. Denies any fever or chills REVIEW OF SYSTEMS: CONSTITUTIONAL: No fever, no malaise,. CARDIOVASCULAR: No chest pain, no palpitations, no syncope. PULMONARY: No shortness of breath, no cough, GASTROINTESTINAL: No diarrhea, no nausea, no vomiting, no abdominal pain. NEUROLOGICAL: No headaches, no weakness, PHYSICAL EXAMINATION: GENERAL: The patient is alert and oriented x3, not in any acute distress. Well developed, well nourished. HEENT: Pupils are round and equally reacting to light. EOMI. No scleral icterus. No conjunctival pallor. Normocephalic, atraumatic. No pharyngeal erythema. No thyromegaly. CARDIOVASCULAR: S1 and S2 present. No murmurs, rubs, or gallops. PULMONARY: Chest is clear to auscultation, no wheezing or crackles. ABDOMEN: Soft, nontender, nondistended, normoactive bowel sounds. No palpable organomegaly. MUSCULOSKELETAL: No joint swelling or deformity. EXTREMITIES: No cyanosis, clubbing, or pedal edema. NEUROLOGICAL: Gross neurological examination did not reveal any focal deficits. SKIN: No rashes. Assessment and plan Sepsis: UTI: History of recurrent UTIs Presented with generalized weakness, dysuria, fever and chills. UA positive. Follow-up on urine cultures Follow-up on blood cultures Continue Rocephin ID following Hypertension: Continue triamterene hydrochlorothiazide, losartan Diabetes mellitus: Continue Amaryl, Accu-Cheks, diabetic. Sliding-scale insulin Labs and medication were reviewed.. Continue same treatment. Continue with symptomatic treatment. Resume home medication. Monitor labs and vitals. DVT and GI prophylaxis. Further recommendations as per clinical course of the patient Dictation was produced using [employer] dictation software. please excuse any grammatical, word or spelling errors. Objective - Vital Signs Vital signs: Vital Signs Temp 97.9 F 11/11/24 07:22 Pulse 74 11/11/24 08:12 Resp 16 11/11/24 07:22 BP 143/66 11/11/24 07:22 Pulse Ox 93 L 11/11/24 07:22 FiO2 Intake & Output 11/10/24 11/11/24 11/11/24 18:59 06:59 18:59 Output Total 800 Balance -800 Weight 54.431 kg Output: Urine 800 Other: Voiding Method External Catheter - Labs CBC & Chem 7: 11/11/24 05:53 11/11/24 05:53 Labs: Abnormal Lab Results - Last 24 Hours (Table) 11/10/24 11/10/24 11/11/24 Range/Units 17:32 20:22 05:53 RBC (4.10-5.20) X 10*6/uL Hgb (12.0-15.0) g/dL Hct (37.2-46.3) % MCHC (32.0-37.0) g/dL MPV (9.5-12.2) FL Immature Gran # (0.00-0.04) X 10*3/uL Monocytes # (0.20-1.00) X 10*3/uL POC Glucose (mg/dL) 266 H 245 H (70-110) mg/dL Hemoglobin A1c 9.3 H (<=6.0) % 11/11/24 11/11/24 Range/Units 05:53 06:13 RBC 3.38 L (4.10-5.20) X 10*6/uL Hgb 9.3 L (12.0-15.0) g/dL Hct 29.6 L (37.2-46.3) % MCHC 31.4 L (32.0-37.0) g/dL MPV 9.1 L (9.5-12.2) FL Immature Gran # 0.05 H (0.00-0.04) X 10*3/uL Monocytes # 1.18 H (0.20-1.00) X 10*3/uL POC Glucose (mg/dL) 132 H (70-110) mg/dL Hemoglobin A1c (<=6.0) %
[2024-11-11 16:51] LABS: Glucose,Whole Blood 129 mg/dL (70-110)
[2024-11-11 21:15] LABS: Glucose,Whole Blood 154 mg/dL (70-110)
[2024-11-12 06:22] LABS: Glucose,Whole Blood 100 mg/dL (70-110)
[2024-11-12 11:37] LABS: Glucose,Whole Blood 140 mg/dL (70-110)
--- NOTE | 2024-11-12 13:41 | P.PN ---
Subjective Progress Note Date: 11/12/24 84-year-old female with past medical history significant for hypertension, hyperlipidemia, spina bifida, history of recurrent UTIs, who presented from [facility] with generalized weakness, fever, chills and dysuria for 1 day. Patient is wheelchair-bound. Patient stated that she felt very weak yesterday, also reported some dysuria and chills. Patient denied any sore throat, productive cough, shortness breath, chest pain, palpitation, nausea vomiting diarrhea constipation abdominal pain weakness or numbness of extremities. In the ED patient had a temperature of 99.8, was tachycardic with heart rate 115, respiratory 20, blood pressure 139/92, saturating 95% on room air. WBC 17.3, hemoglobin 11.8, platelet 432, absolute neutrophils 15.1. Sodium 132 potassium 4.4 chloride 96 CO2 21 BUN 22 creatinine 0.97 lactic acid 1.1. Liver profile was unremarkable, mildly elevated alkaline phosphatase 151. Troponin negative. UA positive for nitrite, large leukocyte esterase, WBCs more than 192. Urine culture blood culture ordered in the ED. Chest x-ray negative for any acute process, showed low lung volumes with cardiomegaly. 3. Patient seen and examined. Blood work this morning showed WBC 8.5, hemoglobin 9.3, platelet count 330, HbA1c 9.3. Complaining of increased frequency of urination. Denies any fever or chills 11/12. Patient seen and examined. Continues to be afebrile. States that she feels stronger. Vital signs stable REVIEW OF SYSTEMS: CONSTITUTIONAL: No fever, no malaise,. CARDIOVASCULAR: No chest pain, no palpitations, no syncope. PULMONARY: No shortness of breath, no cough, GASTROINTESTINAL: No diarrhea, no nausea, no vomiting, no abdominal pain. NEUROLOGICAL: No headaches, no weakness, PHYSICAL EXAMINATION: GENERAL: The patient is alert and oriented x3, not in any acute distress. Well developed, well nourished. HEENT: Pupils are round and equally reacting to light. EOMI. No scleral icterus. No conjunctival pallor. Normocephalic, atraumatic. No pharyngeal erythema. No thyromegaly. CARDIOVASCULAR: S1 and S2 present. No murmurs, rubs, or gallops. PULMONARY: Chest is clear to auscultation, no wheezing or crackles. ABDOMEN: Soft, nontender, nondistended, normoactive bowel sounds. No palpable organomegaly. MUSCULOSKELETAL: No joint swelling or deformity. EXTREMITIES: No cyanosis, clubbing, or pedal edema. NEUROLOGICAL: Gross neurological examination did not reveal any focal deficits. SKIN: No rashes. Assessment and plan Sepsis: UTI: History of recurrent UTIs Presented with generalized weakness, dysuria, fever and chills. UA positive. Follow-up on urine cultures Follow-up on blood cultures Continue Rocephin ID following Hypertension: Continue triamterene hydrochlorothiazide, losartan Diabetes mellitus: Continue Amaryl, Accu-Cheks, diabetic. Sliding-scale insulin Labs and medication were reviewed.. Continue same treatment. Continue with symptomatic treatment. Resume home medication. Monitor labs and vitals. DVT and GI prophylaxis. Further recommendations as per clinical course of the patient Dictation was produced using [email or web address] dictation software. please excuse any grammatical, word or spelling errors. Objective - Vital Signs Vital signs: Vital Signs Temp 97.9 F 11/12/24 07:03 Pulse 83 11/12/24 07:03 Resp 18 11/12/24 07:03 BP 128/76 11/12/24 07:03 Pulse Ox 97 11/12/24 07:03 FiO2 Intake & Output 11/11/24 11/12/24 11/12/24 17:59 06:59 18:59 Intake Total Output Total Balance Intake: Intake, IV Titration Amount Sodium Chloride 0.9% 1, 000 ml @ 130 mls/hr IV . Q7H42M [facility] Rx#:[id number] cefTRIAXone 2 gm In Sodium Chloride 0.9% 50 ml @ 100 mls/hr IVPB Q24HR [facility] Rx#:[id number] Oral Other Output: Urine Other: Voiding Method - Labs CBC & Chem 7: 11/11/24 05:53 11/11/24 05:53 Labs: Abnormal Lab Results - Last 24 Hours (Table) 11/11/24 11/11/24 11/11/24 Range/Units 05:53 11:40 16:47 Glucose 127 H (70-110) mg/dL POC Glucose (mg/dL) 194 H 129 H (70-110) mg/dL Calcium 8.2 L (8.7-10.3) mg/dL 11/11/24 Range/Units 21:13 Glucose (70-110) mg/dL POC Glucose (mg/dL) 154 H (70-110) mg/dL Calcium (8.7-10.3) mg/dL Microbiology - Last 24 Hours (Table) 11/10/24 09:55 Blood Culture - Preliminary Blood 11/10/24 09:30 Urine Culture - Preliminary Urine,Voided Gram Neg Bacilli
--- NOTE | 2024-11-12 15:16 | P.PN ---
Subjective Progress Note Date: 11/12/24 Principal diagnosis: Reason for follow-up is a UTI Patient is a 84-year-old female with a past medical history significant for diabetes mellitus hypertension spina bifida history of kidney stone recurrent UTI presented to hospital with generalized weakness fever chills urinary symptom concerning for symptomatic UTI. On today's evaluation that is 11/12/2024, Patient is afebrile patient is currently on room air and denies having any shortness of breath, the patient d enies any chest pain or cough, the patient denies any nausea vomiting did not have any abdominal pain and no diarrhea mention feeling better. No new lab has been repeated today urine grew E. coli and Klebsiella sensitive to ceftriaxone Objective - Vital Signs Vital signs: Vital Signs Temp 98.0 F 11/12/24 13:41 Pulse 89 11/12/24 13:41 Resp 17 11/12/24 13:41 BP 145/83 11/12/24 13:41 Pulse Ox 98 11/12/24 13:41 FiO2 Intake & Output 11/11/24 11/12/24 11/12/24 17:59 06:59 18:59 Intake Total Output Total 800 Balance -800 Intake: Intake, IV Titration Amount Sodium Chloride 0.9% 1, 000 ml @ 130 mls/hr IV . Q7H42M [facility] Rx#:[id number] cefTRIAXone 2 gm In Sodium Chloride 0.9% 50 ml @ 100 mls/hr IVPB Q24HR [facility] Rx#:[id number] Oral Other Output: Urine 800 Other: Voiding Method - Exam GENERAL DESCRIPTION: An elderly female lying in bed in no distress RESPIRATORY SYSTEM: Unlabored breathing , decreased breath sounds at bases HEART: S1 S2 regular rate and rhythm , ABDOMEN: Soft , no tenderness EXTREMITIES: No edema feet - Labs CBC & Chem 7: 11/11/24 05:53 11/11/24 05:53 Labs: Abnormal Lab Results - Last 24 Hours (Table) 11/11/24 11/11/24 11/12/24 Range/Units 16:47 21:13 11:35 POC Glucose (mg/dL) 129 H 154 H 140 H (70-110) mg/dL Microbiology - Last 24 Hours (Table) 11/10/24 09:30 Urine Culture - Final Urine,Voided Escherichia coli Klebsiella pneumoniae 11/10/24 09:55 Blood Culture - Preliminary Blood Assessment and Plan (1) UTI (urinary tract infection) Current Visit: Yes Status: Acute Code(s): N39.0 - URINARY TRACT INFECTION, SITE NOT SPECIFIED SNOMED Code(s): 16399470 (2) Allergy to multiple antibiotics Current Visit: No Status: Acute Code(s): Z88.1 - ALLERGY STATUS TO OTHER ANTIBIOTIC AGENTS SNOMED Code(s): 090965458 Plan: 1patient presented to hospital with sepsis in this patient did have fever tachycardia elevated white count meeting criteria for SIRS source is UTI likely from enteric gram-negative pathogen in this patient noted to have a history of kidney stone could be the contributing factor for recurrent UTIs. 2patient did have ultrasound of the kidney and bladder area to make sure no evidence of any structural abnormality of the right kidney nonvisualization of the left kidney 3urine is growing E. coli and Klebsiella positive but sensitive to ceftriaxone to continue while inpatient finishing therapy with Ceftin question concern answered Dictation was produced using [employer] dictation software. please excuse any grammatical, word or spelling errors. Time with Patient: Less than 30
[2024-11-12 16:30] LABS: Glucose,Whole Blood 176 mg/dL (70-110)
[2024-11-12 20:08] LABS: Glucose,Whole Blood 146 mg/dL (70-110)
[2024-11-13 06:22] LABS: Glucose,Whole Blood 104 mg/dL (70-110)
[2024-11-13 07:29] VITALS: BP 151/80; PULSE 87; TEMP 98.6
[2024-11-13 08:18] LABS: ALT 13 U/L (8-44); AST 12 U/L (13-35); Albumin 2.9 g/dL (3.8-4.9); Albumin/Globulin Ratio 1.21 Ratio (1.60-3.17); Alkaline Phosphatase 102 U/L (41-126); BUN/Creat Ratio 11.25 Ratio (12.00-20.00); Calcium 8.5 mg/dL (8.7-10.3); Chloride 104 mmol/L (96-109); Globulin 2.4 g/dL (1.6-3.3); Glucose 119 mg/dL (70-110); Sodium 137 mmol/L (135-145); Total Bilirubin <0.2 mg/dL (0.3-1.2); Total Protein 5.3 g/dL (6.2-8.2)
[2024-11-13 09:01] LABS: Basophils # (A) 0.06 X 10*3/uL (0.00-0.10); Basophils % (A) 0.8 %; Eosinophils # (A) 0.19 X 10*3/uL (0.04-0.35); Eosinophils % (A) 2.6 %; HCT 29.8 % (37.2-46.3); HGB 9.2 g/dL (12.0-15.0); Lymphocytes % (A) 20.6 %; MCH 26.6 pg (27.0-32.0); MCHC 30.9 g/dL (32.0-37.0); MCV 86.1 FL (80.0-97.0); Mean Platelet Volume 9.4 FL (9.5-12.2); Monocytes # (A) 0.99 X 10*3/uL (0.20-1.00); Monocytes % (A) 13.6 %; NRBC Per 100 WBC 0 X 10*3/uL (0.00-0.01); Neutrophils % (A) 61.9 %; Platelet Count 354 X 10*3/uL (140-440); RBC 3.46 X 10*6/uL (4.10-5.20); RDW 12.8 % (11.5-14.5); WBC 7.28 X 10*3/uL (4.50-10.00)
[2024-11-13 09:47] VITALS: RESP 20
[2024-11-13 11:23] LABS: Glucose,Whole Blood 174 mg/dL (70-110)
--- NOTE | 2024-11-13 14:05 | P.DS ---
Providers Date of admission: 11/10/24 10:54 Expected date of discharge: 11/13/24 Attending physician: Jay Sofia Consults: 11/10/24 10:58 Consult Physician Routine Consulting Provider: Wili Swartz Consult Reason/Comments: UTI Do you want consulting provider notified?: Yes Primary care physician: Dennis Dawson Hospital Course: Discharge diagnoses; Sepsis: UTI: History of recurrent UTIs Presented with generalized weakness, dysuria, fever and chills. UA positive. Follow-up on urine cultures Follow-up on blood cultures Continue Rocephin ID following 11/13. Being discharged on Ceftin for 2 more days to complete a 5-day course of treatment Hypertension: Continue triamterene hydrochlorothiazide, losartan Diabetes mellitus: Continue Amaryl, Accu-Cheks, diabetic. Sliding-scale insulin Hospital course; 84-year-old female with past medical history significant for hypertension, hyperlipidemia, spina bifida, history of recurrent UTIs, who presented from [facility] with generalized weakness, fever, chills and dysuria for 1 day. Patient is wheelchair-bound. Patient stated that she felt very weak yesterday, also reported some dysuria and chills. Patient denied any sore throat, productive cough, shortness breath, chest pain, palpitation, nausea vomiting diarrhea constipation abdominal pain weakness or numbness of extremities. In the ED patient had a temperature of 99.8, was tachycardic with heart rate 115, respiratory 20, blood pressure 139/92, saturating 95% on room air. WBC 17.3, hemoglobin 11.8, platelet 432, absolute neutrophils 15.1. Sodium 132 potassium 4.4 chloride 96 CO2 21 BUN 22 creatinine 0.97 lactic acid 1.1. Liver profile was unremarkable, mildly elevated alkaline phosphatase 151. Troponin negative. UA positive for nitrite, large leukocyte esterase, WBCs more than 192. Urine culture blood culture ordered in the ED. Chest x-ray negative for any acute process, showed low lung volumes with cardiomegaly. 11/11. Patient seen and examined. Blood work this morning showed WBC 8.5, hemoglobin 9.3, platelet count 330, HbA1c 9.3. Complaining of increased fr equency of urination. Denies any fever or chills 11/12. Patient seen and examined. Continues to be afebrile. States that she feels stronger. Vital signs stable 11/13. Patient seen and examined. Urine cultures growing E. coli, Klebsiella susceptible to multiple drugs, being discharged on oral Ceftin to complete a 5 days course of treatment PHYSICAL EXAMINATION: GENERAL: The patient is alert and oriented x3, not in any acute distress. Well developed, well nourished. HEENT: Pupils are round and equally reacting to light. EOMI. No scleral icterus. No conjunctival pallor. Normocephalic, atraumatic. No pharyngeal erythema. No thyromegaly. CARDIOVASCULAR: S1 and S2 present. No murmurs, rubs, or gallops. PULMONARY: Chest is clear to auscultation, no wheezing or crackles. ABDOMEN: Soft, nontender, nondistended, normoactive bowel sounds. No palpable organomegaly. MUSCULOSKELETAL: No joint swelling or deformity. EXTREMITIES: No cyanosis, clubbing, or pedal edema. NEUROLOGICAL: Gross neurological examination did not reveal any focal deficits. SKIN: No rashes. Dictation was produced using [employer] dictation software. please excuse any grammatical, word or spelling errors. Patient Condition at Discharge: Stable Plan - Discharge Summary Discharge Rx Participant: No New Discharge Prescriptions: New cefuroxime axetiL [Ceftin] 500 mg PO BID 2 Days #4 tab Continue Glimepiride [Amaryl] 3 mg PO BID Triamterene-Hctz 37.5-25Mg [Maxzide 37.5-25] 1 tab PO Q48H Losartan Potassium 100 mg PO DAILY traMADol HCL 100 mg PO TID Dorzolamide-Timol 2.23%/0.68% [Cosopt] 1 drop BOTH EYES QID Montelukast [Singulair] 10 mg PO HS Latanoprost [Latanoprost 0.005%] 1 drop RIGHT EYE HS Pantoprazole [Protonix] 40 mg PO DAILY Discontinued Cephalexin [Keflex] 250 mg PO DAILY Discharge Medication List Glimepiride [Amaryl] 3 mg PO BID 01/27/17 [History] Dorzolamide-Timol 2.23%/0.68% [Cosopt] 1 drop BOTH EYES QID 08/29/22 [History] Latanoprost [Latanoprost 0.005%] 1 drop RIGHT EYE HS 08/29/22 [History] Losartan Potassium 100 mg PO DAILY 08/29/22 [History] Montelukast [Singulair] 10 mg PO HS 08/29/22 [History] Triamterene-Hctz 37.5-25Mg [Maxzide 37.5-25] 1 tab PO Q48H 08/29/22 [History] Pantoprazole [Protonix] 40 mg PO DAILY 12/20/23 [History] traMADol HCL 100 mg PO TID 12/20/23 [History] cefuroxime axetiL [Ceftin] 500 mg PO BID 2 Days #4 tab 11/13/24 [Rx] Follow up Appointment(s)/Referral(s): Dennis Dawson MD [Primary Care Provider] - 1-2 days Discharge Disposition: HOME SELF-CARE
--- NOTE | 2024-11-13 14:33 | P.PN ---
Subjective Progress Note Date: 11/13/24 Principal diagnosis: Reason for follow-up is a UTI Patient is a 84-year-old female with a past medical history significant for diabetes mellitus hypertension spina bifida history of kidney stone recurrent UTI presented to hospital with generalized weakness fever chills urinary symptom concerning for symptomatic UTI. On today's evaluation that is 11/13/2024, patient has been afebrile, patient is breathing comfortably and is currently on room air, patient denies having any significant cough no chest pain, patient denies nausea vomiting or diarrhea and no abdominal pain feeling better wants to go home. Patient white count 7.28, creatinine 0.8 blood culture negative urine with E. coli and Klebsiella Objective - Vital Signs Vital signs: Vital Signs Temp 98.6 F 11/13/24 07:29 Pulse 87 11/13/24 07:29 Resp 20 11/13/24 09:46 BP 151/80 11/13/24 07:29 Pulse Ox 97 11/13/24 07:29 FiO2 Intake & Output 11/12/24 11/13/24 11/13/24 18:59 06:59 18:59 Intake Total 540 Output Total 1250 1100 Balance -1250 -560 Intake: Oral 540 Output: Urine 1250 1100 Other: Voiding Method External Catheter External Catheter - Exam GENERAL DESCRIPTION: An elderly female lying in bed in no distress RESPIRATORY SYSTEM: Unlabored breathing , decreased breath sounds at bases HEART: S1 S2 regular rate and rhythm , ABDOMEN: Soft , no tenderness EXTREMITIES: No edema feet - Labs CBC & Chem 7: 11/13/24 03:25 11/13/24 03:25 Labs: Abnormal Lab Results - Last 24 Hours (Table) 11/12/24 11/12/24 11/12/24 Range/Units 11:35 16:29 20:07 RBC (4.10-5.20) X 10*6/uL Hgb (12.0-15.0) g/dL Hct (37.2-46.3) % MCH (27.0-32.0) pg MCHC (32.0-37.0) g/dL MPV (9.5-12.2) FL BUN/Creatinine Ratio (12.00-20.00) Ratio Glucose (70-110) mg/dL POC Glucose (mg/dL) 140 H 176 H 146 H (70-110) mg/dL Calcium (8.7-10.3) mg/dL Total Bilirubin (0.3-1.2) mg/dL AST (13-35) U/L Total Protein (6.2-8.2) g/dL Albumin (3.8-4.9) g/dL Albumin/Globulin Ratio (1.60-3.17) Ratio 11/13/24 11/13/24 Range/Units 03:25 03:25 RBC 3.46 L (4.10-5.20) X 10*6/uL Hgb 9.2 L (12.0-15.0) g/dL Hct 29.8 L (37.2-46.3) % MCH 26.6 L (27.0-32.0) pg MCHC 30.9 L (32.0-37.0) g/dL MPV 9.4 L (9.5-12.2) FL BUN/Creatinine Ratio 11.25 L (12.00-20.00) Ratio Glucose 119 H (70-110) mg/dL POC Glucose (mg/dL) (70-110) mg/dL Calcium 8.5 L (8.7-10.3) mg/dL Total Bilirubin <0.2 L (0.3-1.2) mg/dL AST 12 L (13-35) U/L Total Protein 5.3 L (6.2-8.2) g/dL Albumin 2.9 L (3.8-4.9) g/dL Albumin/Globulin Ratio 1.21 L (1.60-3.17) Ratio Microbiology - Last 24 Hours (Table) 11/10/24 09:55 Blood Culture - Preliminary Blood 11/10/24 09:30 Urine Culture - Final Urine,Voided Escherichia coli Klebsiella pneumoniae Assessment and Plan (1) UTI (urinary tract infection) Status: Acute Code(s): N39.0 - URINARY TRACT INFECTION, SITE NOT SPECIFIED SNOMED Code(s): 60612025 (2) Allergy to multiple antibiotics Status: Acute Code(s): Z88.1 - ALLERGY STATUS TO OTHER ANTIBIOTIC AGENTS SNOMED Code(s): 875446225 Plan: 1patient presented to hospital with sepsis in this patient did have fever tachycardia elevated white count meeting criteria for SIRS source is UTI likely from enteric gram-negative pathogen in this patient noted to have a history of kidney stone could be the contributing factor for recurrent UTIs. 2patient did have ultrasound of the kidney and bladder area to make sure no evidence of any structural abnormality of the right kidney nonvisualization of the left kidney 3urine is growing E. coli and Klebsiella positive in this patient has clinical responded to Rocephin finish therapy with Ceftin question concern answered Dictation was produced using [employer] dictation software. please excuse any gramm atical, word or spelling errors. Time with Patient: Less than 30
== END 2024-11-13 14:00 | disposition home or self-care (01) ==
LOC: EC 07:34 → INTOOBSV 10:54 → 4SSUR 10:54
PROVIDERS: ADMIT Hospitalist; ATTEND Hospitalist
DX: A41.9 Sepsis, unspecified organism (principal); N39.0 Urinary tract infection, site not specified; I10 Essential (primary) hypertension; E11.9 Type 2 diabetes mellitus without complications; Q05.9 Spina bifida, unspecified; E78.5 Hyperlipidemia, unspecified; Z87.440 Personal history of urinary (tract) infections; Z87.442 Personal history of urinary calculi; Z99.3 Dependence on wheelchair; Z79.4 Long term (current) use of insulin; Z79.84 Long term (current) use of oral hypoglycemic drugs; Z79.899 Other long term (current) drug therapy; Z88.1 Allergy status to other antibiotic agents; Z88.2 Allergy status to sulfonamides
CPT/HCPCS: 96376; 96365 ×2; 96366 ×3; 96372 ×3; 99291; 36415; 93005; 80053 ×2; 80048; 83605; 83735; 84484; 85025 ×3; 85610; 85730; 81001; 87040; 87086; 87077; 87186; 83036; 87636; 71045; 76770; G0378 ×4; J0696 ×4; J1650 ×3; 96361